=== PATIENT | female | born 1940 | race Caucasian/White ===

== ENCOUNTER → 2018-01-09 12:21 | Outpatient (CLI) | payer MEDICARE, SELFPAY ==
--- NOTE | 2018-01-09 12:26 | ECHOD_ITS ---
Reason For Study: SOB ON EXERTION Procedure This was a 2D Doppler, Color Flow transthoracic echocardiogram. The exam was of adequate technical quality. Exam performed in department. Left Ventricle Normal LV size. Mild to moderate mitral annular calcification. Left ventricular systolic function is normal. The estimated ejection fraction is 70 %. There is evidence of diastolic dysfunction. No regional wall motion abnormalities noted. Right Ventricle Normal RV size. Normal systolic function. Atria The left atrium is mildly enlarged. Normal right atrium. No doppler evidence for ASD. Mitral Valve There is mild mitral annular calcification. Chordal systolic anterior motion of the mitral valve. Trivial mitral valve insufficiency. Tricuspid Valve Normal tricuspid valve. Mild (1+) tricuspid valve insufficiency. Right ventricular systolic pressure estimated to be 32 mmHg. Aortic Valve Trisinus/trileaflet aortic valve. Normal aortic valve. Trivial aortic valve insufficiency. Pulmonic Valve The pulmonic valve is not well visualized. Trivial pulmonic valve insufficiency. Great Vessels Normal sized aortic root. Pericardium/Pleural No pericardial effusion. MMode/2D Measurements & Calculations LVIDd: 3.4 cm IVSd: 1.5 cm Ao root diam: 2.8 cm LVIDs: 1.8 cm LVPWd: 1.4 cm LA dimension: 3.2 cm RVDd: 2.5 cm FS: 47.5 % LAV(MOD-bp): 52.0 ml LVAd ap4: 22.7 cm2 SV(MOD-sp4): 39.5 ml LAV(MOD-bp) Indexed: 31.2 ml/m2 EDV(MOD-sp4): 59.1 ml LAV(MOD-sp2): 50.1 ml EDV(sp4-el): 62.0 ml LAV(MOD-sp4): 49.5 ml LVAs ap4: 11.3 cm2 ESV(MOD-sp4): 19.6 ml ESV(sp4-el): 19.3 ml EF(MOD-sp4): 66.8 % EF(sp4-el): 68.9 % SV(sp4-el): 42.7 ml LA A4 area: 17.7 cm2 RA A4 area: 9.6 cm2 Time Measurements MV dec time: 0.24 sec Doppler Measurements & Calculations MV E max vinny: 84.2 cm/sec Lat Peak E' Vinny: 7.4 cm/sec Med Peak E' Vinny: 5.7 cm/sec MV A max vinny: 103.1 cm/sec E/E' lat: 11.4 E/E' med: 14.8 MV E/A: 0.82 Ao V2 max: 160.6 cm/sec LV V1 max: 142.0 cm/sec PA V2 max: 124.3 cm/sec Ao max P.3 mmHg LV V1 max P.1 mmHg TR max vinny: 270.5 cm/sec TR max P.3 mmHg Interpretation Summary Left ventricular systolic function is normal. The estimated ejection fraction is 70 %. Mild to moderate mitral annular calcification. The left atrium is mildly enlarged. There is mild mitral annular calcification. Chordal systolic anterior motion of the mitral valve. Trivial mitral valve insufficiency. Mild (1+) tricuspid valve insufficiency. Trivial aortic valve insufficiency. Trivial pulmonic valve insufficiency. Right ventricular systolic pressure estimated to be 32 mmHg. There is evidence of diastolic dysfunction. Ordering Physician: Deepti Olmstead Referring Physician: Deepti Olmstead Performed By: Misti Ortiz RDCS
== END ==
PROVIDERS: Family Provider Nurse Practitioner; PCP Nurse Practitioner; Visit Provider Nurse Practitioner
DX: R06.02 Shortness of breath (principal)
CPT/HCPCS: 93306

== ENCOUNTER → 2018-02-13 08:39 | Outpatient (CLI) | payer MEDICARE, SELFPAY ==
--- NOTE | 2018-02-13 13:46 | PFTCOMP ---
COMPLETE PULMONARY FUNCTION TEST INTERPRETATION Brief HPI: Patient is a 77 year old female, currently under the care of Deepti Thadsouleymane, who presents to [facility] for complete pulmonary function tests secondary to diagnosis of COPD. Respiratory therapist reports good effort and reproducible results. Interpretation: Forced expiration spirometry shows a mild large airways obstructive ventilatory defect with an FEV1 of 79% predicted. There is no significant bronchodilator response by ATS criteria. Spirograms are of good quality and plateau slowly, indicating slowly emptying areas of the lungs. The respiratory flow volume loop shows decreased expiratory flow rates at high lung volumes consistent with small airways obstruction. Lung volumes by body plethysmography show a normal total lung capacity at 3.97 L, 91% predicted. All other lung volumes are within normal limits. Diffusion capacity by carbon monoxide is normal at 70% predicted. The airway resistance is elevated. Compared to previous pulmonary function tests from 06/25/2015, there has been no significant change. Impression: Irreversible mild large airways obstructive ventilatory defect with preserved diffusion capacity consistent with chronic bronchitis. 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
== END ==
PROVIDERS: Family Provider Nurse Practitioner; PCP Nurse Practitioner; Visit Provider Nurse Practitioner
DX: J44.9 Chronic obstructive pulmonary disease, unspecified (principal)
CPT/HCPCS: 94060; 94726; 94729

== ENCOUNTER → 2018-02-16 10:43 | Outpatient (CLI) | payer MEDICARE, SELFPAY ==
[2018-02-16 11:33] VITALS: PULSE 67; PULSE 69; PULSE 84; PULSE 86; PULSE 89; PULSE 90; PULSE 92; O2SAT 90; O2SAT 94; O2SAT 96; O2SAT 97
== END ==
PROVIDERS: Family Provider Nurse Practitioner; PCP Nurse Practitioner; Visit Provider Nurse Practitioner
DX: J44.9 Chronic obstructive pulmonary disease, unspecified (principal)
CPT/HCPCS: 94618

== ENCOUNTER → 2018-04-10 08:58 | Outpatient (CLI) | payer MEDICARE, SELFPAY ==
[2018-04-10 10:27] LABS: Hematocrit 36.8 % (37-47); Hemoglobin 12.4 g/dl (12.0-15.0); Mean Corp Hgb Conc 33.7 g/gl (32-36); Mean Corpuscular Hgb 30.5 pg (27.0-32.0); Mean Corpuscular Volume 90.4 fL (81-99); Mean Platelet Vol. 12.1 fl (6.2-12.0); Platelet Count 270 K/mm3 (150-450); RBC Distribution Width SD 42.6 fl (35.1-43.9); Red Blood Count 4.07 M/mm3 (4.2-5.4); White Blood Count 7.1 K/mm3 (4.4-11.0)
[2018-04-10 10:32] LABS: Scan Indicated on CBC? Y/N NO
[2018-04-10 10:51] LABS: Microalbumin,Random Urine 25.2 mg/L (NO RANGE EST.); Microalbumin:Creatinine Ratio 29.2 mg/g CRE (<30 mg/g CRE)
[2018-04-10 10:57] LABS: PTHIN 51.4 pg/mL (18.4-80.1); Vitamin D,25 Hydroxy 26.5 ng/mL (29.95-100.01)
[2018-04-10 11:01] LABS: Albumin, Serum 3.9 g/dL (3.2-5.0); BUN 31 mg/dL (7-18); BUN/Creat Ratio 18.6 RATIO (10-20); Chloride 106 mmol/L (98-107); Creatinine, Serum 1.67 mg/dL (0.55-1.02); EST Glomerular Filtration Rate 31 mL/min (>60); Est Glom Filt Rate - Afr Amer 38 mL/min (>60); Glucose 100 mg/dL (74-106); Phosphorus 3.7 mg/dL (2.5-4.9); Potassium 4.3 mmol/L (3.5-5.1); Sodium Level 140 mmol/L (136-145)
== END ==
PROVIDERS: Family Provider Nurse Practitioner; PCP Nurse Practitioner; Referring Provider Internal Medicine Nephrology; Visit Provider Internal Medicine Nephrology
DX: N18.3 Chronic kidney disease, stage 3 (moderate) (principal)
CPT/HCPCS: 36415; 80069; 82043; 82306; 82570; 83970; 85027

== ENCOUNTER → 2018-04-24 13:51 | Outpatient (CLI) | payer MEDICARE, SELFPAY ==
--- NOTE | 2018-04-24 13:53 | ECHOD_ITS ---
Reason For Study: DYSPNEA/SOB Procedure This was a 2D Doppler, Color Flow transthoracic echocardiogram. The study was technically difficult. Exam performed in department. Left Ventricle Normal LV size. Left ventricular systolic function is normal. The estimated ejection fraction is 70 %. Diastolic function is indeterminate. No regional wall motion abnormalities noted. Right Ventricle Normal RV size. Normal systolic function. Atria The left atrium is mildly enlarged. Normal right atrium. No doppler evidence for ASD. Mitral Valve There is mild mitral annular calcification. Chordal systolic anterior motion of the mitral valve. Trivial mitral valve insufficiency. Tricuspid Valve Normal tricuspid valve. Mild tricuspid valve insufficiency. Right ventricular systolic pressure estimated to be 27 mmHg. Aortic Valve Trisinus/trileaflet aortic valve. Trivial aortic valve insufficiency. Pulmonic Valve The pulmonic valve is not well visualized. Great Vessels Normal sized aortic root. Pericardium/Pleural No pericardial effusion. MMode/2D Measurements & Calculations LVIDd: 3.9 cm IVSd: 1.2 cm Ao root diam: 2.8 cm LVIDs: 2.3 cm LVPWd: 1.2 cm LA dimension: 3.6 cm RVDd: 2.7 cm FS: 42.1 % LAV(MOD-bp): 51.6 ml LA A4 area: 17.0 cm2 LA dimension(2D): 3.6 cm LAV(MOD-bp) Indexed: 31.0 ml/m2 LAV(MOD-sp2): 51.6 ml LAV(MOD-sp4): 48.0 ml RA A4 area: 11.0 cm2 Doppler Measurements & Calculations MV E max vinny: 84.8 cm/sec Lat Peak E' Vinny: 6.7 cm/sec Med Peak E' Vinny: 6.0 cm/sec MV A max vinny: 102.6 cm/sec E/E' lat: 12.6 E/E' med: 14.1 MV E/A: 0.83 Ao V2 max: 149.6 cm/sec LV V1 max: 130.6 cm/sec PA V2 max: 122.0 cm/sec Ao max P.0 mmHg LV V1 max P.8 mmHg TR max vinny: 246.5 cm/sec TR max P.4 mmHg Interpretation Summary The study was technically difficult. Left ventricular systolic function is normal. The estimated ejection fraction is 70 %. The left atrium is mildly enlarged. There is mild mitral annular calcification. Chordal systolic anterior motion of the mitral valve. Trivial mitral valve insufficiency. Mild tricuspid valve insufficiency. Trivial aortic valve insufficiency. Right ventricular systolic pressure estimated to be 27 mmHg. Diastolic function is indeterminate. Ordering Physician: Raymond Ardon Referring Physician: Deepti Olmstead Performed By: Libertad Cortes RDCS, RVT
== END ==
PROVIDERS: Family Provider Nurse Practitioner; PCP Nurse Practitioner; Referring Provider Nurse Practitioner Family; Visit Provider Nurse Practitioner Family
DX: I48.92 Unspecified atrial flutter (principal); I10 Essential (primary) hypertension; R06.09 Other forms of dyspnea; Z79.899 Other long term (current) drug therapy
CPT/HCPCS: 93306

== ENCOUNTER → 2018-06-07 09:40 | Outpatient (CLI) | payer MEDICARE, SELFPAY ==
[2018-04-16 09:16] VITALS: BMI 27.1
--- NOTE | 2018-06-07 09:42 | BI_ITS ---
MAMMOGRAPHY - BILATERAL SCREENING REASON FOR EXAM: Female, 77 years old. Routine annual screening examination. PERTINENT HISTORY: Non-contributory. TECHNIQUE: Digital bilateral breast fabi (3D mammographic acquisition) in the CC and MLO projections. 2-D mediolateral oblique (MLO) and craniocaudad (CC) views of both breasts were obtained. CAD: Full Field Digital Mammography with Computer Added Detection was performed. COMPARISON: Comparison is made with prior study dated October 01, 2015. FINDINGS: Breast Composition: There are scattered areas of fibroglandular density. There are no dominant masses or suspicious calcifications. No other significant abnormalities are identified. There has been no significant change since the prior study. BI/SCREENING MAMM (CAD), BILAT IMPRESSION: Stable bilateral screening mammogram. Yearly follow-up mammogram recommended. (A) ASSESSMENT CATEGORY: BIRADS Category 1: Negative. A letter regarding these results will be sent to the patient by the facility within 30 days. Approximately 10% of breast cancers are not detected by mammography. A normal mammogram should not delay biopsy of a clinically suspicious abnormality. [id number] Electronically Signed: Tyron Barillas MD at 10:31 EST Tel [phone], Service support ,
--- NOTE | 2018-06-07 10:03 | BD_ITS ---
STUDY: DUAL ENERGY X-RAY ABSORPTIOMETRY / DXA REASON FOR EXAM: Female, 77 years old. The patient is postmenopausal. Loss of height. TECHNIQUE: Bone Mineral Density (BMD) measurements of lumbar spine and bilateral hips were obtained. COMPARISON: Comparison is made with prior examination dated October 01, 2015. FINDINGS: Lumbar Spine (L1-L4): g/cm2 (1.126) / T-score (-0.4) / Z-score (1.5) Findings are suggestive of normal bone density with a low fracture risk. Left Femur Total: g/cm2 (0.793) / T-score (-1.7) / Z-score (0.3) Left Femoral Neck: g/cm2 (0.795) / T-score (-1.7) / Z-score (0.4) Right Femur Total: g/cm2 (0.812) / T-score (-1.6) / Z-score (0.4) Right Femoral Neck: g/cm2 (0.773) / T-score (-1.9) / Z-score (0.2) The T-Scores on the most recent prior examination were: Lumbar Spine (L1-L4): There has been improvement of bone density since the previous examination. Left Femur Total: which represents a worsening of 2.1%. Right Femur Total: which represents a worsening of 1.7%. BD/Dexa Bone Density Study IMPRESSION: The patient is considered osteopenic as outlined below according to World [place] Organization (WHO) criteria with a moderate fracture risk. There has been worsening of bone density since the previous examination. Reference Information: The T-score is the number of standard deviations above or below the standard which is normal for young adults at their peak bone mineral density. The World Health Organization (WHO) interprets the T-scores as follows: Above -1 Normal bone density Between -1 and -2.5 Osteopenia Equal to / or below -2.5 Osteoporosis As a practical clinical guideline, osteopenia may be graded as follows: Mild -1 through -1.5 Moderate -1.6 through -2.0 Severe -2.1 through -2.4 The Z-score is the number of standard deviations above or below age-matched controls. A Z-score of less than -1.5 would be considered abnormal. References: 1. NIH Osteoporosis and Related Bone Diseases http://www.osteo.org 2. International Society for Clinical Densitometry http://www.iscd.org 3. National Osteoporosis Foundation http://www.nof.org Electronically Signed: Tyron Barillas MD at 13:10 EST Tel [phone], Service support ,
--- OUTSIDE RECORDS SUMMARY | 2018-07-24 03:22 | XMS RPT_ITS | Continuity of Care Document ---
:1940 Author Organization [facility] Address [address] [place] [address] Phone Care Team Providers Name Role Phone Deepti Olmstead CNP Unavailable Kelvin Toney Unavailable Chuy OLVERA, Dr. Ade Antonio Unavailable Dr. Carlos Smyth Unavailable Dr. Christian Aguilar Unavailable Marvin OLVERA, Jose Antonio Unavailable Unavailable Burton Kirk MD, Luca Unavailable Aury Robles Unavailable Unavailable Slarb OUTREACH CLINICIAN, Chula Unavailable Unavailable Long OUTREACH CLINICIAN, Vonnie L Unavailable Unavailable Gus Grubbs Unavailable Unavailable Unavailable Unavailable Problems Name Dates Details Acute sinusitis, unspecified (J01.90, 461.9) Status: Active Asthma (J45.909, 493.90) Comments: on spiriva, and new Arnuity elipta from [facility], was told NO COPD but asthma with reflux on prilosec, elevated HOB, and nothing after 6 to eat Status: Active Atherosclerotic plaque (I70.90, 440.9) Comments: Mod carotid stenosis , carotid doppler per cardi, [place] Status: Active Basal cell carcinoma, face (C44.310, 173.31) Comments: near eay basal cell left eye, removed by [facility] eye doctor Status: Active BMI 25.0-25.9,adult (Z68.25, V85.21) Status: Active BMI 26.0-26.9,adult (Z68.26, V85.22) Status: Active BMI 27.0-27.9,adult (Z68.27, V85.23) Status: Active Cerebrovascular disease, unspecified (I67.9, 437.9) Comments: November 2012 old, on plavix and stable lipid Status: Active CHRONIC KIDNEY DISEASE, STAGE III (MODERATE) (N18.3, 585.3) Comments: last creat 1.[address] Heard,41%, told to stay hydrated, 04-10-18 no proteinuria Status: Active Cough (R05, 786.2) Status: Active Current non-smoker (Z78.9, V49.89) Status: Active Encounter for annual general medical examination with abnormal findings in adult (Z00.01, V70.0) Status: Active Encounter for screening for malignant neoplasm of colon (Renamed from Special screening for malignant neoplasms, colon) (Z12.11, V76.51) Status: Active Encounter for screening mammogram for breast cancer (Renamed from Encounter for screening mammogram for malignant neoplasm of breast) (Z12.31, V76.12) Status: Active FAMILY HISTORY OF DIABETES MELLITUS (Z83.3, V18.0) Status: Active GERD (gastroesophageal reflux disease) (K21.9, 530.81) Comments: Reflux seen on CT per Sibili on prilosec at hs and nothing to eat after 6 Status: Active Hypercholesteremia (E78.00, 272.0) Comments: rubin ralph recheck lipid, await what [employer] will cover and what she can tolerate unable to tolerat statin, wont pay for repatha Status: Active Hypertension, benign essential, goal below 140/90 (I10, 401.1) Comments: BP 125/60 at home since on hctz, losartan, and diltazem with much better control Status: Active Hypertension, uncontrolled (I10, 401.9) Comments: ? cental hypertension, put on hydralazine 50mg tid, with improvement of ORLY 139/57 would had decreased dose to 25mgtid and BP up, so will increase again to 50mg tid because BP 203/70 , then saw Rhaina p ut on lebetalol developed SOB and she took herself off and put herelf back on hydralazine bid, then she decreased dose to 50mg and then felt faint at home, this has been Dced.Now only only on losartan and ojahttyub168/68 Status: Active Hypertriglyceridemia (E78.1, 272.1) Comments: unable to tolerate fibrate, taking red yeast rice and CoQ10, fiberfil will repeat cholesall statins lead to myalgia consider rapatha but not covered Status: Active Hypothyroid (E03.9, 244.9) Status: Active Hypothyroidism (E03.9, 244.9) Status: Active Need for prophylactic vaccination and inoculation against influenza (Z23, V04.81) Status: Active Need for prophylactic vaccination and inoculation against influenza (Renamed from Need for immunization against influenza) (Z23, V04.81) Status: Active Nonsmoker (Z78.9, V49.89) Status: Active Nonsmoker (Z78.9, V49.89) Status: Active Osteoporosis (M81.0, 733.00) Status: Active Post-infection bronchospasm (J98.01, 519.11) Status: Active Postmenopausal (Renamed from Postmenopausal status) (Z78.0, V49.81) Status: Active SOB (shortness of breath) on exertion (R06.02, 786.05) Status: Active Status post colonoscopy with polypectomy (Z98.890, V45.89) Comments: Dr. Smyth did colonoscopy on 10/06/16. Removed one polyp. Status: Active Stroke (I63.9, 434.91) Comments: [facility] improving now on ASA and Plavix and fish oiljune - slurred speech symptom and then dx at [facility] after discharged from [facility] twice -- sx had progressed to R arm numb and w eak and difficulty swallowing. at time of cva - bp was 300/100 Status: Active Unspecified Diagnosis Status: Active Unspecified Diagnosis Status: Active Unspecified Diagnosis Status: Active Unspecified Diagnosis Status: Active Urinary tract infection, acute (N39.0, 599.0) Status: Active Vertigo (R42, 780.4) Comments: will use flonase, and head exercises and watch salt Status: Active Vitamin d deficiency (E55.9, 268.9) Status: Active Vitamin deficiency (E56.9, 269.2) Status: Active Medications Name Dates Details Arnuity Ellipta 100 MCG/ACT Inhalation Aerosol Powder Breath Activated 1 (one) Puff daily for 30 days Quantity: 1 {Inhaler} Refills: 0 Ordered:02-May-2018 Ishan FORMAN Deepti Dallas CNP, Deepti Calderon Start : 02-May-2018 Active DilTIAZem CD 180 MG Oral Capsule Extended Release 24 Hour 1 (one) Capsule ER 24HR daily for 30 days Quantity: 30 {Capsule} Refills: 6 Ordered:01-May-2017 Ishan DASIA Deepti Dallas CNP, Deepti Calderon Start : 01-May-2017 Active Glucosamine Sulfate 500 MG Oral Capsule 1 (one) Capsule Capsule bid for 0 days Quantity: 60 {Capsule} Refills: 0 Ordered:24-Nov-2017 [place] ROBERT Chula Start : 04-Aug-2017 Active HydroCHLOROthiazide 12.5 MG Oral Capsule 1 (one) Capsule daily for 90 days Quantity: 90 {Capsule} Refills: 3 Ordered:19-May-2018 Ishan FORMAN Deepti Dallas CNP Deepti Calderon Start : 19-May-2018 Active HydroCHLOROthiazide 12.5 MG Oral Capsule 1 (one) Capsule daily for 0 days Quantity: 90 {Capsule} Refills: 3 Ordered:19-May-2018 Ishan FORMAN Deepti Dallas CNP Deepti Calderon Start : 19-May-2018 Active Levothyroxine Sodium 50 MCG Oral Tablet 1 (one) Tablet daily for 90 days Quantity: 90 {Tablet} Refills: 3 Ordered:23-Nov-2017 Ishan FORMAN Deepti Dallas CNP Deepti Calderon Start : 23-Nov-2017 Active Livalo 4 MG Oral Tablet 1 (one) Tablet daily for 0 days Quantity: 28 {Tablet} Refills: 0 Ordered:02-May-2018 Ishan DASIA Deepti Dallas DASIA Deepti Calderon Start : 02-May-2018 Active Losartan Potassium 50 MG Oral Tablet 1 (one) Tablet bid for 90 days Quantity: 180 {Tablet} Refills: 3 Ordered:21-Feb-2018 Ishan DASIA Deepti Dallas CNP Deepti Calderon Start : 21-Feb-2018 Active Plavix 75 MG Oral Tablet 1 (one) Tablet qd for 90 days Quantity: 90 {Tablet} Refills: 3 Ordered:21-Feb-2018 Deepti Olmstead CNP, CNP, Mary E Start : 21-Feb-2018 Active PriLOSEC OTC 20 MG Oral Tablet Delayed Release 1 (one) Tablet DR take every other day then stop after 2 weeks for 0 days Quantity: 30 {Tablet} Refills: 0 Ordered:24-Nov-2017 Ishan FORMAN Deepti Nascimento CNP Start : 24-Nov-2017 Active ProAir HFA 108 (90 Base) MCG/ACT Inhalation Aerosol Solution 1 (one) Puff tid prn for rescue inhaler for 0 days Quantity: 1 {Inhaler} Refills: 3 Ordered:24-Nov-2017 Ishan FORMAN, Deepti Nascimento CNP Start : 24-Nov-2017 Active ProAir HFA 108 (90 Base) MCG/ACT Inhalation Aerosol Solution 1 (one) Puff tid prn for rescue inhaler for 0 days Quantity: 1 {Inhaler} Refills: 3 Ordered:24-Nov-2017 Ishan FORMAN Deepti Nascimento CNP Start : 24-Nov-2017 Active Spiriva Respimat 2.5 MCG/ACT Inhalation Aerosol Solution 2 (two) Aerosol Soln daily for 0 days Quantity: 3 {Carton} Refills: 3 Ordered:24-Nov-2017 Ishan FORMAN Deepti Nascimento CNP Start : 24-Nov-2017 Active Spiriva Respimat 2.5 MCG/ACT Inhalation Aerosol Solution 2 (two) Aerosol Soln daily for 0 days Quantity: 1 {Inhaler} Refills: 6 Ordered:24-Nov-2017 Ishan FORMAN Deepti Nascimento CNP Start : 24-Nov-2017 Active Vitamin D3 2000 UNIT Oral Capsule 1 (one) Capsule Capsule daily for 0 days Quantity: 30 {Capsule} Refills: 3 Ordered:10-Jan-2017 Ishan FROMAN, Deepti Nascimento CNP Start : 10-Jan-2017 Active AMLODIPINE BESYLATE, 10MG (Oral Tablet) 1 Tablet daily for 0 days Quantity: 90 {Tablet} Refills: 3 Ordered:16-Jul-2013 Ann Louis LPN Start : 07-Jan-2013 End : 16-Jul-2013 Inactive AMLODIPINE BESYLATE, 5MG (Oral Tablet) 1 Tablet Tablet daily for 0 days Quantity: 90 {Tablet} Refills: 3 Ordered:15-Oct-2013 Heriberto ROBERTAnn Start : 30-Apr-2013 End : 15-Oct-2013 Inactive ASPIRIN ADULT LOW STRENGTH, 81MG (Oral Tablet Delayed Release) 1 (one) Tablet DR daily for 30 days Refills: 0 Ordered:31-Jul-2015 Ishan FORMAN, Deepti Dallas CNP, Deepti Calderon Start : 17-Jun-2015 End : 17-Jul-2015 Inactive Aspirin EC 81 MG Oral Tablet Delayed Release 1 (one) Tablet DR daily for 30 days Quantity: 30 {Tablet} Refills: 0 Ordered:08-Aug-2016 Ishan FORMAN, Deepti Dallas CNP, Depeti Calderon Start : 08-Aug-2016 End : 07-Sep-2016 Inactive Aspirin EC Low Dose 81 MG Oral Tablet Delayed Release 1 (one) Tablet DR daily for 30 days Quantity: 30 {Tablet} Refills: 0 Ordered:04-Aug-2017 Ishan FORMAN, Deepti Dallas CNP, Deepti Calderon Start : 04-Aug-2017 End : 03-Sep-2017 Inactive AUGMENTIN, 875-125MG (Oral Tablet) 1 Tablet Tablet bid for 14 days Quantity: 28 {Tablet} Refills: 0 Ordered:29-Oct-2014 Chula Corrales LPN Start : 29-Oct-2014 End : 12-Nov-2014 Inactive Calcium-Vitamin D 500-200 MG-UNIT Oral Tablet 1 (one) Tablet Tablet bid for 0 days Quantity: 30 {Tablet} Refills: 0 Ordered:10-Jan-2017 Ishan FORMAN, Deepti Dallas CNP, Deepti Calderon Start : 02-Oct-2015 End : 10-Jan-2017 Inactive CEFADROXIL, 500MG (Oral Capsule) 1 (one) Capsule bid for 7 days Quantity: 14 {Capsule} Refills: 0 Ordered:28-Jul-2014 Ishan FORMAN, Deepti Dallas CNP, Deepti Calderon Start : 28-Jul-2014 End : 04-Aug-2014 Inactive Cheratussin AC 100-10 MG/5ML Oral Syrup 5 Milliliter q6hrs prn cough for 0 days Quantity: 120 {Milliliter} Refills: 0 Ordered:04-Aug-2017 Chula Corrales LPN Start : 13-Jun-2017 End : 04-Aug-2017 Inactive CoQ10 100 MG Oral Capsule 1 (one) Capsule daily for 0 days Quantity: 30 {Capsule} Refills: 0 Ordered:24-Nov-2017 Chula Corrales LPN Start : 02-Feb-2016 End : 24-Nov-2017 Inactive DILTIAZEM HCL ER BEADS, 180MG (Oral Capsule Extended Release 24 Hour) 1 (one) Capsule ER 24HR two times daily for 30 days Quantity: 30 {Capsule} Refills: 0 Ordered:17-Jun-2015 Ishan FORMAN Deepti Tijerinasouleymane FORMAN Deepti Calderon Start : 17-Jun-2015 End : 17-Jul-2015 Inactive ETODOLAC ER, 400MG (Oral Tablet Extended Release 24 Hour) 2 (two) Tablet ER 24HR with food daily for 0 days Quantity: 10 {Tablet} Refills: 0 Ordered:24-Oct-2014 Ishan FORMAN Deepti PATELsage FORMAN Deepti Calderon Start : 24-Oct-2014 End : 24-Oct-2014 Inactive FENOFIBRATE, 48MG (Oral Tablet) 1 (one) Tablet Tablet daily for 0 days Quantity: 90 {Tablet} Refills: 2 Ordered:19-Nov-2015 Vonnie Jones LPN Start : 02-Nov-2015 End : 19-Nov-2015 Inactive Folic Acid 800 MCG Oral Tablet 1 (one) Tablet daily for 0 days Quantity: 30 {Tablet} Refills: 0 Ordered:24-Nov-2017 Chula Corrales LPN Start : 02-Feb-2016 End : 24-Nov-2017 Inactive Levaquin 500 MG Oral Tablet 1 (one) Tablet daily for 7 days Quantity: 7 {Tablet} Refills: 0 Ordered:13-Jun-2017 Ishan FORMAN Deepti Tijerinasouleymane OFRMAN Deepti Calderon Start : 13-Jun-2017 End : 20-Jun-2017 Inactive LOSARTAN POTASSIUM, 100MG (Oral Tablet) 1 Tablet daily for 0 days Quantity: 90 {Tablet} Refills: 1 Ordered:15-Oct-2013 Ann Louis LPN Start : 03-Jul-2013 End : 15-Oct-2013 Inactive Macrobid 100 MG Oral Capsule 1 (one) Capsule BID for 7 days Quantity: 14 {Capsule} Refills: 0 Ordered:10-Oct-2016 Queta Pike Start : 10-Oct-2016 End : 17-Oct-2016 Inactive Comments:Take with food Multivitamin Adults 50+ Oral Tablet 1 (one) Tablet daily for 0 days Quantity: 30 {Tablet} Refills: 0 Ordered:10-Jan-2017 Deepti Olmstead CNP, CNP, Mary E Start : 02-Feb-2016 End : 10-Jan-2017 Inactive Potassium 99 MG Oral Tablet 1 (one) Tablet Tablet daily for 0 days Quantity: 30 {Tablet} Refills: 0 Ordered:24-Nov-2017 Chula Corrales LPN Start : 10-Jan-2017 End : 24-Nov-2017 Inactive Potassium Gluconate ER 595 MG Oral Tablet Extended Release 1 (one) Tablet ER daily for 0 days Quantity: 30 {Tablet} Refills: 0 Ordered:10-Jan-2017 Ishan FORMAN, Deepti Dallas CNP, Deepti Calderon Start : 02-Feb-2016 End : 10-Jan-2017 Inactive POTASSIUM GLUCONATE, 2MEQ (Oral Tablet) 1 (one) Tablet daily for 30 days Quantity: 30 {Tablet} Refills: 0 Ordered:08-Dec-2015 Deepti Olmstead CNP, CNP, Deepti Calderon Start : 02-Nov-2015 End : 02-Dec-2015 Inactive PredniSONE 10 MG Oral Tablet 1 (one) Tablet bid x 3 days then daily x 3 days then 1/2 x 3 days for 0 days Quantity: 12 {QS} Refills: 0 Ordered:02-Jan-2018 Ishan FORMAN, Deepti Dallas CNP, Deepti Calderon Start : 24-Nov-2017 End : 02-Jan-2018 Inactive Comments:with food Remeron 15 MG Oral Tablet 1 (one) Tablet Tablet qhs for 0 days Quantity: 30 {Tablet} Refills: 3 Ordered:24-Nov-2017 Chula Corrales LPN Start : 17-Apr-2017 End : 24-Nov-2017 Inactive TIZANIDINE HCL, 4MG (Oral Tablet) 1 Tablet q6-8 hrs prn neck pain for 0 days Quantity: 30 {Tablet} Refills: 0 Ordered:10-Sep-2013 Ann Louis LPN Start : 24-Dec-2012 End : 10-Sep-2013 Inactive TRILIPIX, 45MG (Oral Capsule Delayed Release) 1 (one) Capsule DR Capsule DR daily for 0 days Quantity: 30 {Capsule} Refills: 3 Ordered:15-Oct-2013 Ann Louis LPN Start : 17-Jul-2013 End : 15-Oct-2013 Inactive Vitamin B12 100 MCG Oral Tablet 1 (one) Tablet daily for 30 days Quantity: 30 {Tablet} Refills: 0 Ordered:04-Aug-2017 Ishan FORMAN, Deepti Dallas CNP, Deepti Calderon Start : 04-Aug-2017 End : 03-Sep-2017 Inactive VITAMIN D, 2000UNIT (Oral Capsule) 1 (one) Capsule Capsule daily for 0 days Quantity: 30 {Capsule} Refills: 0 Ordered:19-Nov-2015 Long OUTREACH CLINICIANVonnie L Start : 04-Nov-2014 End : 19-Nov-2015 Inactive Xyzal 5 MG Oral Tablet 1 (one) Tablet at hs prn for itching and hives for 0 days Quantity: 30 {Tablet} Refills: 0 Ordered:10-Jan-2017 Ishan FORMAN, Deepti Dallas CNP, Deepti Calderon Start : 26-Oct-2016 End : 10-Jan-2017 Inactive ADVAIR DISKUS, 100-50MCG/DOSE (Inhalation Aerosol Powder Breath Activated) 2 (two) Puff 2 times a day for 0 days Quantity: 1 {Inhaler} Refills: 0 Ordered:21-Apr-2015 Chula Corrales LPN Start : 04-Nov-2014 End : 21-Apr-2015 Discontinued Comments: ADVAIR DISKUS, 500-50MCG/DOSE (Inhalation Aerosol Powder Breath Activated) 1 (one) Aero Pow Br Act Aero Pow Br Act bid for 0 days Quantity: 3 {Disk} Refills: 6 Ordered:31-Jul-2015 Ann Louis LPN Start : 25-Nov-2014 End : 31-Jul-2015 Discontinued ADVAIR DISKUS, 500-50MCG/DOSE (Inhalation Aerosol Powder Breath Activated) 1 (one) Aero Pow Br Act Aero Pow Br Act bid for 0 days Quantity: 3 {Disk} Refills: 6 Ordered:31-Jul-2015 Mannie Louis LPNsie Start : 25-Nov-2014 End : 31-Jul-2015 Discontinued ALIGN, 4MG (Oral Capsule) 1 Capsule Capsule daily for 0 days Quantity: 30 {Capsule} Refills: 0 Ordered:08-Oct-2014 SlaOj williamson LPNa Start : 05-Nov-2013 End : 08-Oct-2014 Discontinued CHERATUSSIN AC, 100-10MG/5ML (Oral Solution) 1-2 Teaspoon qhs prn cough for 0 days Quantity: 8 {Ounce} Refills: 0 Ordered:28-Jul-2014 Ann Louis LPN Start : 30-Jun-2014 End : 28-Jul-2014 Discontinued DULERA, 100-5MCG/ACT (Inhalation Aerosol) 2 (two) Puff Puff bid for 0 days Quantity: 1 {Inhaler} Refills: 0 Ordered:31-Jul-2015 Ann Louis LPN Start : 17-Jun-2015 End : 31-Jul-2015 Discontinued Ergocalciferol 27286 UNIT Oral Capsule 1 (one) Capsule twice weekly for 0 days Quantity: 24 {Capsule} Refills: 0 Ordered:08-Aug-2016 Chula Corrales LPN Start : 19-Nov-2015 End : 08-Aug-2016 Discontinued Ergocalciferol 20751 UNIT Oral Capsule 1 (one) Capsule twice weekly for 0 days Quantity: 24 {Capsule} Refills: 0 Ordered:08-Aug-2016 Chula Corrales LPN Start : 19-Nov-2015 End : 08-Aug-2016 Discontinued FLONASE, 50MCG/ACT (Nasal Suspension) 2 (two) [place] daily for 0 days Quantity: 1 {Bottle} Refills: 0 Ordered:13-May-2014 Ann Louis LPN Start : 13-May-2014 End : 31-Jul-2015 Discontinued Comments:This order discontinued per [facility]. HYDRALAZINE HCL, 50MG (Oral Tablet) 1 (one) Tablet tid for 0 days Quantity: 90 {QS} Refills: 1 Ordered:04-Nov-2014 Chula Corrales LPN Start : 29-Oct-2014 End : 04-Nov-2014 Discontinued LABETALOL HCL, 200MG (Oral Tablet) 1/2 (one half) Tablet three times daily for 90 days Quantity: 270 {Tablet} Refills: 0 Ordered:18-Nov-2014 Ann Louis LPN Start : 04-Nov-2014 End : 18-Nov-2014 Discontinued LEVOTHYROXINE SODIUM, 75MCG (Oral Tablet) 1 Tablet take 1/2 pill alternate with 1 pill every other day for 0 days Quantity: 90 {Tablet} Refills: 3 Ordered:08-Oct-2014 Chula Corrales LPN Start : 11-Mar-2014 End : 08-Oct-2014 Discontinued LOSARTAN POTASSIUM, 50MG (Oral Tablet) 2 (two) Tablet daily for 0 days Quantity: 180 {Tablet} Refills: 3 Ordered:17-Jun-2015 Chula Corrales LPN Start : 22-Apr-2015 End : 17-Jun-2015 Discontinued LOSARTAN POTASSIUM, 50MG (Oral Tablet) 2 (two) Tablet daily for 0 days Quantity: 90 {Tablet} Refills: 3 Ordered:17-Jun-2015 Chula Corrales LPN Start : 22-Apr-2015 End : 17-Jun-2015 Discontinued MEDROL (GUANAKO), 4MG (Oral Tablet) 1 (one) Tablet TAD for 0 days Quantity: 1 {Package} Refills: 0 Ordered:28-Jul-2014 Ann Louis LPN Start : 30-Jun-2014 End : 28-Jul-2014 Discontinued MINOCYCLINE HCL, 100MG (Oral Capsule) 1 (one) Capsule bid for 0 days Quantity: 60 {Capsule} Refills: 0 Ordered:30-Jun-2014 Ann Louis LPN Start : 13-May-2014 End : 30-Jun-2014 Discontinued Pantoprazole Sodium 40 MG Oral Tablet Delayed Release [address] daily for 0 days Quantity: 90 {Tablet} Refills: 3 Ordered:06-May-2016 Chula Corrales LPN Start : 29-Dec-2014 End : 06-May-2016 Discontinued PRAVASTATIN SODIUM, 40MG (Oral Tablet) 1 Tablet daily for 0 days Quantity: 30 {Tablet} Refills: 3 Ordered:04-Jan-2013 Tressa Bonilla DO Start : 04-Jan-2013 End : 04-Jan-2013 Discontinued Comments:feels awlful and achy all over Repatha SureClick 140 MG/ML Subcutaneous Solution Auto-injector 1 (one) Soln Auto-inj every other week for 90 days Quantity: 6 {QS} Refills: 3 Ordered:02-Feb-2016 Chula Corrales LPN Start : 03-Nov-2015 End : 02-Feb-2016 Discontinued REQUIP, 0.25MG (Oral Tablet) 1 Tablet daily for 0 days Quantity: 90 {Tablet} Refills: 3 Ordered:25-Nov-2014 Chula Corrales LPN Start : 22-Jan-2014 End : 25-Nov-2014 Discontinued TESSALON PERLES, 100MG (Oral Capsule) 1 (one) Capsule tid prn for cough for 0 days Quantity: 30 {Capsule} Refills: 0 Ordered:28-Jul-2014 Ann Louis LPN Start : 30-Jun-2014 End : 28-Jul-2014 Discontinued TRAMADOL HCL, 50MG (Oral Tablet) 1 (one) Tablet q6hrs prn for 0 days Quantity: 30 {Tablet} Refills: 0 Ordered:29-Oct-2014 Chula Corrales LPN Start : 24-Oct-2014 End : 29-Oct-2014 Discontinued VENTOLIN HFA, 108 (90 Base)MCG/ACT (Inhalation Aerosol Solution) 2 (two) Puff Puff tid prn for 0 days Quantity: 1 {Inhaler} Refills: 0 Ordered:31-Jul-2015 Ann Louis LPN Start : 17-Jun-2015 End : 31-Jul-2015 Discontinued Comments:as rescue Zetia 10 MG Oral Tablet 1 (one) Tablet Tablet daily for 0 days Quantity: 30 {Tablet} Refills: 6 Ordered:09-Aug-2016 Chula Corrales LPN Start : 28-Jun-2016 End : 09-Aug-2016 Discontinued Comments:GENERIC OK ZITHROMAX Z-GUANAKO, 250MG (Oral Tablet) 1 (one) Tablet TAD for 0 days Quantity: 1 {Package} Refills: 0 Ordered:28-Jul-2014 Ann Louis LPN Start : 30-Jun-2014 End : 28-Jul-2014 Discontinued Allergies and Adverse Reactions Name Dates Details Labetolol HCl *CHEMICALS* (Allergy) Status: Active Sulfa Drugs (Allergy) Status: Active Past Medical History Name Dates Details Abnormal finding of blood chemistry, unspecified (R79.9, 790.6) Comments: repeat lab first since mild and if persists will pursue further w/u - screen for dm first with elev sugar Status: Inactive as of 12-Apr-2013 Anemia (D64.9, 285.9) Comments: From August to October hmg decreased 2 gms, has blood in stool Status: Inactive as of 02-May-2018 Atrial fibrillation (I48.91, 427.31) Comments: controlled on on losartin and diltiazem Status: Inactive as of 05-Mar-2018 BMI 25.0-25.9,adult (Z68.25, V85.21) Status: Inactive as of 17-Apr-2017 BMI 26.0-26.9,adult (Z68.26, V85.22) Status: Resolved as of 06-Feb-2018 Bronchospasm (J98.01, 519.11) Status: Inactive as of 17-Apr-2017 CKD (chronic kidney disease), stage II (N18.2, 585.2) Status: Inactive as of 02-May-2018 COPD (chronic obstructive pulmonary disease) (J44.9, 496) Comments: seen on Pulmonary Function Test , 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 with reduction in diffuse capacity will stop dulera and start spiriva and 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, 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, not seeing pulm Status: Inactive as of 02-May-2018 COPD exacerbation (J44.1, 491.21) Status: Inactive as of 02-May-2018 Depression (F32.9, 311) Status: Inactive as of 05-Mar-2018 Diabetes mellitus type 2, uncontrolled, without complications (E11.65, 250.02) Comments: currently on liquid diet with cva-- new dx Status: Inactive as of 12-Apr-2013 Diarrhea (R19.7, 787.91) Status: Inactive as of 17-Apr-2017 Dysphagia (R13.10, 787.20) Comments: slowly improving - secondary to cva, still on liquid diet Status: Inactive as of 12-Apr-2013 Elbow pain, left (M25.522, 719.42) Comments: worse at night with sheets touching it, diltiazem helps with pain Status: Inactive as of 02-May-2018 Fall at home (W19.XXXA, E888.9) Status: Inactive as of 17-Apr-2017 Fatigue (R53.83, 780.79) Status: Inactive as of 05-Mar-2018 Hand pain (M79.643, 729.5) Comments: most recent cr 1.2 will give short term nsaid and see if help symptmoms and kidney tolerates Status: Inactive as of 17-Apr-2017 Headache (R51, 784.0) Comments: likely from first dose hydralazine and bringing BP down Status: Inactive as of 17-Apr-2017 Hip pain, left (M25.552, 719.45) Comments: glucosamine gave her diarrhea, trying tumeric now Status: Inactive as of 02-May-2018 Hives (L50.9, 708.9) Comments: started Monday night while sleeping Status: Inactive as of 17-Apr-2017 Hypercholesterolemia (E78.00, 272.0) Comments: had to hold statin bc of aches and will see what happens Status: Inactive as of 12-Apr-2013 Hypokalemia (E87.6, 276.8) Status: Inactive as of 02-May-2018 Hypotension (I95.9, 458.9) Comments: BP too low, will decrease BP med Status: Inactive as of 05-Mar-2018 Itching (L29.9, 698.9) Status: Inactive as of 17-Apr-2017 Itching (L29.9, 698.9) Status: Inactive as of 17-Apr-2017 Knee pain, left (M25.562, 719.46) Status: Inactive as of 02-May-2018 Lump (R22.9, 782.2) Comments: neck Status: Inactive as of 17-Apr-2017 Myalgia (M79.10, 729.1) Status: Inactive as of 12-Apr-2013 Neck pain on left side (M54.2, 723.1) Comments: musculoskeletalpushing laundry basket Status: Inactive as of 12-Apr-2013 Osteopenia (M85.80, 733.90) Status: Inactive as of 02-May-2018 Other specified abnormal findings of blood chemistry (R79.89, 790.6) Comments: abn blood chemistry--- abn gamma protein in spep Status: Inactive as of 02-May-2018 Pain in unspecified hip (M25.559, 719.45) Status: Resolved as of 04-Jan-2013 Paresthesia (R20.2, 782.0) Comments: on rt side secondary to stroke did not want to take gabapendin on ASAimproved with Vit B Status: Inactive as of 17-Apr-2017 Paronychia of toenail (L03.039, 681.11) Status: Inactive as of 02-May-2018 Plaque (523.6) Comments: thoracic aorta and brachial cephalic artery, etc Status: Inactive as of 17-Apr-2017 Restless leg syndrome (G25.81, 333.94) Comments: takes requip Status: Inactive as of 02-May-2018 Right sided abdominal pain (R10.9, 789.09) Status: Inactive as of 17-Apr-2017 Rosacea (L71.9, 695.3) Status: Inactive as of 02-May-2018 Screening for osteoporosis (Renamed from Encounter for screening for osteoporosis) (Z13.820, V82.81) Status: Inactive as of 17-Apr-2017 SOB (shortness of breath) on exertion (R06.02, 786.05) Comments: Read Cardiology report, had last echo in October 2014, will repeat echo, and add diuretic hctzS/p ablation consider adding Hctz Status: Inactive as of 02-May-2018 SVT (supraventricular tachycardia) (I47.1, 427.89) Comments: seeing [place] and going to [facility] for EPS/RFA Status: Resolved as of 22-Apr-2015 Syncopal episodes (R55, 780.2) Comments: echo reviewed goodwas over taking Vit D? Status: Inactive as of 02-May-2018 Thrombophlebitis (I80.9, 451.9) Status: Inactive as of 02-May-2018 Tinnitus, right (H93.11, 388.30) Status: Inactive as of 17-Apr-2017 Toe pain (M79.676, 729.5) Status: Inactive as of 17-Apr-2017 Wheeze (R06.2, 786.07) Status: Inactive as of 17-Apr-2017 Procedures Procedure Dates Details Basal Cell Carcinoma Excision Completed Comments: Dr Whatley [facility]. March 2016 cardiac ablasion Completed Comments: 2014 Colonoscopy Completed Comments: Libra 09/2016 Date Value Details 24-Apr-2018 Echocardiogram Complete Result: Comments: See Note; NOTES: [facility] Cardiovascular Services [address] [place] [address] Echo Complete 04/24/18 1452 MR#: [id number] Acct: [id number] Name: NICOLE BUTLER Rep #: [id number] : 1940 77 From: Deshawn Sykes MD Attending Dr: Raymond Ardon NP Status: REG CLI Ordering Dr: Raymond Ardon BARREL CAP SETTER-C Date: 04/24/18 Location: [facility] Sex: F C Admitted: Reason For Study: DYSPNEA/SOB Procedure This was a 2D Doppler, Color Flow transthoracic echocardiogram. The study was technically difficult. Exam performed in department. Left Ventricle Normal LV size. Left ventricular systolic function is normal. The estimated ejection fraction is 70 %. Diastolic function is indeterminate. No regional wall motion abnormalities noted. Right Ventricle Normal RV size. Normal systolic function. Atria The left atrium is mildly enlarged. Normal right atrium. No doppler evidence for ASD. Mitral Valve There is mild mitral annular calcification. Chordal systolic anterior motion of the mitral valve. Trivial mitral valve insufficiency. Tricuspid Valve Normal tricuspid valve. Mild tricuspid valve insufficiency. Right ventricular systolic pressure estimated to be 27 mmHg. Aortic Valve Trisinus/trileaflet aortic valve. Trivial aortic valve insufficiency. Pulmonic Valve The pulmonic valve is not well visualized. Great Vessels Normal sized aortic root. Pericardium/Pleural No pericar dial effusion. MMode/2D Measurements AND Calculations LVIDd: 3.9 cm IVSd: 1.2 cm Ao root diam: 2.8 cm LVIDs: 2.3 cm LVPWd: 1.2 cm LA dimension: 3.6 cm RVDd: 2.7 cm FS: 42.1 % LAV(MOD-bp): 51.6 ml LA A4 area: 17.0 cm2 LA dimension(2D): 3.6 cm LAV(MOD-bp) Indexed: 31.0 ml/m2 LAV(MOD-sp2): 51.6 ml LAV(MOD-sp4): 48.0 ml __ RA A4 area: 11.0 cm2 Doppler Measurements AND Calculations MV E max cesar: 84.8 cm/sec Lat Peak E' Cesar: 6.7 cm/sec Med Pea k E' Cesar: 6.0 cm/sec MV A max cesar: 102.6 cm/sec E/E' lat: 12.6 E/E' med: 14.1 MV E/A: 0.83 Ao V2 max: 149.6 cm/sec LV V 1 max: 130.6 cm/sec PA V2 max: 122.0 cm/sec Ao max P.0 mmHg LV V1 max P.8 mmHg TR max cesar: 246.5 cm/sec TR max P.4 mmHg Interpretation Summary The study was technically difficult. Left ventricular systolic function is normal. The estimated ejection fraction is 70 %. The left atrium is mildly enlarged. The re is mild mitral annular calcification. Chordal systolic anterior motion of the mitral valve. Trivial mitral valve insufficiency. Mild tricuspid valve insufficiency. Trivial aortic valve insufficiency. Right ventricular systolic pressure estimated to be 27 mmHg. Diastolic function is indeterminate. ____ __ Ordering Physician: Raymond Ardon Referring Physician: Deepti Olmstead Performed By: Libertad Cortes, RDCS, RVT 04/24/18 1720 Date Deshawn Sykes MD CC: Deepti Olmstead BARREL CAP SETTER; KAMARI Ardon Date Dictated: 04/24/18 1452 Date Transcribed: 04/24/181719 Air Battle Manager: Signed 16-Apr-2018 Cardiology Visit Report Result: Comments: See Note; NOTES: [facility] [address] [place] [address]. [address] [place] [address] OFFICE VISIT Date of Service: 04/16/18 MR#: [id number] Acct: [id number] Name: NICOLE BUTLER Rep #: [id number] : 1940 Provider: KAMARI Ardon Age/Sex: 77/F [place] [facility] Status: Signed HPI HPI Details: NICOLE BUTLER, is a 77 F who presents to the office today for a cardiovascular outpati ent follow-up. She is a history of SVT/atrial flutter status post ablation in January 2015, near syncopal episode in October 2014, hypertension, hyperlipidemia, CVA in 2012, and COPD. Pt. denies chest, arm, jaw, or neck discomfort. Her exercise tolerance is stable. 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 Pt. denies symptoms of palpitations, lightheadedness, dizziness, near syncope, or syncopal episodes. Pt. denies edema or claudication issues. Pt. denies orthopnea, PND, fever, chills, blood in urine, blood in stool, myalgia, or unexplainable fatigue. She notices SOB when going up steps and carrying rudy ething heavy. Pt. states having some low back pain. Intake Vital Signs04/16/18 Height 5 ft 2 in 04/16/18 Weight: 148 lb 04/16/18 Body Mass Index (BMI) 27.1 04/16/18 Blood Pressure 128/60 H 04/16/18 Blood Pressure Location Lt brachial Intake Visit Reasons: 6 M Lemon Grower Required: No Accompanied by: None Is patient in pain?: No Allergies labetalol Allergy (Verified 04/16/18 09:17) Shortness of breath Sulfa (Sulfonamide Antibiotics) Allergy (Verified 04/16/18 09:17) Unknown doxazosin [From Cardura] Adverse Reaction (Severe, Verified 04/16/18 09:17) SOB hydrochlorothiazide Adverse Reaction ( Severe, Verified 04/16/18 09:17) Affected Breathing clonidine Adverse Reaction (Mild, Verified 04/16/18 09:17) Fatigue Medications Albuterol IH (ProAir) [Proair Hfa] 1 puff INHALATION TID 11/18/14 [H istory Confirmed 10/09/17] Cholecalciferol (VIT D3) [Vitamin D3] 2,000 unit PO DAILY 11/18/14 [History Confirmed 10/09/17] Clopidogrel Bisulfate [Plavix] 75 mg PO DAILY 11/18/14 [History Confirmed 10/09] Fluticasone/Salmeterol [Advair 100/50 Diskus] 2 puff INHALATION BID 11/18/14 [History Confirmed 10/09/17] Levothyroxine [Synthroid] 50 mcg PO DAILY 11/18/14 [History Confirmed 10/09/17] diltiazem C D 180 mg capsule,extended release 24 hr 180 mg PO BID #120 cap 09/18/17 [Rx Confirmed 10/09/17] aspirin 81 mg tablet,delayed release 81 mg PO QDAY tab 10/05/17 [History Confirmed 10/09/17] cyanocobalami n (vit B-12) ER 1,000 mcg tablet,extended release 1,000 mcg PO QDAY 10/05/17 [History Confirmed 10/09/17] pitavastatin calcium 2 mg tablet See Rx Instructions PO QDAY 10/05/17 [History Confirmed 8] folic acid 1 mg tablet 1 mg PO QDAY 10/09/17 [History Confirmed 10/09/17] losartan 50 mg tablet 50 mg PO BID tab 10/09/17 [History Confirmed 10/09/17] multivitamin tablet 1 tab PO QDAY 10/09/17 [Hist ory Confirmed 10/09/17] omeprazole 20 mg capsule,delayed release 20 mg PO QDAY 10/09/17 [History Confirmed 10/09/17] hydrochlorothiazide 12.5 mg tablet 12.5 mg PO .COMPLEX 04/16/18 [History Confirmed ] PFSH Medical History Tachycardia (Chronic) Hyperlipidemia (Chronic) Other supply chain project manager (current) drug therapy (Chronic) Left carotid bruit (Chronic) Thrombophlebitis (Resolved) Anemia (Chronic) Restless leg syndrome (Chronic) History of CVA (cerebrovascular accident) (Resolved) H/O: hysterectomy (Resolved) Renal insufficiency (Chronic) Atrial flutter (Acute) HTN (hypertension) (Chronic) SVT ( supraventricular tachycardia) (Acute) Pre-syncope (Acute) Hypothyroidism (Chronic) Dyslipidemia (Chronic) Surgical History S/P ablation of atrial flutter (Resolved) Hx of cholecystectomy (Resolved) H x of appendectomy (Resolved) Family History Father Diabetes Atherosclerosis Mother Hypertension Cardiomegaly Hypothyroid Brother CVA (cerebral vascular accident) Son Hyperte nsion Grandmother Diabetes Grandfather Bright's disease Sister Polio Social History Smoking Status: Never smoker alcohol intake: never substance use type: does not use caffeine: Yes Type: tea Number of servings: 1 what type of physical activity do you participate in: none seatbelt use: always do you feel safe at home: Yes ROS Const Const: Negative for weakness, body ache, fever (s), chills or fatigue ENT ENT: Negative for dizziness Cardio Chest Pain: No Palpitations: No Edema: None Muscle aches with walking: None Resp Respiratory: Positive for SOB with activity; negative for S OB at rest, SOB orthopnea\SOB lying down or paroxysmal nocturnal dyspnea GI GI: Negative nausea, black,tarry stools, bright, red blood in stools or vomiting blood/hematemesis : Negative for hematur ia or frequent nighttime urination/ nocturia Musc Musc: Negative for muscle aches/ myalgia Neuro Neuro: Negative for weakness or dizziness Endo Endo: Negative for fatigue Cardiology Exam Const Appeara nce: cooperative, healthy appearing, comfortable and no acute distress Nutritional Appearance: average body habitus Orientation: alert, awake and oriented x3 Head Head: normal to inspection Ears: hearin g grossly normal bilaterally Nose: external nose normal Mouth: oral mucosae normal Eyes Eyelids: eyelids normal Conjunctivae: conjunctivae normal EOM: EOM intact bilaterally Neck Neck: no JVD and normal visual inspection Carotids: normal carotid upstroke Chest Chest inspection: normal inspection of the chest, normal respiratory effort and symmetric chest movement Auscultation: Bilateral: Clear to Ausc ultation Cardio Rate: regular rate Rhythm: regular rhythm Heart sounds: S1 normal and S2 normal; negative rub or gallop Murmur: Grade 3/6, Grade 2/6 and RLSB GI GI: normal to inspection Neuro General: a lert, awake, oriented x3 and CN's II-XI intact bilaterally Skin Skin: no rashes or lesions noted Extremities Pulses: Normal: Right Posterior Tibial Pulse, Left Posterior Tibial Pulse, Right Radial Pulse , Left Radial Pulse Lower Extremity Edema: None: Bilateral Psych Psychological: normal affect Supplemental Info Stress test from October 2014 was negative for stress-induced myocardial ischemia and showed ejection fraction 51%. Echocardiogram from October 2014 showed an estimate ejection fraction of 65%, moderate concentric LVH, mild tricuspid valve insufficiency, RVSP of 31 mmHg, no aortic stenosis, mildl y enlarged left atrium, and when compared echocardiogram on October 23, 2013 no appreciable changes noted. Heart catheterization from August 2000 showed left main coronary artery that was angiographically normal, LAD that was angiographically normal, LCx that was angiographically normal, RCA with no significant stenosis, and a preserved EF. 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 Assessment AND Plan 1. Dyspnea on exertion R06.09 Plan Patient's shortness of breath has remained since last office visit. She is currently seeing a pulmonology for further input. She had a recent CT scan of her chest. She also had a pulmonary function test in January of this year. Due to unchanging shortness of breath, clear lung sounds, and her la st echocardiogram being in October 2014, she undergo a repeat echocardiogram. Of concern is right sternal border murmur. Thus, this will allow for evaluation of any valvular changes that may explain her amish rtness of breath. Further recommendation will be made based on her echocardiogram. Orders Orders: 2. Atrial flutter, unspecified type I48.92 S/P EPS/RFA in January 2015; Plan She appears to be maintain ing regular rhythm. She denies any symptoms consistent with atrial fibrillation. At this time she will continue current rate limiting medications and factor Xa inhibitor. We will continue to monitor. Or ders Orders: 3. Essential hypertension I10 Plan At last office visit her blood pressure was slightly elevated. She states that since that time it was noted to be even higher. Thus, she was started on h ydrochlorothiazide. This has improved her blood pressure, but her shortness of breath is unchanged. She will continue current medications. Orders Orders: Plan Detail Other Orders Orders: Additional Com ments Thank you for allowing us to participate in the patient's plan of care, if you have any questions please do not hesitate to call. This note was generated using a voice recognition system and ther e may be incorrect words, spelling, or punctuation that were not noted upon reviewing the office note prior to saving. Coding Level of Care Code Off vis,est,level 3 Diagnoses Dyspnea on exertion R06.0 9 Atrial flutter, unspecified type I48.92 Atrial flutter type: unspecified Essential hypertension I10 Hypertension type: essential hypertension Coding Level of Care Code Off vis,est,level 3 Diagnoses Dyspnea on exertion R06.09 Atrial flutter, unspecified type I48.92 Atrial flutter type: unspecified Essential hypertension I10 Hypertension type: essential hypertension 04/16/18 0953 <Electr onically signed by Raymond BARAJAS> Date Raymond BARAJAS Cosigner Signature: Date (if applicable) CC: Deepti Olmstead NP 13-Feb-2018 Pulmonary Function Report Comp Result: Comments: See Note; NOTES: [facility] Pulmonary Services/Neurology [address] [place] [address] MR#: [id number] Acct: [id number] Name: NICOLE BUTLER Rep #: [id number] : [birth year] 77 From: Neo Curtis MD Referring Dr: Deepti Olmstead NP Status: REG CLI Ordering Dr: Date: Location: PSN Sex: F C COMPLETE PULMONARY FUNCTION TEST INTERPRETATION Brief HPI: Patient is a 77 yea r old female, currently under the care of Deepti Olmstead, who presents to [facility] for complete pulmonary function tests secondary to diagnosis of COPD. Respiratory therapist rep orts good effort and reproducible results. Interpretation: Forced expiration spirometry shows a mild large airways obstructive ventilatory defect with an FEV1 of 79% predicted. There is no significant bronchodilator response by ATS criteria. Spirograms are of good quality and plateau slowly, indicating slowly emptying areas of the lungs. The respiratory flow volume loop shows decreased expiratory fl ow rates at high lung volumes consistent with small airways obstruction. Lung volumes by body plethysmography show a normal total lung capacity at 3.97 L, 91% predicted. All other lung volumes are with in normal limits. Diffusion capacity by carbon monoxide is normal at 70% predicted. The airway resistance is elevated. Compared to previous pulmonary function tests from 06/25/2015, there has been no significant change. Impression: Irreversible mild large airways obstructive ventilatory defect with preserved diffusion capacity consistent with chronic bronchitis. No significant change attendant the last 3 years noted. 02/13/18 1351 <Electronically signed by Neo Curtis MD> Date Neo Curtis MD CC: Deepti Olmstead NP; Neo Curtis MD Date D ictated: 02/13/18 1346 Date Transcribed: 02/13/18 134 Air Battle Manager: BIENVENIDO Signed 15-Jan-2018 Echocardiogram Complete Result: Comments: See Note; NOTES: [facility] Cardiovascular Services [address] [place] [address] Echo Complete 01/09/18 1302 MR#: [id number] Acct: [id number] Name: NICOLE BUTLER Jose Rep #: [id number] : 1940 77 From: Deshawn Sykes MD Attending Dr: Deepti Olmstead NP Status: REG CLI Ordering Dr: Deepti Olmstead Date: 01/09/18 Location: [facility] Sex: F C Admitted: Reason For Study: SOB O N EXERTION Procedure This was a 2D Doppler, Color Flow transthoracic echocardiogram. The exam was of adequate technical quality. Exam performed in department. Left Ventricle Normal LV size. Mild to mo derate mitral annular calcification. Left ventricular systolic function is normal. The estimated ejection fraction is 70 %. There is evidence of diastolic dysfunction. No regional wall motion abnormalit ies noted. Right Ventricle Normal RV size. Normal systolic function. Atria The left atrium is mildly enlarged. Normal right atrium. No doppler evidence for ASD. Mitral Valve There is mild mitral antonio lar calcification. Chordal systolic anterior motion of the mitral valve. Trivial mitral valve insufficiency. Tricuspid Valve Normal tricuspid valve. Mild (1+) tricuspid valve insufficiency. Right ventr icular systolic pressure estimated to be 32 mmHg. Aortic Valve Trisinus/trileaflet aortic valve. Normal aortic valve. Trivial aortic valve insufficiency. Pulmonic Valve The pulmonic valve is not well v isualized. Trivial pulmonic valve insufficiency. Great Vessels Normal sized aortic root. Pericardium/Pleural No pericardial effusion. MMode/2D Measurements AND Calculations LVIDd: 3.4 cm IVSd: 1.5 cm Ao root diam: 2.8 cm LVIDs: 1.8 cm LVPWd: 1.4 cm LA dimension: 3.2 cm RVDd: 2.5 cm FS: 47.5 % LAV(MOD-bp): 52.0 ml LVAd ap4: 22.7 cm2 SV(MOD-sp4): 39.5 ml LAV(MOD-bp) Indexed: 31.2 ml/m2 EDV(MOD-sp4): 59.1 ml LAV(MOD-sp2): 50.1 ml EDV(sp4-el): 62.0 ml LAV(MOD-sp4): 49.5 ml LVAs ap4: 11.3 cm2 ESV(MOD-sp4): 19.6 ml ESV(sp 4-el): 19.3 ml EF(MOD-sp4): 66.8 % EF(sp4-el): 68.9 % SV(sp4-el): 42.7 ml LA A4 area: 17.7 cm2 RA A4 area: 9.6 cm2 Time Measurements MV dec time: 0.24 sec Doppler Measurements AND Calculations MV E max cesar: 84.2 cm/sec Lat Peak E' Cesar: 7.4 cm/sec Med Peak E' Cesar: 5.7 cm/sec MV A max cesar: 103.1 cm/sec E/E' lat: 11.4 E/E ' med: 14.8 MV E/A: 0.82 Ao V2 max: 160.6 cm/sec LV V1 max: 142.0 cm/sec PA V2 max: 124.3 cm/sec Ao max P.3 mmHg LV V1 max P.1 mmHg TR max cesar: 270.5 cm/sec TR max P.3 mmHg Interpretation Summary Left ventricular systolic fun ction is normal. The estimated ejection fraction is 70 %. Mild to moderate mitral annular calcification. The left atrium is mildly enlarged. There is mild mitral annular calcification. Chordal systolic anterior motion of the mitral valve. Trivial mitral valve insufficiency. Mild (1+) tricuspid valve insufficiency. Trivial aortic valve insufficiency. Trivial pulmonic valve insufficiency. Right ventricu lar systolic pressure estimated to be 32 mmHg. There is evidence of diastolic dysfunction. Orderin g Physician: Deepti Olmstead Referring Physician: Deepti Olmstead Performed By: Misti Ortiz, STUART 01/15/18 184 Date Deshawn Sykes MD CC: Deepti Olmstead BARREL CAP SETTER Date Dictated: 01/09/18 1302 Date Transcribed: 01/15/181839 Air Battle Manager: Signed 09-Oct-2017 Cardiology Visit Report Result: Comments: See Note; NOTES: [facility] [address] [place] [address] OFFICE VISIT Date of Service: 10/09/17 MR#: [id number] Acct: [id number] Name: NICOLE BUTLER Rep #: [id number] : 1940 Provider: KAMARI Ardon Age/Sex: 77/F [place] [facility] Status: Signed [facility] HPI Details: NICOLE BUTLER, is a 77 F who presents to the office today for a cardiovascular outpati ent follow-up. She is a history of SVT/atrial flutter status post ablation in January 2015, near syncopal episode in October 2014, hypertension, hyperlipidemia, CVA in 2012, and COPD. Pt. denies chest, arm, jaw, or neck discomfort. Her exercise tolerance is stable. She is still working. Pt. denies symptoms of CHF, palpitations, lightheadedness, dizziness, near syncope, or syncopal episodes. Pt. denies miguel ma or claudication issues. Pt. denies orthopnea, PND, fever, chills, blood in urine, blood in stool, myalgia, or unexplainable fatigue. She states slightly worsening COPD and has primary care visit in [facility]. She notices this with exertion. Pt. states having some low back pain. Intake Vital Signs10/09/17 Height 5 ft 2 in 10/09/17 Weight: 12 lb 10/09/17 Body Mass Index (BMI) 2.2 10/09/17 Blood Pressu re 144/60 Intake Visit Reasons: 1 Y FU Lemon Grower Required: No Accompanied by: none Is patient in pain?: No Allergies labetalol Allergy (Verified 10/09/17 08:57) Shortness of breath Sulfa (Sulfonami de Antibiotics) Allergy (Verified 10/09/17 08:57) Unknown doxazosin [From Cardura] Adverse Reaction (Severe, Verified 10/09/17 08:57) SOB hydrochlorothiazide Adverse Reaction (Severe, Verified 10/09/17 08:57) Affected Breathing clonidine Adverse Reaction (Mild, Verified 10/09/17 08:57) Fatigue Medications Albuterol IH (ProAir) [Proair Hfa] 1 puff INHALATION TID 11/18/14 [History Confirmed 10/09/17] Cholecalciferol (VIT D3) [Vitamin D3] 2,000 unit PO DAILY 11/18/14 [History Confirmed 10/09/17] Clopidogrel Bisulfate [Plavix] 75 mg PO DAILY 11/18/14 [History Confirmed 10/09/17] Fluticasone/Salmetero l [Advair 100/50 Diskus] 2 puff INHALATION BID 11/18/14 [History Confirmed 10/09/17] Levothyroxine [Synthroid] 50 mcg PO DAILY 11/18/14 [History Confirmed 10/09/17] diltiazem CD 180 mg capsule,extended release 24 hr 180 mg PO BID #120 cap 09/18/17 [Rx Confirmed 10/09/17] aspirin 81 mg tablet,delayed release 81 mg PO QDAY tab 10/05/17 [History Confirmed 10/09/17] cyanocobalamin (vit B-12) ER 1,000 mcg tablet,extended release 1,000 mcg PO QDAY 10/05/17 [History Confirmed 10/09/17] pitavastatin calcium 2 mg tablet See Label Instructions PO QDAY 10/05/17 [History Confirmed 10/09/17] folic acid 1 mg tabl et 1 mg PO QDAY 10/09/17 [History Confirmed 10/09/17] losartan 50 mg tablet 50 mg PO BID tab 10/09/17 [History Confirmed 10/09/17] multivitamin tablet 1 tab PO QDAY 10/09/17 [History Confirmed 10/09/17] omeprazole 20 mg capsule,delayed release 20 mg PO QDAY 10/09/17 [History Confirmed 10/09/17] Ejection fraction %: 65 to 70 PFSH Medical History Tachycardia (Chronic) Hyperlipidemia (Chronic) Other longterm (current) drug therapy (Chronic) Left carotid bruit (Chronic) Thrombophlebitis (Resolved) Anemia (Chronic) Restless leg syndrome (Chronic) History of CVA (cerebrovascular accident) (Resolved) Atrial flutter (Acute) HTN (hypertension) (Chronic) SVT (supraventricular tachycardia) (Acute) Surgical History S/P ablation of atrial flutter (Resolved) H/O : hysterectomy (Resolved) Hx of cholecystectomy (Resolved) Hx of appendectomy (Resolved) Family History Father Diabetes Atherosclerosis Mother Deceas ed Hypertension Cardiomegaly Hypothyroid Brother CVA (cerebral vascular accident) Son Hypertension Grandmother Diabetes Grandfather Bright's disease Sister Polio Social Hist ory Smoking Status: Never smoker alcohol intake: never substance use type: does not use caffeine: Yes Type: tea Number of servings: 1 what type of physical activity do you participate in: none seat belt use: always do you feel safe at home: Yes ROS Const Const: Negative for weakness, body ache, fever(s), chills or fatigue ENT ENT: Negative for dizziness Cardio Chest Pain: No Palpitations: No Edema: None Muscle aches with walking: None Resp Respiratory: Positive for SOB with activity; negative for SOB at rest, SOB orthopnea\SOB lying down or paroxysmal nocturnal dyspnea GI GI: Negative naus ea, black,tarry stools, bright, red blood in stools or vomiting blood/hematemesis : Negative for hematuria or frequent nighttime urination/ nocturia Musc Musc: Negative for muscle aches/ myalgia Ne uro Neuro: Negative for lightheadedness, near syncope, syncope, orthostatic symptoms, weakness or dizziness Endo Endo: Negative for fatigue Cardiology Exam Const Appearance: cooperative, healthy appea ring, comfortable and no acute distress Orientation: alert, awake and oriented x3 Head Head: normal to inspection Mouth: oral mucosae normal Neck Neck: no JVD and normal visual inspection Carotids: norm al carotid upstroke Chest Chest inspection: normal inspection of the chest and normal respiratory effort Auscultation: Bilateral: Clear to Auscultation Cardio Rate: regular rate Rhythm: regular rhythm H eart sounds: S1 normal and S2 normal; negative rub or gallop GI GI: normal to inspection Neuro General: alert, awake, oriented x3 and CN's II-XI intact bilaterally Skin Skin: no rashes or lesions noted Extremities Pulses: Normal: Right Posterior Tibial Pulse, Left Posterior Tibial Pulse, Right Radial Pulse, Left Radial Pulse Lower Extremity Edema: None: Bilateral Psych Psychological: normal affect S upplemental Info Stress test from October 2014 was negative for stress-induced myocardial ischemia and showed ejection fraction 51%. Echocardiogram from October 2014 showed an estimate ejection fraction of 65% , moderate concentric LVH, mild tricuspid valve insufficiency, RVSP of 31 mmHg, no aortic stenosis, mildly enlarged left atrium, and when compared echocardiogram on October 23, 2013 no appreciable changes noted. Heart catheterization from August 2000 showed left main coronary artery that was angiographically normal, LAD that was angiographically normal, LCx that was angiographically normal, RCA with no significant stenosis, and a preserved EF. 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 Assessment AND Plan 1. Atrial flutter, unsp ecified type I48.92 S/P EPS/RFA in January 2015; Plan Echocardiogram from October 2014 showed estimated ejection fraction of 65%. EKG in office showed sinus rhythm at a rate of 69 bpm. Patient denies any se condary symptoms from this. Patient will continue current medications which include calcium channel yolanda and antiplatelet therapy. We will continue to monitor this. Orders Orders: 2. S/P ablation of atrial flutter Z98.890; Z86.79 EPS ablation of atrial flutter 02/12/15 Plan Patient's EKG today showed sinus rhythm at a rate of 69 bpm. We will continue to follow this. 3. Pure hypercholesterolemia E78.00; E78.0 Plan This is being managed by primary care physician in the past. She will continue to follow-up primary care provider for further evaluation/treatment. She will continue current cholester ol-lowering medication. 4. Essential hypertension I10 Plan Patient's blood pressure is slightly above expected range. Due to her advanced age at this time we will monitor this. We will not make any med ication regimen changes. 5. Bilateral carotid artery disease I77.9 Plan Carotid duplex from May 2016 showed moderate stenosis of both right and left extracranial internal carotids. We will continu e to monitor this. She will continue current medications. 6. Dyspnea on exertion R06.09 Plan Patient does acknowledge some shortness of breath on exertion. She believes this is due to worsening COPD. S he has an upcoming appointment with primary care provider for further evaluation. She was instructed however an echocardiogram may be considered to further evaluate valvular status, LV function, and pul monary pressure. If COPD is worsening and/or an increase in pulmonary pressure she may require further medication such as a diuretic to help. If she requires a diuretic such as hydrochlorothiazide on a daily basis, this may also help with the slightly elevated blood pressure. We will be further evaluated this at next office visit if not sooner. She was instructed to contact our office if her shortness of breath progresses and/or worsens. Plan Detail Other Orders Orders: Additional Comments Thank you for allowing us to participate in the patients plan of care, if you have any questions please do not hesitate to call. This note was generated using a voice recognition system and there may be incorrect words, spelling or punctuation that were not noted when reviewing the office note prior to saving. Follow Up 6 Months ([facility]) 11 Months (PFM) Coding Level of Care Code Off vis,est,level 3 Diagnoses Atrial flutter, unspecified type I48.92 Atrial flutter type: unspecified S/P ablation of atrial flutt er Z98.890; Z86.79 Pure hypercholesterolemia E78.00; E78.0 Hyperlipidemia type: pure hypercholesterolemia Essential hypertension I10 Hypertension type: essential hypertension Bilateral carotid artery di sease I77.9 Laterality: bilateral Dyspnea on exertion R06.09 Coding Level of Care Code Off vis,est,level 3 Diagnoses Atrial flutter, unspecified type I48.92 Atrial flutter type: unspecified S/P ablat ion of atrial flutter Z98.890; Z86.79 Pure hypercholesterolemia E78.00; E78.0 Hyperlipidemia type: pure hypercholesterolemia Essential hypertension I10 Hypertension type: essential hypertension Bilatera l carotid artery disease I77.9 Laterality: bilateral Dyspnea on exertion R06.09 10/09/17 1352 <Electronically signed by Raymond HUANGC> Date Raymond Ardon BARREL CAP SETTER-Jose Cosigner Signature: Date (if applicable) CC: Deepti Olmstead NP 09-Oct-2017 12 Lead EKG [place] [facility] Result: Comments: See Note; NOTES: [facility] [address] [place] [address] 12 Lead EKG performed by [facility] 10/09/17 0851 MR#: [id number] Acct: [id number] Name: NICOLE BUTLER Rep #: [id number] : 1940 77 From: Raymond BARAJAS Attending Dr: Raymond Ardon NP Status: DEP AMB Ordering Dr: Raymond Ardon Date: 10/09/17 [place] [facility] Sex: F C Admitted: BMS/12 Lead EKG performed by [facility] ECG Report Interpretation Sinus Rhythm Nonspecific T-abnormality. ABNORMAL Electronically signed on 10/09/2017 at 11:52 by Deshawn Najera 10/09/17 1156 Date Raymond BARAJAS CC: Deepti Olmstead NP Date Dictated: 10/09/17850 Date Transcribed: 10/09/17850 Air Battle Manager: LUIS ALBERTO Signed 13-Jun-2017 Chest PA and Lateral Result: Comments: See Note; NOTES: [facility] [address] [place] [address] Chest PA and Lateral MR#: [id number] Acct: [id number] Name: NICOLE BUTLER Rep #: [id number] D OB: 1940 F 76 From: Tyron Barillas MD PCP: Deepti Olmstead NP Status: REG CLI Study: Chest PA and Lateral Date of Exam: 06/13/17 Exam# [id number] Ordering Dr: Deepti Olmstead STUDY: X-RAY CHEST BRYANT SON FOR EXAM: Female, 76 years old. Cough. TECHNIQUE: PA and lateral views of the chest. COMPARISON: Comparison is made with prior examination dated June 17, 2015. ___ FINDINGS: Scattered calcified granulomas. Mild degree of increased markings in the lingular segment of the left upper lobe. Radiographic follow-up is recommended. Minimal increased markings also s een in the left upper lobe. There is no demonstrated pleural abnormality. Normal size heart. Normal mediastinum and jo. Normal visualized pulmonary arteries. There is atherosclerotic calcification of the aortic arch with tortuosity. There is a dextroscoliosis of the thoracic spine. Normal visualized ribs, clavicles, and shoulders. There is no demonstrated abnormality of the visualized soft tissue structures of the upper abdomen. RAD/Chest PA and Lateral IMPRESSION: Mild increased markings in the lingular segment of the left upper lobe as well as in the left upper lobe. Radiographic follow-up is recommended. Electronically Signed: Tyron Barillas MD at 9:38 EST Tel [phone], Service support , Fax CC: Deepti Olmstead NP Air Battle Manager: Signed 18-Oct-2016 Abdomen/Pelvis WITH Contrast Result: Comments: See Note; NOTES: [facility] [address] [place] [address] Verdana 4d Abdomen/Pelvis WITH Contrast MR#: [id number] Acct: [id number] Name: NICOLE BUTLER Rep #: [id number] : 1940 F 76 From: Ronan Vasquez MD PCP: Deepti Olmstead Status: REG CLI Study: Abdomen/Pelvis WITH Contrast Date of Exam: 10/18/16 Exam# [id number] Ordering Dr: Queta Pike BARREL CAP SETTER- C STUDY: CT ABDOMEN AND PELVIS WITH CONTRAST REASON FOR EXAM: Female, 76 years old. Abdominal pain-RLQ, recently treated for UTI. Prior appendectomy, bowel resection, ALTHEA/BSO. RADIATION DOSAGE (If S upplied By Facility): CTDIvol = ( 15.22 ) mGy, DLP = ( 699.04 ) mGycm TECHNIQUE: Transaxial images were obtained from the dome of the diaphragm to the symphysis pubis without oral contrast. 100mL ml of Isovue 300 contrast was administered. Sagittal and coronal images were reconstructed. Individualized dose optimization techniques were used for this CT. COMPARISON: None. FINDINGS: The visualized lung bases are unremarkable. The visualized portions of the heart are within normal limits. 27 mm hypodensity in the left lobe of the liver. This is 16 Hounsfield units . There are multiple gallstones. Normal spleen. Normal pancreas. Normal bilateral adrenal glands. Normal right kidney. Normal left kidney. Normal visualized stomach. Normal small intestine. There are multiple colonic diverticula consistent with diverticulosis. There is non-visualization of the appendix. There are calcifications of the abdominal aorta and vascular structures. This is consistent for atherosclerotic disease. There is no abdominal aortic aneurysm. Normal inferior vena cava. Subcentimeter mesenteric lymph nodes. Normal urinary bladder. There is absence of the uterus consistent with a prior hysterectomy. Mild prolapse of the urinary bladder into the introitus. There is a small umbilical hernia containing fat. There are degenerative changes of the osseous structures. There is scoli osis of the lumbar spine. Degenerative findings of the hips. CT/Abdomen/Pelvis WITH Contrast IMPRESSION: No acute findings. Cholelithiasis. The re are multiple colonic diverticula consistent with diverticulosis. There is a small umbilical hernia containing fat. Mild prolapse of the urinary bladder into the introitus. Other findings as above. Electronically Signed: Ronan Vasquez MD at 16:22 EDT , Service support , CC: Queta Pike; Deepti Olmstead Air Battle Manager: Signed 22-Aug-2016 Head/Neck Soft Tissue Result: Comments: See Note; NOTES: [facility] [address] [place] [address] Verdana 4d Head/Neck Soft Tissue MR#: [id number] Acct: [id number] Name: NICOLE BUTLER Rep #: [id number] : 1940 F 76 From: Tyron Barillas MD PCP: Deepti Olmstead Status: REG CLI Study: Head/Neck Soft Tissue Date of Exam: 08/22/16 Exam# [id number] Ordering Dr: Deepti Olmstead STUDY: SUPERF ICIAL ULTRASOUND - MIDLINE CERVICAL REGION REASON FOR EXAM: Female, 76 years old. Palpable abnormality. TECHNIQUE: A superficial ultrasound was performed with real-time and static bardales-scale imaging. COMPARISON: None. FINDINGS: The area of the palpable abnormality was examined by ultrasound. No abnormality is seen. US/Head/Neck Soft Tissue IMPRESSION: No sonographic abnormality is seen. Electronically Signed: Tyron Barillas MD at 13:49 EST Tel [phone], Service support [phone], F ax [phone] CC: Deepti Olmstead Air Battle Manager: Signed 08-Aug-2016 Knee 4 or More Views Result: Comments: See Note; NOTES: [facility] [address] [place] [address] Verdana 4d Knee 4 or More Views MR#: [id number] Acct: [id number] Name: NICOLE BUTLER Rep #: [id number] : 1940 F 76 From: Ramiro Santacruz DO PCP: Deepti Olmstead Status: REG CLI Study: Knee 4 or More Views Date of Exam: 08/08/16 Exam# [id number] Ordering Dr: Deepti Olmstead STUDY: X-RAY - LEFT KNEE REASON FOR EXAM: Female, 76 years old. Pain TECHNIQUE: 4 view(s) of the knee. COMPARISON: None. FINDINGS: Normal visualized distal femur. Normal visualized proxim al tibia and fibula. Normal proximal tibiofibular articulation. Narrowing of the medial femorotibial compartment. Normal lateral femorotibial compartment. Normal patellofemoral articulation. The soft tissue structures are unremarkable. RAD/Knee 4 or More Views IMPRESSION: No acute bony injury of the knee. Narrowing of the medial femorotibial c ompartment. Electronically Signed: Ramiro Santacruz DO at 22:11 EST Tel [phone], Service support [phone], CC: Deepti Olmstead Air Battle Manager: Signed 10-Jun-2016 Carotid Duplex Ultrasound Result: Comments: See Note; NOTES: [facility] [address] [place] [address] Carotid Duplex Ultrasound 06/07/16 0959 MR#: [id number] Acct: [id number] Name: NICOLE BUTLER Jose Rep #: [id number] : 1940 75 From: Kanu Amaya MD Attending Dr: Dayanna Mcclain Status: REG CLI Ordering Dr: Dayanna Mcclain Date: 06/07/16 Location: [facility] Sex: F C Admitted: Reason For Study: carotid bruit Rt. Velocities/BP Lt. Velocities/BP Prox CCA 78.6/12.3 cm/sec. Prox CCA 107/14.7 cm/sec. Mid CCA 101/17.6 cm/sec. Mid CCA 94.4/15.8 cm/sec. Dist CCA 90.3/21.1 cm/s ec. Dist CCA 118/17.6 cm/sec. Prox ICA 210/39.3 cm/sec. Prox ICA 147/21.2 cm/sec. Mid ICA 203/36.7 cm/sec. Mid ICA 103/14.1 cm/sec. Dist ICA 95.3/22.6 cm/sec. Dist ICA 74.6/17.1 cm/sec. Rt. ICA/CCA = 2. 1. Lt. ICA/CCA = 1.6. Prox ECA 174/12.8 cm/sec. Prox ECA 93.9/9.61 cm/sec. Rt. Vert. 64.4/13.4 cm/sec. Lt. Vert. 49.2/14.1 cm/sec. Right Extracranial There is homogeneous, smooth atherosclerotic plaque noted in the right common carotid artery. There is heterogeneous, irregular atherosclerotic plaque noted in the right internal carotid artery. There is heterogeneous, irregular atherosclerotic plaque n oted in the right external carotid artery. Antegrade flow is noted in the right vertebral artery. There is heterogeneous, irregular atherosclerotic plaque noted in the left bulb. Left Extracranial Ther e is heterogeneous, smooth atherosclerotic plaque noted in the left common carotid artery. There is homogeneous, smooth atherosclerotic plaque noted in the left internal carotid artery. There is intimal thickening but no significant atherosclerotic plaque noted in the left external carotid artery. Antegrade flow is noted in the left vertebral artery. There is heterogeneous, irregular atherosclerotic p laque noted in the left bulb. Procedure Carotid Duplex 71061. The exam was diagnostic. Exam performed in department. Interpretation Summary Moderate (50-69%) stenosis right extracranial internal carot id. Moderate (50-69%) stenosis left extracranial internal carotid. Flow within the vertebral arteries is antegrade bilaterally. Ordering Physician: Dayanna Mcclain Referring Physician: Deshawn Sykes MD Performed By: Hilton King RVT Electronically signed by: MD Kanu Amaya on 04:23 PM 06/10/16 1623 Date Kanu Amaya MD CC: Deepti Olmstead; Dayanna Mcclain Date Dictated: 06/07/1659 Date Transcribed: 06/10/16 162 Air Battle Manager: Signed 01-Oct-2015 Bilat Scrn Digital AND CAD Result: Comments: See Note; NOTES: [facility] [address] [place] [address] Verdana 4d Bilat Scrn Digital AND CAD MR#: [id number] Acct: [id number] Name: NICOLE BUTLER Rep #: [id number] : 1940 F 75 From: Tyron Barillas MD PCP: Deepti Olmstead Status: REG CLI Study: Bilat Scrn Digital AND CAD Date of Exam: 10/01/15 Exam# [id number] Ordering Dr: Deepti Olmstead MAMMOGRAPHY - BILATERAL SCREENING REASON FOR EXAM: Female, 75 years old. Routine annual screening examination. PERTINENT HISTORY: Non- contributory. TECHNIQUE: Digital bilateral br east tomosynthesis (3-D mammographic acquisition) in the CC and MLO projections. Synthesized 2-D images (C-View reconstruction from tomosynthesis acquisition) providing bilateral breast CC and MLO vi ews. Mediolateral oblique (MLO) and craniocaudad (CC) views of both breasts were obtained. CAD: Full Field Digital Mammography with Computer Added Detection was performed. COMPARISON: Comparison is made with prior outside examination dated June 02, 2009. FINDINGS: Breast Composition: The breasts are heterogeneously dense, which may obscure small masses. There are no dominant masses or suspicious calcifications. No other significant abnormalities are identified. There has been no significant change since the prior study. IMPRESSION: Stable bilateral screening mammogram. Yearly follow- up mammogram recommended. (A) ASSESSMENT CATEGORY: BIRADS Category 1: Negative. A letter regarding these results will be sent to the patient by the facility within 30 days. Approximately 10% of breast cancers are not detected by mammography. A normal mammogram should not delay bi opsy of a clinically suspicious abnormality. [id number] Electronically Signed: Tyron Barillas MD at 10:15 EDT Tel [phone], Service support [phone], CC : Deepti Olmstead Air Battle Manager: Signed 01-Oct-2015 Dexa Bone Density Study (HP) Result: Comments: See Note; NOTES: [facility] [address] [place] [address] Verdana 4d Dexa Bone Density Study (HP) MR#: [id number] Acct: [id number] Name : NICOLE BUTLER Jose Rep #: [id number] : 1940 F 75 From: Tyron Barillas MD PCP: Deepti Olmstead Status: REG CLI Study: Dexa Bone Density Study (HP) Date of Exam: 10/01/15 Exam# [id number] Ordering Dr: Deepti Olmstead STUDY: DUAL ENERGY X-RAY ABSORPTIOMETRY / DXA REASON FOR EXAM: Female, 75 years old. The patient is postmenopausal. TECHNIQUE: Bone Mineral Density (BMD) measurements of lumbar s pine and bilateral hips were obtained. COMPARISON: None. FINDINGS: Lumbar Spine (L1-L4): g/cm2 (1.006) / T-score (-1.3) / Z-score (0.5) Findings are suggesti ve of osteopenia with a moderate fracture risk. Left Femur Total: g/cm2 (0.810) / T-score (-1.6) / Z-score (0.3) Left Femoral Neck: g/cm2 (0.808) / T-score (- 1.7) / Z-score (0.4) Right Femur Total: g/cm2 (0.826) / T-score (-1.4) / Z-score (0.4) Right Femoral Neck: g/cm2 (0.822) / T-score (-1.6) / Z-score (0.5) IMPRESSION: The patient is considered osteopeni c as outlined below according to World [place] Organization (WHO) criteria with a moderate fracture risk. Reference Information: The T-score is the number of stand jolanta deviations above or below the standard which is normal for young adults at their peak bone mineral density. The World Health Organization (WHO) interprets the T-scores as follows: Above -1 Norm al bone density Between -1 and -2.5 Osteopenia Equal to / or below -2.5 Osteoporosis As a practical clinical guideline, osteopenia may be graded as follows: Mild -1 through -1.5 Moderate -1.6 thro ugh -2.0 Severe -2.1 through -2.4 The Z-score is the number of standard deviations above or below age-matched controls. A Z-score of less than -1.5 would be considered abnormal. References: 1. NI H Osteoporosis and Related Bone Diseases http://www.osteo.org 2. International Society for Clinical Densitometry http://www.iscd.org 3. National Osteoporosis Foundation http://www.nof.org Electronic ally Signed: Tyron Barillas MD at 11:10 EDT Tel [phone], Service support [phone], CC: Deepti Olmstead Air Battle Manager: Signed 22-Sep-2015 CT - Individual Treatment Plan Result: Comments: See Note; NOTES: [facility] [address] [place] [address] CT - Individual Treatment Plan MR#: [id number] Acct: [id number] Name: NICOLE VILLALOBOS ED Rep #: [id number] : 1940 75 From: Wilmar Girard PCP: Deepti Olmstead Exercise Prescription - Exercise Prescription Exercise Prescription Statement: See MD orders: frequency 3 t imes per week for 36 sessions. Exercise workloads will be progressed gradually within limits of patient's ability. Progression based on ANNEMARIE dyspnea of 3-5 and absence of untoward symptoms during exer cise. - Treadmill METs: 4.7 Load: 2.5@5% - Nu Step METs: 4.7 Load: 7- 8 Level: 60-70 - Sci Fit Pro2 METs: 4.7 Load: 7-8 Level: 60-70 - Airdyne METs: 4.7 Load: 1.3-1.7 Education by P - Reassessment Session Number:: Date:: 09/21/15 Reassessment: Demo self mgmt strategies, Dyspnea Control, Utilizes RXs as directed, Moblze secretions effect., Demo anxiety/panic cntrl Hypox emia - Reassessment Session Number:: Date:: 09/21/15 Reassessment: Demo O2 knwldge/rest, Demo O2 knwldge/exercise Psychosocial - Reassessment Session Number:: Date:: 09/21/15 Reassessm ent: COPD assessment w/ CAT - 17, Demonst coping strategies, Geriatric depression scr - 0, Practicing interventions, Self efficacy score - 9, Mgmt stress AND depression Progress: Progeressing Tobacc o Abuse/Smoking - Reassessment Session Number:: Date:: 09/21/15 Reassessment: Complete stop/tobacco use Medications - Reassessment Session Number:: Date:: 09/21/15 Does pt report takin g home meds as prescribed?: Yes MDI: Yes DPI: Yes NEB: Yes Spacer: Yes Nutrition AND Weight Management - Reassessment Session Number:: Date:: 09/21/15 Reassessment: BMI 21 to 25, Wt loss 1 -2 lbs per week Weight (lbs):: 144 Progress: Progressing Bronchial Hygiene/Secrtn Clear - Reassessment Session Number:: Date:: 09/21/15 Reassessment: Effective cough, CPT, Equipment cleaning , Proper hand washing, Improved hydration , PEP Device Sputum Management: Improved Exercise AND Fitness - Reassessment Session Number:: Date:: 09/21/15 Aerobic Exercise: Aerobic Exercise 30-6 0 munutes 3 to 7 days per week. THRR:: 108-122 Progress: Progressing Annemarie-13 Time (minutes):: 35 Home Exercise?: Yes 09/21/15 1355 <Electronically signed by Wilmar Girard > Date Wilmar Girard Outcome assessment reviewed. Exercise plan approved as documented. Treatment plan and goals support patient needs/abilities. Cont inue with current plan. I certify the patient demonstrates improvement and remains willing and capable of participation. the patient continues to benefit from pulmonary services/training. The patien t may continue at current intensity, endurance and modality and progress per protocol. 09/21/151999<Electronically signed by Deshawn Desai MD> Cosigner Signature: Date _ Deshawn Desai MD CC: Signed 28-Aug-2015 CT - Individual Treatment Plan Result: Comments: See Note; NOTES: [facility] Reports [address] [place] [address] CT - Individual Treatment Plan MR#: [id number] Acct: [id number] Name: NICOLE VILLALOBOS ED Rep #: [id number] : 1940 75 From: Wilmar Girard PCP: Deepti Olmstead Exercise Prescription - Exercise Prescription Exercise Prescription Statement: See MD orders: frequency 3 t imes per week for 36 sessions. Exercise workloads will be progressed gradually within limits of patient's ability. Progression based on ANNEMARIE dyspnea of 3-5 and absence of untoward symptoms during exer cise. Education by DIGITAL ADVERTISING ANALYST - Reassessment Session Number:: 18 Date:: 08/26/15 Reassessment:: Demo self mgmt strategies, Dyspnea Control, Demo anxiety/panic cntrl Hypoxemia - Reassessment Sessio n Number:: 18 Date:: 08/26/15 Reassessment: Demo O2 knwldge/rest, Demo O2 knwldge/exercise Psychosocial - Reassessment Session Number:: 18 Date:: 08/26/15 Reassessment: COPD assessment w/ CAT - 16, Demonst coping strategies, Geriatric depression scr - 2, Practicing interventions, Self efficacy score - 7 Tobacco Abuse/Smoking - Plan Tobacco Education: Pulmonary A AND P, Dangers of smokin g, Lung gas exchange - Reassessment Session Number:: 18 Date:: 08/26/15 Reassessment: Complete stop/tobacco use Tobacco Adjunct?: No Medications - Medication Problems AND Goals Problems: Medi cation Adherence, Incrrct inhld Rx use/tech - Reassessment Session Number:: 18 Date:: 08/26/15 Does pt report taking home meds as prescribed?: Yes MDI: Yes DPI: Yes NEB: Yes Spacer: No Nutrit ion AND Weight Management - Reassessment Session Number:: 18 Date:: 08/26/15 Reassessemnt: Wt stable Weight (lbs):: 142 Progress: Goal met Bronchial Hygiene/Secrtn Clear - Reassessment Sessi on Number:: 18 Date:: 08/26/15 Reassessment: Effective cough, Proper hand washing, Improved hydration, PEP Device Sputum Management: Improved Exercise AND Fitness - Reassessment Session Number:: 18 Date:: 08/26/15 THRR: 108-122 Progress: Progressing Annemarie-12 Time (minutes):: 35 - 3.6 METs Home Exercise:: Yes 08/27/15 1143 <Electronically signed by Wilmar Girard > D ate Wilmar Girard Outcome assessment reviewed. Exercise plan approved as documented. Treatment plan and goals support patient needs/abilities. Liza nue with current plan. I certify the patient demonstrates improvement and remains willing and capable of participation. the patient continues to benefit from pulmonary services/training. The patient may continue at current intensity, endurance and modality and progress per protocol. 08/28/15 1620<Electronically signed by Mejia Grubbs MD> Cosigner Signature: Date ____ Mejia Grubbs MD CC: Signed 14-Jul-2015 CT - History AND Physical Result: Comments: See Note; NOTES: [facility] Reports [address] [place] [address] CT - History AND Physical MR#: [id number] Acct: [id number] Name: RENETTA BUTLER Rep #: [id number] : 1940 74 From: Wilmar Girard PCP: Deepti Olmstead History of Present Illness Arrival date:: 07/13/15 Arrival time:: 10:17 Date of Evaluation: 07/13/15 Referring P clarasician: Dr. Bonilla/ Deepti Clark CNP Primary Diagnosis: COPD, asthma History of Present Illness: The patient is a 74 year old female who presents to pulmonary rehab on the advise of STEPHANE De Guzman. The patient's symptoms include shortness of breath and are not exacerbated by stress, she also complains of fatigue. mMRC Breathless Scale: When is the patient short of breath? Y/N Grade: Descri ption of Breathlessness: 0 I only get breathless with strenuous exercise. 1 I get short of breath when hurrying on level ground or walking up a slight hill. 2 On level ground, I walk slower than p garyple of the same age because of breathless, or have to stop for breath when walking at my own pace. 3 I stop for breath after walking 100 yards or after a few minutes on level ground. 4 I am too b reathless to leave the house or I am breathless when dressing. Respiratory Problems: Yes: Fatigue, Wheezing, Able to Speak in Full Sentences, Dyspnea with Activity, Dyspnea Lying Down Flat No: Diz ziness, Ankle Swelling, Hoarseness, Anxiety, Panic, Dyspnea at Rest, Cough with Secretions - Secretions Cough:: No Sleep Disorder Evaluation: EPWORTH SLEEPINESS SCALE 0 = NO chance of dozing 2 = MODERATE chance of dozing 1 = SLIGHT chance of dozing 3 = HIGH chance of dozing : SITUATION: CHANCE OF DOZING: Sitting and Reading Watching TV Sitting inactive in a public place ( i.e. Movies) As a passenger in a car for an hour without a break Lying down to rest in the afternoon when permitted Sitting and talking to someone Sitting quietly after lunch without alcohol In a car, while stopped for a few minutes in traffic Total Total Equals: 1-6 = Adequate Sleep 7-8 = Average > 9 = Sleep Study/Consult Indicated Past Medical History Past Medical History: Arthitis, Hypertension - fatigue, bronchospasm, syncopal episodes, anemia , hypertriglyceridemia, chronic kidney disease stage III, hypotension, hypertension, oseoporosis, GERD, ceberbrovascu lar disease, asthma, shortness of breath on exertion, restless leg syndrome, , High Cholesterol, Heart Disease, - Surgical History: appendectomy, hysterectomy, - - cardiac ablasion 2015, tubal ligatio n. 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, collect antiques, gardening Transportation Needs:: own transportation Alcohol:: No Drugs:: No Employment:: Employed Smoki ng Status: Never smoker - Living Arrangement Patient lives with other person(s) in the home:: AROUND THE CLOCK - Current/ Previous Services [facility] Home Health:: No Other Home Health:: No [facility] Ca rdiac Rehab:: No Life (Palliative) Care Services:: No Tobacco Use AND Smoking Cessation:: No Pulmonary Rehab:: No Medications AND Vaccination Info Home Medications: Ambulatory Orders Albuterol Inhaler (Vent Pts) [Proair Hfa] 1 puff INHALATION TID 11/18/14 Cholecalciferol (VIT D3) [Vitamin D3] 2,000 unit PO DAILY 11/18/14 Clopidogrel Bisulfate [Plavix] 75 mg PO DAILY 11/18/14 Fluticasone 0. 05% [Flonase Nasal Pratt] 2 spray NASAL DAILY 11/18/14 Fluticasone/Salmeterol [Advair 100/50 Diskus] 2 puff INHALATION BID 11/18/14 Levothyroxine [Synthroid] 50 mcg PO DAILY 11/18/14 Losartan Potassi um [Cozaar] 150 mg PO DAILY 11/18/14 Pantoprazole Sodium [Protonix] 40 mg PO DAILY 11/18/14 Diltiazem CD [Cardizem CD] 180 mg PO BID #120 capsule 11/19/14 Do you use a peak flow meter at home?: No Do you use a spacer device with your inhalers?: No Number of hospital visits in the last year?: 0 Number of emergency room visits in the last year?: 0 Do you see your physician on a regular schedule ?: Yes How often?: 3 months or sonner as needed. Has adequate access AND meets healthcare needs?: Yes - Drug Regimen Review Indication of potential clinical significant med issues (drug reactions, ineffective therapy, side effects, interactions, duplicate therapy, omissions, dose errors, or non-compliance)?: No problems found during review Was a physician or the physican designee contacted [facility] one calendar day to resolve clinically significant medication issues, including reconcilitation?: No Review of Systems Constitutional: Denies: Chills, Fever, Weight Change HEENT: Denies: Head A ches, Sinus Congestion, Sinus Drainage Cardiovascular: Denies: Chest Pain, Palpitations Respiratory: Reports: Shortness of Breath, Shortness of breath upon exertion. Denies: Cough, Shortness of breat h at rest, Sputum production Musculoskeletal: Reports: - - lower back pain.. Denies: Joint Pain, Joint Tenderness Skin: Denies: Rash, Wounds Neurological: Denies: Numbness, Tingling, Focal weakness Psychiatric: Denies: Anxiety, Depression, Homicidal Ideations, Suicidal Ideations Coping/Social Support/Other - Advance Directive Power of Editorial Project Manager: Yes Living Will: Yes Advance Directives Inform ation Provided: No Advance Directives on File: No - Abuse and Neglect Do you feel safe in your surroundings?:: YES Are there sign/symptoms of abuse?: No Has anyone physically or mentally abused yo u?: No Has anyone threatened to harm you in any way?: No Been asked to sign a document that you don't understand?: No Physical Exam - Vital Signs Temperature: 97.8 F - . Pulse Rate: 64 Respirat ory Rate: 16 Pulse Ox at rest: 95 Blood Pressure: 144/72 Height: 5 ft 2 in Weight:: 142 kg Weight Source: Estimated by Patient Body Mass Index (BMI): 57.2 - Physical Exam General: Alert, [place] ed x3, Cooperative Neck: Supple, No JVD, Negative Carotid Bruits, Negative Hepatojugular Reflux Lungs: Clear to auscultation, Normal air movement Cardiovascular: Regular rate, Regular Rhythm, No murm urs Extremities: No clubbing, No cyanosis, No edema, Capillary Refill Less than 3 Seconds Musculoskeletal: No Tenderness to Palpation of Joints or Extremities Psych/Mental Status: Normal Affect, Appr opriate - Pain Is Patient Pain Free?: Yes Pain Level: 0/10 - Hearing/Speech/Vision/Spiritual Cultural/Samaritan Needs that may affect Treatment Plan: No Do you have any Spiritual/Emotional needs of which our [facility] could be of assistance ?: No [facility] to contact Place of Mandaen?: No Primary Language: Zambian Preferred Language: Zambian Right Hearing Abillity: Normal Comments: Wears corrective lenses at all times. - Motivation to Participate On a scale of 1 to 10, how prepared are you to commit to attending pulmonary rehabilitation?: 10 What do you see as barriers to s uccessfully being able to complete the program?: Work schedule What do you see as the benefits of succesfully completing the program? In other words, what do you hope to get out of participating in th e program?: Hoping to breath better and be more active. Are there issues you are dealing with that will interfere with completing the program?: none Do you have a spouse or signficant other, family o r friends who will help support you to complete the program?: good support system at home. Diagnostic Data Review - Lab Results Hematology/Chemistry: see medical records - Diagnostic and Imagin g Results CXR:: see medical records - Pulmonary Function Test FEV1:: 1.38 FVC:: 1.79 FEV1/FVC%:: 77 Gold Classification: GOLD class II(mod. COPD)with FEV1/FVC <70%, 50%</= FEV1&am p;#60; 50% predicted Functioning ADL/IADL - Functional Capacity ADL/IADL GROOMING: Current ability to tend safely to personal hygiene needs (i.e., washing face/hands, hair care, shaving or make up , teeth or denture care, fingernail care).: Able to groom self unaided, w/ or w/o the use of assistive devices. Current ABILITY TO DRESS UPPER BODY safely (with or w/out dressing aids) including unde rgarments, pullovers, front-opening shirts AND blouses, managing zippers, buttons, AND snaps:: Gets clothes out, puts on, and removes from upper body w/o assist. Current ABILITY TO DRESS LOWER BODY sa sin (with or w/out dressing aids) including undergarments, slacks, socks or nylons, shoes:: Able to obtain, put on, AND remove clothing and shoes w/out assistance. Bathing: Current ability to wash e ntire body safely. EXCLUDES grooming (washing face, washing hands and shampooing hair): Bathes self in shower/tub independently, incl getting in AND out TOILET TRANSFERRING: Current ability to get to AND from the toilet/BSC safely and transfer on AND off toilet/commode.: Gets to AND from toilet, transfers independently w/ or w/o a device. TOILETING HYGIENE: Current ability to maintain perineal hyg iene safely, adjust clothes and/or incontinence pads before AND after using toilet, commode, bedpan, urinal. If managing ostomy, includes cleaning: Manages toileting hygiene AND clothing management w/ out assist TRANSFERRING: Current ability to move safely from bed to chair, or ability to turn and position self in bed if patient is bedfast.: Able to independently transfer. AMBULATION/LOCOMOTION: C urrent ability to walk safely, once in a standing position, or use wheelchair, once in a seated position, on a variety of surfaces.: Able to IND walk on even/ uneven surface AND use stairs with or w/o railing FEEDING or EATING: Current ability to feed self meals and snacks safely. NOTE: This refers only to the process of eating, chewing and swallowing, not preparing the food to be eaten.: Able to independently fee ABILITY TO PLAN AND PREPARE MEALS: (e.g., cereal, sandwich) or reheat delivered meals safely.: IND prepare light meals/reheat delvrd meals/Or can but hasn't done so. ABILITY TO USE T ELEPHONE: Current ability to answer the phone safely, including dialing numbers, and effectively using the telephone to communicate.: Able to dial numbers and answer calls appropriately and as desired . - Pt Functioning Prior to Problem Self-Care (e.g.,grooming, dressing, AND bathing): INDEPENDENT Ambulation: INDEPENDENT Transfer: INDEPENDENT Household tasks (e.g., light meal prep, laundry, amish pping): INDEPENDENT 07/13/15 1042 <Electronically signed by Wilmar Girard > Date Wilmar Girard Outcome assessment reviewed. Exerci se plan approved as documented. Treatment plan and goals support patient needs/abilities. Continue with current plan. I certify the patient demonstrates improvement and remains willing and capable of participation. the patient continues to benefit from pulmonary services/training. The patient may continue at current intensity, endurance and modality and progress per protocol. 07/13/15 1900&a mp;#60;Electronically signed by Deshawn Desai MD> Cosigner Signature: Date Deshawn Desai MD CC: Signed 14-Jul-2015 CT - Individual Treatment Plan Result: Comments: See Note; NOTES: [facility] Pulmonary Rehab Reports [address] [place] [address] CT - Individual Treatment Plan MR#: [id number] Acct: [id number] Name: NICOLE VILLALOBOS ED Rep #: [id number] : 1940 74 From: Wilmar Girard PCP: Deepti Olmstead General Information - General Information Gold Classification:: GOLD 2: Moderate Special Needs: none Oxyge n: 0 Admitting Diagnosis: COPD Past Medical History: Arthitis, Hypertension, High Cholesterol, Heart Disease, Stroke, - - fatigue, shortness of breath w/exertion, bronchospasm, syncopal episodes, hyp othyroidism, anemia, hypertryglkyceridemia, hypokalemia, stroke, chronic kidney disease stage III, hypotension, controlled hypertension, thrombophlebitis, osterporosis, GERD, vitmain D deficiency, as thma, restless leg syndrome. Personal Learning Style:: Audio/Visual, Written Barriers to Learning and Learning Needs Assessment:: No Barriers Stage of change r/t lifestyle modifications: Prepared In dividual Counseling: Ed on Disease self Mgmt Strategies:: ADL Mgmt AND Energy Conserv, Dyspnea Control Technique, Exacerbation Prev AND Mgmt, Hme Exer. 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 Exercise workloads will be progressed gradually within limits of patient's ability. Progression based on ANNEMARIE dyspnea of 3-5 and absence of untoward symptoms during exercise. - Treadmill METs: 2.1 Load: 1.0 Level: 2% - Nu Step METs: 2.1 Load: 2-3 Level: 7 0-80 - Sci Fit Pro2 METs: 2.1 Load: 2-3 Level: 70-80 - Airdyne METs: 2.1 Load: 0.3-0.5 - Recumbent Schwinn METs: 2.1 Load: 15-20 Level: 2-3 Education by DIGITAL ADVERTISING ANALYST - Education by DIGITAL ADVERTISING ANALYST Goals: Effectively partners with MD/team to prevent and manage disease, disease related impairments. - Plan Plan:: Disease overview, Breathing retraining, Respiratory medications, Exacerbation prevent/ mgm t - Initial Assessment Inital Assessemnt: Poor control of dyspnea Date:: 07/13/15 Barriers to Learning: Vision Hypoxemia - Hypoxemia Problem AND Goals Problems:: No home O2 - Initial Assessm ent Date:: 07/13/15 SpO2:: 95 FiO2:: 21 - Plan Plan: Mntr SpO2 rest AND exercise, Trn apprpt O2 use/rest, Trn apprpt O2 use/exrcse, Trn O2 safety/systems Psychosocial - Psychosocial Problems AND Goals Problems: Impaired Q.O.L. Psychosocial Goals: Improved psychosocial coping skills., Verbalizes coping strategies., Improved Q.O.L. - Initial Assessment Depression:: COPD assessment w/ CA T - 19, Geriatric depression scr - 2, Impaired Q.O.L., Self efficacy score - 4 Score - Depression Screening Test: 2 - Plan Instruction:: Benefits of exercise, Relaxation Techniques, Review screenin g results, Stress management, Train in coping stratgies Tobacco Abuse/Smoking - Initial Assessment Tobacco Abuse/Smoking Initial Assessment: Quit >12 months # of packs smoked per day: 0 - Plan Tobacco Education: Pulmonary A AND P, Dangers of smoking, Lung gas exchange Medications - Medication Problems AND Goals Problems: Incrrct inhld Rx use/tech Med Goals: Adherence to medicat ion use., Correct technique/timing AND care of MDI, DPI, nebulizer , and spacer. - Initial Assessment Date:: 07/13/15 Does pt report taking home meds as prescribed?: Yes MDI: Yes DPI: Yes NEB: No Spacer: No Nutrition AND Weight Management - Nutrition/Wt Problems AND Goals Goals: BMI 21-25 - Initial Assessment Date:: 07/13/15 Knowledge Deficit Management of:: Role of exercise/wt cntrl, Lack of vit D/Calcium, Osteoporosis Admission Weight (lbs):: 142 BMI:: 26 - Plan Plan: ID strategies/wt control Bronchial Hygiene/Secrtn Clear - Bronch Hygiene Problems AND Goals Problems: R naseem. infct. mgmt/prevent Goals: Pt demonstrates effective cough, effective secretion clearance., Pt describes signs and symptoms of infection. - Initial Assessment Date:: 07/13/15 Patient Reports: : No cough - Plan to Instruct Plan: When to call MD, Controlled cough, Exercise AND secretion clrnce, Hand hygiene, Hydration, Vaccines Exercise AND Fitness - Exercise Problems AND Goals Proble ms: Deconditioning, No regular exercise, Know dfct exercise gdlnes Goals:: Arbc exercise 30-60m x12w, CT 3 times/week, Resist Trning 2-3times/wk - Intl Assmnt/Current Exrcse Level Date:: 07/13/15 P re METs: 2 5 METS for 10 minutes by DC: Yes - Plan Plan and Plan to Review:: Benefits of exercise, Core compnent of exercise, How to george. dyspnea lvl, How to mntr dyspnea lvl, Exercise intensity, E xercise safety guideline, Home exercise guidelines, Annemarie: 3-4/11-13 07/13/15 1135 <Electronically signed by Wilmar Girard > Date Tab Girard Outcome assessment reviewed. Exercise plan approved as documented. Treatment plan and goals support patient needs/abilities. Continue with current plan. I certify the patient demonstr ates improvement and remains willing and capable of participation. the patient continues to benefit from pulmonary services/training. The patient may continue at current intensity, endurance and modali ty and progress per protocol. 07/13/15 1900<Electronically signed by Deshawn Desai MD> Cosigner Signature: Date Deshawn Desai MD CC: Signed 03-Jul-2015 Spirometry ([id number]) Result: 27-Jun-2015 Pulmonary Function Report Comp Result: Comments: See Note; NOTES: [facility] Pulmonary Services/Neurology [address] [place] [address] Pulmonary Function Test (Comp) MR#: [id number] Acct: [id number] Aquilino e: NICOLE BUTLER Rep #: [id number] : 1940 74 From: Neo Curtis MD Referring Dr: Deepti Olmstead Status: REG CLI Ordering Dr: Deepti Olmstead Date: 06/25/15 Location: [facility] Sex: F C DATE OF SERVICE : 06/25/2015 BRIEF HISTORY OF PRESENT ILLNESS: The patient is a 74-year-old female, currently under the care of Deepti Olmstead, who presents for a complete pulmonary function test secondary to a diagnosis of asthma. Respiratory therapist reported good patient effort and reproducible results. INTERPRETATION: Forced expiration spirometry demonstrates a mild large airways obstructive ventil atory defect. There is no significant response to bronchodilators using strict ATS criteria. Spirograms are of good quality and do not plateau indicating slowly emptying areas of the lung. The respir atory flow volume loop shows decreased expiratory flow rates at high lung volumes consistent with small airways obstruction. Lung volumes by body plethysmography show all lung volumes within normal l imits. Diffusion capacity by single breath carbon monoxide is mildly reduced at 70% of predicted. Airway resistance is elevated. This study was compared to a previous one completed on August 21, 2012, which shows no significant change using ATS criteria. IMPRESSION: Irreversible mild large airways obstructive ventilatory defect with a symmetric reduction in diffusion capacity. There has b een no significant change compared to August 21, 2012. NEO CURTIS MD C C: Deepti Olmstead T: [facility] JOB: [id number] 06/27/15 0623 <Electronically signed by Neo Curtis MD> Silvino e Neo Curtis MD CC: Deepti Olmstead; Neo Curtis MD Date Dictated: 06/26/15 1042 Date Transcribed: 06/26/151041 Air Battle Manager: Signed 17-Jun-2015 Chest PA and Lateral Result: Comments: See Note; NOTES: [facility] Imaging Services [address] [place] [id number] [address] 4d Chest PA and Lateral MR#: [id number] Acct: [id number] Name: Diana BUTLER Rep #: [id number] : 1940 F 74 From: Souleymane Weir DO PCP: Deepti Olmstead Status: REG CLI Study: Chest PA and Lateral Date of Exam: 06/17/15 Exam# [id number] Ordering Dr: Deepti Olmstead DY: X-RAY CHEST REASON FOR EXAM: Female, 74 years old. Asthma. TECHNIQUE: PA and lateral views of the chest. COMPARISON: November 18, 2014. FINDINGS: The lungs are well expanded. There is no acute infiltrate or mass. There is no demonstrated pleural abnormality. Normal size heart. Normal mediastinum and jo. Normal visualized pulmonary arteries. There is atherosclerotic calcification of the aortic arch with tortuosity. Normal visualized thoracic spine. Normal visualized ribs, clavicles, and shoulders. There is no demonstrated abnormality of the vi sualized soft tissue structures of the upper abdomen. IMPRESSION: No acute cardiopulmonary disease or interval change. Electronically Signed: Souleymane Weir DO at 21:02 EST Tel [phone], Service support [phone], RAD/Chest PA and Lateral IMPRESSION: No acute cardiopulmonary disease or interval change . Electronically Signed: Souleymane Weir DO at 21:02 EST Tel [phone], Service support [phone], CC: Deepti Olmstead Air Battle Manager: Signed 17-Jun-2015 ELECTROCARDIOGRAM, COMPLETE (ECG) ([id number]) Comments: sinus rhythm on cardizem 180 bid Result: [MEASUREMENTS ANALYSIS] Date of Test: 06/17/2015 11:10:49; Heart Rate: 60; CT Interval: 134; QRS: 98; QT Interval: 396; Corrected QT Interval (QTc): 396; P Wave [place]: 72; QRS Wave [place]: 68; T Wave [place]: 90; Blood Pressure: 160/78 [ECG DIAGNOSTIC STATEMENTS] Date of Test: 06/17/2015 11:10:49; Summary: Sinus Rhythm -Nonspecific ST depression + Nonspecific T-abnormality -Nondiagnostic. ABNORMAL 17-Jun-2015 Spirometry ([id number]) Comments: moderate restriciton Result: 05-Nov-2013 Electroencephalogram Result: Comments: See Note; NOTES: [facility] Pulmonary Services/Neurology [address] [place] [address] Electroencephalogram (EEG) MR#: [id number] Acct: [id number] Name: RENETTA BUTLER Rep #: [id number] : 1940 73 From: Andrew Mckeon MD Referring Dr: Deepti Olmstead Status: REG CLI Ordering Dr: Deepti Olmstead Date: 11/01/13 Location: N Sex: F C OUTPATIENT ELECTROENCEP HALOGRAM DATE OF STUDY: November 01, 2013 REFERRING PHYSICIAN: Not specified. HISTORY: The patient is a 73-year-old right-handed female who reportedly is undergoing this EEG secondary to episode of loss of consciousness. The patient reported woke up in the middle of the night (date unspecified) and felt funny on her way to the bathroom. She states she was having difficulties walking and banging into the her. States had a bowel movement while sitting on the commode and then passed out around 3:00 in the morning. She is unsure how long she was out. She then went back to sleep. Ten minutes la ter she woke and went back to the bathroom again and felt fine. The next morning she woke and felt fine. She had no history of tongue biting or bladder incontinence. 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 Additional medical history is significant for renal failure, thyroid problems, asthma/COPD, hypertension, restless leg syndrome. Medications repo rted at the time of study include , HCTZ, levothyroxine, Requip, Advair, Plavix, aspirin. The EEG was performed using the International 10-20 system. The study included hyperventilation, photic stimulation, and single lead ECG monitoring. Total recording time was 25 minutes and 15 seconds. The predominant background rhythm with the patient wake and eyes closed was 8 Hz. There were no focal o r lateralizing abnormalities during the recording. No epileptiform abnormalities or electrographic seizures were present during the recording. ECG appeared to show sinus rhythm, but note P waves were difficult to identify, and if there is concern for atrial fibrillation, would recommend followup with 12-lead EKG versus Holter monitor. Photic stimulation was performed at the end of the recording and did elicit an appropriate driving response. No other abnormalities were noted during the recording including no clinical seizure activity noted by the recording tech. Note that sleep was recorded during this study including stages of N1 sleep. IMPRESSION: Normal wake and drowsy EEG. Again no epileptiform abnormalities or electrographic seizures were noted during the recording. If there is s till concern for possible seizure activity, consider further evaluation by means of ambulatory EEG for 72 hours versus admission to an epilepsy monitoring unit. Likewise, given the concerns for possi ble atrial fibrillation on single lead ECG , would recommend cardiac followup as noted above. INTERPRETING PHYSICIAN: Andrew Mckeon Jr., MD 11/05/13 1201 <Electronically signed by Jas Mckeon MD> Date Andrew Mckeon MD CC: Deepti Olmstead; Tressa Bonilla DO; Andrew Mckeon MD Date Dictated: 11/04/13 1750 Date Transcribed: 11/05/13 0740 Air Battle Manager: GENARO Signed 02-Nov-2013 Brain without Contrast Result: Comments: See Note; NOTES: [facility] Imaging Services [address] [place] [address] MRI Report MR#: [id number] Acct: [id number] Name: NICOLE BUTLER Rep #: [id number] : 1940 F 73 From: Kelly Morin MD PCP: Tressa Bonilla DO Status: REG CLI Study: Brain without Contrast Date of Exam: 11/02/13 Exam# [id number] Ordering Dr: Deepti Olmstead STUDY: MRI BRAIN WITHOUT CONTRAST REASON FOR EXAM: Female, 73 years old. Fall. CVA. TECHNIQUE: Standardized multiplanar fat and water weighted pulse sequences were obtained. No intravenous contrast was administered for th is study. COMPARISON: MRI brain 12/13/12 FINDINGS: There is mild cerebral atrophy with widening of the extra-axial spaces and ventricular dilatation. There are a limited number of small white matter hyperintensities, distributed throughout the deep white matter tracts of the cerebral hemispheres, consistent with mild chronic white matter ischemic changes. There is no evidence for recent intracranial ischemia or other cause of cytotoxic edema on diffusion weighted imaging (DWI). There is a remote lacunar infarct along the head of the caudate nucleus on the left. Normal T2* images of the brain without demonstrated susceptibility artifact. There is no demonstrated hemosiderin stain. Normal bilateral basal ganglia. Normal thalami. There is no ex tra-axial fluid accumulation. Normal flow voids within the major intracranial circulation suggesting patency by spin echo criteria. Normal sella turcica, pituitary gland, infundibular stalk, optic chiasm and hypothalamus. Normal tectal plate and pineal gland. Normal midbrain, zenia and medulla. There is moderate prominence of the vermian folia, consistent with atrophy of the vermis. The cereb ellar hemispheres are normal. Normal basal cisterns. Normal bilateral temporal bones. Normal bilateral internal auditory canals. No demonstrated orbital abnormality, within the constraints of a rout ine brain study. There is severe polypoid mucosal thickening along the sphenoid sinus on the left. The rest of the paranasal sinuses are clear. Normal calvarium and skull base. Normal visualized sof t tissue structures. Normal visualized upper cervical spine. IMPRESSION: 1. Involutional changes of the brain, as described above. 2. There is severe left sphe noid sinus disease. This has progressed since the prior study. 3. There is no acute intracranial hemorrhage. 4. There is no acute infarct. 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 Electronically Signed: Prasanna Morin MD at 11:12 EDT Tel [phone] , Service support [phone], CC: Deepti Olmstead; Tressa Bonilla DO Air Battle Manager: Signed 28-Oct-2013 ELECTROCARDIOGRAM, COMPLETE (ECG) ([id number]) Comments: sinus rthythm Result: [MEASUREMENTS ANALYSIS] Date of Test: 10/28/2013 13:34:38; Heart Rate: 60; CT Interval: 122; QRS: 93; QT Interval: 390; Corrected QT Interval (QTc): 390; P Wave [place]: 76; QRS Wave [place]: 74; T Wave [place]: 70; Blood Pressure: 120/74 [ECG DIAGNOSTIC STATEMENTS] Date of Test: 10/28/2013 13:34:38; Summary: Sinus Rhythm WITHIN NORMAL LIMITS 23-Oct-2013 Echocardiogram Complete Result: Comments: See Note; NOTES: [facility] [address] [place] [address] Echo Complete 10/23/13 1313 MR#: [id number] Acct: [id number] Name: NICOLE BUTLER Rep #: [id number] : [id number] 73 From: Celestino Bowman MD Attending Dr: Deepti Olmstead Status: REG CLI Ordering Dr: Deepti Olmstead Date: 10/23/13 Location: [facility] Sex: F C Admitted: Procedure This was a 2D Doppler, Color Flow transthoracic echocardiogram. Exam performed in department. Left Ventricle Mild concentric left ventricular hypertrophy. Normal LV size. The estimated ejection fractio n is 65 %. No regional wall motion abnormalities noted. Right Ventricle Normal size and thickness. Normal systolic function. Atria The left atrium is mildly enlarged. Normal right atrium. Normal atrial septum. Bubble contrast study negative for right to left interatrial shunt. Mitral Valve The mitral valve is structurally normal. No prolapse or stenosis seen. Tricuspid Valve Normal tric uspid valve. Trivial tricuspid valve insufficiency. Right ventricular systolic pressure estimated to be 30 mmHg. Aortic Valve Trisinus/trileaflet aortic valve. Pulmonic Valve Normal pulmonic deng ve. Great Vessels Normal aortic root. Normal arch. Normal inferior vena cava. Inferior vena cava collapse with sniff. Pericardium/Pleural No pericardial effusion. LVIDd: 3.1 cm IVSd: 1.3 cm Ao root diam: 3.2 cm LAV(MOD-bp): 37.7 ml LVIDs: 2.1 cm LVPWd: 1.0 cm Ao root area: 8.2 cm2 LAV(MOD-bp) Indexed: 24.4 ml/m2 RVDd: 2.5 cm FS: 33.8 % LA dimension: 3.3 cm LAV(MOD-sp2): 38.4 ml LAV(MOD- sp4): 38.5 ml LA A4 area: 14.4 cm2 RA A4 area: 9.5 cm2 MV E max cesar: Lat Peak E' Cesar: Med Peak E' Cesar: Ao V2 max: 96.1 cm/sec 7.9 cm/sec 4.4 cm/sec 133.6 cm/sec MV A max cesar: Ao max P.1 mmHg 90.5 cm/sec MV E/A: 1.1 LV V1 max: 132.4 cm/sec PA V2 max: 95.7 cm/sec TR max cesar: 251.9 cm/sec E/ E' lat: 12.2 LV V1 max P.0 mmHg PA max P.7 mmHg TR max P.4 mmHg E/E' med: 21.7 Interpretation Summary Mild concentric left ventricular hypertrophy. The estimated ejection fraction is 65 %. Trivial tricuspid valve insufficiency. R ight ventricular systolic pressure estimated to be 30 mmHg. Bubble contrast study negative for right to left interatrial shunt. No old echo report for comparison. Ordering Physician: Deepti Olmstead Performed By: Nury Montano RDCS 0 4:28 PM CC: Deepti Olmstead; Tressa Bonilla DO Date Dictated: 10/23/13 1313 Date Transcribed: 10/23/13 1628 Air Battle Manager: Signed Family History Unknown Family Member Name Dates Details Brother 1 Comments: CVA Status: Active Brother 2 Comments: HTN Status: Active Father Comments: DM, athrosclorosis, Status: Active Mother Comments: cardiomegly, HTN, hypothyroid Status: Active Sister 1 Comments: polio Status: Active Social History Name Dates Details No Caffeine Use Status: Active No Drug Use Status: Active Non Drinker/No Alcohol Use Status: Active Non Smoker/No Tobacco Use Status: Active Vital Signs Date Test Result Details :12 Temperature 97 f Comments: Method: Temporal Pulse 89 /min Comments: Pattern: Regular Respiration Rate 18 /min Comments: Pattern: Unlabored O2 SAT 98 % Comments: Room air BP Systolic 140 mm[Hg] Comments: Patient Position: Sitting; Cuff Location: Left Arm; Cuff Size: Standard BP Diastolic 62 mm[Hg] Comments: Patient Position: Sitting; Cuff Location: Left Arm; Cuff Size: Standard Weight 146.25 lb Height 62 in Body Mass Index Calculated 26.75 kg/m2 Body Surface Area Calculated 1.67 m2 :35 Temperature 97.5 f Comments: Method: Temporal Pulse 86 /min Comments: Pattern: Regular Respiration Rate 18 /min Comments: Pattern: Unlabored O2 SAT 96 % Comments: Room air BP Systolic 178 mm[Hg] Comments: Patient Position: Sitting; Cuff Location: Left Arm; Cuff Size: Standard BP Diastolic 68 mm[Hg] Comments: Patient Position: Sitting; Cuff Location: Left Arm; Cuff Size: Standard Weight 146.25 lb Height 62 in Body Mass Index Calculated 26.75 kg/m2 Body Surface Area Calculated 1.67 m2 :26 Temperature 97.4 f Comments: Method: Temporal Pulse 80 /min Comments: Pattern: Regular Respiration Rate 16 /min Comments: Pattern: Unlabored O2 SAT 95 % Comments: Room air BP Systolic 130 mm[Hg] Comments: Patient Position: Sitting; Cuff Location: Left Arm; Cuff Size: Standard BP Diastolic 76 mm[Hg] Comments: Patient Position: Sitting; Cuff Location: Left Arm; Cuff Size: Standard Weight 149.5 lb Height 62 in Body Mass Index Calculated 27.34 kg/m2 Body Surface Area Calculated 1.69 m2 :55 Temperature 97.4 f Pulse 87 /min Comments: Pattern: Regular Respiration Rate 18 /min Comments: Pattern: Unlabored O2 SAT 96 % Comments: Room air BP Systolic 142 mm[Hg] Comments: Patient Position: Sitting; Cuff Location: Left Arm; Cuff Size: Standard BP Diastolic 64 mm[Hg] Comments: Patient Position: Sitting; Cuff Location: Left Arm; Cuff Size: Standard Weight 149.5 lb Height 62 in Body Mass Index Calculated 27.34 kg/m2 Body Surface Area Calculated 1.69 m2 :19 Temperature 97.3 f Pulse 68 /min Comments: Pattern: Regular Respiration Rate 15 /min Comments: Pattern: Unlabored O2 SAT 97 % Comments: Room air BP Systolic 136 mm[Hg] Comments: Patient Position: Sitting; Cuff Location: Left Arm; Cuff Size: Standard BP Diastolic 72 mm[Hg] Comments: Patient Position: Sitting; Cuff Location: Left Arm; Cuff Size: Standard Weight 144.25 lb Height 62 in Body Mass Index Calculated 26.38 kg/m2 Body Surface Area Calculated 1.66 m2 :47 Temperature 97.6 f Pulse 73 /min Comments: Pattern: Regular O2 SAT 98 % Comments: Room air BP Systolic 134 mm[Hg] Comments: Patient Position: Sitting; Cuff Location: Left Arm; Cuff Size: Standard BP Diastolic 68 mm[Hg] Comments: Patient Position: Sitting; Cuff Location: Left Arm; Cuff Size: Standard Weight 140.125 lb Height 62 in Body Mass Index Calculated 25.63 kg/m2 Body Surface Area Calculated 1.64 m2 :06 Temperature 99.4 f Comments: Method: Temporal Pulse 90 /min Comments: Pattern: Regular Respiration Rate 16 /min Comments: Pattern: Unlabored BP Systolic 120 mm[Hg] Comments: Patient Position: Sitting; Cuff Location: Left Arm; Cuff Size: Standard BP Diastolic 68 mm[Hg] Comments: Patient Position: Sitting; Cuff Location: Left Arm; Cuff Size: Standard Weight 142.25 lb Height 62 in Body Mass Index Calculated 26.02 kg/m2 Body Surface Area Calculated 1.65 m2 :18 Temperature 96.9 f Pulse 89 /min Comments: Pattern: Regular Respiration Rate 18 /min Comments: Pattern: Unlabored O2 SAT 96 % Comments: Room air BP Systolic 172 mm[Hg] Comments: Patient Position: Sitting; Cuff Location: Left Arm; Cuff Size: Standard BP Diastolic 70 mm[Hg] Comments: Patient Position: Sitting; Cuff Location: Left Arm; Cuff Size: Standard Weight 142.25 lb Height 62 in Body Mass Index Calculated 26.02 kg/m2 Body Surface Area Calculated 1.65 m2 :39 Temperature 95.4 f Comments: Method: Temporal Pulse 82 /min Comments: Pattern: Regular Respiration Rate 16 /min Comments: Pattern: Unlabored O2 SAT 98 % Comments: Room air BP Systolic 142 mm[Hg] Comments: Patient Position: Sitting; Cuff Location: Left Arm; Cuff Size: Standard BP Diastolic 96 mm[Hg] Comments: Patient Position: Sitting; Cuff Location: Left Arm; Cuff Size: Standard Weight 139.5 lb Height 62 in Body Mass Index Calculated 25.51 kg/m2 Body Surface Area Calculated 1.64 m2 :35 Temperature 97.9 f Pulse 66 /min Comments: Pattern: Regular Respiration Rate 16 /min Comments: Pattern: Unlabored O2 SAT 97 % Comments: Room air BP Systolic 126 mm[Hg] Comments: Patient Position: Sitting; Cuff Location: Left Arm; Cuff Size: Standard BP Diastolic 60 mm[Hg] Comments: Patient Position: Sitting; Cuff Location: Left Arm; Cuff Size: Standard Weight 139.5 lb Height 62 in Body Mass Index Calculated 25.51 kg/m2 Body Surface Area Calculated 1.64 m2 :23 Temperature 97.8 f Pulse 63 /min Comments: Pattern: Regular Respiration Rate 17 /min Comments: Pattern: Unlabored O2 SAT 97 % Comments: Room air BP Systolic 124 mm[Hg] Comments: Patient Position: Sitting; Cuff Location: Left Arm; Cuff Size: Standard BP Diastolic 82 mm[Hg] Comments: Patient Position: Sitting; Cuff Location: Left Arm; Cuff Size: Standard Weight 138.375 lb Height 62 in Body Mass Index Calculated 25.31 kg/m2 Body Surface Area Calculated 1.63 m2 :16 Temperature 97.8 f Pulse 59 /min Comments: Pattern: Regular Respiration Rate 17 /min Comments: Pattern: Unlabored O2 SAT 96 % Comments: Room air BP Systolic 142 mm[Hg] Comments: Patient Position: Sitting; Cuff Location: Left Arm; Cuff Size: Standard BP Diastolic 78 mm[Hg] Comments: Patient Position: Sitting; Cuff Location: Left Arm; Cuff Size: Standard Weight 138 lb Height 62 in Body Mass Index Calculated 25.24 kg/m2 Body Surface Area Calculated 1.63 m2 :15 Temperature 97.1 f Pulse 66 /min Comments: Pattern: Regular Respiration Rate 17 /min Comments: Pattern: Unlabored O2 SAT 97 % Comments: Room air BP Systolic 124 mm[Hg] Comments: Patient Position: Sitting; Cuff Location: Left Arm; Cuff Size: Standard BP Diastolic 80 mm[Hg] Comments: Patient Position: Sitting; Cuff Location: Left Arm; Cuff Size: Standard Weight 140 lb Height 62 in Body Mass Index Calculated 25.61 kg/m2 Body Surface Area Calculated 1.64 m2 :30 Temperature 97.6 f Pulse 73 /min Comments: Pattern: Regular Respiration Rate 16 /min Comments: Pattern: Unlabored O2 SAT 96 % Comments: Room air BP Systolic 146 mm[Hg] Comments: Patient Position: Sitting; Cuff Location: Left Arm; Cuff Size: Standard BP Diastolic 72 mm[Hg] Comments: Patient Position: Sitting; Cuff Location: Left Arm; Cuff Size: Standard Weight 142.125 lb Height 62 in Body Mass Index Calculated 25.99 kg/m2 Body Surface Area Calculated 1.65 m2 :26 Temperature 97.8 f Comments: Method: Oral Pulse 76 /min Comments: Pattern: Regular Respiration Rate 18 /min O2 SAT 95 % Comments: Room air BP Systolic 146 mm[Hg] Comments: Patient Position: Sitting; Cuff Location: Left Arm; Cuff Size: Standard BP Diastolic 70 mm[Hg] Comments: Patient Position: Sitting; Cuff Location: Left Arm; Cuff Size: Standard Weight 142.125 lb Height 62 in Body Mass Index Calculated 25.99 kg/m2 Body Surface Area Calculated 1.65 m2 [id number] Temperature 97.8 f Pulse 64 /min Comments: Pattern: Regular Respiration Rate 18 /min Comments: Pattern: Unlabored O2 SAT 97 % Comments: Room air BP Systolic 144 mm[Hg] Comments: Patient Position: Sitting; Cuff Location: Left Arm; Cuff Size: Standard BP Diastolic 72 mm[Hg] Comments: Patient Position: Sitting; Cuff Location: Left Arm; Cuff Size: Standard Weight 142.5 lb Height 62 in Body Mass Index Calculated 26.06 kg/m2 Body Surface Area Calculated 1.66 m2 [id number] Temperature 97.2 f Pulse 90 /min Comments: Pattern: Regular Respiration Rate 16 /min Comments: Pattern: Unlabored O2 SAT 95 % Comments: Room air BP Systolic 160 mm[Hg] Comments: Patient Position: Sitting; Cuff Location: Left Arm; Cuff Size: Standard BP Diastolic 78 mm[Hg] Comments: Patient Position: Sitting; Cuff Location: Left Arm; Cuff Size: Standard Weight 142.5 lb Height 62 in Body Mass Index Calculated 26.06 kg/m2 Body Surface Area Calculated 1.66 m2 [id number] Temperature 97.4 f Pulse 88 /min Comments: Pattern: Regular Respiration Rate 16 /min Comments: Pattern: Unlabored O2 SAT 98 % Comments: Room air BP Systolic 152 mm[Hg] Comments: Patient Position: Sitting; Cuff Location: Left Arm; Cuff Size: Standard BP Diastolic 72 mm[Hg] Comments: Patient Position: Sitting; Cuff Location: Left Arm; Cuff Size: Standard Weight 141.375 lb [id number] Temperature 97.9 f Pulse 81 /min Comments: Pattern: Regular Respiration Rate 18 /min Comments: Pattern: Unlabored O2 SAT 97 % Comments: Room air BP Systolic 180 mm[Hg] Comments: Patient Position: Sitting; Cuff Location: Left Arm; Cuff Size: Standard BP Diastolic 84 mm[Hg] Comments: Patient Position: Sitting; Cuff Location: Left Arm; Cuff Size: Standard Weight 141.375 lb :20 Temperature 97.8 f Pulse 80 /min Comments: Pattern: Regular Respiration Rate 16 /min Comments: Pattern: Unlabored O2 SAT 96 % Comments: Room air BP Systolic 160 mm[Hg] Comments: Patient Position: Sitting; Cuff Location: Left Arm; Cuff Size: Standard BP Diastolic 60 mm[Hg] Comments: Patient Position: Sitting; Cuff Location: Left Arm; Cuff Size: Standard Weight 130.375 lb :55 Temperature 96.4 f Comments: Method: Oral Pulse 117 /min Comments: Pattern: Regular Respiration Rate 15 /min O2 SAT 98 % Comments: Room air BP Systolic 110 mm[Hg] Comments: Patient Position: Sitting; Cuff Location: Left Arm; Cuff Size: Standard BP Diastolic 60 mm[Hg] Comments: Patient Position: Sitting; Cuff Location: Left Arm; Cuff Size: Standard Weight 135.25 lb :44 Temperature 97.8 f Pulse 70 /min Comments: Pattern: Regular Respiration Rate 16 /min Comments: Pattern: Unlabored O2 SAT 96 % Comments: Room air BP Systolic 130 mm[Hg] Comments: Patient Position: Sitting; Cuff Location: Left Arm; Cuff Size: Standard BP Diastolic 70 mm[Hg] Comments: Patient Position: Sitting; Cuff Location: Left Arm; Cuff Size: Standard Weight 135.25 lb :11 Weight 133.25 lb :09 Temperature 96.4 f Pulse 105 /min Comments: Pattern: Regular Respiration Rate 16 /min Comments: Pattern: Unlabored O2 SAT 98 % Comments: Room air BP Systolic 186 mm[Hg] Comments: Patient Position: Sitting; Cuff Location: Left Arm; Cuff Size: Standard BP Diastolic 70 mm[Hg] Comments: Patient Position: Sitting; Cuff Location: Left Arm; Cuff Size: Standard Weight 132 lb Height 62 in Body Mass Index Calculated 24.14 kg/m2 Body Surface Area Calculated 1.6 m2 :05 Temperature 96.5 f Pulse 103 /min Comments: Pattern: Regular Respiration Rate 16 /min Comments: Pattern: Unlabored O2 SAT 98 % Comments: Room air BP Systolic 133 mm[Hg] Comments: Patient Position: Sitting; Cuff Location: Left Arm; Cuff Size: Standard BP Diastolic 72 mm[Hg] Comments: Patient Position: Sitting; Cuff Location: Left Arm; Cuff Size: Standard Weight 132 lb Height 62 in Body Mass Index Calculated 24.14 kg/m2 Body Surface Area Calculated 1.6 m2 :10 Pulse 76 /min Comments: Pattern: Regular Respiration Rate 18 /min Comments: Pattern: Unlabored O2 SAT 98 % Comments: Room air BP Systolic 118 mm[Hg] Comments: Patient Position: Sitting; Cuff Location: Left Arm; Cuff Size: Large BP Diastolic 62 mm[Hg] Comments: Patient Position: Sitting; Cuff Location: Left Arm; Cuff Size: Large Weight 132 lb Height 62 in Body Mass Index Calculated 24.14 kg/m2 Body Surface Area Calculated 1.6 m2 :04 Temperature 97.7 f Comments: Method: Oral Pulse 66 /min Comments: Pattern: Regular Respiration Rate 16 /min O2 SAT 98 % Comments: Room air BP Systolic 174 mm[Hg] Comments: Patient Position: Sitting; Cuff Location: Left Arm; Cuff Size: Standard BP Diastolic 76 mm[Hg] Comments: Patient Position: Sitting; Cuff Location: Left Arm; Cuff Size: Standard Weight 132 lb Height 62 in Body Mass Index Calculated 24.14 kg/m2 Body Surface Area Calculated 1.6 m2 :45 Temperature 97.1 f Pulse 75 /min Comments: Pattern: Regular Respiration Rate 16 /min Comments: Pattern: Unlabored O2 SAT 98 % Comments: Room air BP Systolic 198 mm[Hg] Comments: Patient Position: Sitting; Cuff Location: Left Arm; Cuff Size: Standard BP Diastolic 78 mm[Hg] Comments: Patient Position: Sitting; Cuff Location: Left Arm; Cuff Size: Standard Weight 133.375 lb Height 62 in Body Mass Index Calculated 24.39 kg/m2 Body Surface Area Calculated 1.61 m2 :33 Temperature 97.9 f Comments: Method: Oral Pulse 72 /min Comments: Pattern: Regular Respiration Rate 15 /min O2 SAT 98 % Comments: Room air BP Systolic 138 mm[Hg] Comments: Patient Position: Sitting; Cuff Location: Left Arm; Cuff Size: Standard BP Diastolic 70 mm[Hg] Comments: Patient Position: Sitting; Cuff Location: Left Arm; Cuff Size: Standard Weight 122 lb Height 62 in Body Mass Index Calculated 22.31 kg/m2 Body Surface Area Calculated 1.55 m2 :13 Temperature 98.4 f Comments: Method: Oral Pulse 74 /min Comments: Pattern: Regular Respiration Rate 17 /min O2 SAT 96 % Comments: Room air BP Systolic 122 mm[Hg] Comments: Patient Position: Sitting; Cuff Location: Left Arm; Cuff Size: Standard BP Diastolic 68 mm[Hg] Comments: Patient Position: Sitting; Cuff Location: Left Arm; Cuff Size: Standard Weight 122 lb Height 62 in Body Mass Index Calculated 22.31 kg/m2 Body Surface Area Calculated 1.55 m2 :14 Temperature 97.8 f Comments: Method: Oral Pulse 76 /min Comments: Pattern: Regular Respiration Rate 16 /min O2 SAT 98 % Comments: Room air BP Systolic 140 mm[Hg] Comments: Patient Position: Sitting; Cuff Location: Left Arm; Cuff Size: Standard BP Diastolic 70 mm[Hg] Comments: Patient Position: Sitting; Cuff Location: Left Arm; Cuff Size: Standard Weight 122 lb Height 62 in Body Mass Index Calculated 22.31 kg/m2 Body Surface Area Calculated 1.55 m2 :40 Temperature 98.2 f Comments: Method: Oral Pulse 88 /min Comments: Pattern: Regular Respiration Rate 16 /min O2 SAT 97 % Comments: Room air BP Systolic 120 mm[Hg] Comments: Patient Position: Sitting; Cuff Location: Left Arm; Cuff Size: Standard BP Diastolic 66 mm[Hg] Comments: Patient Position: Sitting; Cuff Location: Left Arm; Cuff Size: Standard Weight 122 lb :15 Temperature 97.5 f Comments: Method: Temporal Pulse 117 /min Comments: Pattern: Regular Respiration Rate 16 /min Comments: Pattern: Unlabored O2 SAT 92 % Comments: Room air BP Systolic 120 mm[Hg] Comments: Patient Position: Sitting; Cuff Location: Left Arm; Cuff Size: Standard BP Diastolic 74 mm[Hg] Comments: Patient Position: Sitting; Cuff Location: Left Arm; Cuff Size: Standard Weight 124 lb Height 62 in Body Mass Index Calculated 22.68 kg/m2 Body Surface Area Calculated 1.56 m2 :12 Temperature 97.8 f Comments: Method: Oral Pulse 68 /min Comments: Pattern: Regular Respiration Rate 15 /min O2 SAT 96 % Comments: Room air BP Systolic 110 mm[Hg] Comments: Patient Position: Sitting; Cuff Location: Left Arm; Cuff Size: Standard BP Diastolic 62 mm[Hg] Comments: Patient Position: Sitting; Cuff Location: Left Arm; Cuff Size: Standard Weight 124 lb Height 62 in Body Mass Index Calculated 22.68 kg/m2 Body Surface Area Calculated 1.56 m2 :55 Temperature 97.8 f Comments: Method: Oral Pulse 64 /min Comments: Pattern: Regular Respiration Rate 15 /min O2 SAT 98 % Comments: Room air BP Systolic 120 mm[Hg] Comments: Patient Position: Sitting; Cuff Location: Left Arm; Cuff Size: Standard BP Diastolic 58 mm[Hg] Comments: Patient Position: Sitting; Cuff Location: Left Arm; Cuff Size: Standard Weight 122.3125 lb Height 62 in Body Mass Index Calculated 22.37 kg/m2 Body Surface Area Calculated 1.55 m2 :13 Temperature 96.9 f Comments: Method: Oral Pulse 62 /min Comments: Pattern: Regular Respiration Rate 15 /min O2 SAT 98 % Comments: Room air BP Systolic 100 mm[Hg] Comments: Patient Position: Sitting; Cuff Location: Left Arm; Cuff Size: Standard BP Diastolic 48 mm[Hg] Comments: Patient Position: Sitting; Cuff Location: Left Arm; Cuff Size: Standard Weight 122.125 lb Height 62 in Body Mass Index Calculated 22.34 kg/m2 Body Surface Area Calculated 1.55 m2 :40 Temperature 97.8 f Comments: Method: Oral Pulse 68 /min Comments: Pattern: Regular Respiration Rate 15 /min O2 SAT 96 % Comments: Room air BP Systolic 108 mm[Hg] Comments: Patient Position: Sitting; Cuff Location: Left Arm; Cuff Size: Standard BP Diastolic 60 mm[Hg] Comments: Patient Position: Sitting; Cuff Location: Left Arm; Cuff Size: Standard Weight 124.5 lb Height 62 in Body Mass Index Calculated 22.77 kg/m2 Body Surface Area Calculated 1.56 m2 :04 Temperature 97.4 f Comments: Method: Oral Pulse 60 /min Comments: Pattern: Regular Respiration Rate 15 /min BP Systolic 112 mm[Hg] Comments: Patient Position: Sitting; Cuff Location: Left Arm; Cuff Size: Standard BP Diastolic 64 mm[Hg] Comments: Patient Position: Sitting; Cuff Location: Left Arm; Cuff Size: Standard Weight 132.5625 lb Height 62 in Body Mass Index Calculated 24.25 kg/m2 Body Surface Area Calculated 1.61 m2 :17 Pulse 78 /min Comments: Pattern: Regular BP Systolic 122 mm[Hg] Comments: Patient Position: Sitting; Cuff Location: Left Arm; Cuff Size: Standard BP Diastolic 66 mm[Hg] Comments: Patient Position: Sitting; Cuff Location: Left Arm; Cuff Size: Standard Weight 132.5625 lb Height 62 in Body Mass Index Calculated 24.25 kg/m2 Body Surface Area Calculated 1.61 m2 :42 Temperature 97.2 f Comments: Method: Oral Respiration Rate 16 /min Comments: Pattern: Unlabored BP Systolic 112 mm[Hg] Comments: Patient Position: Sitting; Cuff Location: Left Arm; Cuff Size: Large BP Diastolic 78 mm[Hg] Comments: Patient Position: Sitting; Cuff Location: Left Arm; Cuff Size: Large Weight 132.5625 lb Height 62 in Body Mass Index Calculated 24.25 kg/m2 Body Surface Area Calculated 1.61 m2 :55 Temperature 98.5 f Comments: Method: Oral Pulse 72 /min Comments: Pattern: Regular Respiration Rate 20 /min Comments: Pattern: Unlabored BP Systolic 122 mm[Hg] Comments: Patient Position: Sitting; Cuff Location: Left Arm; Cuff Size: Large BP Diastolic 60 mm[Hg] Comments: Patient Position: Sitting; Cuff Location: Left Arm; Cuff Size: Large Weight 135 lb Height 62 in Body Mass Index Calculated 24.69 kg/m2 Body Surface Area Calculated 1.62 m2 :34 Temperature 98.7 f Comments: Method: Oral Pulse 84 /min Comments: Pattern: Regular Respiration Rate 17 /min O2 SAT 98 % Comments: Room air BP Systolic 120 mm[Hg] Comments: Patient Position: Sitting; Cuff Location: Left Arm; Cuff Size: Standard BP Diastolic 56 mm[Hg] Comments: Patient Position: Sitting; Cuff Location: Left Arm; Cuff Size: Standard Weight 135 lb Height 62 in Body Mass Index Calculated 24.69 kg/m2 Body Surface Area Calculated 1.62 m2 :02 BP Systolic 140 mm[Hg] Comments: Patient Position: Supine; Cuff Location: Right Arm; Cuff Size: Standard BP Diastolic 60 mm[Hg] Comments: Patient Position: Supine; Cuff Location: Right Arm; Cuff Size: Standard :05 Temperature 98.4 f Comments: Method: Oral Pulse 78 /min Comments: Pattern: Regular Respiration Rate 17 /min O2 SAT 99 % Comments: Room air BP Systolic 142 mm[Hg] Comments: Patient Position: Sitting; Cuff Location: Left Arm; Cuff Size: Standard BP Diastolic 58 mm[Hg] Comments: Patient Position: Sitting; Cuff Location: Left Arm; Cuff Size: Standard Weight 135 lb Height 62 in Body Mass Index Calculated 24.69 kg/m2 Body Surface Area Calculated 1.62 m2 Results Date Description Value Details :02 CBC-Complete Blood Cnt No Diff Comments: [facility] [address] [place], [place], [id number] MPV 12.1 fL (Abnormal) Range: 6.2-12.0 PLT 270 K/mm3 (Normal) Range: 150-450 RDW SD 42.6 fL (Normal) Range: 35.1-43.9 RDW CV 13.0 % (Normal) Range: 11.6-14.6 MCHC 33.7 {g/gl} (Normal) Range: 32-36 MCH 30.5 pg (Normal) Range: 27.0-32.0 MCV 90.4 fL (Normal) Range: 81-99 HCT 36.8 % (Abnormal) Range: 37-47 HGB 12.4 g/dL (Normal) Range: 12.0-15.0 RBC 4.07 {M/mm3} (Abnormal) Range: 4.2-5.4 WBC 7.1 K/mm3 (Normal) Range: 4.4-11.0 :02 Microalb:Creat Ratio,Random UR Comments: [facility] [address] [place], [place], [id number] MALB:CREAT 29.2 {mg/g_CRE} (Normal) MICROALBUMIN,UR 25.2 mg/L (Normal) UR CREAT 86.30 mg/dL (Normal) :02 PTHIN 51.4 pg/mL (Normal) Comments: [facility] [address] [place], [place], [id number] Range: 18.4-80.1 :02 Renal Profile Comments: [address] [place], [place], [id number] CO2 26.0 mmol/L (Normal) Range: 21.0-32.0 CL 106 mmol/L (Normal) Range: 98-107 K 4.3 mmol/L (Normal) Range: 3.5-5.1 NA 140 mmol/L (Normal) Range: 136-145 PHOS 3.7 mg/dL (Normal) Range: 2.5-4.9 CA 9.0 mg/dL (Normal) Range: 8.5-10.1 ALB 3.9 g/dL (Normal) Range: 3.2-5.0 BUN/CRE 18.6 {RATIO} (Normal) Range: 10-20 EST GFR - AA 38 mL/min (Abnormal) Comments: GFR Calc EST GFR 31 mL/min (Abnormal) Comments: Non- GFR Calc CREAT,SERUM 1.67 mg/dL (Abnormal) Range: 0.55-1.02 Comments: The validity of the calculated GFR AND GFRAA in patients over70 years has not been determined. Clinical correlation isessential. BUN 31 mg/dL (Abnormal) Range: 7-18 GLU 100 mg/dL (Normal) Range: 74-106 Comments: Fasting Glucose result from 100 to 125 mg/dLsuggests IMPAIRED HOMEOSTASIS per A.D.A. criteria.Please note revised GLUCOSE reference range bmklfvcai29/02/2018. 15-Iqg-12867:02 Vitamin D,25 Hydroxy Comments: [facility] [address] [place], [address] Vitamin D 25-OH 26.5 ng/mL (Abnormal) Range: 29.95-100.01 Comments: Vitamin D 25(OH) Status Range Deficiency <20 ng/mL (50nmol/L) Insuffciency 20 - 30 ng/mL (50 - 75 nmol/L) Sufficiency 30 - 100 ng/mL (75 - 250 nmol/L) Toxicity >100 ng/mL (>250 nmol/L) 12-Pcr-781016:12 CBC, Platelets & Auto Diff Comments: PATIENT WAS FASTINGPERFORMED BY: [facility] CampusQgzhib7926 [facility] [id number] ([id number]) Immature Grans (Abs) 0.0 {x10E3/uL} (Normal) Range: 0.0-0.1 Immature Granulocytes 0 % (Normal) Baso (Absolute) 0.1 {x10E3/uL} (Normal) Range: 0.0-0.2 Eos (Absolute) 0.2 {x10E3/uL} (Normal) Range: 0.0-0.4 Monocytes(Absolute) 0.7 {x10E3/uL} (Normal) Range: 0.1-0.9 Lymphs (Absolute) 1.6 {x10E3/uL} (Normal) Range: 0.7-3.1 Neutrophils (Absolute) 5.0 {x10E3/uL} (Normal) Range: 1.4-7.0 Basos 1 % (Normal) Eos 3 % (Normal) Monocytes 10 % (Normal) Lymphs 20 % (Normal) Neutrophils 66 % (Normal) Platelets 292 {x10E3/uL} (Normal) Range: 150-379 RDW 13.5 % (Normal) Range: 12.3-15.4 MCHC 34.1 g/dL (Normal) Range: 31.5-35.7 MCH 29.9 pg (Normal) Range: 26.6-33.0 MCV 88 fL (Normal) Range: 79-97 Hematocrit 36.7 % (Normal) Range: 34.0-46.6 Hemoglobin 12.5 g/dL (Normal) Range: 11.1-15.9 RBC 4.18 {x10E6/uL} (Normal) Range: 3.77-5.28 WBC 7.6 {x10E3/uL} (Normal) Range: 3.4-10.8 52-Tar-418859:12 Lipid Panel (57138) Comments: PATIENT WAS FASTINGPERFORMED BY: [employer] Wlgbqk3096 [facility] [id number] LDL/HDL Ratio 2.1 {ratio} (Normal) Range: 0.0-3.2 Comments: LDL/HDL Ratio Men Women 1/2 Avg.Risk 1.0 1.5 Av g.Risk 3.6 3.2 2X Avg.Risk 6.2 5.0 3X Avg.Risk 8.0 6.1 LDL Cholesterol Calc 105 mg/dL (Abnormal) Range: 0-99 VLDL Cholesterol Ruben 33 mg/dL (Normal) Range: 5-40 HDL Cholesterol 49 mg/dL (Normal) Triglycerides 165 mg/dL (Abnormal) Range: 0-149 Cholesterol, Total 187 mg/dL (Normal) Range: 100-199 21-Shh-246174:12 Metabolic Panel, Comprehensive Comments: PATIENT WAS FASTINGPERFORMED BY: [employer] Xgxkyz5699 [facility] [id number] ([id number]) ALT (SGPT) 42 [iU]/L (Abnormal) Range: 0-32 AST (SGOT) 34 [iU]/L (Normal) Range: 0-40 Alkaline Phosphatase 99 [iU]/L (Normal) Range: 39-117 Bilirubin, Total 0.2 mg/dL (Normal) Range: 0.0-1.2 A/G Ratio 1.7 (Normal) Range: 1.2-2.2 Globulin, Total 2.6 g/dL (Normal) Range: 1.5-4.5 Albumin 4.4 g/dL (Normal) Range: 3.5-4.8 Protein, Total 7.0 g/dL (Normal) Range: 6.0-8.5 Calcium 9.6 mg/dL (Normal) Range: 8.7-10.3 Carbon Dioxide, Total 21 mmol/L (Normal) Range: 20-29 Chloride 103 mmol/L (Normal) Range: 96-106 Potassium 4.7 mmol/L (Normal) Range: 3.5-5.2 Sodium 142 mmol/L (Normal) Range: 134-144 BUN/Creatinine Ratio 19 (Normal) Range: 12-28 eGFR If Africn Am 47 mL/min/1.73 (Abnormal) eGFR If NonAfricn Am 41 mL/min/1.73 (Abnormal) Creatinine 1.25 mg/dL (Abnormal) Range: 0.57-1.00 BUN 24 mg/dL (Normal) Range: 8-27 Glucose 93 mg/dL (Normal) Range: 65-99 29-Dec-20179:30 Metabolic Panel, Comprehensive Comments: PATIENT NOT FASTINGPERFORMED BY: [facility] Mackeu5304 [facility] [id number] ([id number]) ALT (SGPT) 26 [iU]/L (Normal) Range: 0-32 AST (SGOT) 23 [iU]/L (Normal) Range: 0-40 Alkaline Phosphatase 93 [iU]/L (Normal) Range: 39-117 Bilirubin, Total <0.2 mg/dL (Normal) Range: 0.0-1.2 A/G Ratio 1.9 (Normal) Range: 1.2-2.2 Globulin, Total 2.2 g/dL (Normal) Range: 1.5-4.5 Albumin 4.2 g/dL (Normal) Range: 3.5-4.8 Protein, Total 6.4 g/dL (Normal) Range: 6.0-8.5 Calcium 9.4 mg/dL (Normal) Range: 8.7-10.3 Carbon Dioxide, Total 21 mmol/L (Normal) Range: 20-29 Comments: Please note reference interval change Chloride 106 mmol/L (Normal) Range: 96-106 Potassium 4.8 mmol/L (Normal) Range: 3.5-5.2 Sodium 143 mmol/L (Normal) Range: 134-144 BUN/Creatinine Ratio 16 (Normal) Range: 12-28 eGFR If Africn Am 42 mL/min/1.73 (Abnormal) eGFR If NonAfricn Am 37 mL/min/1.73 (Abnormal) Creatinine 1.37 mg/dL (Abnormal) Range: 0.57-1.00 BUN 22 mg/dL (Normal) Range: 8-27 Glucose 88 mg/dL (Normal) Range: 65-99 03-Nyo-421464:47 MICROALBUMIN: CREATININE RATIO Comments: PATIENT WAS FASTINGPERFORMED BY: [facility] [id number] ([id number]) AND (03249) Alb/Creat Ratio 39.1 {mg/g_creat} (Abnormal) Range: 0.0-30.0 Albumin, Urine 16.0 ug/mL (Normal) Creatinine, Urine 40.9 mg/dL (Normal) 46-Mse-319716:47 URINALYSIS ([id number]) Comments: PATIENT WAS FASTINGPERFORMED BY: [employer] [facility] [id number] Microscopic Examination MICNIP (Normal) Comments: Microscopic not indicated and not performed. Nitrite, Urine Negative (Normal) Urobilinogen,Semi-Qn 0.2 mg/dL (Normal) Range: 0.2-1.0 Bilirubin Negative (Normal) Occult Blood Negative (Normal) Ketones Negative (Normal) Glucose Negative (Normal) Protein Negative (Normal) WBC Esterase Negative (Normal) Appearance Clear (Normal) Urine-Color Yellow (Normal) pH 6.0 (Normal) Range: 5.0-7.5 Specific Eckerty 1.011 (Normal) Range: 1.005-1.030 95-Yaz-833898:47 Metabolic Panel, Comprehensive Comments: PATIENT WAS FASTINGPERFORMED BY: [employer] [facility] [id number] ([id number]) ALT (SGPT) 30 [iU]/L (Normal) Range: 0-32 AST (SGOT) 25 [iU]/L (Normal) Range: 0-40 Alkaline Phosphatase 109 [iU]/L (Normal) Range: 39-117 Bilirubin, Total 0.2 mg/dL (Normal) Range: 0.0-1.2 A/G Ratio 2.0 (Normal) Range: 1.2-2.2 Globulin, Total 2.3 g/dL (Normal) Range: 1.5-4.5 Albumin 4.5 g/dL (Normal) Range: 3.5-4.8 Protein, Total 6.8 g/dL (Normal) Range: 6.0-8.5 Calcium 9.6 mg/dL (Normal) Range: 8.7-10.3 Carbon Dioxide, Total 21 mmol/L (Normal) Range: 18-29 Comments: Effective December 04, 2017 Carbon Dioxide, Total reference interval will be changing to: Age Male Female 0 days - 30 days 16 - 29 16 - 29 31 days - 1 year 15 - 25 15 - 25 2 years - 5 years 17 - 26 17 - 26 6 y ears - 12 years 19 - 27 19 - 27 >12 years 20 - 29 20 - 29 Chloride 107 mmol/L (Abnormal) Range: 96-106 Potassium 4.8 mmol/L (Normal) Range: 3.5-5.2 Sodium 143 mmol/L (Normal) Range: 134-144 BUN/Creatinine Ratio 20 (Normal) Range: 12-28 eGFR If Africn Am 48 mL/min/1.73 (Abnormal) eGFR If NonAfricn Am 42 mL/min/1.73 (Abnormal) Creatinine 1.23 mg/dL (Abnormal) Range: 0.57-1.00 BUN 25 mg/dL (Normal) Range: 8-27 Glucose 95 mg/dL (Normal) Range: 65-99 0-Ikl-787547:04 Microscopic Examination Comments: PATIENT WAS FASTINGPERFORMED BY: [facility]Co[facility] CampusXrusmf0612 [facility] [id number] Bacteria Few (Normal) Mucus Threads Present (Normal) Epithelial Cells (non renal) 0-10 {/hpf} (Normal) Range: 0 - 10 RBC 11-30 {/hpf} (Abnormal) Range: 0 - 2 WBC 0-5 {/hpf} (Normal) Range: 0 - 5 06-Jcj-96652:07 Rapid Flu (58728 x 2) Comments: neg Influenza A Ag neg (Normal) 5-Nfp-403651:04 Basic Metabolic Profile (BMP) Comments: [facility] [address] [place], [id number] GAP 11 (Normal) Range: 5-15 CO2 22.0 mmol/L (Normal) Range: 21.0-32.0 CL 109 mmol/L (Abnormal) Range: 98-107 K 3.7 mmol/L (Normal) Range: 3.5-5.1 NA 142 mmol/L (Normal) Range: 136-145 CA 9.1 mg/dL (Normal) Range: 8.5-10.1 BUN/CRE 18.2 {RATIO} (Normal) Range: 10-20 EST GFR - AA 62 mL/min (Normal) Comments: GFR Calc EST GFR 51 mL/min (Abnormal) Comments: Non- GFR Calc CREAT,SERUM 1.10 mg/dL (Abnormal) Range: 0.55-1.02 Comments: The validity of the calculated GFR AND GFRAA in patients over70 years has not been determined. Clinical correlation isessential. BUN 20 mg/dL (Abnormal) Range: 7-18 GLU 115 mg/dL (Abnormal) Range: 70-110 Comments: Fasting Glucose result from 110 to <126 mg/dLsuggests IMPAIRED HOMEOSTASIS per A.D.A. criteria. :04 Protein+Creatinine Ratio,Urine Comments: [facility] [address] [place], [address] PROT:CRE RATIO Test not performed {mg/g_CRE} (Normal) Range: 0-200 PROTEIN,UR.RAN. < 6.0 mg/dL (Normal) UR CREAT 28.10 mg/dL (Normal) :04 PTH,INTACT Comments: [facility] [address] [place], [id number] PTH,Intact 45 pg/mL (Normal) Range: 14-72 3-Qaw-396650:04 Vitamin D,25 Hydroxy Comments: [facility] [address] [place], [address] Vitamin D 25-OH 20.2 ng/mL (Normal) Comments: Vitamin D 25(OH) Status Range Deficiency <20 ng/mL (50nmol/L) Insuffciency 20 - 30 ng/mL (50 - 75 nmol/L) Sufficiency 30 - 100 ng/mL (75 - 250 nmol/L) Toxicity >100 ng/mL (>250 nmol/L) 0-Gpc-000687:04 URINALYSIS (01541) Comments: Jun 2017; PATIENT WAS FASTINGPERFORMED BY: [employer] [facility] [id number] Microscopic Examination See below: (Normal) Comments: Microscopic was indicated and was performed. Nitrite, Urine Negative (Normal) Urobilinogen,Semi-Qn 0.2 mg/dL (Normal) Range: 0.2-1.0 Bilirubin Negative (Normal) Occult Blood 1+ (Abnormal) Ketones Negative (Normal) Glucose Negative (Normal) Protein Negative (Normal) WBC Esterase Trace (Abnormal) Appearance Clear (Normal) Urine-Color Yellow (Normal) pH 5.5 (Normal) Range: 5.0-7.5 Specific Eckerty 1.021 (Normal) Range: 1.005-1.030 5-Xpl-769735:04 TSH (13109) Comments: (Jun 2017); PATIENT WAS FASTINGPERFORMED BY: [employer] [facility] [id number] TSH 3.450 {uIU/mL} (Normal) Range: 0.450-4.500 7-Qfn-442396:04 Lipid Panel (00587) Comments: Jun 2017; PATIENT WAS FASTINGPERFORMED BY: [employer] [facility] [id number] LDL/HDL Ratio 2.1 {ratio_units} (Normal) Range: 0.0-3.2 Comments: LDL/HDL Ratio Men Women 1/2 Avg.Risk 1.0 1.5 Av g.Risk 3.6 3.2 2X Avg.Risk 6.2 5.0 3X Avg.Risk 8.0 6.1 LDL Cholesterol Calc 105 mg/dL (Abnormal) Range: 0-99 VLDL Cholesterol Ruben 32 mg/dL (Normal) Range: 5-40 HDL Cholesterol 50 mg/dL (Normal) Triglycerides 158 mg/dL (Abnormal) Range: 0-149 Cholesterol, Total 187 mg/dL (Normal) Range: 100-199 0-Hjf-409202:04 CBC, Platelets & Auto Diff Comments: Jun 2017; PATIENT WAS FASTINGPERFORMED BY: [employer] JNS Towerstracy PhillipsMqhxdj0961 [facility] [id number] ([id number]) Immature Grans (Abs) 0.0 {x10E3/uL} (Normal) Range: 0.0-0.1 Immature Granulocytes 0 % (Normal) Baso (Absolute) 0.1 {x10E3/uL} (Normal) Range: 0.0-0.2 Eos (Absolute) 0.2 {x10E3/uL} (Normal) Range: 0.0-0.4 Monocytes(Absolute) 0.7 {x10E3/uL} (Normal) Range: 0.1-0.9 Lymphs (Absolute) 1.6 {x10E3/uL} (Normal) Range: 0.7-3.1 Neutrophils (Absolute) 5.0 {x10E3/uL} (Normal) Range: 1.4-7.0 Basos 1 % (Normal) Eos 3 % (Normal) Monocytes 10 % (Normal) Lymphs 21 % (Normal) Neutrophils 65 % (Normal) Platelets 280 {x10E3/uL} (Normal) Range: 150-379 RDW 14.4 % (Normal) Range: 12.3-15.4 MCHC 32.8 g/dL (Normal) Range: 31.5-35.7 MCH 29.2 pg (Normal) Range: 26.6-33.0 MCV 89 fL (Normal) Range: 79-97 Hematocrit 36.9 % (Normal) Range: 34.0-46.6 Hemoglobin 12.1 g/dL (Normal) Range: 11.1-15.9 RBC 4.15 {x10E6/uL} (Normal) Range: 3.77-5.28 WBC 7.7 {x10E3/uL} (Normal) Range: 3.4-10.8 7-Uyq-344026:04 Metabolic Panel, Comprehensive Comments: Jun 2017; PATIENT WAS FASTINGPERFORMED BY: Zidisha RoadDublin [place] [id number] ([id number]) ALT (SGPT) 18 [iU]/L (Normal) Range: 0-32 AST (SGOT) 19 [iU]/L (Normal) Range: 0-40 Alkaline Phosphatase, S 100 [iU]/L (Normal) Range: 39-117 Bilirubin, Total 0.2 mg/dL (Normal) Range: 0.0-1.2 A/G Ratio 1.8 (Normal) Range: 1.2-2.2 Globulin, Total 2.5 g/dL (Normal) Range: 1.5-4.5 Albumin, Serum 4.4 g/dL (Normal) Range: 3.5-4.8 Protein, Total, Serum 6.9 g/dL (Normal) Range: 6.0-8.5 Calcium, Serum 9.4 mg/dL (Normal) Range: 8.7-10.3 Carbon Dioxide, Total 22 mmol/L (Normal) Range: 18-29 Chloride, Serum 107 mmol/L (Abnormal) Range: 96-106 Potassium, Serum 4.5 mmol/L (Normal) Range: 3.5-5.2 Sodium, Serum 143 mmol/L (Normal) Range: 134-144 BUN/Creatinine Ratio 22 (Normal) Range: 12-28 eGFR If Africn Am 52 mL/min/1.73 (Abnormal) eGFR If NonAfricn Am 45 mL/min/1.73 (Abnormal) Creatinine, Serum 1.16 mg/dL (Abnormal) Range: 0.57-1.00 BUN 25 mg/dL (Normal) Range: 8-27 Glucose, Serum 96 mg/dL (Normal) Range: 65-99 26-Mle-392861:59 TSH (THYROID STIMULATING Comments: PATIENT WAS FASTINGPERFORMED BY: [facility]6370 [facility] [id number] HORMONE) (65847) TSH 3.140 {uIU/mL} (Normal) Range: 0.450-4.500 26-Cir-690444:59 Lipid Panel (78789) Comments: PATIENT WAS FASTINGPERFORMED BY: [employer] SoftwareHenry [facility]6370 [facility] [id number] LDL/HDL Ratio 1.8 {ratio_units} (Normal) Range: 0.0-3.2 Comments: LDL/HDL Ratio Men Women 1/2 Avg.Risk 1.0 1.5 Av g.Risk 3.6 3.2 2X Avg.Risk 6.2 5.0 3X Avg.Risk 8.0 6.1 LDL Cholesterol Calc 91 mg/dL (Normal) Range: 0-99 VLDL Cholesterol Ruben 39 mg/dL (Normal) Range: 5-40 HDL Cholesterol 50 mg/dL (Normal) Triglycerides 196 mg/dL (Abnormal) Range: 0-149 Cholesterol, Total 180 mg/dL (Normal) Range: 100-199 2-Krb-950341:38 Protein+Creatinine Ratio,Urine Comments: [facility] [address] [facility] [place], [place], [id number] PROT:CRE RATIO 154 {mg/g_CRE} (Normal) Range: 0-200 PROTEIN,UR.RAN. 16.0 mg/dL (Abnormal) UR CREAT 104.00 mg/dL (Normal) 7-Mvc-290805:38 Renal Profile Comments: [facility] [address] [facility] [place], [place], [address] CO2 21.0 mmol/L (Normal) Range: 21.0-32.0 CL 111 mmol/L (Abnormal) Range: 98-107 K 3.6 mmol/L (Normal) Range: 3.5-5.1 NA 143 mmol/L (Normal) Range: 136-145 PHOS 3.4 mg/dL (Normal) Range: 2.5-4.9 CA 9.0 mg/dL (Normal) Range: 8.5-10.1 ALB 3.6 g/dL (Normal) Range: 3.4-5.0 BUN/CRE 22.9 {RATIO} (Abnormal) Range: 10-20 EST GFR - AA 57 mL/min (Abnormal) Comments: GFR Calc EST GFR 47 mL/min (Abnormal) Comments: Non- GFR Calc CREAT,SERUM 1.18 mg/dL (Abnormal) Range: 0.55-1.02 Comments: The validity of the calculated GFR AND GFRAA in patients over70 years has not been determined. Clinical correlation isessential. BUN 27 mg/dL (Abnormal) Range: 7-18 GLU 110 mg/dL (Normal) Range: 70-110 Comments: Fasting Glucose result from 110 to <126 mg/dLsuggests IMPAIRED HOMEOSTASIS per A.D.A. criteria. :58 Serum Creatinine AND GFR Comments: [facility] [address] [place], [address] EST GFR - AA 51 mL/min (Abnormal) Comments: GFR Calc EST GFR 42 mL/min (Abnormal) Comments: Non- GFR Calc CREAT,SERUM 1.31 mg/dL (Abnormal) Range: 0.55-1.02 Comments: The validity of the calculated GFR AND GFRAA in patients over70 years has not been determined. Clinical correlation isessential. 05-Lxy-587315:50 Urinalysis, Office (30278) UA - LEUKOCYTE ESTERASE Trace (Normal) UA - NITRITE Negative (Normal) URINE UROBILINGN OLGA Normal mg/dL (Normal) TIMED UA - PROTEIN Negative mg/dL (Normal) UA - PH 5 (Abnormal) UA - BLOOD Hemolyzed Moderate (Normal) UA - SPECIFIC GRAVITY 1.015 (Normal) UA - KETONES Negative mg/dL (Normal) UA - BILIRUBIN Negative (Normal) UA - GLUCOSE Negative (Normal) : COLON BIOPSY (CHOOSE See Note (Normal) Comments: [facility] [address] [place], [address] 17 SITE) Comments: Patient: NICOLE BUTLER : 1940 (76/F) Acct Num: [id number] Phys: Carlos Smyth Unit Num: [id number] Loc: LABSPEC Specimen: [id number] Received: 10/06/16 - 1600 Spec Type: COLO N BX TISSUES TISSUES: GROSS DESCRIPTION Received is one container labeled with the patient's name and designated cecal polyps. The specimen consists of one polyp measuring 1.5 x 1 x 0.4 cm and there are several fragments measuring 2 x 1 x 0.2 cm. The specimen is totally submitted in one cassette. / RY:mathew 10/07/16 TC:1 CPT: 93965 HEADER OPERATION: Colonoscopy with polyp ectomy PRE-OP DIAGNOSIS: Screening / polyp TISSUE SUBMITTED: Cecal polyps, rule out adenoma MICROSCOPIC DESCRIPTION Slides are reviewed. MICROSCOPIC DIAGNOSIS Cecal polyps, polypecto my: Fragments of tubulovillous adenoma. SJ:mathew 10/10/16 Signed Malachi Mendoza 10/10/16 <signature on file> 59-Jtl-629100:43 RENAL FUNCTION PANEL (23993) Comments: PATIENT WAS FASTINGPERFORMED BY: [employer] Krrkxg9001 [facility] HospitalOgorodHigh[facility] [id number] Albumin, Serum 4.2 g/dL (Normal) Range: 3.5-4.8 Phosphorus, Serum 3.6 mg/dL (Normal) Range: 2.5-4.5 Calcium, Serum 9.3 mg/dL (Normal) Range: 8.7-10.3 Carbon Dioxide, Total 19 mmol/L (Normal) Range: 18-29 Chloride, Serum 103 mmol/L (Normal) Range: 96-106 Potassium, Serum 4.0 mmol/L (Normal) Range: 3.5-5.2 Sodium, Serum 145 mmol/L (Abnormal) Range: 134-144 BUN/Creatinine Ratio 21 (Normal) Range: 11-26 eGFR If Africn Am 63 mL/min/1.73 (Normal) eGFR If NonAfricn Am 55 mL/min/1.73 (Abnormal) Creatinine, Serum 0.99 mg/dL (Normal) Range: 0.57-1.00 BUN 21 mg/dL (Normal) Range: 8-27 Glucose, Serum 105 mg/dL (Abnormal) Range: 65-99 46-Smm-602802:53 CBC, Platelets & Auto Diff Comments: PATIENT WAS FASTINGPERFORMED BY: [employer] Uvijpa4115 [facility] HospitalO[facility]odHigh[facility] [id number] ([id number]) Immature Grans (Abs) 0.0 {x10E3/uL} (Normal) Range: 0.0-0.1 Immature Granulocytes 0 % (Normal) Baso (Absolute) 0.1 {x10E3/uL} (Normal) Range: 0.0-0.2 Eos (Absolute) 0.2 {x10E3/uL} (Normal) Range: 0.0-0.4 Monocytes(Absolute) 0.6 {x10E3/uL} (Normal) Range: 0.1-0.9 Lymphs (Absolute) 1.4 {x10E3/uL} (Normal) Range: 0.7-3.1 Neutrophils (Absolute) 5.4 {x10E3/uL} (Normal) Range: 1.4-7.0 Basos 1 % (Normal) Eos 3 % (Normal) Monocytes 8 % (Normal) Lymphs 18 % (Normal) Neutrophils 70 % (Normal) Platelets 328 {x10E3/uL} (Normal) Range: 150-379 RDW 14.3 % (Normal) Range: 12.3-15.4 MCHC 32.5 g/dL (Normal) Range: 31.5-35.7 MCH 29.7 pg (Normal) Range: 26.6-33.0 MCV 92 fL (Normal) Range: 79-97 Hematocrit 39.1 % (Normal) Range: 34.0-46.6 Hemoglobin 12.7 g/dL (Normal) Range: 11.1-15.9 RBC 4.27 {x10E6/uL} (Normal) Range: 3.77-5.28 WBC 7.7 {x10E3/uL} (Normal) Range: 3.4-10.8 00-Wia-371543:53 TSH (38371) Comments: PATIENT WAS FASTINGPERFORMED BY: [facility] Isclnq7794 [facility] [id number] TSH 3.170 {uIU/mL} (Normal) Range: 0.450-4.500 31-Rez-630054:53 Metabolic Panel, Comprehensive Comments: PATIENT WAS FASTINGPERFORMED BY: [facility]CoAtl[facility]Care [facility] CampusFeouna1152 [facility] [id number] (77092) ALT (SGPT) 23 [iU]/L (Normal) Range: 0-32 AST (SGOT) 17 [iU]/L (Normal) Range: 0-40 Alkaline Phosphatase, S 115 [iU]/L (Normal) Range: 39-117 Bilirubin, Total 0.3 mg/dL (Normal) Range: 0.0-1.2 A/G Ratio 1.8 (Normal) Range: 1.1-2.5 Comments: Effective September 05, 2016 the reference interval for A/G Ratio will be changing to: Age Male Female 0 - 7 d ays 1.1 - 2.3 1.1 - 2.3 8 - 30 days 1.2 - 2.8 1.2 - 2.8 1 - 6 months 1.3 - 3.6 1.3 - 3.6 7 months - 5 years 1.5 - 2.6 1.5 - 2.6 > 5 years 1.2 - 2.2 1.2 - 2.2 Globulin, Total 2.4 g/dL (Normal) Range: 1.5-4.5 Albumin, Serum 4.4 g/dL (Normal) Range: 3.5-4.8 Protein, Total, Serum 6.8 g/dL (Normal) Range: 6.0-8.5 Calcium, Serum 9.5 mg/dL (Normal) Range: 8.7-10.3 Carbon Dioxide, Total 20 mmol/L (Normal) Range: 18-29 Chloride, Serum 108 mmol/L (Abnormal) Range: 96-106 Potassium, Serum 4.6 mmol/L (Normal) Range: 3.5-5.2 Sodium, Serum 147 mmol/L (Abnormal) Range: 134-144 BUN/Creatinine Ratio 25 (Normal) Range: 11-26 eGFR If Africn Am 56 mL/min/1.73 (Abnormal) eGFR If NonAfricn Am 48 mL/min/1.73 (Abnormal) Creatinine, Serum 1.10 mg/dL (Abnormal) Range: 0.57-1.00 BUN 27 mg/dL (Normal) Range: 8-27 Glucose, Serum 97 mg/dL (Normal) Range: 65-99 [id number] Lipid Panel (32781) Comments: PATIENT WAS FASTINGPERFORMED BY: [id number] [facility] [id number] LDL/HDL Ratio 2.6 {ratio_units} (Normal) Range: 0.0-3.2 Comments: LDL/HDL Ratio Men Women 1/2 Avg.Risk 1.0 1.5 Av g.Risk 3.6 3.2 2X Avg.Risk 6.2 5.0 3X Avg.Risk 8.0 6.1 LDL Cholesterol Calc 134 mg/dL (Abnormal) Range: 0-99 VLDL Cholesterol Ruben 40 mg/dL (Normal) Range: 5-40 HDL Cholesterol 51 mg/dL (Normal) Triglycerides 198 mg/dL (Abnormal) Range: 0-149 Cholesterol, Total 225 mg/dL (Abnormal) Range: 100-199 [id number] LIPID PANEL (11994) Comments: today; PATIENT WAS FASTINGPERFORMED BY: [facility] [id number] [place] [id number] LDL/HDL Ratio 2.8 {ratio_units} (Normal) Range: 0.0-3.2 Comments: LDL/HDL Ratio Men Women 1/2 Avg.Risk 1.0 1.5 Av g.Risk 3.6 3.2 2X Avg.Risk 6.2 5.0 3X Avg.Risk 8.0 6.1 LDL Cholesterol Calc 128 mg/dL (Abnormal) Range: 0-99 VLDL Cholesterol Ruben 36 mg/dL (Normal) Range: 5-40 HDL Cholesterol 45 mg/dL (Normal) Comments: According to ATP-III Guidelines, HDL-C >59 mg/dL is considered anegative risk factor for CHD. Triglycerides 181 mg/dL (Abnormal) Range: 0-149 Cholesterol, Total 209 mg/dL (Abnormal) Range: 100-199 [id number] Protein+Creatinine Ratio,Urine Comments: [facility] [id number] [place], [place], [id number] PROT:CRE RATIO 114 {mg/g_CRE} (Normal) Range: 0-200 PROTEIN,UR.RAN. 24.3 mg/dL (Abnormal) UR CREAT 214.00 mg/dL (Normal) [id number] CBC W/Diff, Automated Comments: [facility] [address] [place], [place], [id number] Absolute Lymph 1.24 {X10_3/ul} (Normal) Range: 0.83-4.51 Absolute Neut 4.5 {X10_3/uL} (Normal) Range: 2.0-7.7 IM GRAN % 0.300 % (Normal) Range: 0.0-0.9 Comments: IG% - Immature Granulocytes (promyelocytes, myelocytes andmetamyelocytes) > 1% indicates that a LEFT SHIFT is Present. BASO% 1.0 % (Normal) Range: 0-1 EO% 2.4 % (Normal) Range: 0-5 MONO% 11.4 % (Abnormal) Range: 0-10 LY% 18.3 % (Abnormal) Range: 19-41 NEUT% 66.6 % (Normal) Range: 47-70 MPV 11.2 fL (Normal) Range: 6.2-12.0 PLT 279 K/mm3 (Normal) Range: 150-450 RDW SD 42.9 fL (Normal) Range: 35.1-43.9 RDW CV 13.1 % (Normal) Range: 11.6-14.6 MCHC 33.5 {g/gl} (Normal) Range: 32-36 MCH 30.3 pg (Normal) Range: 27.0-32.0 MCV 90.5 fL (Normal) Range: 81-99 HCT 37.0 % (Normal) Range: 37-47 HGB 12.4 g/dL (Normal) Range: 12.0-15.0 RBC 4.09 {M/mm3} (Abnormal) Range: 4.2-5.4 WBC 6.8 K/mm3 (Normal) Range: 4.4-11.0 0-Eow-201228:12 PTH,INTACT Comments: [facility] [address] [place], [place], [id number] PTH,Intact 65 pg/mL (Normal) Range: 14-72 6-Ayp-949030:12 Renal Profile Comments: [facility] [address] [place], [place], [id number] CO2 24.0 mmol/L (Normal) Range: 21.0-32.0 CL 111 mmol/L (Abnormal) Range: 98-107 K 3.7 mmol/L (Normal) Range: 3.5-5.1 NA 144 mmol/L (Normal) Range: 136-145 PHOS 3.3 mg/dL (Normal) Range: 2.5-4.9 CA 9.0 mg/dL (Normal) Range: 8.5-10.1 ALB 3.7 g/dL (Normal) Range: 3.4-5.0 BUN/CRE 19.2 {RATIO} (Normal) Range: 10-20 EST GFR - AA 53 mL/min (Abnormal) Comments: GFR Calc EST GFR 44 mL/min (Abnormal) Comments: Non- GFR Calc CREAT,SERUM 1.25 mg/dL (Abnormal) Range: 0.55-1.20 Comments: The validity of the calculated GFR AND GFRAA in patients over70 years has not been determined. Clinical correlation isessential. BUN 24 mg/dL (Abnormal) Range: 7-18 GLU 109 mg/dL (Normal) Range: 70-110 5-Fno-181408:12 Vitamin D,25 Hydroxy Comments: [facility] [address] [place], [address] Vitamin D 25-OH 35.0 ng/mL (Normal) Comments: Vitamin D 25(OH) Status Range Deficiency <20 ng/mL (50nmol/L) Insuffciency 20 - 30 ng/mL (50 - 75 nmol/L) Sufficiency 30 - 100 ng/mL (75 - 250 nmol/L) Toxicity >100 ng/mL (>250 nmol/L) :00 Lesion (choose site) See Note (Normal) Comments: [facility] [address] [place], [id number] Comments: Patient: NICOLE BUTLER : 1940 (75/F) Acct Num: [id number] Phys: Akhil Sky MD Unit Num: [id number] Loc: LABSPEC Specimen: [id number] Received: 03/30/161431 Spec Type: Les ion TISSUES TISSUES: GROSS DESCRIPTION Received is one container labeled with the patient's name and designated left lower eyelid. The specimen consists of a piece of carver-white ski n measuring 0.7x 0.5 x 0.2 cm. The entire specimen is submitted in one cassette. It will be serially sectioned at the time of embedding. / Daja 03/31/16 TC:0 CPT:22574 HEADER OPERATION: Rem oval of lesion LLL (side of nose) PRE-OP DIAGNOSIS: Dome-shaped growth suspicious for BCC TISSUE SUBMITTED: Left lower lid lesion MICROSCOPIC DESCRIPTION Slides are reviewed. MICROSCOPIC DIAGNOSIS Left lower lid lesion, excisional biopsy: Basal cell carcinoma, completely excised in the planes of sections examined. Solar elastosis. NICK:mathew 04/01/16 Signed Malachi Mendoza 04/01/16 <signature on file> :32 LIPID PANEL ([id number]) Comments: PATIENT WAS FASTINGPERFORMED BY: [facility] Jkropz9278 [facility] [id number] Information: [id number] LDL/HDL Ratio 3.5 {ratio_units} (Abnormal) Range: 0.0-3.2 Comments: LDL/HDL Ratio Men Women 1/2 Avg.Risk 1.0 1.5 Av g.Risk 3.6 3.2 2X Avg.Risk 6.2 5.0 3X Avg.Risk 8.0 6.1 LDL Cholesterol Calc 154 mg/dL (Abnormal) Range: 0-99 VLDL Cholesterol Ruben 39 mg/dL (Normal) Range: 5-40 HDL Cholesterol 44 mg/dL (Normal) Comments: According to ATP-III Guidelines, HDL-C >59 mg/dL is considered anegative risk factor for CHD. Triglycerides 194 mg/dL (Abnormal) Range: 0-149 Cholesterol, Total 237 mg/dL (Abnormal) Range: 100-199 02-Ogk-366316:04 CBC W/Diff, Automated Comments: [facility] [address] [place], [address] ; wnl, ordered by another doctor Absolute Lymph 1.33 {X10_3/ul} (Normal) Range: 0.83-4.51 Absolute Neut 4.4 {X10_3/uL} (Normal) Range: 2.0-7.7 IM GRAN % 0.200 % (Normal) Range: 0.0-0.9 Comments: IG% - Immature Granulocytes (promyelocytes, myelocytes andmetamyelocytes) > 1% indicates that a LEFT SHIFT is Present. BASO% 0.9 % (Normal) Range: 0-1 EO% 2.3 % (Normal) Range: 0-5 MONO% 9.4 % (Normal) Range: 0-10 LY% 20.2 % (Normal) Range: 19-41 NEUT% 67.0 % (Normal) Range: 47-70 MPV 10.5 fL (Normal) Range: 6.2-12.0 PLT 296 K/mm3 (Normal) Range: 150-450 RDW SD 43.8 fL (Normal) Range: 35.1-43.9 RDW CV 13.6 % (Normal) Range: 11.6-14.6 MCHC 33.6 {g/gl} (Normal) Range: 32-36 MCH 30.0 pg (Normal) Range: 27.0-32.0 MCV 89.3 fL (Normal) Range: 81-99 HCT 38.4 % (Normal) Range: 37-47 HGB 12.9 g/dL (Normal) Range: 12.0-15.0 RBC 4.30 {M/mm3} (Normal) Range: 4.2-5.4 WBC 6.6 K/mm3 (Normal) Range: 4.4-11.0 74-Isy-934661:04 Protein+Creatinine Ratio,Urine Comments: [facility] [address] [place], [address] PROT:CRE RATIO 145 {mg/g_CRE} (Normal) Range: 0-200 PROTEIN,UR.RAN. 15.9 mg/dL (Abnormal) UR CREAT 110.00 mg/dL (Normal) 11-Syn-040548:04 PTH,INTACT Comments: [facility] [address] [place], [place], [id number] ; another doc PTH,Intact 50 pg/mL (Normal) Range: 14-72 12-Igt-075190:04 Renal Profile Comments: [address] [place], [place], [id number] CO2 25.0 mmol/L (Normal) Range: 21.0-32.0 CL 108 mmol/L (Abnormal) Range: 98-107 K 3.7 mmol/L (Normal) Range: 3.5-5.1 NA 142 mmol/L (Normal) Range: 136-145 PHOS 3.1 mg/dL (Normal) Range: 2.5-4.9 CA 8.8 mg/dL (Normal) Range: 8.5-10.1 ALB 3.7 g/dL (Normal) Range: 3.4-5.0 BUN/CRE 16.7 {RATIO} (Normal) Range: 10-20 EST GFR - AA 59 mL/min (Abnormal) Comments: GFR Calc EST GFR 49 mL/min (Abnormal) Comments: Non- GFR Calc CREAT,SERUM 1.14 mg/dL (Normal) Range: 0.55-1.20 Comments: The validity of the calculated GFR AND GFRAA in patients over70 years has not been determined. Clinical correlation isessential. BUN 19 mg/dL (Abnormal) Range: 7-18 GLU 136 mg/dL (Abnormal) Range: 70-110 Comments: Fasting Glucose result greater than or equal to 126 mg/dLsuggests DIABETES MELLITUS per A.D.A. criteria. 87-Mgq-796015:04 Vitamin D,25 Hydroxy Comments: [facility] [address] [place], [address] Vitamin D 25-OH 21.1 ng/mL (Normal) Comments: Vitamin D 25(OH) Status Range Deficiency <20 ng/mL (50nmol/L) Insuffciency 20 - 30 ng/mL (50 - 75 nmol/L) Sufficiency 30 - 100 ng/mL (75 - 250 nmol/L) Toxicity >100 ng/mL (>250 nmol/L) 0-Bpi-917742:12 CALCIFEDIOL (70762) Comments: PATIENT WAS FASTINGPERFORMED BY: [facility] CampusTxpuvm7439 [facility] [id number] Vitamin D, 25-Hydroxy 28.5 ng/mL (Abnormal) Range: 30.0-100.0 Comments: Vitamin D deficiency has been defined by the [place] ofMedicine and an Endocrine Society practice guideline as alevel of serum 25-OH vitamin D less than 20 ng/mL (1,2).The Endocrine Society went on to further define vitamin Dinsufficiency as a level between 21 and 29 ng/mL (2).1. IOM ([place] of Medicine). 2010. Dietary reference intakes for calcium and D. [place]: The National Academies Press.2. Rupert MF, Aretha NC, Dru SEO, et al. Evaluation, treatment, and prevention of vitamin D deficiency: an Endocrine Society clinical practice guideline. JCEM. 2010; 96(7):1911-30. 9-Qhr-431620:12 TSH (83562) Comments: PATIENT WAS FASTINGPERFORMED BY: [facility] [facility] [id number] TSH 3.320 {uIU/mL} (Normal) Range: 0.450-4.500 0-Rki-037751:12 Lipid Panel (68610) Comments: PATIENT WAS FASTINGPERFORMED BY: [facility]6[address] [facility] [id number] LDL/HDL Ratio 3.6 {ratio_units} (Abnormal) Range: 0.0-3.2 Comments: LDL/HDL Ratio Men Women 1/2 Avg.Risk 1.0 1.5 Av g.Risk 3.6 3.2 2X Avg.Risk 6.2 5.0 3X Avg.Risk 8.0 6.1 LDL Cholesterol Calc 157 mg/dL (Abnormal) Range: 0-99 VLDL Cholesterol Ruben 65 mg/dL (Abnormal) Range: 5-40 HDL Cholesterol 44 mg/dL (Normal) Comments: According to ATP-III Guidelines, HDL-C >59 mg/dL is considered anegative risk factor for CHD. Triglycerides 323 mg/dL (Abnormal) Range: 0-149 Cholesterol, Total 266 mg/dL (Abnormal) Range: 100-199 9-Nok-197833:12 Metabolic Panel, Comments: PATIENT WAS FASTINGPERFORMED BY: [facility] [facility] [id number] Information: [id number] Comprehensive (95376) ALT (SGPT) 45 [iU]/L (Abnormal) Range: 0-32 AST (SGOT) 31 [iU]/L (Normal) Range: 0-40 Alkaline Phosphatase, S 107 [iU]/L (Normal) Range: 39-117 Bilirubin, Total 0.2 mg/dL (Normal) Range: 0.0-1.2 A/G Ratio 1.7 (Normal) Range: 1.1-2.5 Globulin, Total 2.6 g/dL (Normal) Range: 1.5-4.5 Albumin, Serum 4.3 g/dL (Normal) Range: 3.5-4.8 Protein, Total, Serum 6.9 g/dL (Normal) Range: 6.0-8.5 Calcium, Serum 9.5 mg/dL (Normal) Range: 8.7-10.3 Carbon Dioxide, Total 17 mmol/L (Abnormal) Range: 18-29 Chloride, Serum 106 mmol/L (Normal) Range: 97-108 Potassium, Serum 4.5 mmol/L (Normal) Range: 3.5-5.2 Sodium, Serum 144 mmol/L (Normal) Range: 134-144 BUN/Creatinine Ratio 20 (Normal) Range: 11-26 eGFR If Africn Am 69 mL/min/1.73 (Normal) eGFR If NonAfricn Am 59 mL/min/1.73 (Abnormal) Creatinine, Serum 0.93 mg/dL (Normal) Range: 0.57-1.00 BUN 19 mg/dL (Normal) Range: 8-27 Glucose, Serum 93 mg/dL (Normal) Range: 65-99 42-Czo-124074:45 Metabolic Panel, Comprehensive Comments: PATIENT NOT FASTINGPERFORMED BY: [facility] Hpfuoa6044 [facility] [id number] ([id number]) ALT (SGPT) 24 [iU]/L (Normal) Range: 0-32 AST (SGOT) 18 [iU]/L (Normal) Range: 0-40 Alkaline Phosphatase, S 97 [iU]/L (Normal) Range: 39-117 Bilirubin, Total <0.2 mg/dL (Normal) Range: 0.0-1.2 A/G Ratio 1.6 (Normal) Range: 1.1-2.5 Globulin, Total 2.5 g/dL (Normal) Range: 1.5-4.5 Albumin, Serum 4.0 g/dL (Normal) Range: 3.5-4.8 Protein, Total, Serum 6.5 g/dL (Normal) Range: 6.0-8.5 Calcium, Serum 8.9 mg/dL (Normal) Range: 8.7-10.3 Carbon Dioxide, Total 21 mmol/L (Normal) Range: 18-29 Chloride, Serum 109 mmol/L (Abnormal) Range: 97-108 Potassium, Serum 3.7 mmol/L (Normal) Range: 3.5-5.2 Sodium, Serum 145 mmol/L (Abnormal) Range: 134-144 BUN/Creatinine Ratio 24 (Normal) Range: 11-26 eGFR If Africn Am 74 mL/min/1.73 (Normal) eGFR If NonAfricn Am 64 mL/min/1.73 (Normal) Creatinine, Serum 0.88 mg/dL (Normal) Range: 0.57-1.00 BUN 21 mg/dL (Normal) Range: 8-27 Glucose, Serum 112 mg/dL (Abnormal) Range: 65-99 67-Kds-439349:45 CBC WITH MANUAL DIFF Comments: PATIENT NOT FASTINGPERFORMED BY: [facility] CampusZycnqe0387 [facility] [id number] Information: [id number] (92002) Immature Grans (Abs) 0.0 {x10E3/uL} (Normal) Range: 0.0-0.1 Immature Granulocytes 0 % (Normal) Baso (Absolute) 0.1 {x10E3/uL} (Normal) Range: 0.0-0.2 Eos (Absolute) 0.2 {x10E3/uL} (Normal) Range: 0.0-0.4 Monocytes(Absolute) 0.9 {x10E3/uL} (Normal) Range: 0.1-0.9 Lymphs (Absolute) 1.5 {x10E3/uL} (Normal) Range: 0.7-3.1 Neutrophils (Absolute) 5.0 {x10E3/uL} (Normal) Range: 1.4-7.0 Basos 1 % (Normal) Eos 3 % (Normal) Monocytes 12 % (Normal) Lymphs 19 % (Normal) Neutrophils 65 % (Normal) Platelets 322 {x10E3/uL} (Normal) Range: 150-379 RDW 13.7 % (Normal) Range: 12.3-15.4 MCHC 33.7 g/dL (Normal) Range: 31.5-35.7 MCH 30.5 pg (Normal) Range: 26.6-33.0 MCV 90 fL (Normal) Range: 79-97 Hematocrit 34.7 % (Normal) Range: 34.0-46.6 Hemoglobin 11.7 g/dL (Normal) Range: 11.1-15.9 RBC 3.84 {x10E6/uL} (Normal) Range: 3.77-5.28 WBC 7.7 {x10E3/uL} (Normal) Range: 3.4-10.8 72-Zwx-679404:45 TSH (39684) Comments: PATIENT NOT FASTINGPERFORMED BY: [facility] [address] [place] [id number] TSH 2.390 {uIU/mL} (Normal) Range: 0.450-4.500 2-Ahh-781328:00 CBC W/Diff, Automated Comments: [facility] [address] [place], [address] Absolute Lymph 1.80 {X10_3/ul} (Normal) Range: 0.83-4.51 Absolute Neut 6.3 {X10_3/uL} (Normal) Range: 2.0-7.7 IM GRAN % 0.300 % (Normal) Range: 0.0-0.9 Comments: IG% - Immature Granulocytes (promyelocytes, myelocytes andmetamyelocytes) > 1% indicates that a LEFT SHIFT is Present. BASO% 0.8 % (Normal) Range: 0-1 EO% 2.0 % (Normal) Range: 0-5 MONO% 12.5 % (Abnormal) Range: 0-10 LY% 18.7 % (Abnormal) Range: 19-41 NEUT% 65.7 % (Normal) Range: 47-70 MPV 10.4 fL (Normal) Range: 6.2-12.0 PLT 325 K/mm3 (Normal) Range: 150-450 RDW SD 45.4 fL (Abnormal) Range: 35.1-43.9 RDW CV 13.7 % (Normal) Range: 11.6-14.6 MCHC 33.1 {g/gl} (Normal) Range: 32-36 MCH 30.3 pg (Normal) Range: 27.0-32.0 MCV 91.7 fL (Normal) Range: 81-99 HCT 35.4 % (Abnormal) Range: 37-47 HGB 11.7 g/dL (Abnormal) Range: 12.0-15.0 RBC 3.86 {M/mm3} (Abnormal) Range: 4.2-5.4 WBC 9.7 K/mm3 (Normal) Range: 4.4-11.0 :00 Protein+Creatinine Ratio,Urine Comments: [facility] [address] [place], [address] PROT:CRE RATIO 120 {mg/g_CRE} (Normal) Range: 0-200 PROTEIN,UR.RAN. 10.8 mg/dL (Normal) UR CREAT 89.80 mg/dL (Normal) 6-Szo-511108:00 PTH,INTACT Comments: [facility] [address] [place], [address] PTH,Intact 44 pg/mL (Normal) Range: 14-72 4-Fcd-453994:00 Renal Profile Comments: [address] [place], [address] CO2 26.0 mmol/L (Normal) Range: 21.0-32.0 CL 110 mmol/L (Abnormal) Range: 98-107 K 3.7 mmol/L (Normal) Range: 3.5-5.1 NA 142 mmol/L (Normal) Range: 136-145 PHOS 3.4 mg/dL (Normal) Range: 2.5-4.9 CA 9.1 mg/dL (Normal) Range: 8.5-10.1 ALB 3.7 g/dL (Normal) Range: 3.4-5.0 BUN/CRE 15.5 {RATIO} (Normal) Range: 10-20 EST GFR - AA 52 mL/min (Abnormal) Comments: GFR Calc EST GFR 43 mL/min (Abnormal) Comments: Non- GFR Calc CREAT,SERUM 1.29 mg/dL (Abnormal) Range: 0.55-1.20 Comments: The validity of the calculated GFR AND GFRAA in patients over70 years has not been determined. Clinical correlation isessential. BUN 20 mg/dL (Abnormal) Range: 7-18 GLU 97 mg/dL (Normal) Range: 70-110 2-Hnx-480718:00 Vitamin D,25 Hydroxy Comments: [facility] [address] [place], [address] Vitamin D 25-OH 24.0 ng/mL (Normal) Comments: Vitamin D 25(OH) Status Range Deficiency <20 ng/mL (50nmol/L) Insuffciency 20 - 30 ng/mL (50 - 75 nmol/L) Sufficiency 30 - 100 ng/mL (75 - 250 nmol/L) Toxicity >100 ng/mL (>250 nmol/L) 47-Fhw-379540:05 Basic Metabolic Profile (BMP) Comments: 'TROP' Serial specimen #1, #2, #3, or #4: 1Test performed at:[facility] [address] [place] [address] GAP 8 (Normal) Range: 5-15 CO2 24.0 mmol/L (Normal) Range: 21.0-32.0 CL 105 mmol/L (Normal) Range: 98-107 K 3.7 mmol/L (Normal) Range: 3.5-5.1 NA 137 mmol/L (Normal) Range: 136-145 CA 9.1 mg/dL (Normal) Range: 8.5-10.1 BUN/CRE 23.8 {RATIO} (Abnormal) Range: 10-20 Estimated CRCL 29.12 ml/min (Normal) CREAT,SERUM 1.3 mg/dL (Abnormal) Range: 0.6-1.0 BUN 31 mg/dL (Abnormal) Range: 7-18 GLU 104 mg/dL (Normal) Range: 70-110 60-Rst-309738:05 CBC W/Diff, Automated Comments: Test performed at:[facility] [address] [place], [place] [id number] ; ordered by Dr. Kumar Absolute Lymph 1.85 {X10_3/ul} (Normal) Range: 0.83-4.51 Absolute Neut 7.5 {X10_3/uL} (Normal) Range: 2.0-7.7 IM GRAN % 0.400 % (Normal) Range: 0.0-0.9 Comments: IG% - Immature Granulocytes (promyelocytes, myelocytes andmetamyelocytes) > 1% indicates that a LEFT SHIFT is Present. BASO% 0.7 % (Normal) Range: 0-1 EO% 1.3 % (Normal) Range: 0-5 MONO% 9.3 % (Normal) Range: 0-10 LY% 17.5 % (Abnormal) Range: 19-41 NEUT% 70.8 % (Abnormal) Range: 47-70 MPV 10.3 fL (Normal) Range: 6.2-12.0 PLT 460 K/mm3 (Abnormal) Range: 150-450 RDW SD 41.8 fL (Normal) Range: 35.1-43.9 RDW CV 13.1 % (Normal) Range: 11.6-14.6 MCHC 33.6 {g/gl} (Normal) Range: 32-36 MCH 29.6 pg (Normal) Range: 27.0-32.0 MCV 88.2 fL (Normal) Range: 81-99 HCT 39.0 % (Normal) Range: 37-47 HGB 13.1 g/dL (Normal) Range: 12.0-15.0 RBC 4.42 {M/mm3} (Normal) Range: 4.2-5.4 WBC 10.6 K/mm3 (Normal) Range: 4.4-11.0 33-Yoo-985162:05 Thyroid Stim Hormone (TSH) Comments: 'TROP' Serial specimen #1, #2, #3, or #4: 1Test performed at:[facility] [address] [facility] [place] [address] TSH 1.50 {uIU/mL} (Normal) Range: 0.358-3.74 57-Bul-259766:05 Troponin-I Comments: 'TROP' Serial specimen #1, #2, #3, or #4: 1Test performed at:[facility] [address] [place] [address] TROPONIN-I < 0.02 ng/mL (Normal) Comments: TROPONIN-I EXPECTED VALUES <0.05 NEGATIVE 0.06 - 0.59 AT RISK OF SD > OR = 0.60 SUGGEST SD :47 CBC W/Diff, Automated Comments: Has pt arrived? YTest performed at:[facility] [address] [facility] [place] [address] Absolute Lymph 1.27 {X10_3/ul} (Normal) Range: 0.83-4.51 Absolute Neut 6.7 {X10_3/uL} (Normal) Range: 2.0-7.7 IM GRAN % 0.200 % (Normal) Range: 0.0-0.9 Comments: IG% - Immature Granulocytes (promyelocytes, myelocytes andmetamyelocytes) > 1% indicates that a LEFT SHIFT is Present. BASO% 0.5 % (Normal) Range: 0-1 EO% 2.0 % (Normal) Range: 0-5 MONO% 10.2 % (Abnormal) Range: 0-10 LY% 13.9 % (Abnormal) Range: 19-41 NEUT% 73.2 % (Abnormal) Range: 47-70 MPV 10.8 fL (Normal) Range: 6.2-12.0 PLT 324 K/mm3 (Normal) Range: 150-450 RDW SD 46.7 fL (Abnormal) Range: 35.1-43.9 RDW CV 14.1 % (Normal) Range: 11.6-14.6 MCHC 32.7 {g/gl} (Normal) Range: 32-36 MCH 29.5 pg (Normal) Range: 27.0-32.0 MCV 90.4 fL (Normal) Range: 81-99 HCT 35.8 % (Abnormal) Range: 37-47 HGB 11.7 g/dL (Abnormal) Range: 12.0-15.0 RBC 3.96 {M/mm3} (Abnormal) Range: 4.2-5.4 WBC 9.2 K/mm3 (Normal) Range: 4.4-11.0 :47 Protein+Creatinine Ratio,Urine Comments: Has pt arrived? YTest performed at:[facility] [address] [place] [address] PROT:CRE RATIO 86 {mg/g_CRE} (Normal) Range: 0-200 PROTEIN,UR.RAN. 8.1 mg/dL (Normal) UR CREAT 93.8 mg/dL (Normal) :47 PTH,INTACT Comments: Has pt arrived? YTest performed at:[facility] [address] [place] [address] PTH,Intact 52 pg/mL (Normal) Range: 14-72 :47 Renal Profile Comments: Has pt arrived? YTest performed at:[facility] [address] [place] [address] CO2 26.0 mmol/L (Normal) Range: 21.0-32.0 CL 108 mmol/L (Abnormal) Range: 98-107 K 3.7 mmol/L (Normal) Range: 3.5-5.1 NA 142 mmol/L (Normal) Range: 136-145 PHOS 3.5 mg/dL (Normal) Range: 2.5-4.9 CA 8.9 mg/dL (Normal) Range: 8.5-10.1 ALB 3.6 g/dL (Normal) Range: 3.4-5.0 BUN/CRE 20.9 {RATIO} (Abnormal) Range: 10-20 CREAT,SERUM 1.1 mg/dL (Abnormal) Range: 0.6-1.0 BUN 23 mg/dL (Abnormal) Range: 7-18 GLU 100 mg/dL (Normal) Range: 70-110 :47 Vitamin D,25 Hydroxy Comments: Has pt arrived? YTest performed at:[facility] [address] [place] [id number] Vitamin D 25-OH 30.1 ng/mL (Normal) Comments: Vitamin D 25(OH) Status Range Deficiency <20 ng/mL (50nmol/L) Insuffciency 20 - 30 ng/mL (50 - 75 nmol/L) Sufficiency 30 - 100 ng/mL (75 - 250 nmol/L) Toxicity >100 ng/mL (>250 nmol/L) :45 Ferritin Comments: Is Patient Taking Vitamins or Folic Acid Supplements? NTest performed at:[facility] [address] [facility] [place] [address] FERRITIN 38 ng/mL (Normal) Range: 8-252 :45 Folates, (Folic Acid) Comments: Is Patient Taking Vitamins or Folic Acid Supplements? NTest performed at:[facility] [address] [facility] [place] [address] FOLATES 52.60 ng/mL (Abnormal) Range: 3.1-17.5 :45 Iron Comments: Is Patient Taking Vitamins or Folic Acid Supplements? NTest performed at:[facility] [address] [place] [address] IRON 40 ug/dL (Abnormal) Range: 50-170 :45 Iron Binding Capacity,Total Comments: Is Patient Taking Vitamins or Folic Acid Supplements? NTest performed at:[facility] [address] [place] [id number] TIBC 287 ug/dL (Normal) Range: 250-450 :45 Vitamin B12 883 pg/mL (Normal) Comments: Test performed at:[facility] [address] [place] [id number] Range: 211-911 72-Utu-037741:22 Renal function Panel Comments: PATIENT NOT FASTINGPERFORMED BY: [facility] [id number] Information: [id number] ([id number]) Albumin, Serum 4.6 g/dL (Normal) Range: 3.5-4.8 Phosphorus, Serum 4.3 mg/dL (Normal) Range: 2.5-4.5 Calcium, Serum 9.5 mg/dL (Normal) Range: 8.7-10.3 Carbon Dioxide, Total 23 mmol/L (Normal) Range: 18-29 Chloride, Serum 104 mmol/L (Normal) Range: 97-108 Potassium, Serum 3.9 mmol/L (Normal) Range: 3.5-5.2 Sodium, Serum 144 mmol/L (Normal) Range: 134-144 BUN/Creatinine Ratio 30 (Abnormal) Range: 11-26 eGFR If Africn Am 63 mL/min/1.73 (Normal) eGFR If NonAfricn Am 55 mL/min/1.73 (Abnormal) Creatinine, Serum 1.00 mg/dL (Normal) Range: 0.57-1.00 BUN 30 mg/dL (Abnormal) Range: 8-27 Glucose, Serum 92 mg/dL (Normal) Range: 65-99 40-Wjo-666761:10 POTASSIUM SERUM (58185) Comments: PATIENT NOT FASTINGPERFORMED BY: [facility] [id number] Information: [id number] Potassium, Serum 3.8 mmol/L (Normal) Range: 3.5-5.2 :01 CBC W/Diff, Automated Comments: Test performed at:[facility] [address] [facility] [place] [address] Absolute Lymph 1.69 {X10_3/ul} (Normal) Range: 0.83-4.51 Absolute Neut 4.8 {X10_3/uL} (Normal) Range: 2.0-7.7 IM GRAN % 0.100 % (Normal) Range: 0.0-0.9 Comments: IG% - Immature Granulocytes (promyelocytes, myelocytes andmetamyelocytes) > 1% indicates that a LEFT SHIFT is Present. BASO% 0.7 % (Normal) Range: 0-1 EO% 3.0 % (Normal) Range: 0-5 MONO% 8.7 % (Normal) Range: 0-10 LY% 22.7 % (Normal) Range: 19-41 NEUT% 64.8 % (Normal) Range: 47-70 MPV 11.1 fL (Normal) Range: 6.2-12.0 PLT 320 K/mm3 (Normal) Range: 150-450 RDW SD 43.6 fL (Normal) Range: 35.1-43.9 RDW CV 13.3 % (Normal) Range: 11.6-14.6 MCHC 33.3 {g/gl} (Normal) Range: 32-36 MCH 30.4 pg (Normal) Range: 27.0-32.0 MCV 91.3 fL (Normal) Range: 81-99 HCT 39.0 % (Normal) Range: 37-47 HGB 13.0 g/dL (Normal) Range: 12.0-15.0 RBC 4.27 {M/mm3} (Normal) Range: 4.2-5.4 WBC 7.4 K/mm3 (Normal) Range: 4.4-11.0 :01 Protein+Creatinine Ratio,Urine Comments: Test performed at:[facility] [id number] [place] [address] PROT:CRE RATIO 157 {mg/g_CRE} (Normal) Range: 0-200 PROTEIN,UR.RAN. 17.3 mg/dL (Abnormal) UR CREAT 110.1 mg/dL (Normal) [id number]-[id number] Renal Profile Comments: Test performed at:[facility] [id number] [place], [place] [address] CO2 27.0 mmol/L (Normal) Range: 21.0-32.0 CL 107 mmol/L (Normal) Range: 98-107 K 3.3 mmol/L (Abnormal) Range: 3.5-5.1 NA 141 mmol/L (Normal) Range: 136-145 PHOS 3.3 mg/dL (Normal) Range: 2.5-4.9 CA 9.0 mg/dL (Normal) Range: 8.5-10.1 ALB 4.0 g/dL (Normal) Range: 3.4-5.0 BUN/CRE 21.7 {RATIO} (Abnormal) Range: 10-20 CREAT,SERUM 1.2 mg/dL (Abnormal) Range: 0.6-1.0 BUN 26 mg/dL (Abnormal) Range: 7-18 GLU 138 mg/dL (Abnormal) Range: 70-110 Comments: Fasting Glucose result greater than or equal to 126 mg/dLsuggests DIABETES MELLITUS per A.D.A. criteria. [id number]:00 URIC ACID BLOOD (35626) Comments: PATIENT NOT FASTINGPERFORMED BY: [facility] [id number] [facility] [id number] Information: [id number] Uric Acid, Serum 5.1 mg/dL (Normal) Range: 2.5-7.1 Comments: Therapeutic target for gout patients: <6.0 [id number]:24 Rapid Flu (15965 x 2) Influenza A Ag Negative (Normal) [id number]-Gea-[id number]:21 CBCD ALC 1.76 {X10_3/ul} (Normal) Range: 0.83-4.51 ANC 3.8 {X10_3/uL} (Normal) Range: 2.0-7.7 IG% 0.000 % (Normal) Range: 0.0-0.9 Comments: IG% - Immature Granulocytes (promyelocytes, myelocytes andmetamyelocytes) > 1% indicates that a LEFT SHIFT is Present. B% 1.2 % (Abnormal) Range: 0-1 E% 3.3 % (Normal) Range: 0-5 M% 12.1 % (Abnormal) Range: 0-10 L% 26.3 % (Normal) Range: 19-41 N% 57.1 % (Normal) Range: 47-70 MPV 10.7 fL (Normal) Range: 6.2-12.0 PLT 359 K/mm3 (Normal) Range: 150-450 RDWSD 45.9 fL (Abnormal) Range: 35.1-43.9 RDWCV 14.1 % (Normal) Range: 11.6-14.6 MCHC 33.2 {g/gl} (Normal) Range: 32-36 MCH 29.4 pg (Normal) Range: 27.0-32.0 MCV 88.7 fL (Normal) Range: 81-99 HCT 38.3 % (Normal) Range: 37-47 HGB 12.7 g/dL (Normal) Range: 12.0-15.0 RBC 4.32 {M/mm3} (Normal) Range: 4.2-5.4 WBC 6.7 K/mm3 (Normal) Range: 4.4-11.0 52-Pkc-[id number]:21 PROCRER tPROCRER 77 {mg/g_CRE} (Normal) Range: 0-200 PROUR 12.9 mg/dL (Abnormal) CREU 166.3 mg/dL (Normal) :21 PTHIN 42 pg/mL (Normal) Range: 14-72 74-Djk-820311:21 RENAL CO2 25.0 mmol/L (Normal) Range: 21.0-32.0 CL 110 mmol/L (Abnormal) Range: 98-107 K 3.8 mmol/L (Normal) Range: 3.5-5.1 NA 141 mmol/L (Normal) Range: 136-145 CA 9.5 mg/dL (Normal) Range: 8.5-10.1 PHOS 3.2 mg/dL (Normal) Range: 2.5-4.9 ALB 3.7 g/dL (Normal) Range: 3.4-5.0 BC 25.8 {RATIO} (Abnormal) Range: 10-20 BUN 31 mg/dL (Abnormal) Range: 7-18 CREAT 1.2 mg/dL (Abnormal) Range: 0.6-1.0 GLU 81 mg/dL (Normal) Range: 70-110 58-Asy-563953:21 VITD 35.0 mg/mL (Normal) Comments: Vitamin D 25(OH) Status RangeDeficiency <20 ng/mL (50nmol/L)Insuffciency 20 - 30 ng/mL (50 - 75 nmol/L)Sufficiency 30 - 100 ng/mL (75 - 250 nmol/L)Toxicity >100 ng/mL (>250 nmol/L) :21 Lipid Panel (31665) Comments: PATIENT WAS FASTINGPERFORMED BY: [employer] [facility] [id number] LDL/HDL Ratio 2.0 {ratio_units} (Normal) Range: 0.0-3.2 LDL Cholesterol Calc 128 mg/dL (Abnormal) Range: 0-99 VLDL Cholesterol Ruben 21 mg/dL (Normal) Range: 5-40 HDL Cholesterol 64 mg/dL (Normal) Comments: According to ATP-III Guidelines, HDL-C >59 mg/dL is considered anegative risk factor for CHD. Triglycerides 106 mg/dL (Normal) Range: 0-149 Cholesterol, Total 213 mg/dL (Abnormal) Range: 100-199 :21 CALCIFEDIOL (64588) Comments: PATIENT WAS FASTINGPERFORMED BY: [employer] Pnhvfs8669 [facility] [id number] Vitamin D, 25-Hydroxy 30.2 ng/mL (Normal) Range: 30.0-100.0 Comments: Vitamin D deficiency has been defined by the [place] ofMedicine and an Endocrine Society practice guideline as alevel of serum 25-OH vitamin D less than 20 ng/mL (1,2).The Endocrine Society went on to further define vitamin Dinsufficiency as a level between 21 and 29 ng/mL (2).1. IOM ([place] of Medicine). 2010. Dietary reference intakes for calcium and D. [place]: The National Academies Press.2. Rupret MF, Aretha NC, Dru SEO, et al. Evaluation, treatment, and prevention of vitamin D deficiency: an Endocrine Society clinical practice guideline. JCEM. 2010; 96(7):1911-30. [id number]-[id number]:28 Urinalysis, Office (80592) UA - LEUKOCYTE ESTERASE Trace (Normal) UA - NITRITE Negative (Normal) URINE UROBILINGN OLGA TIMED Normal mg/dL (Normal) UA - PROTEIN Negative mg/dL (Normal) UA - PH 7 (Normal) UA - BLOOD Non Hemolyzed Trace (Normal) UA - SPECIFIC GRAVITY 1.015 (Normal) UA - KETONES Negative mg/dL (Normal) UA - BILIRUBIN Negative (Normal) UA - GLUCOSE Negative (Normal) :21 TSH (22873) Comments: PATIENT WAS FASTINGPERFORMED BY: [employer] Nbvcqn3086 [facility] [id number] TSH 3.560 {uIU/mL} (Normal) Range: 0.450-4.500 :21 CBC, Platelets & Auto Diff Comments: PATIENT WAS FASTINGPERFORMED BY: [place] DistilleryUNM Sandoval Regional Medical CenterQbioki9187 [facility] [id number] Information: [id number] (55678) Immature Grans (Abs) 0.0 {x10E3/uL} (Normal) Range: 0.0-0.1 Immature Granulocytes 0 % (Normal) Range: 0-2 Baso (Absolute) 0.1 {x10E3/uL} (Normal) Range: 0.0-0.2 Eos (Absolute) 0.1 {x10E3/uL} (Normal) Range: 0.0-0.4 Monocytes(Absolute) 0.6 {x10E3/uL} (Normal) Range: 0.1-0.9 Lymphs (Absolute) 1.6 {x10E3/uL} (Normal) Range: 0.7-3.1 Neutrophils (Absolute) 4.2 {x10E3/uL} (Normal) Range: 1.4-7.0 Basos 1 % (Normal) Range: 0-3 Eos 2 % (Normal) Range: 0-5 Monocytes 9 % (Normal) Range: 4-12 Lymphs 24 % (Normal) Range: 14-46 Neutrophils 64 % (Normal) Range: 40-74 Platelets 348 {x10E3/uL} (Normal) Range: 155-379 RDW 13.6 % (Normal) Range: 12.3-15.4 MCHC 31.8 g/dL (Normal) Range: 31.5-35.7 MCH 29.5 pg (Normal) Range: 26.6-33.0 MCV 93 fL (Normal) Range: 79-97 Hematocrit 37.4 % (Normal) Range: 34.0-46.6 Hemoglobin 11.9 g/dL (Normal) Range: 11.1-15.9 RBC 4.04 {x10E6/uL} (Normal) Range: 3.77-5.28 WBC 6.5 {x10E3/uL} (Normal) Range: 3.4-10.8 79-Vkq-46242:21 Metabolic Panel, Comprehensive Comments: PATIENT WAS FASTINGPERFORMED BY: [facility]CoAtl[facility] CampusPdgcdb1597 [facility] [id number] ([id number]) ALT (SGPT) 15 [iU]/L (Normal) Range: 0-32 AST (SGOT) 20 [iU]/L (Normal) Range: 0-40 Alkaline Phosphatase, S 61 [iU]/L (Normal) Range: 39-117 Bilirubin, Total 0.3 mg/dL (Normal) Range: 0.0-1.2 A/G Ratio 1.8 (Normal) Range: 1.1-2.5 Globulin, Total 2.4 g/dL (Normal) Range: 1.5-4.5 Albumin, Serum 4.4 g/dL (Normal) Range: 3.5-4.8 Protein, Total, Serum 6.8 g/dL (Normal) Range: 6.0-8.5 Calcium, Serum 9.8 mg/dL (Normal) Range: 8.6-10.2 Carbon Dioxide, Total 24 mmol/L (Normal) Range: 19-28 Chloride, Serum 104 mmol/L (Normal) Range: 97-108 Potassium, Serum 4.3 mmol/L (Normal) Range: 3.5-5.2 Sodium, Serum 144 mmol/L (Normal) Range: 134-144 BUN/Creatinine Ratio 20 (Normal) Range: 11-26 eGFR If Africn Am 44 mL/min/1.73 (Abnormal) eGFR If NonAfricn Am 38 mL/min/1.73 (Abnormal) Creatinine, Serum 1.35 mg/dL (Abnormal) Range: 0.57-1.00 BUN 27 mg/dL (Normal) Range: 8-27 Glucose, Serum 94 mg/dL (Normal) Range: 65-99 77-Gli-980531:20 Renal function Panel Comments: PATIENT WAS FASTINGPERFORMED BY: [employer] Qexoqo6526 [facility] [id number] Information: [id number] (08072) Albumin, Serum 4.0 g/dL (Normal) Range: 3.5-4.8 Phosphorus, Serum 4.0 mg/dL (Normal) Range: 2.5-4.5 Calcium, Serum 10.0 mg/dL (Normal) Range: 8.6-10.2 Carbon Dioxide, Total 23 mmol/L (Normal) Range: 19-28 Chloride, Serum 103 mmol/L (Normal) Range: 97-108 Potassium, Serum 4.1 mmol/L (Normal) Range: 3.5-5.2 Sodium, Serum 143 mmol/L (Normal) Range: 134-144 BUN/Creatinine Ratio 30 (Abnormal) Range: 11-26 eGFR If Africn Am 67 mL/min/1.73 (Normal) eGFR If NonAfricn Am 58 mL/min/1.73 (Abnormal) Creatinine, Serum 0.97 mg/dL (Normal) Range: 0.57-1.00 BUN 29 mg/dL (Abnormal) Range: 8-27 Glucose, Serum 85 mg/dL (Normal) Range: 65-99 51-Vgu-869947:20 Lipid Panel (81622) Comments: PATIENT WAS FASTINGPERFORMED BY: [employer] Jeoqzf3766 [facility] [id number] LDL/HDL Ratio 3.4 {ratio_units} (Abnormal) Range: 0.0-3.2 LDL Cholesterol Calc 161 mg/dL (Abnormal) Range: 0-99 VLDL Cholesterol Ruben 46 mg/dL (Abnormal) Range: 5-40 HDL Cholesterol 48 mg/dL (Normal) Comments: According to ATP-III Guidelines, HDL-C >59 mg/dL is considered anegative risk factor for CHD. Triglycerides 228 mg/dL (Abnormal) Range: 0-149 Cholesterol, Total 255 mg/dL (Abnormal) Range: 100-199 13-Mhe-569827:20 TSH (THYROID STIMULATING Comments: PATIENT WAS FASTINGPERFORMED BY: [facility] [id number] HORMONE) (02322) TSH 2.490 {uIU/mL} (Normal) Range: 0.450-4.500 94-Sdg-281166:14 MICROALBUMIN: CREATININE RATIO Comments: PATIENT NOT FASTINGPERFORMED BY: [place] [address] [facility] [id number] (48782) AND (91315) Microalb/Creat Ratio 1.1 {mg/g_creat} (Normal) Range: 0.0-30.0 Microalbumin, Urine 1.1 ug/mL (Normal) Range: 0.0-17.0 Creatinine, Urine 100.0 mg/dL (Normal) Range: 15.0-278.0 02-Fyx-134524:14 TSH (THYROID STIMULATING Comments: PATIENT NOT FASTINGPERFORMED BY: [place] [address]20670 [facility] [id number] HORMONE) (45244) TSH 0.891 {uIU/mL} (Normal) Range: 0.450-4.500 89-Kqm-608702:14 CBC & PLATELETS (AUTO) Comments: PATIENT NOT FASTINGPERFORMED BY: [place] [address]20670 [facility] [id number] (74786) Platelets 309 {x10E3/uL} (Normal) Range: 155-379 RDW 14.4 % (Normal) Range: 12.3-15.4 MCHC 33.5 g/dL (Normal) Range: 31.5-35.7 MCH 30.1 pg (Normal) Range: 26.6-33.0 MCV 90 fL (Normal) Range: 79-97 Hematocrit 36.7 % (Normal) Range: 34.0-46.6 Hemoglobin 12.3 g/dL (Normal) Range: 11.1-15.9 RBC 4.09 {x10E6/uL} (Normal) Range: 3.77-5.28 WBC 6.6 {x10E3/uL} (Normal) Range: 3.4-10.8 51-Elx-461912:14 Metabolic Panel, Comments: PATIENT NOT FASTINGPERFORMED BY: J[facility] TowersUNM Sandoval Regional Medical CenterBomvqf7318 [facility] [id number] Information: [id number] Comprehensive (80749) ALT (SGPT) 25 [iU]/L (Normal) Range: 0-32 AST (SGOT) 24 [iU]/L (Normal) Range: 0-40 Alkaline Phosphatase, S 94 [iU]/L (Normal) Range: 45-108 Bilirubin, Total 0.4 mg/dL (Normal) Range: 0.0-1.2 A/G Ratio 1.6 (Normal) Range: 1.1-2.5 Globulin, Total 2.9 g/dL (Normal) Range: 1.5-4.5 Albumin, Serum 4.5 g/dL (Normal) Range: 3.5-4.8 Protein, Total, Serum 7.4 g/dL (Normal) Range: 6.0-8.5 Calcium, Serum 10.0 mg/dL (Normal) Range: 8.6-10.2 Carbon Dioxide, Total 22 mmol/L (Normal) Range: 19-28 Chloride, Serum 103 mmol/L (Normal) Range: 97-108 Potassium, Serum 4.3 mmol/L (Normal) Range: 3.5-5.2 Sodium, Serum 143 mmol/L (Normal) Range: 134-144 BUN/Creatinine Ratio 21 (Normal) Range: 11-26 eGFR If Africn Am 57 mL/min/1.73 (Abnormal) eGFR If NonAfricn Am 50 mL/min/1.73 (Abnormal) Creatinine, Serum 1.10 mg/dL (Abnormal) Range: 0.57-1.00 BUN 23 mg/dL (Normal) Range: 8-27 Glucose, Serum 89 mg/dL (Normal) Range: 65-99 55-Zya-108507:39 PARATHORMONE (99870) Comments: PATIENT NOT FASTINGPERFORMED BY: [employer] [id number] Information: [id number],NO DRAW FEE REDRAW PTH, Intact 24 pg/mL (Normal) Range: 15-65 7-Apk-530457:54 Renal function Panel Comments: PATIENT NOT FASTINGPERFORMED BY: LabCenterpointe HospitalIclyhe7447 [facility] [id number] Information: [id number],2ND ORDER NO DRAW F EE (66325) Albumin, Serum 4.3 g/dL (Normal) Range: 3.5-4.8 Phosphorus, Serum 3.7 mg/dL (Normal) Range: 2.5-4.5 Calcium, Serum 10.2 mg/dL (Normal) Range: 8.6-10.2 Carbon Dioxide, Total 24 mmol/L (Normal) Range: 19-28 Chloride, Serum 95 mmol/L Range: 97-108 (Abnormal) Potassium, Serum 4.1 mmol/L (Normal) Range: 3.5-5.2 Sodium, Serum 137 mmol/L (Normal) Range: 134-144 BUN/Creatinine Ratio 22 (Normal) Range: 11-26 eGFR If Africn Am 36 mL/min/1.73 (Abnormal) eGFR If NonAfricn Am 31 mL/min/1.73 (Abnormal) Creatinine, Serum 1.62 mg/dL Range: 0.57-1.00 (Abnormal) BUN 36 mg/dL (Abnormal) Range: 8-27 Glucose, Serum 105 mg/dL Range: 65-99 (Abnormal) : Comment: SPRCS (Normal) Comments: PATIENT WAS FASTINGPERFORMED BY: [employer] [facility] [id number] Comments: Non reactive HCV antibody screen is consistent with no HCV infection,unless recent infection is suspected or other evidence exists toindicate HCV infection. :53 HCV Ab w/Rflx to Verification Comments: PATIENT WAS FASTINGPERFORMED BY: [employer] Vmzjqi6895 [facility] [id number] HCV Ab 0.1 {s/co_ratio} (Normal) Range: 0.0-0.9 :53 Protein Electro, Random Urine Comments: PATIENT WAS FASTINGPERFORMED BY: J[facility] TowersAtlantiCare [facility] Medical Center[facility] CampusXfbtus9937 [facility] [id number] Please note: SPRCS (Normal) Comments: Protein electrophoresis scan will follow via computer, mail, orcourier delivery. M-Shay, % Not Observed % (Normal) Gamma Globulin, U 19.5 % (Normal) Beta Globulin, U 30.4 % (Normal) Pxeua-3-Wvptntvy, U 16.9 % (Normal) Njkra-1-Etsgzluv, U 2.6 % (Normal) Albumin, U 30.6 % (Normal) Protein,Total,Urine 11.1 mg/dL (Normal) Range: 0.0-15.0 :53 Protein Electro.,S Comments: PATIENT WAS FASTINGPERFORMED BY: [facility]Henry [facility]6370 [facility] [id number] Please note: SPRCS (Normal) Comments: Protein electrophoresis scan will follow via computer, mail, orcourier delivery. A/G Ratio 1.1 (Normal) Range: 0.7-2.0 Globulin, Total 3.6 g/dL (Normal) Range: 2.0-4.5 M-Shay Comment: g/dL (Normal) Comments: Atypical gamma Gamma Globulin 0.9 g/dL (Normal) Range: 0.5-1.6 Beta Globulin 1.2 g/dL (Normal) Range: 0.6-1.3 Yqfdd-3-Tmpzbwkm 1.2 g/dL (Normal) Range: 0.4-1.2 Allsb-6-Vcnkgpme 0.4 g/dL (Normal) Range: 0.1-0.4 Albumin 4.0 g/dL (Normal) Range: 3.2-5.6 :47 HIP MIN 2 VIEWS Radiology Report See Note Comments: PROCEDURE: X-RAY - LEFT HIP REASON FOR EXAM: Female, 72 years old. Pain following a fall. TECHNIQUE: Two views of the hip. COMPARISON: None. FINDINGS: Normal (Normal) femoral head, neck, intertrochanteric region and visualizedproximalfemur. Normal acetabulum. There is mild articular joint spacenarrowing. Normal visualized superior and inferior pubic rami and ischia ltuberosities. IMPRESSION:Degenerative changes. No fracture is seen. Signed:Tyron Barillas M.D.December 28, 2012 at 12:57:01 PM [id number] Signed GP/GP If you are the referring physician and would like to consult with theradiologist who provided this interpretation, please contact Rox Aldrich at [phone]. If this radiologist is un available, youwill be directed to another radiologist to assist. If you are a patient with a question regarding this report, pleasecontactyour referring physician directly. Professional Interpretation P rovided By: Sabakat, Phone , These documents contain legally protected and confidential healthinformation intended only for the use of the individual or entity namedabo ve. If you are not the intended recipient, you are hereby notifiedthatany disclosure, copying, distribution, or other use of these documents isstrictly prohibited. If you have received this information in error,pleasenotify the sender immediately and arrange for the return or destructionofthese documents. Dictated on 12/28/12 1257 by Nargis OLVERA,Wendyranscribed on 12/28/12 1302 by ITS IMPORTSi gn by Tyron Barillas MD on 12/28/12 1303 Sign by: Tyron Barillas MD 5-Ier-868654:53 METABOLIC PANEL, COMPREHENSIVE Comments: PATIENT WAS FASTINGPERFORMED BY: [facility]6[address] [facility] [id number] (77304) ALT (SGPT) 30 [iU]/L (Normal) Range: 0-32 AST (SGOT) 32 [iU]/L (Normal) Range: 0-40 Alkaline Phosphatase, S 100 [iU]/L (Normal) Range: 25-165 Comments: Effective January 07, 2013 the reference interval for Alkaline Phosphatase, S will be changing to: Age Male Female 0 - 1 day 45 - 111 45 - 111 2 - 5 days 46 - 119 46 - 119 6 - 10 days 48 - 229 48 - 229 11 - 30 d ays 59 - 414 59 - 414 1 - 6 months 91 - 445 91 - 445 7 - 12 months 124 - 341 124 - 341 1 - 3 years 130 - 317 130 - 317 4 - 6 years 133 - 309 133 - 309 7 - 12 years 134 - 349 134 - 349 13 years 143 - 396 68 - 209 14 years 107 - 340 62 - 149 15 years 84 - 254 54 - 121 16 years 71 - 186 49 - 108 17 years 61 - 146 45 - 101 18 years 56 - 127 43 - 101 1 9 - 60 years 44 - 102 42 - 107 61 - 70 years 44 - 103 47 - 112 >70 years 44 - 105 45 - 108 Bilirubin, Total 0.3 mg/dL (Normal) Range: 0.0-1.2 A/G Ratio 1.2 (Normal) Range: 1.1-2.5 Globulin, Total 3.4 g/dL (Normal) Range: 1.5-4.5 Albumin, Serum 4.2 g/dL (Normal) Range: 3.5-4.8 Protein, Total, Serum 7.6 g/dL (Normal) Range: 6.0-8.5 Calcium, Serum 10.1 mg/dL (Normal) Range: 8.6-10.2 Carbon Dioxide, Total 23 mmol/L (Normal) Range: 19-28 Chloride, Serum 94 mmol/L (Abnormal) Range: 97-108 Potassium, Serum 4.2 mmol/L (Normal) Range: 3.5-5.2 Sodium, Serum 136 mmol/L (Normal) Range: 134-144 BUN/Creatinine Ratio 23 (Normal) Range: 11-26 eGFR If Africn Am 37 mL/min/1.73 (Abnormal) eGFR If NonAfricn Am 32 mL/min/1.73 (Abnormal) Creatinine, Serum 1.59 mg/dL (Abnormal) Range: 0.57-1.00 BUN 36 mg/dL (Abnormal) Range: 8-27 Glucose, Serum 108 mg/dL (Abnormal) Range: 65-99 3-Vwd-238968:53 URINALYSIS W/O MICRO (00013) Comments: PATIENT WAS FASTINGPERFORMED BY: LabCoAtl[facility]Care [facility] CampusIzetus9257 [facility] [id number] Microscopic Examination MICRON (Normal) Comments: Microscopic follows if indicated. Nitrite, Urine Negative (Normal) Urobilinogen,Semi-Qn 0.2 mg/dL (Normal) Range: 0.0-1.9 Bilirubin Negative (Normal) Occult Blood Negative (Normal) Ketones Negative (Normal) Glucose Negative (Normal) Protein Negative (Normal) WBC Esterase Negative (Normal) Appearance Clear (Normal) Urine-Color Yellow (Normal) pH 6.0 (Normal) Range: 5.0-7.5 Specific Eckerty 1.014 (Normal) Range: 1.005-1.030 :53 Sed Rate Erythrocyte (95654) Comments: PATIENT WAS FASTINGPERFORMED BY: [facility] TowersAtlantiCare [facility] CampusSdylhp3429 [facility] [id number] Sedimentation Rate-Westergren 18 mm/h (Normal) Range: 0-40 :53 SOLANGE (ANTINUCLEAR ANTIBODY) Comments: PATIENT WAS FASTINGPERFORMED BY: [employer] Imsvzc6162 [facility] [id number] (68574) SOLANGE Direct Negative (Normal) :53 MAGNESIUM (30953) Comments: PATIENT WAS FASTINGPERFORMED BY: J[facility] TowersAtlantiCare [facility] CampusUwtfgq4140 [facility] [id number] Magnesium, Serum 2.2 mg/dL (Normal) Range: 1.6-2.6 :53 PHOSPHORUS (55178) Comments: PATIENT WAS FASTINGPERFORMED BY: J[facility] TowersAtlantiCare [facility] CampusTeuhuc7166 [facility] [id number] Phosphorus, Serum 3.7 mg/dL (Normal) Range: 2.5-4.5 :53 CALCIFEDIOL (74732) Comments: PATIENT WAS FASTINGPERFORMED BY: J[facility] TowersAtlantiCare Regional Medical [facility], [facility] CampusGqfqja3970 [facility] [id number] Vitamin D, 25-Hydroxy 43.3 ng/mL (Normal) Range: 30.0-100.0 Comments: Vitamin D deficiency has been defined by the [place] of[place]icine and an Endocrine Society practice guideline as alevel of serum 25-OH vitamin D less than 20 ng/mL (1,2).The Endocrine Society went on to further define vitamin Dinsufficiency as a level between 21 and 29 ng/mL (2).1. IOM ([place] of Medicine). 2010. Dietary reference intakes for calcium and D. [place]: The National Academies Press.2. Rupert MF, Aretha NC, Dru SEO, et al. Evaluation, treatment, and prevention of vitamin D deficiency: an Endocrine Society clinical practice guideline. JCEM. 2010; 96(9):1911-30. :53 Hemoglobin Glyclated (HGB A1C) Comments: PATIENT WAS FASTINGPERFORMED BY: SCVNGRHigh[facility] [id number] (55480) Hemoglobin A1c 6.0 % (Abnormal) Range: 4.8-5.6 Comments: . Increased risk for diabetes: 5.7 - 6.4 Diabetes: >6.4 Glycemic control for adults with diabetes: <7.0 :53 LIPID PANEL (99633) Comments: PATIENT WAS FASTINGPERFORMED BY: SCVNGRHighlands-Cashiers Hospital [id number] LDL/HDL Ratio 2.9 {ratio_units} (Normal) Range: 0.0-3.2 LDL Cholesterol Calc 129 mg/dL (Abnormal) Range: 0-99 VLDL Cholesterol Ruben 28 mg/dL (Normal) Range: 5-40 HDL Cholesterol 44 mg/dL (Normal) Comments: According to ATP-III Guidelines, HDL-C >59 mg/dL is considered anegative risk factor for CHD. Triglycerides 139 mg/dL (Normal) Range: 0-149 Cholesterol, Total 201 mg/dL (Abnormal) Range: 100-199 :16 Metabolic Panel, Comprehensive Comments: PATIENT NOT FASTINGPERFORMED BY: [employer] [facility] [id number] (88207) ALT (SGPT) 53 [iU]/L (Abnormal) Range: 0-32 AST (SGOT) 33 [iU]/L (Normal) Range: 0-40 Alkaline Phosphatase, S 102 [iU]/L (Normal) Range: 25-165 Bilirubin, Total 0.4 mg/dL (Normal) Range: 0.0-1.2 A/G Ratio 1.5 (Normal) Range: 1.1-2.5 Globulin, Total 2.9 g/dL (Normal) Range: 1.5-4.5 Albumin, Serum 4.4 g/dL (Normal) Range: 3.5-4.8 Protein, Total, Serum 7.3 g/dL (Normal) Range: 6.0-8.5 Calcium, Serum 9.7 mg/dL (Normal) Range: 8.6-10.2 Carbon Dioxide, Total 22 mmol/L (Normal) Range: 19-28 Comments: Please note reference interval change Chloride, Serum 99 mmol/L (Normal) Range: 97-108 Potassium, Serum 4.1 mmol/L (Normal) Range: 3.5-5.2 Sodium, Serum 140 mmol/L (Normal) Range: 134-144 BUN/Creatinine Ratio 20 (Normal) Range: 11-26 eGFR If Africn Am 32 mL/min/1.73 (Abnormal) eGFR If NonAfricn Am 28 mL/min/1.73 (Abnormal) Creatinine, Serum 1.78 mg/dL (Abnormal) Range: 0.57-1.00 BUN 35 mg/dL (Abnormal) Range: 8-27 Glucose, Serum 131 mg/dL (Abnormal) Range: 65-99 36-Uhs-763284:16 CBC with manual diff Comments: PATIENT NOT FASTINGPERFORMED BY: LabCoAtl[facility]Care [facility] CampusHrrzxc9856 [facility] [id number] Information: [id number] (78075) Immature Grans (Abs) 0.0 {x10E3/uL} (Normal) Range: 0.0-0.1 Immature Granulocytes 0 % (Normal) Range: 0-2 Baso (Absolute) 0.0 {x10E3/uL} (Normal) Range: 0.0-0.2 Eos (Absolute) 0.1 {x10E3/uL} (Normal) Range: 0.0-0.4 Monocytes(Absolute) 1.1 {x10E3/uL} (Abnormal) Range: 0.1-1.0 Lymphs (Absolute) 1.7 {x10E3/uL} (Normal) Range: 0.7-4.5 Neutrophils (Absolute) 7.4 {x10E3/uL} (Normal) Range: 1.8-7.8 Basos 0 % (Normal) Range: 0-3 Eos 1 % (Normal) Range: 0-7 Monocytes 10 % (Normal) Range: 4-13 Lymphs 16 % (Normal) Range: 14-46 Neutrophils 73 % (Normal) Range: 40-74 Platelets 302 {x10E3/uL} (Normal) Range: 140-415 RDW 13.7 % (Normal) Range: 12.3-15.4 MCHC 33.9 g/dL (Normal) Range: 31.5-35.7 MCH 31.3 pg (Normal) Range: 26.6-33.0 MCV 92 fL (Normal) Range: 79-97 Hematocrit 37.2 % (Normal) Range: 34.0-46.6 Hemoglobin 12.6 g/dL (Normal) Range: 11.1-15.9 RBC 4.03 {x10E6/uL} (Normal) Range: 3.77-5.28 WBC 10.3 {x10E3/uL} (Normal) Range: 4.0-10.5 87-Icj-042542:16 TSH (60490) Comments: PATIENT NOT FASTINGPERFORMED BY: [facility] [facility] [id number] TSH 3.930 {uIU/mL} (Normal) Range: 0.450-4.500 Plan of Care Name Dates Details Instructions Hypertension, uncontrolled : Follow up in 3 months Indication: Hypertension, uncontrolled Asthma : Reviewed Diagnostic Tests Indication: Asthma Asthma : Reviewed Shuttler Letter Indication: Asthma Hypertension, benign essential, goal below 140/90 : Reviewed Diagnostic Tests Indication: Hypertension, benign essential, goal below 140/90 Hypertension, benign essential, goal below 140/90 : Reviewed Lab Indication: Hypertension, benign essential, goal below 140/90 Nonsmoker : Eprescribed prescriptions (G8553) Indication: Nonsmoker Vertigo : Follow up in 1 month Indication: Vertigo Encounter for annual general medical examination with abnormal findings in adult : fall reduction handout Indication: Encounter for annual general medical examination with abnormal findings in adult Encounter for annual general medical examination with abnormal findings in adult : elderly packet given Indication: Encounter for annual general medical examination with abnormal findings in adult Encounter for annual general medical examination with abnormal findings in adult : advance planning information Indication: Encounter for annual general medical examination with abnormal findings in adult Nonsmoker : Eprescribed prescriptions (G8553) Indication: Nonsmoker Hypercholesteremia : Follow up in 3 months Indication: Hypercholesteremia COPD (chronic obstructive pulmonary disease) : Reviewed Lab Indication: COPD (chronic obstructive pulmonary disease) COPD (chronic obstructive pulmonary disease) : Reviewed Diagnostic Tests Indication: COPD (chronic obstructive pulmonary disease) Nonsmoker : Eprescribed prescriptions (G8553) Indication: Nonsmoker BMI 27.0-27.9,adult : Follow up - Make appt after diagnostic tests after echo. Indication: BMI 27.0-27.9,adult Nonsmoker : Eprescribed prescriptions (G8553) Indication: Nonsmoker CKD (chronic kidney disease), stage II : Follow up in 1 month Indication: CKD (chronic kidney disease), stage II Nonsmoker : Follow up in 3 months Indication: Nonsmoker Hypertension, benign essential, goal below 140/90 : Reviewed Lab Indication: Hypertension, benign essential, goal below 140/90 CHRONIC KIDNEY DISEASE, STAGE III (MODERATE) : Reviewed Lab Indication: CHRONIC KIDNEY DISEASE, STAGE III (MODERATE) Nonsmoker : Eprescribed prescriptions (G8553) Indication: Nonsmoker COPD exacerbation : Follow up if no improvement or if symptoms worsen Indication: COPD exacerbation COPD exacerbation : *URI Treatment Indication: COPD exacerbation COPD exacerbation : *URI Symptoms Indication: COPD exacerbation COPD exacerbation : *Antibiotic Usage Education - Female Indication: COPD exacerbation COPD exacerbation : Eprescribed prescriptions (G8553) Indication: COPD exacerbation Nonsmoker : Follow up in 3 months Indication: Nonsmoker Depression : Eprescribed prescriptions (G8553) Indication: Depression Hypothyroidism : Follow up in 3 months Indication: Hypothyroidism Itching : Follow up if no improvement or if symptoms worsen Indication: Itching Nonsmoker : Follow up if no improvement or if symptoms worsen Indication: Nonsmoker Nonsmoker : Eprescribed prescriptions (G8553) Indication: Nonsmoker GERD (gastroesophageal reflux disease) : Follow up - Make appt after diagnostic tests Indication: GERD (gastroesophageal reflux disease) CHRONIC KIDNEY DISEASE, STAGE III (MODERATE) : Reviewed Lab Indication: CHRONIC KIDNEY DISEASE, STAGE III (MODERATE) Basal cell carcinoma, face : Follow up in 3 months Indication: Basal cell carcinoma, face Hypertension, benign essential, goal below 140/90 : Eprescribed prescriptions (G8553) Indication: Hypertension, benign essential, goal below 140/90 Hypertension, benign essential, goal below 140/90 : Follow up in 3 months Indication: Hypertension, benign essential, goal below 140/90 Hypokalemia : Follow up in 3 months Indication: Hypokalemia Cerebrovascular disease, unspecified : Follow up in 3 months Indication: Cerebrovascular disease, unspecified COPD (chronic obstructive pulmonary disease) : Eprescribed prescriptions (G8553) Indication: COPD (chronic obstructive pulmonary disease) Encounter for screening for malignant neoplasm of colon (Renamed from Special screening for malignant neoplasms, colon) : *Colon Cancer Screening Indication: Encounter for screening for malignant neoplasm of colon (Renamed from Special screening for malignant neoplasms, colon) Lump : Follow up in 3 months [facility] get labs 4 days before office visit. Indication: Lump SOB (shortness of breath) on exertion : Follow up in 1 month Indication: SOB (shortness of breath) on exertion SOB (shortness of breath) on exertion : Follow up in 2 weeks Indication: SOB (shortness of breath) on exertion Hypertension, benign essential, goal below 140/90 : Follow up in 3 months for Gen med with [facility] Indication: Hypertension, benign essential, goal below 140/90 Asthma : Follow up - Make appt after diagnostic tests Indication: Asthma SOB (shortness of breath) on exertion : Follow up in 3 weeks Indication: SOB (shortness of breath) on exertion Headache : Follow up in 1 week Indication: Headache Hand pain : Eprescribed prescriptions (G8553) Indication: Hand pain SOB (shortness of breath) on exertion : Reviewed Lab Indication: SOB (shortness of breath) on exertion SOB (shortness of breath) on exertion : Reviewed Shuttler Letter Indication: SOB (shortness of breath) on exertion SOB (shortness of breath) on exertion : Reviewed Diagnostic Tests Indication: SOB (shortness of breath) on exertion CHRONIC KIDNEY DISEASE, STAGE III (MODERATE) : Follow up on Monday with [facility] Indication: CHRONIC KIDNEY DISEASE, STAGE III (MODERATE) Hypokalemia : Follow up in 2 weeks Indication: Hypokalemia Post-infection bronchospasm : *Antibiotic Usage Education - Female Indication: Post-infection bronchospasm Rosacea : Follow up if no improvement or if symptoms worsen Indication: Rosacea Rosacea : Follow up if no improvement or if symptoms worsen Indication: Rosacea Bronchospasm : Follow up if no improvement or if symptoms worsen Indication: Bronchospasm Cough : Follow up if no improvement or if symptoms worsen Indication: Cough Cerebrovascular disease, unspecified : Follow up - Make appt after diagnostic tests Indication: Cerebrovascular disease, unspecified Hypertriglyceridemia : Reviewed Lab Indication: Hypertriglyceridemia Vitamin d deficiency : Reviewed Lab Indication: Vitamin d deficiency Hypertension, benign essential, goal below 140/90 : Follow up in 3 months Indication: Hypertension, benign essential, goal below 140/90 Vitamin d deficiency : Reviewed Lab Indication: Vitamin d deficiency CHRONIC KIDNEY DISEASE, STAGE III (MODERATE) : Reviewed Lab Indication: CHRONIC KIDNEY DISEASE, STAGE III (MODERATE) Hypertriglyceridemia : Follow up in 1 month Indication: Hypertriglyceridemia Hypertriglyceridemia : Follow up in 1 week with [facility] Indication: Hypertriglyceridemia Restless leg syndrome : Follow up in 3 months Indication: Restless leg syndrome Hypothyroidism : Follow up Indication: Hypothyroidism Hypertension, benign essential, goal below 140/90 : Reviewed Lab Indication: Hypertension, benign essential, goal below 140/90 CHRONIC KIDNEY DISEASE, STAGE III (MODERATE) : Reviewed Lab Indication: CHRONIC KIDNEY DISEASE, STAGE III (MODERATE) Hypothyroidism : Reviewed Lab Indication: Hypothyroidism Acute sinusitis, unspecified : Follow up in 2 weeks Indication: Acute sinusitis, unspecified Acute sinusitis, unspecified : Follow up in 3 months for Gen Med Indication: Acute sinusitis, unspecified Diabetes mellitus type 2, uncontrolled, without complications : Follow up in 3 months Indication: Diabetes mellitus type 2, uncontrolled, without complications Diabetes mellitus type 2, uncontrolled, without complications : *Diabetes Education Indication: Diabetes mellitus type 2, uncontrolled, without complications Cerebrovascular disease, unspecified : Continue Current Prescription(s) Indication: Cerebrovascular disease, unspecified Pain in unspecified hip : Reviewed Diagnostic Tests Indication: Pain in unspecified hip Stroke : Follow up in 1 week: shun bp and rev lab Indication: Stroke Hypertension, benign essential, goal below 140/90 : BP MONITORING - SELF Indication: Hypertension, benign essential, goal below 140/90 Hypertension, benign essential, goal below 140/90 : Continue Current Prescription(s) Indication: Hypertension, benign essential, goal below 140/90 Stroke : Reviewed Shuttler Letter Indication: Stroke Stroke : Reviewed Diagnostic Tests: seen on mri Indication: Stroke Hypercholesterolemia : Follow up in 1 week with DF Indication: Hypercholesterolemia Planned Observations TSH (THYROID STIMULATING HORMONE) ([id number])Indication: Hypothyroidism On: 39-Gdo-017474:05 Request Metabolic Panel, Comprehensive ([id number])Indication: CHRONIC KIDNEY DISEASE, STAGE III (MODERATE) On: 95-Ehy-24317:48 Request Sputum Culture ([id number])Indication: COPD exacerbation On: 71-Evi-98339:41 Request RENAL FUNCTION PANEL ([id number])Indication: CHRONIC KIDNEY DISEASE, STAGE III (MODERATE) On: 22-Zsq-460012:36 Request URINALYSIS ([id number])Indication: CHRONIC KIDNEY DISEASE, STAGE III (MODERATE) On: 61-Teh-98798:52 Request MICROALBUMIN: CREATININE RATIO ([id number]) AND ([id number])Indication: Atrial fibrillation On: 70-Ypd-45102:44 Request LIPID PANEL ([id number])Indication: Hypertriglyceridemia On: :42 Request HEPATIC FUNCTION PANEL ([id number])Indication: Hypertriglyceridemia On: :42 Request MICROALBUMIN: CREATININE RATIO ([id number]) AND ([id number])Indication: Hypertension, benign essential, goal below 140/90 On: :49 Request URINALYSIS ([id number])Indication: Hypertension, benign essential, goal below 140/90 On: :49 Request LIPID PANEL ([id number])Indication: Hypercholesteremia On: 94-Ysm-55887:23 Request CALCIFEDIOL ([id number])Indication: Osteopenia On: 6-Zqa-657359:56 Request FECAL OCCULT- Tubes sent home ([id number])Indication: Encounter for screening for malignant neoplasm of colon (Renamed from Special screening for malignant neoplasms, colon) On: 8-Cly-487456:51 Request VITAMIN B12 AND FOLATES ([id number])Indication: Anemia On: 3-Ngx-393698:28 Request FERRITIN ([id number])Indication: Anemia On: 2-Htt-238287:26 Request IRON ([id number])Indication: Anemia On: 8-Qgn-665635:26 Request IRON & TOTAL IRON BINDING CAPACITY ([id number])Indication: Anemia On: 9-Gas-706604:26 Request Metabolic Panel, Comprehensive ([id number])Indication: Cerebrovascular disease, unspecified On: 3-Pep-381651:52 Request Renal function Panel ([id number])Indication: CHRONIC KIDNEY DISEASE, STAGE III (MODERATE) On: 87-Lll-613929:37 Request Comments: to be done December 2013 Renal function Panel ([id number])Indication: CHRONIC KIDNEY DISEASE, STAGE III (MODERATE) On: 54-Krh-00159:20 Request Comments: draw 3 days before next apt HgA1C , Office ([id number])Indication: Other specified abnormal findings of blood chemistry On: 54-Vlm-286562:18 Request Comments: 5.5 Blood Glucose , Office ([id number])Indication: Other specified abnormal findings of blood chemistry On: 35-Qrg-007096:05 Request Comments: 131 Urine Protein Electrophoresis (UPEP) ([id number])Indication: CHRONIC KIDNEY DISEASE, STAGE III (MODERATE) On: :38 Request Serum Protein Electrophoresis (SPEP) ([id number])Indication: CHRONIC KIDNEY DISEASE, STAGE III (MODERATE) On: :38 Request HEPATITIS C ANTIBODY ([id number])Indication: CHRONIC KIDNEY DISEASE, STAGE III (MODERATE) On: :38 Request Planned Encounters Medical; 3 Month FU - On: 14-Aug-2018 9:15 [facility] Deepti Olmstead CNP, CNP, Mary E Planned Procedures DEXA SCAN AXIAL SKELETON ([id number])By: On: 05-Mar-2018 Intent Deepti Olmstead CNP, CNP, Mary E SCREENING DIGITAL TOMOSYNTHESIS OF On: 05-Mar-2018 Intent BREAST ([id number])By: Deepti Olmstead CNP, CNP, Mary E Flu Vaccine (Quadrivalent) 45835Kt: On: 05-Mar-2018 Intent Deepti Olmstead CNP, CNP, Mary E PULMONARY FUNCTION TEST (PFT) WITH 6 On: 23-Jan-2018 Intent MINUTE WALK TEST ([id number])By: Deepti Olmstead CNP, CNP, Mary E Overnight Pulse OX ([id number])By: Ishan On: 23-Jan-2018 Intent Deepti FORMAN CNP, Mary E Echo CompleteBy: Deepti Olmstead CNP On: 02-Jan-2018 Intent Deepti Olmstead CNP Comments: send to [facility] ELECTROCARDIOGRAM, COMPLETE (ECG) On: 24-Nov-2017 Intent ([id number])By: Deepti Olmstead CNP, CNP, Mary E Spirometry ([id number])By: Ishan FORMAN, On: 24-Nov-2017 Intent Deepti Cabezas CNP Solu -Medrol Injection, 125 mg On: 24-Nov-2017 Intent ([id number])By: Deepti Olmstead CNP, CNP, Mary E Radiology - ChestBy: Deepti Olmstead CNP On: 13-Jun-2017 Intent E Deepti Olmstead CNP Comments: call Jesica with results Aerosol Treatment ([id number])By: Ishan On: 13-Jun-2017 Intent Deepti FORMAN Ishan FORMAN Deepti Calderon Solu -Medrol Injection, 125 mg On: 26-Oct-2016 Intent ([id number])By: Ishan FORMAN RoseliaYumiko Olmstead CNP [place] - Abdomen (IV Contrast Needed)By: On: 10-Oct-2016 Intent Queta Pike Comments: Had colonoscopy with polypectomy on 09/05/16. Having right sided abdominal pain. ULTRASOUND OF NECK ([id number])By: Ishan On: 17-Aug-2016 Intent Deepti FORMAN Ishan FORMAN [place] Ultrasound - ThyroidBy: Ishan FORMAN, On: 17-Aug-2016 Intent Deepti Calderon Ishan FORMAN [place] MRI SOFT TISSUE OF NECK W GADOLINIUM On: 08-Aug-2016 Intent ([id number])By: Deepti Olmstead CNP, CNP [place] Radiology - Knee - LeftBy: Ishan On: 08-Aug-2016 Intent Deepti FORMAN Ishan FORMANDeepti Flu Vaccine (Quadrivalent) 34499Wq: On: 06-May-2016 Intent Chula Corrales LPN MAMMOGRAM, SCREENING, BOTH BREAST On: 31-Jul-2015 Intent ([id number])By: Ishan FORMAN RoseliaYumiko Olmstead CNP [place] DEXA SCAN AXIAL SKELETON ([id number])By: On: 31-Jul-2015 Intent Ishan FORMAN RoseliaYumiko Olmstead CNP [place] Pulmonary RehabBy: Deepti Olmstead CNP On: 03-Jul-2015 Intent Ishan FORMAN [place] Holter Monitor 24 hrsBy: Ishan FORMAN On: 17-Jun-2015 Intent RoseliaYumiko Olmstead CNP [place] Radiology - ChestBy: Deepti Olmstead CNP On: 17-Jun-2015 Intent Yumiko Olmstead CNP [place] PFT - CompleteBy: Deepti Olmstead CNP On: 17-Jun-2015 Intent Ishan FORMAN [place] PNEUM VAC ADLT/IMUMNOSPR, SBC/INTRM On: 21-Apr-2015 Intent ([id number])By: Tressa Bonilla DO Comments: [id number] 11/10/16prefilledright dltdIMas, OUTREACH CLINICIAN Flu Vaccine (Quadrivalent) [id number]: On: 21-Apr-2015 Intent Tressa Bonilla DO Comments: Lot #Lot #[id number]-L dltd, IMDose prefilled syringeVIS and ABN signedgiven by:as ELECTROCARDIOGRAM, COMPLETE (ECG) On: 18-Nov-2014 Intent ([id number])By: Deepti Olmstead CNP Comments: SVT Deepti FORMAN ELECTROCARDIOGRAM, COMPLETE (ECG) On: 29-Oct-2014 Intent ([id number])By: Deepti Olmstead CNP, CNP [place] Bio Z ([id number])By: Deepti Olmstead CNP On: 21-Oct-2014 Intent Deepti Olmstead CNP Comments: increased vascular resistance and decreased stroke volume ADMINISTRATION OF INFLUENZA VIRUS On: 10-Apr-2014 Intent VACCINE ([id number])By: Visit, Nurse Comments: Lot #[id number]-L dltd, IMDose prefilled syringegiven by:Marilee, LPNVIS and ABN signed FLU VAC, SPLIT, >3 YEARS, INTRAMUSC On: 10-Apr-2014 Intent ([id number])By: Visit, Nurse Aerosol Treatment ([id number])By: Ishan On: 03-Dec-2013 Intent DASIADeepti Ishan FORMAN [place] MRI - BrainBy: Ishan FORMAN Deepti Calderon On: 29-Oct-2013 Intent Ishan FORMAN [place] EEGBy: Ishan FORMAN RoseliaYumiko Olmstead CNP, On: 28-Oct-[address] - Brain/HeadBy: Ishan FORMAN [place] On: 28-Oct-2013 Intent Ishan FORMAN Deepti Calderon Holter Moniter ([id number])By: Ishan On: 28-Oct-2013 Intent DASIA RoseliaYumiko Olmstead CNP [place] Eprescribed prescriptions ([id number])By: On: 28-Oct-2013 Intent Ishan FORMAN RoseliaYumiko Olmstead CNP [place] Echo CompleteBy: Ishan FORMAN [place] On: 15-Oct-2013 Intent Ishan FORMAN [place] FLU VAC, SPLIT, >3 YEARS, INTRAMUSC On: 13-Mar-2013 Intent ([id number])By: Yesi Jacome Comments: Lot:[id number]:Dose:0.5mLRoute:IMSite:L DltdGiven By:JACQUELINE signed IMMUNIZ ADMNIN, 1 VAC, SNGL/COMBO On: 13-Mar-2013 Intent ([id number])By: Yesi Jacome Radiology - Hip - LeftBy: Irene OCONNOR, On: 28-Dec-2012 Intent Tressa Planned Medications INJECTION, METHYLPREDNISOLONE SODIUM SUCCINATE, UP TO 125 MG Ordered: 26-Oct-2016 Pending Ciesa MINING ANALYST, [place] Ciesa MINING ANALYST, [place] INJECTION, METHYLPREDNISOLONE SODIUM SUCCINATE, UP TO 125 MG Ordered: 24-Nov-2017 Pending Ciesa MINING ANALYST, [place] Ciesa MINING ANALYST, [place] Instructions Name Dates Details Hypertension, uncontrolled : Patient Instructions Indication: Hypertension, uncontrolled Hypertension, uncontrolled : DISCONTINUED - MICROALBUMIN: CREATININE RATIO ([id number]) AND (19791) Indication: Hypertension, uncontrolled Nonsmoker : How to access health information online Indication: Nonsmoker Nonsmoker : How to access health information online - Detail Indication: Nonsmoker Nonsmoker : Patient Instructions Indication: Nonsmoker Nonsmoker : How to access health information online Indication: Nonsmoker Nonsmoker : How to access health information online - Detail Indication: Nonsmoker Vertigo : Patient Instructions Indication: Vertigo Nonsmoker : Patient Instructions Indication: Nonsmoker Nonsmoker : How to access health information online Indication: Nonsmoker Nonsmoker : How to access health information online - Detail Indication: Nonsmoker Nonsmoker : Patient Instructions Indication: Nonsmoker Nonsmoker : How to access health information online Indication: Nonsmoker Nonsmoker : How to access health information online - Detail Indication: Nonsmoker Nonsmoker : Patient Instructions Indication: Nonsmoker COPD exacerbation : Patient Instructions Indication: COPD exacerbation Nonsmoker : How to access health information online Indication: Nonsmoker Nonsmoker : How to access health information online - Detail Indication: Nonsmoker Nonsmoker : Patient Instructions Indication: Nonsmoker COPD exacerbation : How to access health information online Indication: COPD exacerbation COPD exacerbation : How to access health information online - Detail Indication: COPD exacerbation COPD exacerbation : Patient Instructions Indication: COPD exacerbation Depression : How to access health information online Indication: Depression Depression : How to access health information online - Detail Indication: Depression Depression : Patient Instructions Indication: Depression Atrial fibrillation : Patient Instructions Indication: Atrial fibrillation Nonsmoker : How to access health information online Indication: Nonsmoker Nonsmoker : How to access health information online - Detail Indication: Nonsmoker Nonsmoker : Patient Instructions Indication: Nonsmoker Hypertriglyceridemia : DISCONTINUED - LIPID PANEL ([id number]) Indication: Hypertriglyceridemia Hypothyroidism : DISCONTINUED - TSH (73129) Indication: Hypothyroidism Hypertension, benign essential, goal below 140/90 : How to access health information online Indication: Hypertension, benign essential, goal below 140/90 Hypertension, benign essential, goal below 140/90 : How to access health information online - Detail Indication: Hypertension, benign essential, goal below 140/90 Hypertension, benign essential, goal below 140/90 : Patient Instructions Indication: Hypertension, benign essential, goal below 140/90 COPD (chronic obstructive pulmonary disease) : How to access health information online Indication: COPD (chronic obstructive pulmonary disease) COPD (chronic obstructive pulmonary disease) : How to access health information online - Detail Indication: COPD (chronic obstructive pulmonary disease) COPD (chronic obstructive pulmonary disease) : Patient Instructions Indication: COPD (chronic obstructive pulmonary disease) SOB (shortness of breath) on exertion : Patient Instructions Indication: SOB (shortness of breath) on exertion Hand pain : Patient Instructions Indication: Hand pain Hypertension, benign essential, goal below 140/90 : Patient Instructions Indication: Hypertension, benign essential, goal below 140/90 Cerebrovascular disease, unspecified : Patient Instructions Indication: Cerebrovascular disease, unspecified Syncopal episodes : Patient Instructions Indication: Syncopal episodes CHRONIC KIDNEY DISEASE, STAGE III (MODERATE) : Patient Instructions Indication: CHRONIC KIDNEY DISEASE, STAGE III (MODERATE) Vitamin d deficiency : Patient Instructions Indication: Vitamin d deficiency Hypertriglyceridemia : Patient Instructions Indication: Hypertriglyceridemia Hypothyroidism : Patient Instructions Indication: Hypothyroidism Hypercholesterolemia : Patient Instructions Indication: Hypercholesterolemia Encounters Office Visit On: 02-May-2018 9:11 Encounter Reason: Follow up for chronic medical issues - The patient feels well with no complaints, has good energy level and is sleeping well. Patient has been compliant with instructions. Current medication use: no ashley End: 02-May-2018 10:08 e effects, compliant with dosing regimen and considered effective by patient. Patient sleeps 8 (up a few times to use restroom) hours per night. Nutrition: balanced diet. The medical issues the patient is following up for include All identified problems below, asthma, gastric reflux, high blood pressure, hypothyroid, kidney problems (CKD-3 ) and other (anemia, RLS, Vit D deficency ). blood pressure range : (128/60 after started taking water pill). , [ADDITIONAL REASON] Follow up tests - Diagnostic tests include other (labs). Date: (04/21/18). Encounter Diagnosis: Nonsmoker, Asthma, BMI 26.0-26.9,adult, Hypertension, benign essential, goal below 140/90, CHRONIC KIDNEY DISEASE, STAGE III (MODERATE) (585.3), Cerebrovascular disease, unspecified, Hypothyroidism (244.9), GERD (gastroesophageal reflux disease), BMI 27.0- 27.9,adult, Hypercholesteremia, Osteoporosis, Status post colonoscopy with polypectomy, Hypertriglyceridemia, Atherosclerotic plaque, Vitamin d deficiency, Stroke (434.91), Vitamin deficiency, Hypertension, uncontrolled [facility] Office Visit On: 05-Mar-2018 9:33 Encounter Reason: Annual Medicare Exam - The patient had reviewed and updated the family history, medication/s, past medical history and social history. Yes the patient did have a mini mental status exam done today. The End: 05-Mar-2018 10:45 activities of daily living the patient needs help with are housework. The patient has driven in past 6 months, has a medalert necklace or bracelet and put area rugs through house, but the patient has no t had fecal incontinence, had urinary incontinence, missed or ran out of medications to soon, fallen in the past 6 months, gotten lost or put handrails in bathroom. The patient has completed the followi ng preventative measures: mammography (2015) and colonoscopy (2016- dr. smyth). 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 The patient has noticed nothing from the geriatic depres vick scale. Other providers contributing to the patient's care are master in chancery (dr. sykes) and other: ([facility] 02/2017).Encounter Diagnosis: Nonsmoker, BMI 26.0-26.9,adult, Need for prophylactic vaccination and inoculation against influenza (Renamed from Need for immunization against influenza), Encounter for screening mammogram for breast cancer (Renamed from Encounter for screening mammogram f or malignant neoplasm of breast), Postmenopausal (Renamed from Postmenopausal status), Encounter for annual general medical examination with abnormal findings in adult, Hypertension, uncontrolled, Vertigo [facility] Office Visit On: 23-Jan-2018 8:23 Encounter Reason: Follow up tests - Diagnostic tests include ECHO. Date: (01/15)., [ADDITIONAL REASON] short of breath - On going Short of breath with bending over, walking or any act End: 23-Jan-2018 10:49 nathan. Sees [facility] has had echo and asking for results. Uses trampoline prn to increase chest arm and breath control as told by massotherapist Encounter Diagnosis: BMI 27.0-27.9,adult, Nonsmoker, COPD (chronic obstructive pulmonary disease), Hip pain, left, SOB (shortness of breath) on exertion, Hypercholesteremia [facility] Office Visit On: 02-Jan-2018 10:54 Encounter Reason: Follow up for chronic medical issues - The patient feels well with minor complaints (SOB), has good energy level and is sleeping poorly. Patient has been compliant with instructions. Current medication End: 02-Jan-2018 12:50 use: no side effects, compliant with dosing regimen and considered effective by patient. Patient sleeps 4 (broken) hours per night. Nutrition: balanced diet. The medical issues the patient is following up for include All identified problems below, asthma, gastric reflux, high blood pressure, hypothyroid, kidney problems (CKD-3 ) and other (anemia, RLS, Vit D deficency )., [ADDITIONAL REASON] Follow up tests - Diagnostic tests include other (labs). , [ADDITIONAL REASON] Gerd - Has Reflux since and on prilosec since 1986. Tried to wean off wit h zantac but unable to tolerate. [place] like nerve endings in groin burning (a result of old stroke) Encounter Diagnosis: Nonsmoker, BMI 27.0-27.9,adult, Hypercholesteremia, Asthma, SOB (shortness of breath) on exertion, CHRONIC KIDNEY DISEASE, STAGE III (MODERATE) (585.3) [facility] Annotation/Addendum On: 24-Nov-2017 11:30 Encounter Diagnosis: SOB (shortness of breath) on exertion, Hypotension End: 24-Nov-2017 11:31 [facility] Office Visit On: 24-Nov-2017 7:15 Encounter Reason: Follow up for chronic medical issues - The patient feels well with minor complaints (SOB), has good energy level and is sleeping poorly. Patient has been compliant with instructions. Current medication End: 24-Nov-2017 11:14 use: no side effects, compliant with dosing regimen and considered effective by patient. Patient sleeps 4 (broken) hours per night. Nutrition: balanced diet. The medical issues the patient is following up for include All identified problems below, asthma, gastric reflux, high blood pressure, hypothyroid, kidney problems (CKD-3 ) and other (anemia, RLS, Vit D deficency ). Note for Follow up for chroni c medical issues: Has chronic medical issues of ., [ADDITIONAL REASON] Arm pain - The pain has been occurring in an intermittent pattern for 2 weeks. Note for Pain: hurts left elbow at night with sheets onit , [ADDITIONAL REASON] Shortness of Breath - Note for Shortness of breath: Short of breath for a couple months, no chest pain, daytime worse Encounter Diagnosis: COPD exacerbation, CKD (chronic kidney disease), stage II, GERD (gastroesophageal reflux disease), Elbow pain, left [facility] Office Visit On: 04-Aug-2017 7:23 Encounter Reason: Follow up for chronic medical issues - The patient feels well with minor complaints (depression, hip pain), has good energy level and is sleeping poorly. Patient has been compliant with instructions. Cu End: 04-Aug-2017 8:17 rrent medication use: no side effects, compliant with dosing regimen and considered effective by patient. Patient sleeps 4 (broken) hours per night. Nutrition: balanced diet. The medical issues the [place] ent is following up for include All identified problems below, asthma, gastric reflux, high blood pressure, hypothyroid, kidney problems (CKD-3 ) and other (anemia, RLS, Vit D deficency ). Note for Fol low up for chronic medical issues: doing well since , [ADDITIONAL REASON] Follow up tests - Diagnostic tests include other (labs). , [ADDITIONAL REASON] Hip Problem - Note for Hip problem: Left hip pain Encounter Diagnosis: BMI 26.0-26.9,adult, Nonsmoker, Hypertension, benign essential, goal below 140/90, CHRONIC KIDNEY DISEASE, STAGE III (MODERATE) (585.3), Hip pain, left, COPD (chronic obstructive pulmonary disease) [facility] Office Visit On: 13-Jun-2017 8:01 Encounter Reason: Cold Symptoms - Symptoms include runny nose, postnasal drainage, hoarseness, productive cough (yellow / brown mucus) and facial pressure, while symptoms do not include scratchy throat or sore throat. On End: 13-Jun-2017 8:54 set was 3 day(s) ago. The symptoms occur constantly. Associated symptoms include shortness of breath (has COPD) and chills, while associated symptoms do not include ear pain or fever. Current treatment includes oral decongestants. Note for Cold symptoms: Started Monday, Jun 12, just Jun 09. Able to lie flat, s[iti, ue;;pw brownEncounter Diagnosis: Nonsmoker, BMI 26.0-26.9,adult, COPD exacerbation, Cough [facility] Office Visit On: 17-Apr-2017 12:46 Encounter Reason: Follow up for chronic medical issues - The patient feels well with minor complaints (depression), has good energy level and is sleeping poorly (not new -worse since in hospital). Patient has bee End: 17-Apr-2017 13:58 n compliant with instructions. Current medication use: no side effects, compliant with dosing regimen and considered effective by patient. Patient sleeps 4 (broken) hours per night. Nutrition: balanced diet. The medical issues the patient is following up for include All identified problems below, asthma, gastric reflux, high blood pressure, hypothyroid, kidney problems (CKD-3 ) and other (anemia, RLS, Vit D deficency )., [ADDITIONAL REASON] Depression - Symptoms include depressed mood. Onset followed stress. The symptoms occur constantly. The patient describes this as moderate in severity and worsening. By report there is good compliance with treatment and poor symptom control. Since diagnosis the disease has been worsening. Note for Depression: Situational depression. Been taking benadryl and to sleep but also depressed Encounter Diagnosis: BMI 26.0-26.9,adult , Nonsmoker, Depression, Hypercholesteremia, Hypertension, benign essential, goal below 140/90 [facility] Office Visit On: 10-Jan-2017 13:15 Encounter Reason: Hypertension - Recent blood pressure has been mostly > 140. Previous presentation included an elevated blood pressure during the examination and an elevated blood pressure from an outside reading. No End: 10-Jan-2017 13:50 te for Hypertension: Had BP spike in November of BP after working in yard, severe back pain, [ADDITIONAL REASON] medication self adjustment - while having severe back pain taking losartan 2 of 50mg bid , dose 200 daily self report Encounter Diagnosis: Hypercholesteremia, CHRONIC KIDNEY DISEASE, STAGE III (MODERATE) (585.3), Hypertension, benign essential, goal below 140/90, Atrial fibrillation, Hypothyroidism (244.9) [facility] Office Visit On: 26-Oct-2016 14:37 Encounter Reason: Itching - Onset was 2 day(s) ago., [ADDITIONAL REASON] Rash - Note for Rash: hives all over body finished antibiotic October 16 Encounter Diagnosis: BMI 25.0-25.9,adult, Nonsmoker, Hives, Itching End: 26-Oct-2016 15:09 [facility] Lab Order On: 18-Oct-2016 13:33 Encounter Diagnosis: CHRONIC KIDNEY DISEASE, STAGE III (MODERATE) (585.3) End: 18-Oct-2016 13:37 [facility] Office Visit On: 10-Oct-2016 10:32 Encounter Reason: Abdominal pain - The onset of the pain has been sudden and has been occurring in a persistent pattern for 4 days. The course has been constant. The pain is described as a moderate. The pain is described End: 10-Oct-2016 18:06 as being located in the right upper quadrant. The pain does not radiate. There has been no associated abdominal distention, amenorrhea, anorexia, bloating, bloody stools, bone pain, bulky stools, chest pain, constipation, dark urine, diarrhea, dysuria, fever, heartburn, hematemesis, hematuria, jaundice, melena, nausea, passing worms, pica, use of alcohol, vaginal bleeding, vaginal discharge, vomiting, weight loss or other.Encounter Diagnosis: BMI 25.0-25.9,adult, Nonsmoker, Right sided abdominal pain, Status post colonoscopy with polypectomy, Urinary tract infection, acute [facility] Annotation/Addendum On: 17-Aug-2016 15:43 Encounter Diagnosis: Lump End: 17-Aug-2016 15:45 [facility] Annotation/Addendum On: 17-Aug-2016 15:00 Encounter Diagnosis: Lump End: 17-Aug-2016 15:04 [facility] Lab Order On: 12-Aug-2016 15:41 Encounter Diagnosis: CHRONIC KIDNEY DISEASE, STAGE III (MODERATE) (585.3) End: 12-Aug-2016 15:42 [facility] Historical Summary On: 09-Aug-2016 7:36 Encounter Diagnosis: Hypercholesteremia End: 09-Aug-2016 7:39 [facility] Office Visit On: 08-Aug-2016 7:45 Encounter Reason: Follow up for chronic medical issues - The patient feels well with minor complaints (lump below neck; left knee pain), has good energy level and is sleeping poorly (not new ). Patient has been compliant End: 08-Aug-2016 9:54 with instructions. Current medication use: no side effects, compliant with dosing regimen and considered effective by patient. Patient sleeps 4 (broken ) hours per night. Nutrition: balanced diet. The medical issues the patient is following up for include All identified problems below, asthma, gastric reflux, high blood pressure, hypothyroid, kidney problems (CKD- 3 ) and other (anemia, RLS, Vit D def icency ). Note for Follow up for chronic medical issues: I am feeling much better. Was able to do rowing for pulm rehabAfter I go to sleep, I feel a banging sound, like before stroke but not as bad, j ust a couple thumps then it goes away , no dizziness, [ADDITIONAL REASON] Lumps - The lumps has been occurring in a persistent pattern for 1 month. The co urse has been constant. The lumps are described as moderate. Note for Lumps: Lump in upper throat area chest was larger then went down , [ADDITIONAL REASON] knee pain Encounter Diagnosis: Hypertension, benign essential, goal below 140/90, BMI 25.0-25.9,adult, Nonsmoker, Hypercholesteremia, GERD (gastroesophageal reflux disease), Osteoporosis, Vitamin deficiency, Atherosclerotic plaque, Cerebrovascular disease, unspecified, Lump, CHRONIC KIDNEY DISEASE, STAGE III (MODERATE) (585.3), Atrial fibrillation, Knee pain, left [facility] Office Visit On: 06-May-2016 7:02 Encounter Reason: Follow up tests - Diagnostic tests include other (labs). Date: (04/27/2016)., [ADDITIONAL REASON] Follow up for chronic medical issues - The patient feels well with no complaints End: 06-May-2016 9:52 (hip pain), has good energy level and is sleeping poorly (not new ). Patient has been compliant with instructions. Current medication use: no side effects, compliant with dosing regimen and considered effective by patient. Patient sleeps 4 (broken ) hours per night. Nutrition: balanced diet. The medical issues the patient is following up for include All identified problems below, asthma, gastric refl ux, high blood pressure, hypothyroid, kidney problems (CKD-3 ) and other (anemia, RLS, Vit D deficency ). Note for Follow up for chronic medical issues: I am feeling much better. Was able to do rowing for pulm rehabAfter I go to sleep, I feel a banging sound, like before stroke but not as bad, just a couple thumps then it goes away , no dizziness Encounter Diagnosis: Hypertriglyceridemia, Hypertension, benign essential, goal below 140/90, Hypercholesteremia, Asthma, Vitamin deficiency, Hypothyroidism (244.9), GERD (gastroesophageal reflux disease), Current non-smoker, BMI 25.0-25.9,adult, Need for prophylactic vaccination and inoculation against influenza (Renamed from Need for immunization against influenza), Basal cell carcinoma, face [facility] Phone Encounter On: 09-Feb-2016 8:42 Encounter Diagnosis: Hypertriglyceridemia End: 09-Feb-2016 8:43 [facility] Annotation/Addendum On: 08-Feb-2016 19:13 Encounter Diagnosis: Unspecified Diagnosis End: 08-Feb-2016 19:17 [facility] Office Visit On: 02-Feb-2016 7:55 Encounter Reason: Follow up for chronic medical issues - The patient feels well with no complaints (hip pain), has good energy level and is sleeping poorly (not new ). Patient has been compliant with instructions. Lukas End: 02-Feb-2016 9:49 t medication use: no side effects, compliant with dosing regimen and considered effective by patient. Patient sleeps 4 (broken ) hours per night. Nutrition: balanced diet. The medical issues the patient is following up for include All identified problems below, asthma, gastric reflux, high blood pressure, hypothyroid, kidney problems (CKD-3 ) and other (anemia, RLS, Vit D deficency ). Note for Follow up for chronic medical issues: I am feeling much better. Was able to do rowing for pulm rehabAfter I go to sleep, I feel a banging sound, like before stroke but not as bad, just a couple thumps then it goes away , no dizzinessEncounter Diagnosis: Cerebrovascular disease, unspecified, Hypertriglyceridemia, Osteopenia, Hypertension, benign essential, goal below 140/90, Hypercholesteremia, COPD (chronic obstructive pulmonary disease), GERD (gastroesophageal reflux disease), BMI 25.0-25.9,adult, Vitamin d deficiency, Current non-smoker, Hypokalemia [facility] Phone Encounter On: 19-Nov-2015 11:20 [facility] End: 19-Nov-2015 12:01 Annotation/Addendum On: 03-Nov-2015 10:34 Encounter Diagnosis: Atherosclerotic plaque, Stroke (434.91) End: 03-Nov-2015 11:03 [facility] Historical Summary On: 03-Nov-2015 9:46 Encounter Diagnosis: Hypercholesteremia End: 03-Nov-2015 10:22 [facility] Annotation/Addendum On: 02-Nov-2015 11:17 Encounter Diagnosis: Unspecified Diagnosis End: 02-Nov-2015 14:54 [facility] Office Visit On: 02-Nov-2015 7:52 Encounter Reason: Follow up for chronic medical issues - The patient feels well with no complaints (Having sounds in head again like before had stroke), has good energy level and is sleeping poorly (not new ). Patient seo End: 02-Nov-2015 10:09 s been compliant with instructions. Current medication use: no side effects, compliant with dosing regimen and considered effective by patient. Patient sleeps 4 (broken ) hours per night. Nutrition: bal anced diet. The medical issues the patient is following up for include All identified problems below, asthma, gastric reflux, high blood pressure, hypothyroid, kidney problems (CKD-3 ) and other (anemia , RLS, Vit D deficency ). Note for Follow up for chronic medical issues: I am feeling much better. Was able to do rowing for pulm rehabAfter I go to sleep, I feel a banging sound, like before stroke b ut not as bad, just a couple thumps then it goes away , no dizziness, [ADDITIONAL REASON] Follow up tests - Diagnostic tests include other (Labs). Date: (10/29/15). Current symptoms include other (banging sound in head). Past medical history includes asthma, chronic obstructive lung disease and hypertension. Encounter Diagnosis: Osteoporosis, Osteopenia, Hypertension, benign essential, goal below 140/90, COPD (chronic obstructive pulmonary disease), Asthma, Vitamin d deficiency, GERD (gastroesophageal reflux disease), Hypothyroidism (244.9), Hypokalemia, Current non-smoker, Cerebrovascular disease, unspecified, Hypertriglyceridemia, Vitamin deficiency [facility] Annotation/Addendum On: 16-Oct-2015 8:03 Encounter Diagnosis: Hypercholesteremia End: 16-Oct-2015 9:38 [facility] Annotation/Addendum On: 02-Oct-2015 11:54 Encounter Diagnosis: Osteopenia End: 02-Oct-2015 12:03 [facility] Office Visit On: 31-Jul-2015 7:39 Encounter Reason: Follow up for chronic medical issues - The patient feels well with no complaints, has good energy level and is sleeping poorly (not new ). Patient has been compliant with instructions. Current medicatio End: 31-Jul-2015 10:53 n use: no side effects, compliant with dosing regimen and considered effective by patient. Patient sleeps 4 (broken ) hours per night. Nutrition: balanced diet. The medical issues the patient is followi ng up for include All identified problems below, asthma, gastric reflux, high blood pressure, hypothyroid, kidney problems (CKD-3 ) and other (anemia, RLS, Vit D deficency ). Note for Follow up for chronic medical issues: I am feeling much better Encounter Diagnosis: COPD (chronic obstructive pulmonary disease), Hypertension, benign essential, goal below 140/90, Lump, BMI 25.0-25.9,adult, Stroke (434.91), Encounter for screening for malignant neoplasm of colon (Renamed from Special screening for malignant neoplasms, colon), Screening for osteoporosis (Renamed from Encounter for screening for osteoporosis), Encounter for screening mammogram for breast cancer (Renamed from Encounter for screening mammogram for malignant neoplasm of breast) [facility] Office Visit On: 03-Jul-2015 9:37 Encounter Reason: Hypertension - The last clinic visit was 2 week(s) ago. Symptoms include shortness of breath. Recent blood pressure has been mostly > 190. The patient describes this as unchanged. Symptoms are not ex End: 03-Jul-2015 11:00 acerbated by stress, fatigue, weight gain, excess dietary salt, alcohol use or skipping medications. Associated symptoms do not include chest pain, claudication, near syncope, syncope, weakness, paresth esias or edema. Previous presentation included an elevated blood pressure during the examination and shortness of breath., [ADDITIONAL REASON] Follow up tests - Diagnostic tests include other (PFT). Encounter Diagnosis: SOB (shortness of breath) on exertion, COPD (chronic obstructive pulmonary disease) [facility] Office Visit On: 17-Jun-2015 10:23 Encounter Reason: Hypertension - The last clinic visit was 2 week(s) ago. Symptoms include shortness of breath. Recent blood pressure has been mostly > 190. The patient describes this as unchanged. Symptoms are not ex End: 17-Jun-2015 11:41 acerbated by stress, fatigue, weight gain, excess dietary salt, alcohol use or skipping medications. Associated symptoms do not include chest pain, claudication, near syncope, syncope, weakness, paresth esias or edema. Previous presentation included an elevated blood pressure during the examination, an elevated blood pressure from an outside reading and shortness of breath.Encounter Diagnosis: SOB (shortness of breath) on exertion, Hypertension, benign essential, goal below 140/90, Asthma [facility] Office Visit On: 22-Apr-2015 9:01 Encounter Reason: Hypertension - Recent blood pressure has been mostly > 170. The patient describes this as moderate in severity and worsening. Symptoms are not exacerbated by stress, fatigue, weight gain, excess diet End: 22-Apr-2015 10:31 shonna salt, alcohol use or skipping medications. Symptoms are not relieved by stress management, weight loss, exercise, avoiding alcohol or medication. Associated symptoms do not include chest pain, rashaun ication, near syncope, syncope, weakness, paresthesias or edema. By report there is good compliance with treatment. Previous presentation included an elevated blood pressure during the examination and a n elevated blood pressure from an outside reading.Encounter Diagnosis: Hypertension, benign essential, goal below 140/90 [facility] Office Visit On: 21-Apr-2015 14:27 Encounter Reason: Injections - The medication the patient is here to receive is pneumovax IM and other (flu).Encounter Diagnosis: Need for prophylactic vaccination and inoculation against influenza End: 22-Apr-2015 12:52 [facility] Error Encounter On: 21-Apr-2015 13:27 Encounter Reason: Hypertension - Symptoms do not include headache, confusion, visual disturbance, dizziness or shortness of breath. Recent blood pressure has been mostly > 170. The patient describes this as moderate i End: 21-Apr-2015 16:26 n severity and worsening. Symptoms are not relieved by stress management, weight loss, exercise, avoiding alcohol or medication. Associated symptoms do not include chest pain, claudication, near syncope , syncope, weakness, paresthesias or edema. Previous presentation included an elevated blood pressure during the examination and an elevated blood pressure from an outside reading.Encounter Diagnosis: Unspecified Diagnosis [facility] Office Visit On: 25-Nov-2014 8:47 Encounter Reason: Follow up hospital - Reason for ER visit: note: (SVT, atrial flutter). The patient feels well with no complaints. Patient has been compliant with instructions. Current medication use: no side effects. P End: 25-Nov-2014 11:31 atient sleeps 7 hours per night. Impact of disease: emotional impact-moderate. Nutrition: balanced diet. Hospital procedures performed were other (cardiac enzymes, nuclear stress test, echo). The hospital results of the stress test were, [ADDITIONAL REASON] Transition into care - The patient is transitioning into care from a hospital and a summary of care was reviewed . Encounter Diagnosis: Hypertension, uncontrolled, GERD (gastroesophageal reflux disease), Hypothyroidism (244.9), Asthma, SVT (supraventricular tachycardia) [facility] Office Visit On: 18-Nov-2014 11:45 Encounter Reason: high blood pressure - The symptoms have been associated with family history of hypertension and kidney disease, while the symptoms have not been associated with excessive caffeine intake. blood pressur End: 18-Nov-2014 12:41 e range : (132/106). Note for high blood pressure : On 11-12 after being on labetalol for a week, prescribed by Dr. Larson she felt extreme SOB so took herself off labetalol on 11-12-14 without consulti sergio Hopson because she said it made her SOB it, BP was 186/79 at that time,on 11-13-14 she put herself back on hydralazine 50mg bid which is what Dr. Larson had her on in past. Her BP range from 144/81 to 106/63. on 11-18 she dropped her dose of hydralazine to 50mg and went outsider, felt dizzi and light headed, her daughter had her lay down and put compresses on her. She felt better and and came in today at 11:59 am today to be reassed Encounter Diagnosis: Hypertension, uncontrolled, SOB (shortness of breath) on exertion [facility] Office Visit On: 04-Nov-2014 14:39 Encounter Reason: Hypertension - The last clinic visit was week(s) ago. Symptoms include headache and shortness of breath, while symptoms do not include confusion, visual disturbance or dizziness. Recent blood pressure h End: 04-Nov-2014 15:14 as been mostly > 170s. The patient describes this as moderate in severity and unchanged. Symptoms are not exacerbated by stress, fatigue, weight gain, excess dietary salt, alcohol use or skipping med ications. Associated symptoms do not include chest pain, claudication, near syncope, syncope, weakness, paresthesias or edema. The patient is not currently being treated for this problem. By report ther e is good compliance with treatment. Previous presentation included an elevated blood pressure during the examination, an elevated blood pressure from an outside reading, shortness of breath and headache.Encounter Diagnosis: Hypertension, uncontrolled, SOB (shortness of breath) on exertion, Vitamin d deficiency [facility] Office Visit On: 29-Oct-2014 12:05 Encounter Reason: Hypertension - The last clinic visit was week(s) ago. Symptoms include headache and shortness of breath, while symptoms do not include confusion, visual disturbance or dizziness. Recent blood pressure h End: 29-Oct-2014 12:41 as been mostly > 180. The patient describes this as moderate in severity and worsening. Associated symptoms do not include chest pain, claudication, near syncope, syncope, weakness, paresthesias or e kenny. By report there is good compliance with treatment. Previous presentation included an elevated blood pressure during the examination, an elevated blood pressure from an outside reading, shortness of breath and headache.Encounter Diagnosis: Tinnitus, right, ACUTE SINUSITIS, UNSPECIFIED (461.9), Hypertension, uncontrolled, Anemia [facility] Office Visit On: 24-Oct-2014 8:58 Encounter Reason: Follow up acute care visit - The patient does not feel well (right hand still swollen and painful, feels like BP still high). Patient has been compliant with instructions. Current medication use: no ashley End: 24-Oct-2014 9:36 e effects. Patient sleeps 6 hours per night. Impact of disease: emotional impact- mild and impact on recreation-mild. The medical issues the patient is following up for include high blood pressure and other (phlebitis, hypertension). Encounter Diagnosis: Hypertension, uncontrolled, Hand pain, Headache [facility] Office Visit On: 23-Oct-2014 13:06 Encounter Reason: Hand pain - I think I got bit on rt hand and the hand has been swelling ever since.Encounter Diagnosis: Hand pain, Thrombophlebitis, CHRONIC KIDNEY DISEASE, STAGE III (MODERATE) (585.3) End: 23-Oct-2014 13:51 [facility] Office Visit On: 21-Oct-2014 9:54 Encounter Reason: Follow up Hypertension - The symptoms have been associated with kidney disease, while the symptoms have not been associated with excessive caffeine intake. blood pressure range : (185/71 ?172/72 ??18 End: 21-Oct-2014 11:15 4/72 ??159/72 ?214/100 ?189/81 ?170/182).Encounter Diagnosis: SOB (shortness of breath) on exertion, Hypertension, uncontrolled, CHRONIC KIDNEY DISEASE, STAGE III (MODERATE) (585.3) [facility] Office Visit On: 08-Oct-2014 10:38 Encounter Reason: Hypertension - The last clinic visit was 1 day(s) ago. Recent blood pressure has been mostly > 140/90. The patient describes this as moderate in severity and unchanged. By report there is good compli End: 08-Oct-2014 11:08 ance with treatment. First diagnosis of hypertension was 2 year(s) ago (stroke two years ago). Pertinent medical history includes cerebral vascular accident and chronic kidney disease. Previous presenta tion included an elevated blood pressure during the examination and shortness of breath.Encounter Diagnosis: Hypertension,benign(401.1), Hypokalemia [facility] Annotation/Addendum On: 20-Aug-2014 9:33 Encounter Diagnosis: Toe pain End: 20-Aug-2014 14:28 [facility] Office Visit On: 28-Jul-2014 11:22 Encounter Reason: Skin Problems - The onset of the skin problems has been sudden and they have been occurring in a persistent pattern for 1 month. The course has been increasing. The problem is characterized as a change End: 28-Jul-2014 11:57 in skin color. There has been associated pain.Encounter Diagnosis: Paronychia of toenail, Toe pain [facility] Office Visit On: 30-Jun-2014 13:04 Encounter Reason: Cough - The onset of the cough has been sudden. The cough is characterized as productive of mucoid sputum. The amount of sputum produced is scanty. The cough occurs all the time. The symptoms are aggra End: 30-Jun-2014 13:47 vated by supine posture. The symptoms have been associated with runny nose, while the symptoms have not been associated with fever, headache, hoarseness or wheezing. the color of the sputum is yellowish.Encounter Diagnosis: Cough, Post-infection bronchospasm [facility] Office Visit On: 13-May-2014 10:10 Encounter Reason: Sinusitis/ - The duration of the symptoms are 1 week The course has been worsening. The sinusitis/ has no relieving factors. Associated features include The symptoms have been associated with cough, bert End: 13-May-2014 10:55 al discharge/stuffy nose and sinus pain. No previous evaluations were reported.Encounter Diagnosis: ACUTE SINUSITIS, UNSPECIFIED (461.9), Rosacea [facility] Office Visit On: 10-Apr-2014 11:48 Encounter Reason: InjectionsEncounter Diagnosis: NEED FOR PROPHYLACTIC VACCINATION AND INOCULATION AGAINST INFLUENZA (V04.81) End: 10-Apr-2014 15:18 [facility] Office Visit On: 03-Dec-2013 13:34 Encounter Reason: Cough - The onset of the cough has been sudden. The cough is characterized as dry. The cough occurs all the time. The symptoms are aggravated by supine posture. There has been no associated fever, hoar End: 03-Dec-2013 14:10 seness, runny nose, sore throat or wheezing.Encounter Diagnosis: Cough, Wheeze, Bronchospasm [facility] Annotation/Addendum On: 05-Nov-2013 15:12 Encounter Diagnosis: ACUTE SINUSITIS, UNSPECIFIED (461.9) End: 05-Nov-2013 15:15 [facility] Annotation/Addendum On: 29-Oct-2013 11:22 Encounter Diagnosis: Fall at home End: 29-Oct-2013 11:40 [facility] Office Visit On: 28-Oct-2013 13:09 Encounter Reason: SyncopeEncounter Diagnosis: Syncopal episodes, CVA (437.9) End: 28-Oct-2013 13:56 [facility] Office Visit On: 15-Oct-2013 9:57 Encounter Reason: Follow up for chronic medical issues - The patient feels well with no complaints, has good energy level and is sleeping well. Patient has been compliant with instructions. Current medication use: no ashley End: 15-Oct-2013 10:40 e effects, compliant with dosing regimen and considered effective by patient. Patient sleeps 7 hours per night. Nutrition: balanced diet. The medical issues the patient is following up for include All i dentified problems below, high blood pressure, hypothyroid, kidney problems (CKD- 3), osteoporosis/osteopenia and other (RLS).Encounter Diagnosis: Vitamin d deficiency, Hypertriglyceridemia, Hypothyroid (244.9), CHRONIC KIDNEY DISEASE, STAGE III (MODERATE) (585.3), Hypertension,benign(401.1) [facility] Office Visit On: 17-Sep-2013 8:50 Encounter Reason: Follow up tests - Diagnostic tests include other (labs). Date: (09/11/13)., [ADDITIONAL REASON] Follow up acute care visit - The patient feeling better since last seen, has dec End: 17-Sep-2013 9:22 reased energy level and improving. Patient has been compliant with instructions. Current medication use: no side effects, compliant with dosing regimen and considered effective by patient. The medical i ssues the patient is following up for include All identified problems below and other (HYPOTENSION). Encounter Diagnosis: CHRONIC KIDNEY DISEASE, STAGE III (MODERATE) (585.3), Vitamin d deficiency, Hypertriglyceridemia [facility] Office Visit On: 10-Sep-2013 13:39 Encounter Reason: Fatigue - The onset of the fatigue has been sudden and has been occurring in a persistent pattern for weeks. The course has been constant. The fatigue occurs all the time. The symptoms have been associ End: 10-Sep-2013 14:55 ated with chills ( I just can't get warm, my hands are always cold) and depression ( nothing good, nothing bad- just OK ), while the symptoms have not been associated with abdominal pain, edema or headache.Encounter Diagnosis: Hypotension, Fatigue, Hypertriglyceridemia [facility] Annotation/Addendum On: 17-Jul-2013 12:10 Encounter Diagnosis: Hypertriglyceridemia End: 17-Jul-2013 12:12 [facility] Office Visit On: 16-Jul-2013 9:30 Encounter Reason: Follow up for chronic medical issues - The patient feels well with no complaints, has decreased energy level and is sleeping poorly. Patient has been compliant with instructions. Current medication use: End: 16-Jul-2013 10:09 no side effects, compliant with dosing regimen and considered effective by patient. Patient sleeps 7 (broken- d/t cat, and urination, ect ect) hours per night. Impact of disease: no overall impact. Nut rition: balanced diet. The medical issues the patient is following up for include All identified problems below, high blood pressure, hypothyroid, kidney problems (CKD-3), osteoporosis/osteopenia and other (RLS, CVA).Encounter Diagnosis: PARASTHESIA (782.0), Hypothyroidism (244.9), Restless Leg Syndrome (333.99), Stroke (434.91), CHRONIC KIDNEY DISEASE, STAGE III (MODERATE) (585.3) [facility] Office Visit On: 30-Apr-2013 8:54 Encounter Reason: Follow up acute care visit - The patient feeling better since last seen and improving. Patient has been non-compliant with instructions. Current medication use: experiencing side effects (diarrhea). Pat End: 30-Apr-2013 9:51 ient sleeps 7 hours per night. The medical issues the patient is following up for include All identified problems below and other (sinusitis )., [ADDITIONAL REASON] Follow up tests - Diagnostic tests include other (labs). Date: (04/12/13). Encounter Diagnosis: Hypothyroidism (244.9), CHRONIC KIDNEY DISEASE, STAGE III (MODERATE) (585.3), Stroke (434.91), Hypertension,benign(401.1), PARASTHESIA (782.0), Diarrhea (787.91) [facility] Office Visit On: 12-Apr-2013 11:02 Encounter Reason: Follow up for chronic medical issues - The patient feels well with minor complaints (cold symptoms), has decreased energy level and is sleeping poorly. Patient has been compliant with instructions. Curr End: 12-Apr-2013 12:32 ent medication use: no side effects. Patient sleeps 7 (broken up hours) hours per night. The medical issues the patient is following up for include blood sugar issues, hypothyroid and osteoporosis/osteopenia., [ADDITIONAL REASON] Follow up tests - Date: (12/2012 blood work). Encounter Diagnosis: PARASTHESIA (782.0), CHRONIC KIDNEY DISEASE, STAGE III (MODERATE) (585.3), Stroke (434.91), Hyperglycemia (790.29), ACUTE SINUSITIS, UNSPECIFIED (461.9) [facility] Office Visit On: 13-Mar-2013 15:08 Encounter Reason: Injections - The medication the patient is here to receive is other (flu ).Encounter Diagnosis: NEED FOR PROPHYLACTIC VACCINATION AND INOCULATION AGAINST INFLUENZA (V04.81) End: 14-Mar-2013 8:34 [facility] Office Visit On: 07-Jan-2013 11:24 Encounter Diagnosis: Hypertension,benign(401.1) End: 07-Jan-2013 11:28 [facility] Phone Encounter On: 04-Jan-2013 13:20 Encounter Diagnosis: Hyperglycemia (790.29) End: 04-Jan-2013 13:21 [facility] Office Visit On: 04-Jan-2013 10:34 Encounter Reason: Follow up tests - Date: (12/28/12 labs).Encounter Diagnosis: CVA (437.9), Pelvis/Thigh/Hip Pain (719.45), Myalgia (729.1), Hyperglycemia (790.29), CHRONIC KIDNEY DISEASE, STAGE III (MODERATE) (585.3), Hypercholesterolemia (272.0), End: 04-Jan-2013 11:17 Diabetes type II,uncontrolled, no comp (250.02), Dysphagia (787.20) [facility] Office Visit On: 28-Dec-2012 9:48 Encounter Reason: Follow up HypertensionEncounter Diagnosis: Hypertension,benign(401.1), Stroke (434.91), Pelvis/Thigh/Hip Pain (719.45), FAMILY HISTORY OF DIABETES MELLITUS (V18.0), Hyperglycemia (790.29), End: 28-Dec-2012 15:41 CHRONIC KIDNEY DISEASE, STAGE III (MODERATE) (585.3), Elevated LFT (794.8) [facility] Office Visit On: 24-Dec-2012 16:22 Encounter Reason: Neck Pain - Symptoms include neck pain, neck stiffness, tenderness and shoulder pain. Symptoms are located in the left lateral neck. The pain radiates to the left shoulder. The patient describes the ja End: 24-Dec-2012 16:59 n as sharp. Onset was sudden. The symptoms occur constantly. The patient describes symptoms as moderate in severity and unchanged. Symptoms are exacerbated by turning the head to the right and turning t he head to the left. Symptoms are relieved by nonsteroidal anti-inflammatory drugs. Associated symptoms do not include headache, upper extremity paresthesias, upper extremity weakness or tinnitus.Encounter Diagnosis: Neck pain on left side (723.1) [facility] Annotation/Addendum On: 24-Dec-2012 13:37 Encounter Diagnosis: Hypertension,benign(401.1) End: 24-Dec-2012 14:25 [facility] Office Visit On: 21-Dec-2012 9:41 Encounter Reason: Follow up hospital - Reason for ER visit: note: (CVA). Patient has been compliant with instructions. Current medication use: no side effects, compliant with dosing regimen and considered effective by pa End: 21-Dec-2012 12:56 tient. The hospital results of the CT scan of brain wereEncounter Diagnosis: Dysphagia (787.20), Stroke (434.91), Plaque (523.6), Hypothyroid (244.9), Hypertension,benign(401.1), Restless Leg Syndrome (333.99), Hypercholesterolemia (272.0) [facility] [employer]ayers [employer]; a guarantor
--- OUTSIDE RECORDS SUMMARY | 2018-07-24 03:24 | XMS RPT_ITS | Continuity of Care Document ---
:1940 Author Organization [facility] Address [address] [place] [address] Phone Care Team Providers Name Role Phone Deepti Olmstead CNP Unavailable Kelvin Toney Unavailable Chuy OLVERA, Dr. Ade Antonio Unavailable Dr. Carlos Smyth Unavailable Dr. 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 Heard,41%, told to stay hydrated, 04-10-18 [...] been Dced.Now only only on losartan and yjvhfepjz368/68 Status: Active Hypertriglyceridemia (E78.1, 272.1) Comments: unable [...] slurred speech symptom and then dx at [facility] after discharged from [facility] twice -- sx had progressed to R [...] 0 days Quantity: 90 {Capsule} Refills: 3 Ordered:02-May-2018 Ishan FORMAN Deepti Dallas CNP Deepti Calderon Start : 02-May-2018 Active HydroCHLOROthiazide 12.5 MG Oral Capsule 1 (one) Capsule daily for 90 days Quantity: 90 {Capsule} Refills: 3 Ordered:02-May-2018 Ishan FORMAN Deepti Dallas CNP Deepti Calderon Start : 02-May-2018 Active Levothyroxine Sodium 50 MCG Oral Tablet 1 (one) Tablet daily for 90 days Quantity: 90 {Tablet} Refills: 3 Ordered:23-Nov-2017 Ishan FORMAN Deepti Dallas CNP Deepti Calderon Start : 23-Nov-2017 Active Livalo 4 MG Oral Tablet 1 (one) Tablet daily for 0 days Quantity: 28 {Tablet} Refills: 0 Ordered:02-May-2018 Ishan DASIA Deepti Dallas CNP Deepti Calderon Start : 02-May-2018 Active Losartan Potassium 50 MG Oral Tablet 1 (one) Tablet bid for 90 days Quantity: 180 {Tablet} Refills: 3 Ordered:21-Feb-2018 Ishan DASIA Deepti Dallas CNP, Deepti Calderon Start : 21-Feb-2018 Active Plavix [...] Quantity: 30 {Capsule} Refills: 3 Ordered:10-Jan-2017 Ishan FORMAN, Deepti Nascimento CNP Start : 10-Jan-2017 Active [...] 0 Ordered:08-Aug-2016 Ishan FORMAN, Deepti Dallas CNP, Deepti Calderon Start : 08-Aug-2016 End : 07-Sep-2016 [...] Refills: 0 Ordered:13-Jun-2017 Ishan FORMAN Deepti Tijerinasouleymane FORMAN Deepti Calderon Start : 13-Jun-2017 End : [...] Quantity: 30 {Capsule} Refills: 0 Ordered:19-Nov-2015 Long COUNCILORVonnie L Start : 04-Nov-2014 End : 19-Nov-2015 [...] : 17-Jun-2015 End : 31-Jul-2015 Discontinued Ergocalciferol 49913 UNIT Oral Capsule 1 (one) Capsule twice weekly for 0 days Quantity: 24 {Capsule} Refills: 0 Ordered:08-Aug-2016 Chula Corrales LPN Start : 19-Nov-2015 End : 08-Aug-2016 Discontinued Ergocalciferol 34233 UNIT Oral Capsule 1 (one) Capsule twice weekly for 0 days Quantity: 24 {Capsule} Refills: 0 Ordered:08-Aug-2016 Chula Corrales LPN Start : 19-Nov-2015 End : 08-Aug-2016 Discontinued FLONASE, 50MCG/ACT (Nasal Suspension) 2 (two) Spearman Spearman daily for 0 days Quantity: 1 {Bottle} [...] 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 March 2016 cardiac ablasion Completed Comments: 2014 Colonoscopy Completed Comments: Libra 09/2016 Date Value Details 24-Apr-2018 Echocardiogram Complete Result: Comments: See Note; NOTES: [facility] Cardiovascular Services [address] [place] [address] Echo Complete 04/24/18 1452 MR#: [id number] Acct: [id number] Name: NICOLE BUTLER Rep #: [id number] : 1940 77 From: Deshawn Sykes MD Attending Dr: Raymond Ardon NP Status: REG CLI Ordering Dr: Raymond Ardon OPTOMETRIST ASSISTANT-C Date: 04/24/18 Location: [facility] Sex: F C Admitted: Reason For Study: [...] Date Deshawn Sykes MD CC: Deepti Olmstead OPTOMETRIST ASSISTANT; KAMARI Ardon Date Dictated: 04/24/18 1452 Date Transcribed: 04/24/181719 Certified Diabetes Educator: Signed 16-Apr-2018 Cardiology Visit Report Result: Comments: See Note; NOTES: [facility] [address] [place] [address]. 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 Pt. denies symptoms of palpitations, lightheadedness, [...] Lt brachial Intake Visit Reasons: 6 M Financial Accounting Analyst Required: No Accompanied by: None Is patient [...] Medical History Tachycardia (Chronic) Hyperlipidemia (Chronic) Other terminal system operator (current) drug therapy (Chronic) Left carotid bruit [...] Report Comp Result: Comments: See Note; NOTES: [facility] Pulmonary Services/Neurology [address] [place] [address] MR#: [id number] Acct: [id number] Name: NICOLE BUTLER Rep #: [id number] : [birth year] 77 From: Neo Curtis MD Referring Dr: Deepti Olmstead NP Status: REG CLI Ordering Dr: Date: Location: PSN Sex: F C COMPLETE PULMONARY FUNCTION TEST INTERPRETATION Brief HPI: Patient is a 77 yea r old female, currently under the care of Deepti Olmstead, who presents to [facility] for complete pulmonary function tests secondary to [...] capacity consistent with chronic bronchitis. No significant exchange administrator the last 3 years noted. 02/13/18 1351 <Electronically signed by Neo Curtis MD> Date Neo Curtis MD CC: Deepti Olmstead NP; Neo Curtis MD Date D ictated: 02/13/18 1346 Date Transcribed: 02/13/18 134 Certified Diabetes Educator: BIENVENIDO Signed 15-Jan-2018 Echocardiogram Complete Result: Comments: See Note; NOTES: [facility] Cardiovascular Services [address] [place] [address] Echo Complete 01/09/18 1302 MR#: [id number] Acct: [id number] Name: NICOLE BUTLER Jose Rep #: [id number] : 1940 77 From: Deshawn Sykes MD Attending Dr: Deepti Olmstead NP Status: REG CLI Ordering Dr: Deepti Olmstead Date: 01/09/18 Location: [facility] Sex: F C Admitted: Reason For Study: [...] Date Deshawn Sykes MD CC: Deepti Olmstead OPTOMETRIST ASSISTANT Date Dictated: 01/09/18 1302 Date Transcribed: 01/15/181839 Certified Diabetes Educator: Signed 09-Oct-2017 Cardiology Visit Report Result: Comments: See Note; NOTES: [facility] [address] [place] [address] OFFICE VISIT Date of Service: 10/09/17 MR#: [id number] Acct: [id number] Name: NICOLE BUTLER Rep #: [id number] : 1940 Provider: KAMARI Ardon Age/Sex: 77/F Location: [facility] Status: Signed [facility] HPI Details: NICOLE BUTLER, is a [...] COPD and has primary care visit in [facility]. She notices this with exertion. Pt. states having some low back pain. Intake Vital Signs10/09/17 Height 5 ft 2 in 10/09/17 Weight: 12 lb 10/09/17 Body Mass Index (BMI) 2.2 10/09/17 Blood Pressu re 144/60 Intake Visit Reasons: 1 Y FU Financial Accounting Analyst Required: No Accompanied by: none Is patient [...] Medical History Tachycardia (Chronic) Hyperlipidemia (Chronic) Other terminal system operator (current) drug therapy (Chronic) Left carotid bruit [...] signed by Raymond HUANGC> Date Raymond Ardon OPTOMETRIST ASSISTANT-Jose Cosigner Signature: Date (if applicable) CC: Deepti Olmstead NP 09-Oct-2017 12 Lead EKG performed by [facility] Result: Comments: See Note; NOTES: [facility] [address] [place] [address] 12 Lead EKG performed by [facility] 10/09/17 0851 MR#: [id number] Acct: [id number] Name: NICOLE BUTLER Rep #: [id number] : 1940 77 From: Raymond BARAJAS Attending Dr: Raymond Ardon NP Status: DEP AMB Ordering Dr: Raymond Ardon Date: 10/09/17 Location: [facility] Sex: F C Admitted: BMS/12 Lead EKG performed by [facility] ECG Report Interpretation Sinus Rhythm Nonspecific T-abnormality. ABNORMAL Electronically signed on 10/09/2017 at 11:52 by Deshawn Najera 10/09/17 1156 Date Raymond BARAJAS CC: Deepti Olmstead NP Date Dictated: 10/09/17850 Date Transcribed: 10/09/17850 Certified Diabetes Educator: LUIS ALBERTO Signed 13-Jun-2017 Chest PA and Lateral Result: Comments: See Note; NOTES: [facility] Imaging Services [address] [place] [address] Chest PA and Lateral MR#: [id number] Acct: [id number] Name: NICOLE BUTLER Rep #: [id number] D OB: 1940 F 76 From: Tyron Barillas MD PCP: Deepti Olmstead NP Status: REG CLI Study: Chest PA and Lateral Date of Exam: 06/13/17 Exam# [id number] Ordering Dr: Deepti Olmstead STUDY: X-RAY CHEST [...] Tyron Barillas MD at 9:38 EST Tel [phone], Service support , Fax CC: Deepti Olmstead NP Certified Diabetes Educator: Signed 18-Oct-2016 Abdomen/Pelvis WITH Contrast Result: Comments: See Note; NOTES: [facility] Imaging Services [address] [place] [address] Verdana 4d Abdomen/Pelvis WITH Contrast MR#: [id number] Acct: [id number] Name: NICOLE BUTLER Rep #: [id number] : 1940 F 76 From: Ronan Vasquez MD PCP: Deepti Olmstead Status: REG CLI Study: Abdomen/Pelvis WITH Contrast Date of Exam: 10/18/16 Exam# [id number] Ordering Dr: Queta Pike OPTOMETRIST ASSISTANT- C STUDY: CT ABDOMEN AND PELVIS WITH [...] support , CC: Queta Pike; Deepti Olmstead Certified Diabetes Educator: Signed 22-Aug-2016 Head/Neck Soft Tissue Result: Comments: See Note; NOTES: [facility] Imaging Services [address] [place] [address] Verdana 4d Head/Neck Soft Tissue MR#: [id number] Acct: [id number] Name: NICOLE BUTLER Rep #: [id number] : 1940 F 76 From: Tyron Barillas MD PCP: Deepti Olmstead Status: REG CLI Study: Head/Neck Soft Tissue Date of Exam: 08/22/16 Exam# [id number] Ordering Dr: Deepti Olmstead STUDY: SUPERF ICIAL [...] Tyron Barillas MD at 13:49 EST Tel [phone], Service support [phone], F ax [phone] CC: Deepti Olmstead Certified Diabetes Educator: Signed 08-Aug-2016 Knee 4 or More Views Result: Comments: See Note; NOTES: [facility] Imaging Services [address] [place] [address] Verdana 4d Knee 4 or More Views MR#: [id number] Acct: [id number] Name: NICOLE BUTLER Rep #: [id number] : 1940 F 76 From: Ramiro Santacruz DO PCP: Deepti Olmstead Status: REG CLI Study: Knee 4 or More Views Date of Exam: 08/08/16 Exam# [id number] Ordering Dr: Deepti Olmstead STUDY: X-RAY - [...] Ramiro Santacruz DO at 22:11 EST Tel [phone], Service support [phone], CC: Deepti Olmstead Certified Diabetes Educator: Signed 10-Jun-2016 Carotid Duplex Ultrasound Result: Comments: See Note; NOTES: [facility] Cardiovascular Services [address] [place] [address] Carotid Duplex Ultrasound 06/07/16 0959 MR#: [id number] Acct: [id number] Name: NICOLE BUTLER Jose Rep #: [id number] : 1940 75 From: Kanu Amaya MD [...] in the left bulb. Procedure Carotid Duplex 40060. The exam was diagnostic. Exam performed in [...] Date Dictated: 06/07/1659 Date Transcribed: 06/10/16 162 Certified Diabetes Educator: Signed 01-Oct-2015 Bilat Scrn Digital AND CAD Result: Comments: See Note; NOTES: [facility] Imaging Services [address] [place] [address] Verdana 4d Bilat Scrn Digital AND CAD MR#: [id number] Acct: [id number] Name: NICOLE BUTLER Rep #: [id number] : 1940 F 75 From: Tyron Barillas MD PCP: Deepti Olmstead Status: REG CLI Study: Bilat Scrn Digital AND CAD Date of Exam: 10/01/15 Exam# [id number] Ordering Dr: Deepti Olmstead MAMMOGRAPHY - BILATERAL [...] bi opsy of a clinically suspicious abnormality. [id number] Electronically Signed: Tyron Barillas MD at 10:15 EDT Tel [phone], Service support [phone], CC : Deepti Olmstead Certified Diabetes Educator: Signed 01-Oct-2015 Dexa Bone Density Study (HP) Result: Comments: See Note; NOTES: [facility] Imaging Services [address] [place] [address] Verdana 4d Dexa Bone Density Study (HP) MR#: [id number] Acct: [id number] Name : NICOLE BUTLER Jose Rep #: [id number] : 1940 F 75 From: Tyron Barillas MD PCP: Deepti Olmstead Status: REG CLI Study: Dexa Bone Density Study (HP) Date of Exam: 10/01/15 Exam# [id number] Ordering Dr: Deepti Olmstead STUDY: DUAL ENERGY [...] Tyron Barillas MD at 11:10 EDT Tel [phone], Service support [phone], CC: Deepti Olmstead Certified Diabetes Educator: Signed 22-Sep-2015 CT - Individual Treatment Plan Result: Comments: See Note; NOTES: [facility] Pulmonary Rehab Reports [address] [place] [address] CT - Individual Treatment Plan MR#: [id number] Acct: [id number] Name: NICOLE IVLLALOBOS ED Rep #: [id number] : 1940 75 From: Wilmar Girard PCP: [...] Treatment Plan Result: Comments: See Note; NOTES: [facility] Pulmonary Rehab Reports [address] [place] [address] CT - Individual Treatment Plan MR#: [id number] Acct: [id number] Name: NICOLE VILLALOBOS ED Rep #: [id number] : 1940 75 From: Wilmar Girard PCP: Deepti Olmstead Exercise Prescription - Exercise Prescription Exercise Prescription Statement: See MD orders: frequency 3 t imes per week for 36 sessions. Exercise workloads will be progressed gradually within limits of patient's ability. Progression based on ANNEMARIE dyspnea of 3-5 and absence of untoward symptoms during exer cise. Education by BUSINESS OFFICE DIRECTOR - Reassessment Session Number:: 18 Date:: 08/26/15 [...] AND Physical Result: Comments: See Note; NOTES: [facility] Pulmonary Rehab Reports [address] [place] [address] CT - History AND Physical MR#: [id number] Acct: [id number] Name: RENETTA BUTLER Rep #: [id number] : 1940 74 From: Wilmar Girard PCP: [...] De vices:: none Fall history:: none Interest/Hobbies:: coin box collector, sew, collect antiques, gardening Transportation Needs:: own transportation Alcohol:: No Drugs:: No Employment:: Employed Smoki ng Status: Never smoker - Living Arrangement Patient lives with other person(s) in the home:: AROUND THE CLOCK - Current/ Previous Services [facility] Home Health:: No Other Home Health:: No [facility]'s Ca rdiac Rehab:: No Life (Palliative) Care Services:: No Tobacco Use AND Smoking Cessation:: No Pulmonary Rehab:: No Medications AND Vaccination Info Home Medications: Ambulatory Orders Albuterol Inhaler (Vent Pts) [Proair Hfa] 1 puff INHALATION TID 11/18/14 Cholecalciferol (VIT D3) [Vitamin D3] 2,000 unit PO DAILY 11/18/14 Clopidogrel Bisulfate [Plavix] 75 mg PO DAILY 11/18/14 Fluticasone 0. 05% [Flonase Nasal Surprise] 2 spray NASAL DAILY 11/18/14 Fluticasone/Salmeterol [Advair [...] a physician or the physican designee contacted [facility] one calendar day to resolve clinically significant [...] Coping/Social Support/Other - Advance Directive Power of Job Analysis Manager: Yes Living Will: Yes Advance Directives [...] (BMI): 57.2 - Physical Exam General: Alert, [place] ed x3, Cooperative Neck: Supple, No JVD, [...] Free?: Yes Pain Level: 0/10 - Hearing/Speech/Vision/Spiritual Cultural/Uatsdin Needs that may affect Treatment Plan: No Do you have any Spiritual/Emotional needs of which our [employer] could be of assistance ?: No Airline Hostess to contact Place of Nondenominational?: No Primary Language: [place] Preferred Language: [place] Right Hearing Abillity: Normal Comments: Wears corrective [...] Treatment Plan Result: Comments: See Note; NOTES: [facility] Pulmonary Rehab Reports [address] [place] [address] CT - Individual Treatment Plan MR#: [id number] Acct: [id number] Name: NICOLE VILLALOBOS ED Rep #: [id number] : 1940 74 From: Wilmar Girard PCP: [...] body movements, 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, Improve breathing/control decrease SOB w/ ADL's, Improve [...] 2.1 Load: 15-20 Level: 2-3 Education by BUSINESS OFFICE DIRECTOR - Education by BUSINESS OFFICE DIRECTOR Goals: Effectively partners with MD/team to prevent [...] Deshawn Desai MD CC: Signed 03-Jul-2015 Spirometry (77784) Result: 27-Jun-2015 Pulmonary Function Report Comp Result: Comments: See Note; NOTES: [facility] Pulmonary Services/Neurology [address] [place] [address] Pulmonary Function Test (Comp) MR#: [id number] Acct: [id number] Aquilino e: NICOLE BUTLER Rep #: [id number] : 1940 74 From: Neo Curtis MD Referring Dr: Deepti Olmstead Status: REG CLI Ordering Dr: Deepti Olmstead Date: 06/25/15 Location: [facility] Sex: F C DATE OF SERVICE : [...] CURTIS MD C C: Deepti Olmstead T: [facility] JOB: [id number] 06/27/15 0623 <Electronically signed by Neo Curtis MD> Silvino e Neo Curtis MD CC: Deepti Olmstead; Neo Curtis MD Date Dictated: 06/26/15 1042 Date Transcribed: 06/26/151041 Certified Diabetes Educator: Signed 17-Jun-2015 Chest PA and Lateral Result: Comments: See Note; NOTES: [facility] Imaging Services [address] [place] [address] Verdana 4d Chest PA and Lateral MR#: [id number] Acct: [id number] Name: Diana BUTLER Rep #: [id number] : 1940 F 74 From: Souleymane Weir DO PCP: Deepti Olmstead Status: REG CLI Study: Chest PA and Lateral Date of Exam: 06/17/15 Exam# [id number] Ordering Dr: Deepti Olmstead DY: X-RAY CHEST [...] Souleymane Weir DO at 21:02 EST Tel [phone], Service support [phone], RAD/Chest PA and Lateral IMPRESSION: No acute cardiopulmonary disease or interval change . Electronically Signed: Souleymane Weir DO at 21:02 EST Tel [phone], Service support [phone], CC: Deepti Olmstead Certified Diabetes Educator: Signed 17-Jun-2015 ELECTROCARDIOGRAM, COMPLETE (ECG) (55556) Comments: sinus rhythm on cardizem 180 bid Result: [MEASUREMENTS ANALYSIS] Date of Test: 06/17/2015 11:10:49; Heart Rate: 60; CT Interval: 134; QRS: 98; QT Interval: 396; Corrected QT Interval (QTc): 396; P Wave Osgood: 72; QRS Wave Osgood: 68; T Wave Osgood: 90; Blood Pressure: 160/78 [ECG DIAGNOSTIC STATEMENTS] Date of Test: 06/17/2015 11:10:49; Summary: Sinus Rhythm -Nonspecific ST depression + Nonspecific T-abnormality -Nondiagnostic. 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, but that involved the brain stem, [facility] h would be a very [...] Andrew Mckeon MD CC: Deepti Olmstead; Tressa Bnoilla DO; Andrew Mckeon MD Date Dictated: 11/04/13 1750 Date Transcribed: 11/05/13 0740 Certified Diabetes Educator: GENARO Signed 02-Nov-2013 Brain without Contrast Result: Comments: See Note; NOTES: [facility] Imaging Services [address] [place] [address] MRI Report MR#: [id number] Acct: [id number] Name: NICOLE BUTLER Rep #: [id number] : 1940 F 73 From: Kelly Morin MD PCP: Tressa Bonilla DO Status: REG CLI Study: Brain without Contrast Date of Exam: 11/02/13 Exam# [id number] Ordering Dr: Deepti Olmstead STUDY: MRI BRAIN [...] Prasanna Morin MD at 11:12 EDT Tel [phone] , Service support [phone], CC: Deepti Olmstead; Tressa Bonilla DO Certified Diabetes Educator: Signed 28-Oct-2013 ELECTROCARDIOGRAM, COMPLETE (ECG) (77565) Comments: sinus rthythm Result: [MEASUREMENTS ANALYSIS] Date of Test: 10/28/2013 13:34:38; Heart Rate: 60; CT Interval: 122; QRS: 93; QT Interval: 390; Corrected QT Interval (QTc): 390; P Wave Osgood: 76; QRS Wave Osgood: 74; T Wave Osgood: 70; Blood Pressure: 120/74 [ECG DIAGNOSTIC STATEMENTS] Date of Test: 10/28/2013 13:34:38; Summary: Sinus Rhythm WITHIN NORMAL LIMITS 23-Oct-2013 Echocardiogram Complete Result: Comments: See Note; NOTES: [facility] Cardiovascular Services [address] [place] [address] Echo Complete 10/23/13 1313 MR#: [id number] Acct: [id number] Name: NICOLE BUTLER Rep #: [id number] : 1940 73 From: Celestino Bowman MD [...] Dictated: 10/23/13 1313 Date Transcribed: 10/23/13 1628 Certified Diabetes Educator: Signed Family History Unknown Family Member Name [...] kg/m2 Body Surface Area Calculated 1.65 m2 9-Tie-493879:25 Temperature 97.8 f Pulse 64 /min Comments: [...] kg/m2 Body Surface Area Calculated 1.66 m2 46-Lgg-407635:29 Temperature 97.2 f Pulse 90 /min Comments: [...] kg/m2 Body Surface Area Calculated 1.66 m2 77-Erk-176312:08 Temperature 97.4 f Pulse 88 /min Comments: Pattern: Regular Respiration Rate 16 /min Comments: Pattern: Unlabored O2 SAT 98 % Comments: Room air BP Systolic 152 mm[Hg] Comments: Patient Position: Sitting; Cuff Location: Left Arm; Cuff Size: Standard BP Diastolic 72 mm[Hg] Comments: Patient Position: Sitting; Cuff Location: Left Arm; Cuff Size: Standard Weight 141.375 lb 53-Qmx-509099:31 Temperature 97.9 f Pulse 81 /min Comments: [...] :02 CBC-Complete Blood Cnt No Diff Comments: [facility] [address] [place], [place], [id number] MPV 12.1 fL (Abnormal) Range: 6.2-12.0 PLT [...] Range: 4.4-11.0 :02 Microalb:Creat Ratio,Random UR Comments: [facility] [address] [place], [place], [id number] MALB:CREAT 29.2 {mg/g_CRE} (Normal) MICROALBUMIN,UR 25.2 mg/L (Normal) UR CREAT 86.30 mg/dL (Normal) :02 PTHIN 51.4 pg/mL (Normal) Comments: [facility] [address] [place], [place], [id number] Range: 18.4-80.1 :02 Renal Profile Comments: [address] [place], [place], [id number] CO2 26.0 mmol/L (Normal) Range: 21.0-32.0 CL [...] A.D.A. criteria.Please note revised GLUCOSE reference range xkeacpnht46/02/2018. 42-Qwk-42089:02 Vitamin D,25 Hydroxy Comments: [facility] [address] [place], [address] Vitamin D 25-OH 26.5 ng/mL (Abnormal) Range: 29.95-100.01 Comments: Vitamin D 25(OH) Status Range Deficiency <20 ng/mL (50nmol/L) Insuffciency 20 - 30 ng/mL (50 - 75 nmol/L) Sufficiency 30 - 100 ng/mL (75 - 250 nmol/L) Toxicity >100 ng/mL (>250 nmol/L) 79-Oxk-064752:12 CBC, Platelets & Auto Diff Comments: PATIENT WAS FASTINGPERFORMED BY: [id number] [id number] ([id number]) Immature Grans (Abs) 0.0 {x10E3/uL} (Normal) Range: [...] 3.77-5.28 WBC 7.6 {x10E3/uL} (Normal) Range: 3.4-10.8 48-Ixd-976090:12 Lipid Panel (66892) Comments: PATIENT WAS FASTINGPERFORMED BY: [facility] [id number] [facility] [id number] LDL/HDL Ratio 2.1 {ratio} (Normal) Range: 0.0-3.2 Comments: LDL/HDL Ratio Men Women 1/2 Avg.Risk 1.0 1.5 Av g.Risk 3.6 3.2 2X Avg.Risk 6.2 5.0 3X Avg.Risk 8.0 6.1 LDL Cholesterol Calc 105 mg/dL (Abnormal) Range: 0-99 VLDL Cholesterol Ruben 33 mg/dL (Normal) Range: 5-40 HDL Cholesterol 49 mg/dL (Normal) Triglycerides 165 mg/dL (Abnormal) Range: 0-149 Cholesterol, Total 187 mg/dL (Normal) Range: 100-199 56-Odt-388799:12 Metabolic Panel, Comprehensive Comments: PATIENT WAS FASTINGPERFORMED BY: [facility] [id number] [facility] [id number] ([id number]) ALT (SGPT) 42 [iU]/L (Abnormal) Range: 0-32 [...] Comprehensive Comments: PATIENT NOT FASTINGPERFORMED BY: [facility] [id number] [facility] [id number] ([id number]) ALT (SGPT) 26 [iU]/L (Normal) Range: 0-32 [...] 8-27 Glucose 88 mg/dL (Normal) Range: 65-99 25-Mws-880809:47 MICROALBUMIN: CREATININE RATIO Comments: PATIENT WAS FASTINGPERFORMED BY: [facility]flapSand[facility] [id number] (77262) AND (65029) Alb/Creat Ratio 39.1 {mg/g_creat} (Abnormal) Range: 0.0-30.0 Albumin, Urine 16.0 ug/mL (Normal) Creatinine, Urine 40.9 mg/dL (Normal) 70-Vml-220174:47 URINALYSIS (52735) Comments: PATIENT WAS FASTINGPERFORMED BY: [facility] [id number] Microscopic Examination MICNIP (Normal) Comments: Microscopic not indicated and not performed. Nitrite, Urine Negative (Normal) Urobilinogen,Semi-Qn 0.2 mg/dL (Normal) Range: 0.2-1.0 Bilirubin Negative (Normal) Occult Blood Negative (Normal) Ketones Negative (Normal) Glucose Negative (Normal) Protein Negative (Normal) WBC Esterase Negative (Normal) Appearance Clear (Normal) Urine-Color Yellow (Normal) pH 6.0 (Normal) Range: 5.0-7.5 Specific [place] 1.011 (Normal) Range: 1.005-1.030 16-Vyj-976339:47 Metabolic Panel, Comprehensive Comments: PATIENT WAS FASTINGPERFORMED BY: [facility] [id number] (44430) ALT (SGPT) 30 [iU]/L (Normal) Range: 0-32 [...] 8-27 Glucose 95 mg/dL (Normal) Range: 65-99 6-Osx-974070:04 Microscopic Examination Comments: PATIENT WAS FASTINGPERFORMED BY: [facility]Tavadq6980 [facility] [id number] Bacteria Few (Normal) Mucus Threads Present (Normal) Epithelial Cells (non renal) 0-10 {/hpf} (Normal) Range: 0 - 10 RBC 11-30 {/hpf} (Abnormal) Range: 0 - 2 WBC 0-5 {/hpf} (Normal) Range: 0 - 5 81-Yiv-87378:07 Rapid Flu (87457 x 2) Comments: neg Influenza A Ag neg (Normal) 6-Teb-902435:04 Basic Metabolic Profile (BMP) Comments: [facility] Q[address] [place], [id number] GAP 11 (Normal) Range: 5-15 CO2 22.0 [...] per A.D.A. criteria. :04 Protein+Creatinine Ratio,Urine Comments: [facility] [address] [place], [address] PROT:CRE RATIO Test not performed {mg/g_CRE} (Normal) Range: 0-200 PROTEIN,UR.RAN. < 6.0 mg/dL (Normal) UR CREAT 28.10 mg/dL (Normal) :04 PTH,INTACT Comments: [facility] [address] [place], [id number] PTH,Intact 45 pg/mL (Normal) Range: 14-72 5-Dxt-378333:04 Vitamin D,25 Hydroxy Comments: [facility] Vrkxtpbsrj1743 [place], [address] Vitamin D 25-OH 20.2 ng/mL (Normal) Comments: Vitamin D 25(OH) Status Range Deficiency <20 ng/mL (50nmol/L) Insuffciency 20 - 30 ng/mL (50 - 75 nmol/L) Sufficiency 30 - 100 ng/mL (75 - 250 nmol/L) Toxicity >100 ng/mL (>250 nmol/L) 2-Hhy-091354:04 URINALYSIS (03066) Comments: Jun 2017; PATIENT WAS FASTINGPERFORMED BY: [facility] [id number] Microscopic Examination See below: (Normal) Comments: Microscopic was indicated and was performed. Nitrite, Urine Negative (Normal) Urobilinogen,Semi-Qn 0.2 mg/dL (Normal) Range: 0.2-1.0 Bilirubin Negative (Normal) Occult Blood 1+ (Abnormal) Ketones Negative (Normal) Glucose Negative (Normal) Protein Negative (Normal) WBC Esterase Trace (Abnormal) Appearance Clear (Normal) Urine-Color Yellow (Normal) pH 5.5 (Normal) Range: 5.0-7.5 Specific [place] 1.021 (Normal) Range: 1.005-1.030 0-Syn-600609:04 TSH (86039) Comments: (Jun 2017); PATIENT WAS FASTINGPERFORMED BY: [employer] [facility] HospitalPepperfry.comFormerly [facility], [facility] [id number] TSH 3.450 {uIU/mL} (Normal) Range: 0.450-4.500 4-Egg-219162:04 Lipid Panel (75355) Comments: Jun 2017; PATIENT WAS FASTINGPERFORMED BY: [employer]6[address] [facility] [id number] LDL/HDL Ratio 2.1 {ratio_units} (Normal) Range: 0.0-3.2 Comments: LDL/HDL Ratio Men Women 1/2 Avg.Risk 1.0 1.5 Av g.Risk 3.6 3.2 2X Avg.Risk 6.2 5.0 3X Avg.Risk 8.0 6.1 LDL Cholesterol Calc 105 mg/dL (Abnormal) Range: 0-99 VLDL Cholesterol Ruben 32 mg/dL (Normal) Range: 5-40 HDL Cholesterol 50 mg/dL (Normal) Triglycerides 158 mg/dL (Abnormal) Range: 0-149 Cholesterol, Total 187 mg/dL (Normal) Range: 100-199 0-Tuo-445903:04 CBC, Platelets & Auto Diff Comments: Jun 2017; PATIENT WAS FASTINGPERFORMED BY: JAD Cloverleaf Communicationstracy PhillipsQnwksi3209 [facility] [id number] (65863) Immature Grans (Abs) 0.0 {x10E3/uL} (Normal) Range: [...] 3.77-5.28 WBC 7.7 {x10E3/uL} (Normal) Range: 3.4-10.8 4-Sle-336786:04 Metabolic Panel, Comprehensive Comments: Jun 2017; PATIENT WAS FASTINGPERFORMED BY: [employer] RoadDublin [place] [id number] (74733) ALT (SGPT) 18 [iU]/L (Normal) Range: 0-32 [...] Glucose, Serum 96 mg/dL (Normal) Range: 65-99 16-Lhc-418628:59 TSH (THYROID STIMULATING Comments: PATIENT WAS FASTINGPERFORMED BY: [facility]6370 [facility] [id number] HORMONE) (18046) TSH 3.140 {uIU/mL} (Normal) Range: 0.450-4.500 47-Kis-499026:59 Lipid Panel (42841) Comments: PATIENT WAS FASTINGPERFORMED BY: FortresswareVeterans Affairs [facility] Center6370 [facility] [id number] LDL/HDL Ratio 1.8 {ratio_units} (Normal) Range: 0.0-3.2 Comments: LDL/HDL Ratio Men Women 1/2 Avg.Risk 1.0 1.5 Av g.Risk 3.6 3.2 2X Avg.Risk 6.2 5.0 3X Avg.Risk 8.0 6.1 LDL Cholesterol Calc 91 mg/dL (Normal) Range: 0-99 VLDL Cholesterol Ruben 39 mg/dL (Normal) Range: 5-40 HDL Cholesterol 50 mg/dL (Normal) Triglycerides 196 mg/dL (Abnormal) Range: 0-149 Cholesterol, Total 180 mg/dL (Normal) Range: 100-199 6-Eou-733165:38 Protein+Creatinine Ratio,Urine Comments: [facility] Vypkurzfvp3230 [facility] [place], [place], [id number] PROT:CRE RATIO 154 {mg/g_CRE} (Normal) Range: 0-200 PROTEIN,UR.RAN. 16.0 mg/dL (Abnormal) UR CREAT 104.00 mg/dL (Normal) 5-Uel-193311:38 Renal Profile Comments: [facility] Gdgbrpjftb8[address] [facility] [place], [place], [address] CO2 21.0 mmol/L (Normal) Range: 21.0-32.0 CL [...] criteria. :58 Serum Creatinine AND GFR Comments: [facility] [address] [place], [address] EST GFR - AA 51 mL/min (Abnormal) Comments: GFR Calc EST GFR 42 mL/min (Abnormal) Comments: Non- GFR Calc CREAT,SERUM 1.31 mg/dL (Abnormal) Range: 0.55-1.02 Comments: The validity of the calculated GFR AND GFRAA in patients over70 years has not been determined. Clinical correlation isessential. 55-Ebm-614766:50 Urinalysis, Office (16432) UA - LEUKOCYTE ESTERASE Trace (Normal) UA [...] COLON BIOPSY (CHOOSE See Note (Normal) Comments: [facility] [address] [place], [address] 17 SITE) Comments: Patient: NICOLE BUTLER : 1940 (76/F) Acct Num: [id number] Phys: Carlos Smyth Unit Num: [id number] Loc: LABSPEC Specimen: [id number] Received: 10/06/16 - 1600 Spec Type: COLO [...] one cassette. / RY:mathew 10/07/16 TC:1 CPT: 49901 HEADER OPERATION: Colonoscopy with polyp ectomy PRE-OP DIAGNOSIS: Screening / polyp TISSUE SUBMITTED: Cecal polyps, rule out adenoma MICROSCOPIC DESCRIPTION Slides are reviewed. MICROSCOPIC DIAGNOSIS Cecal polyps, polypecto my: Fragments of tubulovillous adenoma. SJ:mathew 10/10/16 Signed Malachi Mendoza 10/10/16 <signature on file> 18-Fun-568075:43 RENAL FUNCTION PANEL (30768) Comments: PATIENT WAS FASTINGPERFORMED BY: [employer] Xipebn3830 [facility] HospitalPepperfry.comFormerly [facility] [id number] Albumin, Serum 4.2 g/dL (Normal) Range: 3.5-4.8 [...] Glucose, Serum 105 mg/dL (Abnormal) Range: 65-99 54-Tqf-162332:53 CBC, Platelets & Auto Diff Comments: PATIENT WAS FASTINGPERFORMED BY: [employer] Nkxflj9433 [facility] HospitalPepperfry.comFormerly [facility] [id number] (74099) Immature Grans (Abs) 0.0 {x10E3/uL} (Normal) Range: [...] 3.77-5.28 WBC 7.7 {x10E3/uL} (Normal) Range: 3.4-10.8 93-Sxb-715163:53 TSH (97378) Comments: PATIENT WAS FASTINGPERFORMED BY: [facility] Fqclxi0512 [facility] [id number] TSH 3.170 {uIU/mL} (Normal) Range: 0.450-4.500 17-Wjq-442486:53 Metabolic Panel, Comprehensive Comments: PATIENT WAS FASTINGPERFORMED BY: [facility]Nwhaqe2481 [facility] [id number] (28253) ALT (SGPT) 23 [iU]/L (Normal) Range: 0-32 [...] Glucose, Serum 97 mg/dL (Normal) Range: 65-99 53-Zvl-129504:53 Lipid Panel (20379) Comments: PATIENT WAS FASTINGPERFORMED BY: [facility]Ayemmo9010 [facility] [id number] LDL/HDL Ratio 2.6 {ratio_units} (Normal) Range: 0.0-3.2 Comments: LDL/HDL Ratio Men Women 1/2 Avg.Risk 1.0 1.5 Av g.Risk 3.6 3.2 2X Avg.Risk 6.2 5.0 3X Avg.Risk 8.0 6.1 LDL Cholesterol Calc 134 mg/dL (Abnormal) Range: 0-99 VLDL Cholesterol Ruben 40 mg/dL (Normal) Range: 5-40 HDL Cholesterol 51 mg/dL (Normal) Triglycerides 198 mg/dL (Abnormal) Range: 0-149 Cholesterol, Total 225 mg/dL (Abnormal) Range: 100-199 77-Klj-288765:11 LIPID PANEL (06985) Comments: today; PATIENT WAS FASTINGPERFORMED BY: [facility] Ikmruf4285 [place] [place] [id number] LDL/HDL Ratio 2.8 {ratio_units} (Normal) Range: 0.0-3.2 [...] Cholesterol, Total 209 mg/dL (Abnormal) Range: 100-199 4-Iok-345114:46 Protein+Creatinine Ratio,Urine Comments: [facility] [address] [place], [place], [phone] PROT:CRE RATIO 114 {mg/g_CRE} (Normal) Range: 0-200 PROTEIN,UR.RAN. 24.3 mg/dL (Abnormal) UR CREAT 214.00 mg/dL (Normal) 7-Udy-332187:12 CBC W/Diff, Automated Comments: [facility] Mcsbxzjfsr3612 [facility] [place], [place], [id number] Absolute Lymph 1.24 {X10_3/ul} (Normal) Range: 0.83-4.51 [...] 4.2-5.4 WBC 6.8 K/mm3 (Normal) Range: 4.4-11.0 9-Hxw-290811:12 PTH,INTACT Comments: [facility] [address] [place], [place], [phone] PTH,Intact 65 pg/mL (Normal) Range: 14-72 5-Qlr-174815:12 Renal Profile Comments: [facility] [address] [place], [place], [address] CO2 24.0 mmol/L (Normal) Range: 21.0-32.0 CL [...] 7-18 GLU 109 mg/dL (Normal) Range: 70-110 6-Iug-279095:12 Vitamin D,25 Hydroxy Comments: [facility] [address] [place], [address] Vitamin D 25-OH 35.0 ng/mL (Normal) Comments: Vitamin D 25(OH) Status Range Deficiency <20 ng/mL (50nmol/L) Insuffciency 20 - 30 ng/mL (50 - 75 nmol/L) Sufficiency 30 - 100 ng/mL (75 - 250 nmol/L) Toxicity >100 ng/mL (>250 nmol/L) :00 Lesion (choose site) See Note (Normal) Comments: [facility] [address] [place], [address] Comments: Patient: NICOLE BUTLER : 1940 (75/F) Acct Num: [id number] Phys: Akhil Sky MD Unit Num: [id number] Loc: LABSPEC Specimen: [id number] Received: 03/30/161431 [...] time of embedding. / Daja 03/31/16 TC:0 CPT:26761 HEADER OPERATION: Rem oval of lesion LLL (side of nose) PRE-OP DIAGNOSIS: Dome-shaped growth suspicious for BCC TISSUE SUBMITTED: Left lower lid lesion MICROSCOPIC DESCRIPTION Slides are reviewed. MICROSCOPIC DIAGNOSIS Left lower lid lesion, excisional biopsy: Basal cell carcinoma, completely excised in the planes of sections examined. Solar elastosis. NICK:mathew 04/01/16 Signed Malachi Mendoza 04/01/16 <signature on file> :32 LIPID PANEL (24052) Comments: PATIENT WAS FASTINGPERFORMED BY: [facility] Wwxgag8277 [facility] [id number] Information: [id number] LDL/HDL Ratio 3.5 {ratio_units} (Abnormal) Range: 0.0-3.2 [...] Cholesterol, Total 237 mg/dL (Abnormal) Range: 100-199 67-Hqn-142326:04 CBC W/Diff, Automated Comments: [facility] [address] [place], [address] ; wnl, ordered by another doctor Absolute [...] 4.2-5.4 WBC 6.6 K/mm3 (Normal) Range: 4.4-11.0 96-Cgu-313688:04 Protein+Creatinine Ratio,Urine Comments: [facility] [address] [place], [address] PROT:CRE RATIO 145 {mg/g_CRE} (Normal) Range: 0-200 PROTEIN,UR.RAN. 15.9 mg/dL (Abnormal) UR CREAT 110.00 mg/dL (Normal) 72-Dgy-320125:04 PTH,INTACT Comments: [facility] [address] [place], [place], [phone] ; another doc PTH,Intact 50 pg/mL (Normal) Range: 14-72 45-Plh-797798:04 Renal Profile Comments: [address] [place], [place], [id number] CO2 25.0 mmol/L (Normal) Range: 21.0-32.0 CL [...] 126 mg/dLsuggests DIABETES MELLITUS per A.D.A. criteria. 97-Ndc-089936:04 Vitamin D,25 Hydroxy Comments: [facility] [address] [place], [address] Vitamin D 25-OH 21.1 ng/mL (Normal) Comments: Vitamin D 25(OH) Status Range Deficiency <20 ng/mL (50nmol/L) Insuffciency 20 - 30 ng/mL (50 - 75 nmol/L) Sufficiency 30 - 100 ng/mL (75 - 250 nmol/L) Toxicity >100 ng/mL (>250 nmol/L) 1-Ucn-797314:12 CALCIFEDIOL (45937) Comments: PATIENT WAS FASTINGPERFORMED BY: [facility]Vmznci7362 [facility] [id number] Vitamin D, 25-Hydroxy 28.5 ng/mL (Abnormal) Range: 30.0-100.0 Comments: Vitamin D deficiency has been defined by the [place] of[place]icine and an Endocrine Society practice guideline as alevel of serum 25-OH vitamin D less than 20 ng/mL (1,2).The Endocrine Society went on to further define vitamin Dinsufficiency as a level between 21 and 29 ng/mL (2).1. IOM (Americus of Medicine). 2010. Dietary reference intakes for calcium and D. [place]: The National Academies Press.2. Rupert MF, Aretha NC, Dru SEO, et al. Evaluation, treatment, and prevention of vitamin D deficiency: an Endocrine Society clinical practice guideline. JCEM. 2010; 96(7):1911-30. 6-Dmn-805760:12 TSH (38124) Comments: PATIENT WAS FASTINGPERFORMED BY: [facility]6[address] [facility] [id number] TSH 3.320 {uIU/mL} (Normal) Range: 0.450-4.500 3-Gyc-095285:12 Lipid Panel (85408) Comments: PATIENT WAS FASTINGPERFORMED BY: [facility]6[address] [facility] [id number] LDL/HDL Ratio 3.6 {ratio_units} (Abnormal) Range: 0.0-3.2 [...] Cholesterol, Total 266 mg/dL (Abnormal) Range: 100-199 8-Yue-775696:12 Metabolic Panel, Comments: PATIENT WAS FASTINGPERFORMED BY: [facility]6[address] [facility] [id number] Information: [id number] Comprehensive (17210) ALT (SGPT) 45 [iU]/L (Abnormal) Range: 0-32 [...] Glucose, Serum 93 mg/dL (Normal) Range: 65-99 07-Nfu-751560:45 Metabolic Panel, Comprehensive Comments: PATIENT NOT FASTINGPERFORMED BY: [facility] Zwqawf4099 [facility] [id number] (00260) ALT (SGPT) 24 [iU]/L (Normal) Range: 0-32 [...] Glucose, Serum 112 mg/dL (Abnormal) Range: 65-99 20-Eyl-254683:45 CBC WITH MANUAL DIFF Comments: PATIENT NOT FASTINGPERFORMED BY: [facility]Fareaj0802 [facility] [id number] Information: [id number] (61968) Immature Grans (Abs) 0.0 {x10E3/uL} (Normal) Range: [...] 3.77-5.28 WBC 7.7 {x10E3/uL} (Normal) Range: 3.4-10.8 71-Zyi-772407:45 TSH (89456) Comments: PATIENT NOT FASTINGPERFORMED BY: JAD [facility] Uzavzr25[address] [place] [id number] TSH 2.390 {uIU/mL} (Normal) Range: 0.450-4.500 5-Pwp-390191:00 CBC W/Diff, Automated Comments: [facility] [address] [place], [address] Absolute Lymph 1.80 {X10_3/ul} (Normal) Range: 0.83-4.51 [...] (Normal) Range: 4.4-11.0 :00 Protein+Creatinine Ratio,Urine Comments: [facility] [address] [place], [address] PROT:CRE RATIO 120 {mg/g_CRE} (Normal) Range: 0-200 PROTEIN,UR.RAN. 10.8 mg/dL (Normal) UR CREAT 89.80 mg/dL (Normal) 8-Roj-488726:00 PTH,INTACT Comments: [facility] [address] [place], [address] PTH,Intact 44 pg/mL (Normal) Range: 14-72 3-Olj-499567:00 Renal Profile Comments: [address] [place], [address] CO2 26.0 [...] 7-18 GLU 97 mg/dL (Normal) Range: 70-110 2-Fpj-211994:00 Vitamin D,25 Hydroxy Comments: [facility] [address]rkir[address] [place], [address] Vitamin D 25-OH 24.0 ng/mL (Normal) Comments: Vitamin D 25(OH) Status Range Deficiency <20 ng/mL (50nmol/L) Insuffciency 20 - 30 ng/mL (50 - 75 nmol/L) Sufficiency 30 - 100 ng/mL (75 - 250 nmol/L) Toxicity >100 ng/mL (>250 nmol/L) 53-Sex-214191:05 Basic Metabolic Profile (BMP) Comments: 'TROP' Serial specimen #1, #2, #3, or #4: 1Test performed at:[facility] [address] [place] [address] GAP 8 (Normal) Range: 5-15 [...] 7-18 GLU 104 mg/dL (Normal) Range: 70-110 42-Hcb-764855:05 CBC W/Diff, Automated Comments: Test performed at:[facility] [address] [place], [place] [id number] ; ordered by Dr. Kumar Absolute Lymph [...] 4.2-5.4 WBC 10.6 K/mm3 (Normal) Range: 4.4-11.0 59-Wck-607860:05 Thyroid Stim Hormone (TSH) Comments: 'TROP' Serial specimen #1, #2, #3, or #4: 1Test performed at:[facility] Folgchjwsv4817 [facility] [place] [address] TSH 1.50 {uIU/mL} (Normal) Range: 0.358-3.74 27-Xqp-922695:05 Troponin-I Comments: 'TROP' Serial specimen #1, #2, #3, or #4: 1Test performed at:[facility] [address] [place] [address] TROPONIN-I < 0.02 ng/mL (Normal) Comments: TROPONIN-I EXPECTED VALUES <0.05 NEGATIVE 0.06 - 0.59 AT RISK OF [place] > OR = 0.60 SUGGEST [place] :47 CBC W/Diff, Automated Comments: Has pt arrived? YTest performed at:[facility] Eslmpvlgys0524 [facility] [place] [address] Absolute Lymph 1.27 {X10_3/ul} (Normal) [...] Ratio,Urine Comments: Has pt arrived? YTest performed at:[facility] [address] [place] [address] PROT:CRE RATIO 86 {mg/g_CRE} (Normal) Range: 0-200 PROTEIN,UR.RAN. 8.1 mg/dL (Normal) UR CREAT 93.8 mg/dL (Normal) :47 PTH,INTACT Comments: Has pt arrived? YTest performed at:[facility] [address] [place] [address] PTH,Intact 52 pg/mL (Normal) Range: 14-72 :47 Renal Profile Comments: Has pt arrived? YTest performed at:[facility] [address] [place] [address] CO2 26.0 mmol/L (Normal) Range: [...] Hydroxy Comments: Has pt arrived? YTest performed at:[facility] [address] [place] [address] Vitamin D 25-OH 30.1 ng/mL (Normal) Comments: Vitamin D 25(OH) Status Range Deficiency <20 ng/mL (50nmol/L) Insuffciency 20 - 30 ng/mL (50 - 75 nmol/L) Sufficiency 30 - 100 ng/mL (75 - 250 nmol/L) Toxicity >100 ng/mL (>250 nmol/L) :45 Ferritin Comments: Is Patient Taking Vitamins or Folic Acid Supplements? NTest performed at:[facility] Ftwruevwxz3812 [facility] [place] [address] FERRITIN 38 ng/mL (Normal) Range: 8-252 :45 Folates, (Folic Acid) Comments: Is Patient Taking Vitamins or Folic Acid Supplements? NTest performed at:[facility] Yrayxptozm5318 [facility] [place] [address] FOLATES 52.60 ng/mL (Abnormal) Range: 3.1-17.5 :45 Iron Comments: Is Patient Taking Vitamins or Folic Acid Supplements? NTest performed at:[facility] [address] [place] [address] IRON 40 ug/dL (Abnormal) Range: 50-170 :45 Iron Binding Capacity,Total Comments: Is Patient Taking Vitamins or Folic Acid Supplements? NTest performed at:[facility] [address]xx[address]op[address] [place] [id number] TIBC 287 ug/dL (Normal) Range: 250-450 :45 Vitamin B12 883 pg/mL (Normal) Comments: Test performed at:[facility] [address]figh[address] [place] [id number] Range: 211-911 31-Gsw-237685:22 Renal function Panel Comments: PATIENT NOT FASTINGPERFORMED BY: [facility] [id number] Information: [id number] (95688) Albumin, Serum 4.6 g/dL (Normal) Range: 3.5-4.8 [...] Glucose, Serum 92 mg/dL (Normal) Range: 65-99 53-Cho-397119:10 POTASSIUM SERUM (68561) Comments: PATIENT NOT FASTINGPERFORMED BY: [employer] Senesco TechnologiesFormerly [facility], [facility] [id number] Information: [id number] Potassium, Serum 3.8 mmol/L (Normal) Range: 3.5-5.2 :01 CBC W/Diff, Automated Comments: Test performed at:[facility] Fggelcasog9741 [facility] [place] [address] Absolute Lymph 1.69 {X10_3/ul} (Normal) [...] 4.4-11.0 :01 Protein+Creatinine Ratio,Urine Comments: Test performed at:[facility] [address] [place] [address] PROT:CRE RATIO 157 {mg/g_CRE} (Normal) Range: 0-200 PROTEIN,UR.RAN. 17.3 mg/dL (Abnormal) UR CREAT 110.1 mg/dL (Normal) 2-Gth-405421:01 Renal Profile Comments: Test performed at:[facility] [address] [place], [place] [address] CO2 27.0 mmol/L (Normal) Range: 21.0-32.0 CL [...] 126 mg/dLsuggests DIABETES MELLITUS per A.D.A. criteria. 5-Fbd-478106:00 URIC ACID BLOOD (98575) Comments: PATIENT NOT FASTINGPERFORMED BY: [facility] Fwypzh3157 [facility] [id number] Information: [id number] Uric Acid, Serum 5.1 mg/dL (Normal) Range: 2.5-7.1 Comments: Therapeutic target for gout patients: <6.0 5-Col-189857:24 Rapid Flu (96057 x 2) Influenza A Ag Negative (Normal) 32-Ksk-520067:21 CBCD ALC 1.76 {X10_3/ul} (Normal) Range: 0.83-4.51 [...] 4.2-5.4 WBC 6.7 K/mm3 (Normal) Range: 4.4-11.0 89-Fof-836539:21 PROCRER tPROCRER 77 {mg/g_CRE} (Normal) Range: 0-200 PROUR 12.9 mg/dL (Abnormal) CREU 166.3 mg/dL (Normal) :21 PTHIN 42 pg/mL (Normal) Range: 14-72 70-Wuf-692560:21 RENAL CO2 25.0 mmol/L (Normal) Range: 21.0-32.0 [...] 0.6-1.0 GLU 81 mg/dL (Normal) Range: 70-110 12-Ghl-819164:21 VITD 35.0 mg/mL (Normal) Comments: Vitamin D 25(OH) Status RangeDeficiency <20 ng/mL (50nmol/L)Insuffciency 20 - 30 ng/mL (50 - 75 nmol/L)Sufficiency 30 - 100 ng/mL (75 - 250 nmol/L)Toxicity >100 ng/mL (>250 nmol/L) :21 Lipid Panel (38848) Comments: PATIENT WAS FASTINGPERFORMED BY: [employer] GroundCntrl [facility] [id number] LDL/HDL Ratio 2.0 {ratio_units} (Normal) Range: 0.0-3.2 LDL Cholesterol Calc 128 mg/dL (Abnormal) Range: 0-99 VLDL Cholesterol Ruben 21 mg/dL (Normal) Range: 5-40 HDL Cholesterol 64 mg/dL (Normal) Comments: According to ATP-III Guidelines, HDL-C >59 mg/dL is considered anegative risk factor for CHD. Triglycerides 106 mg/dL (Normal) Range: 0-149 Cholesterol, Total 213 mg/dL (Abnormal) Range: 100-199 :21 CALCIFEDIOL (77301) Comments: PATIENT WAS FASTINGPERFORMED BY: [employer] Mmcbci4003 [facility] [id number] Vitamin D, 25-Hydroxy 30.2 ng/mL (Normal) Range: 30.0-100.0 Comments: Vitamin D deficiency has been defined by the [place] of[place]icine and an Endocrine Society practice guideline as alevel of serum 25-OH vitamin D less than 20 ng/mL (1,2).The Endocrine Society went on to further define vitamin Dinsufficiency as a level between 21 and 29 ng/mL (2).1. IOM ([employer]). 2010. Dietary reference intakes for calcium and D. [place]: The National Academies Press.2. Rupret MF, Aretha NC, Dru SEO, et al. Evaluation, treatment, and prevention of vitamin D deficiency: an Endocrine Society clinical practice guideline. JCEM. 2010; 96(7):1911-30. [id number] Urinalysis, Office (11070) UA - LEUKOCYTE ESTERASE Trace (Normal) UA - NITRITE Negative (Normal) URINE UROBILINGN OLGA TIMED Normal mg/dL (Normal) UA - PROTEIN Negative mg/dL (Normal) UA - PH 7 (Normal) UA - BLOOD Non Hemolyzed Trace (Normal) UA - SPECIFIC GRAVITY 1.015 (Normal) UA - KETONES Negative mg/dL (Normal) UA - BILIRUBIN Negative (Normal) UA - GLUCOSE Negative (Normal) :21 TSH ([id number]) Comments: PATIENT WAS FASTINGPERFORMED BY: [id number] [facility] [place] [id number] TSH 3.560 {uIU/mL} (Normal) Range: 0.450-4.500 :21 CBC, Platelets & Auto Diff Comments: PATIENT WAS FASTINGPERFORMED BY: SurvataLincoln County Medical CenterMfdezt4705 [facility] [id number] Information: [id number] (76204) Immature Grans (Abs) 0.0 {x10E3/uL} (Normal) Range: [...] 3.77-5.28 WBC 6.5 {x10E3/uL} (Normal) Range: 3.4-10.8 34-Uyi-79972:21 Metabolic Panel, Comprehensive Comments: PATIENT WAS FASTINGPERFORMED BY: [facility]CoV[facility])[id number] [facility] [id number] (16396) ALT (SGPT) 15 [iU]/L (Normal) Range: 0-32 [...] Glucose, Serum 94 mg/dL (Normal) Range: 65-99 92-Ejs-943879:20 Renal function Panel Comments: PATIENT WAS FASTINGPERFORMED BY: [employer] Ovrcct7837 [facility] [id number] Information: [id number] (54849) Albumin, Serum 4.0 g/dL (Normal) Range: 3.5-4.8 [...] Glucose, Serum 85 mg/dL (Normal) Range: 65-99 68-Zmc-657644:20 Lipid Panel (71174) Comments: PATIENT WAS FASTINGPERFORMED BY: [employer]Co24h00 Exrjas2194 [facility] [id number] LDL/HDL Ratio 3.4 {ratio_units} (Abnormal) Range: 0.0-3.2 LDL Cholesterol Calc 161 mg/dL (Abnormal) Range: 0-99 VLDL Cholesterol Ruben 46 mg/dL (Abnormal) Range: 5-40 HDL Cholesterol 48 mg/dL (Normal) Comments: According to ATP-III Guidelines, HDL-C >59 mg/dL is considered anegative risk factor for CHD. Triglycerides 228 mg/dL (Abnormal) Range: 0-149 Cholesterol, Total 255 mg/dL (Abnormal) Range: 100-199 83-Yxo-396656:20 TSH (THYROID STIMULATING Comments: PATIENT WAS FASTINGPERFORMED BY: [facility] [facility] [id number] HORMONE) (32113) TSH 2.490 {uIU/mL} (Normal) Range: 0.450-4.500 40-Iuj-759604:14 MICROALBUMIN: CREATININE RATIO Comments: PATIENT NOT FASTINGPERFORMED BY: [place] [id number] [facility] [id number] (48724) AND (54192) Microalb/Creat Ratio 1.1 {mg/g_creat} (Normal) Range: 0.0-30.0 Microalbumin, Urine 1.1 ug/mL (Normal) Range: 0.0-17.0 Creatinine, Urine 100.0 mg/dL (Normal) Range: 15.0-278.0 67-Nxl-547865:14 TSH (THYROID STIMULATING Comments: PATIENT NOT FASTINGPERFORMED BY: [place] [id number] [facility] [id number] HORMONE) (05160) TSH 0.891 {uIU/mL} (Normal) Range: 0.450-4.500 90-Xbu-017520:14 CBC & PLATELETS (AUTO) Comments: PATIENT NOT FASTINGPERFORMED BY: [place] [id number] [facility] [id number] (87042) Platelets 309 {x10E3/uL} (Normal) Range: 155-379 RDW 14.4 % (Normal) Range: 12.3-15.4 MCHC 33.5 g/dL (Normal) Range: 31.5-35.7 MCH 30.1 pg (Normal) Range: 26.6-33.0 MCV 90 fL (Normal) Range: 79-97 Hematocrit 36.7 % (Normal) Range: 34.0-46.6 Hemoglobin 12.3 g/dL (Normal) Range: 11.1-15.9 RBC 4.09 {x10E6/uL} (Normal) Range: 3.77-5.28 WBC 6.6 {x10E3/uL} (Normal) Range: 3.4-10.8 24-Pfo-026755:14 Metabolic Panel, Comments: PATIENT NOT FASTINGPERFORMED BY: Cloverleaf CommunicationsLincoln County Medical CenterVmyrzh6638 [facility] [id number] Information: [id number] Comprehensive (75728) ALT (SGPT) 25 [iU]/L (Normal) Range: 0-32 [...] Glucose, Serum 89 mg/dL (Normal) Range: 65-99 34-Fpq-171492:39 PARATHORMONE (87309) Comments: PATIENT NOT FASTINGPERFORMED BY: [employer] [id number] Information: [id number],NO DRAW FEE REDRAW PTH, Intact 24 pg/mL (Normal) Range: 15-65 3-Dyr-549571:54 Renal function Panel Comments: PATIENT NOT FASTINGPERFORMED BY: LabParkland Health CenterZbeysc4399 [facility] [id number] Information: [id number],2ND ORDER NO DRAW F EE (12815) Albumin, Serum 4.3 g/dL (Normal) Range: 3.5-4.8 [...] SPRCS (Normal) Comments: PATIENT WAS FASTINGPERFORMED BY: [employer] [facility] [id number] Comments: Non reactive HCV antibody screen is consistent with no HCV infection,unless recent infection is suspected or other evidence exists toindicate HCV infection. :53 HCV Ab w/Rflx to Verification Comments: PATIENT WAS FASTINGPERFORMED BY: [employer] Lfyroq9828 [facility] [id number] HCV Ab 0.1 {s/co_ratio} (Normal) Range: 0.0-0.9 :53 Protein Electro, Random Urine Comments: PATIENT WAS FASTINGPERFORMED BY: Cl[facility] CommunicationsVirt[facility] ([facility])Sdytmp7291 [facility] [id number] Please note: SPRCS (Normal) Comments: Protein electrophoresis scan will follow via computer, mail, orcourier delivery. M-Shay, % Not Observed % (Normal) Gamma Globulin, U 19.5 % (Normal) Beta Globulin, U 30.4 % (Normal) Mudtw-3-Euwstulj, U 16.9 % (Normal) Drimg-8-Prsmbrcq, U 2.6 % (Normal) Albumin, U 30.6 % (Normal) Protein,Total,Urine 11.1 mg/dL (Normal) Range: 0.0-15.0 :53 Protein Electro.,S Comments: PATIENT WAS FASTINGPERFORMED BY: [facility] Center6[address] [facility] [id number] Please note: SPRCS (Normal) Comments: Protein electrophoresis scan will follow via computer, mail, orcourier delivery. A/G Ratio 1.1 (Normal) Range: 0.7-2.0 Globulin, Total 3.6 g/dL (Normal) Range: 2.0-4.5 M-Shay Comment: g/dL (Normal) Comments: Atypical gamma Gamma Globulin 0.9 g/dL (Normal) Range: 0.5-1.6 Beta Globulin 1.2 g/dL (Normal) Range: 0.6-1.3 Mflyn-0-Tpqlteix 1.2 g/dL (Normal) Range: 0.4-1.2 Hfqkl-7-Ecojgwgr 0.4 g/dL (Normal) Range: 0.1-0.4 Albumin 4.0 [...] Barillas M.D.December 28, 2012 at 12:57:01 PM [id number] Signed GP/GP If you are the referring physician and would like to consult with theradiologist who provided this interpretation, please contact Rox Aldrich at [phone]. If this radiologist is un available, youwill be directed to another radiologist to assist. If you are a patient with a question regarding this report, pleasecontactyour referring physician directly. Professional Interpretation P rovided By: [employer], Phone , These documents contain legally protected [...] 12/28/12 1303 Sign by: Tyron Barillas MD 8-Rft-549422:53 METABOLIC PANEL, COMPREHENSIVE Comments: PATIENT WAS FASTINGPERFORMED BY: [facility] [facility] [id number] (07942) ALT (SGPT) 30 [iU]/L (Normal) Range: 0-32 [...] Glucose, Serum 108 mg/dL (Abnormal) Range: 65-99 8-Pcm-923897:53 URINALYSIS W/O MICRO (05956) Comments: PATIENT WAS FASTINGPERFORMED BY: [facility]CoV[facility])[id number] [facility] [id number] Microscopic Examination MICRON (Normal) Comments: Microscopic follows if indicated. Nitrite, Urine Negative (Normal) Urobilinogen,Semi-Qn 0.2 mg/dL (Normal) Range: 0.0-1.9 Bilirubin Negative (Normal) Occult Blood Negative (Normal) Ketones Negative (Normal) Glucose Negative (Normal) Protein Negative (Normal) WBC Esterase Negative (Normal) Appearance Clear (Normal) Urine-Color Yellow (Normal) pH 6.0 (Normal) Range: 5.0-7.5 Specific [place] 1.014 (Normal) Range: 1.005-1.030 :53 Sed Rate Erythrocyte (89990) Comments: PATIENT WAS FASTINGPERFORMED BY: Cloverleaf CommunicationsVirt[facility] ([facility])[id number] [facility] [id number] Sedimentation Rate-Westergren 18 mm/h (Normal) Range: 0-40 :53 SOLANGE (ANTINUCLEAR ANTIBODY) Comments: PATIENT WAS FASTINGPERFORMED BY: [employer] Auikjs9949 [facility] [id number] (84004) SOLANGE Direct Negative (Normal) :53 MAGNESIUM (41876) Comments: PATIENT WAS FASTINGPERFORMED BY: Cloverleaf CommunicationsV[facility] ([facility])Cyvdds0778 [facility] [id number] Magnesium, Serum 2.2 mg/dL (Normal) Range: 1.6-2.6 :53 PHOSPHORUS (19747) Comments: PATIENT WAS FASTINGPERFORMED BY: Cl[facility]leaf CommunicationsV[facility] ([facility])Bpjthv9271 [facility] [id number] Phosphorus, Serum 3.7 mg/dL (Normal) Range: 2.5-4.5 :53 CALCIFEDIOL (50962) Comments: PATIENT WAS FASTINGPERFORMED BY: Cl[facility] CommunicationsV[facility] ([facility])Hiffix3135 [facility] [id number] Vitamin D, 25-Hydroxy 43.3 ng/mL (Normal) Range: 30.0-100.0 Comments: Vitamin D deficiency has been defined by the [place] of[place]icine and an Endocrine Society practice guideline as alevel of serum 25-OH vitamin D less than 20 ng/mL (1,2).The Endocrine Society went on to further define vitamin Dinsufficiency as a level between 21 and 29 ng/mL (2).1. IOM (Americ[place] of Medicine). 2010. Dietary reference intakes for calcium and D. [place]: The National Academies Press.2. Rupert MF, Aretha NC, Dru SEO, et al. Evaluation, treatment, and prevention of vitamin D deficiency: an Endocrine Society clinical practice guideline. JCEM. 2010; 96(4):1911-30. :53 Hemoglobin Glyclated (HGB A1C) Comments: PATIENT WAS FASTINGPERFORMED BY: GramVaaniFormerly [facility] [id number] (88935) Hemoglobin A1c 6.0 % (Abnormal) Range: 4.8-5.6 Comments: . Increased risk for diabetes: 5.7 - 6.4 Diabetes: >6.4 Glycemic control for adults with diabetes: <7.0 :53 LIPID PANEL (98128) Comments: PATIENT WAS FASTINGPERFORMED BY: GramVaaniFormerly [facility] [id number] LDL/HDL Ratio 2.9 {ratio_units} (Normal) Range: 0.0-3.2 [...] Panel, Comprehensive Comments: PATIENT NOT FASTINGPERFORMED BY: [employer] [facility] [id number] (28895) ALT (SGPT) 53 [iU]/L (Abnormal) Range: 0-32 [...] Glucose, Serum 131 mg/dL (Abnormal) Range: 65-99 45-Pvb-405035:16 CBC with manual diff Comments: PATIENT NOT FASTINGPERFORMED BY: [facility]CoV[facility])Hjuegh3876 [facility] [id number] Information: [id number] (13547) Immature Grans (Abs) 0.0 {x10E3/uL} (Normal) Range: [...] 3.77-5.28 WBC 10.3 {x10E3/uL} (Normal) Range: 4.0-10.5 48-Fmq-795185:16 TSH (20508) Comments: PATIENT NOT FASTINGPERFORMED BY: [facility] [facility] [id number] TSH 3.930 {uIU/mL} (Normal) Range: 0.450-4.500 Plan of Care Name Dates Details Instructions Hypertension, uncontrolled : Follow up in 3 months Indication: Hypertension, uncontrolled Asthma : Reviewed Diagnostic Tests Indication: Asthma Asthma : Reviewed Hall Clerk Letter Indication: Asthma Hypertension, benign essential, goal [...] Lump : Follow up in 3 months [facility] get labs 4 days before office [...] in 3 months for Gen med with [facility] Indication: Hypertension, benign essential, goal below 140/90 [...] (shortness of breath) on exertion : Reviewed Hall Clerk Letter Indication: SOB (shortness of breath) on exertion SOB (shortness of breath) on exertion : Reviewed Diagnostic Tests Indication: SOB (shortness of breath) on exertion CHRONIC KIDNEY DISEASE, STAGE III (MODERATE) : Follow up on Monday with [facility] Indication: CHRONIC KIDNEY DISEASE, STAGE III (MODERATE) [...] : Follow up in 1 week with [facility] Indication: Hypertriglyceridemia Restless leg syndrome : [...] essential, goal below 140/90 Stroke : Reviewed Hall Clerk Letter Indication: Stroke Stroke : Reviewed Diagnostic Tests: seen on mri Indication: Stroke Hypercholesterolemia : Follow up in 1 week with [facility] Indication: Hypercholesterolemia Planned Observations TSH (THYROID STIMULATING HORMONE) (81320)Indication: Hypothyroidism On: 37-Bkp-715064:05 Request Metabolic Panel, Comprehensive (89999)Indication: CHRONIC KIDNEY DISEASE, STAGE III (MODERATE) On: 35-Tdm-30433:48 Request Sputum Culture (73445)Indication: COPD exacerbation On: 42-Qzm-48428:41 Request RENAL FUNCTION PANEL (22938)Indication: CHRONIC KIDNEY DISEASE, STAGE III (MODERATE) On: 22-Gjl-819781:36 Request URINALYSIS (19660)Indication: CHRONIC KIDNEY DISEASE, STAGE III (MODERATE) On: 52-Xcq-48379:52 Request MICROALBUMIN: CREATININE RATIO (23707) AND (31478)Indication: Atrial fibrillation On: 52-Pie-89606:44 Request LIPID PANEL (98266)Indication: Hypertriglyceridemia On: :42 Request HEPATIC FUNCTION PANEL (90574)Indication: Hypertriglyceridemia On: :42 Request MICROALBUMIN: CREATININE RATIO (82771) AND (33201)Indication: Hypertension, benign essential, goal below 140/90 On: :49 Request URINALYSIS (74370)Indication: Hypertension, benign essential, goal below 140/90 On: :49 Request LIPID PANEL (32970)Indication: Hypercholesteremia On: 36-Xiy-66067:23 Request CALCIFEDIOL (27295)Indication: Osteopenia On: 8-Ldz-041615:56 Request FECAL OCCULT- Tubes sent home (96745)Indication: Encounter for screening for malignant neoplasm of colon (Renamed from Special screening for malignant neoplasms, colon) On: 4-Wdi-296184:51 Request VITAMIN B12 AND FOLATES (36506)Indication: Anemia On: 3-Jgp-451786:28 Request FERRITIN (16761)Indication: Anemia On: 0-Eaw-180415:26 Request IRON (22215)Indication: Anemia On: 5-Uzv-458938:26 Request IRON & TOTAL IRON BINDING CAPACITY (05841)Indication: Anemia On: 0-Zbq-940205:26 Request Metabolic Panel, Comprehensive (65617)Indication: Cerebrovascular disease, unspecified On: 7-Kxq-252499:52 Request Renal function Panel (70076)Indication: CHRONIC KIDNEY DISEASE, STAGE III (MODERATE) On: 00-Ngf-343201:37 Request Comments: to be done December 2013 Renal function Panel (74842)Indication: CHRONIC KIDNEY DISEASE, STAGE III (MODERATE) On: 19-Fbe-87881:20 Request Comments: draw 3 days before next apt HgA1C , Office (61984)Indication: Other specified abnormal findings of blood chemistry On: 62-Fin-387327:18 Request Comments: 5.5 Blood Glucose , Office (75129)Indication: Other specified abnormal findings of blood chemistry On: 23-Zsc-238176:05 Request Comments: 131 Urine Protein Electrophoresis (UPEP) (35883)Indication: CHRONIC KIDNEY DISEASE, STAGE III (MODERATE) On: :38 Request Serum Protein Electrophoresis (SPEP) (68544)Indication: CHRONIC KIDNEY DISEASE, STAGE III (MODERATE) On: :38 Request HEPATITIS C ANTIBODY (77000)Indication: CHRONIC KIDNEY DISEASE, STAGE III (MODERATE) On: :38 Request Planned Encounters Medical; 3 Month FU - On: 14-Aug-2018 9:15 [facility] Deepti Olmstead CNP, CNP, Mary E Planned Procedures DEXA SCAN AXIAL SKELETON (11702)By: On: 05-Mar-2018 Intent Deepti Olmstead CNP, CNP, Mary E SCREENING DIGITAL TOMOSYNTHESIS OF On: 05-Mar-2018 Intent BREAST (59334)By: Deepti Olmstead CNP, CNP, Mary E Flu Vaccine (Quadrivalent) 22458Jm: On: 05-Mar-2018 Intent Deepti Olmstead CNP, CNP, Mary E PULMONARY FUNCTION TEST (PFT) WITH 6 On: 23-Jan-2018 Intent MINUTE WALK TEST (59316)By: Deepti Olmstead CNP, CNP, Mary E Overnight Pulse OX (52319)By: Ishan On: 23-Jan-2018 Intent Deepti FORMAN CNP, Mary E Echo CompleteBy: Deepti Olmstead CNP On: 02-Jan-2018 Intent Deepti Olmstead CNP Comments: send to [facility] ELECTROCARDIOGRAM, COMPLETE (ECG) On: 24-Nov-2017 Intent (38722)By: Deepti Olmstead CNP, CNP, Mary E Spirometry (98777)By: Ishan FORMAN, On: 24-Nov-2017 Intent Deepti Cabezas CNP Solu -Medrol Injection, 125 mg On: 24-Nov-2017 Intent (J2930)By: Deepti Olmstead CNP, CNP, Mary E Radiology - ChestBy: Deepti Olmstead CNP On: 13-Jun-2017 Intent E Deepti Olmstead CNP Comments: call Jesica with results Aerosol Treatment (82784)By: Ishan On: 13-Jun-2017 Intent Deepti FORMAN Ishan FORMAN Deepti Calderon Solu -Medrol Injection, 125 mg On: 26-Oct-2016 Intent (J2930)By: Ishan FORMAN RoseliaYumiko Olmstead CNP [place] - Abdomen (IV Contrast Needed)By: On: 10-Oct-2016 Intent Queta Pike Comments: Had colonoscopy with polypectomy on 09/05/16. Having right sided abdominal pain. ULTRASOUND OF NECK (11104)By: Ishan On: 17-Aug-2016 Intent Deepti FORMAN Ishan FORMAN [place] Ultrasound - ThyroidBy: Ishan FORMAN, On: 17-Aug-2016 Intent Deepti Calderon Ishan FORMAN [place] MRI SOFT TISSUE OF NECK W GADOLINIUM On: 08-Aug-2016 Intent (08477)By: Deepti Olmstead CNP, CNP [place] Radiology - Knee - LeftBy: Ishan On: 08-Aug-2016 Intent Deepti FORMAN Ishan FORMANDeepti Flu Vaccine (Quadrivalent) 00227Tg: On: 06-May-2016 Intent hCula Corrales LPN MAMMOGRAM, SCREENING, BOTH BREAST On: 31-Jul-2015 Intent (42335)By: Ishan FORMAN RoseliaYumiko Olmstead CNP [place] DEXA SCAN AXIAL SKELETON (26155)By: On: 31-Jul-2015 Intent Ishan FORMAN RoseliaYumiko Olmstead [...] PNEUM VAC ADLT/IMUMNOSPR, SBC/INTRM On: 21-Apr-2015 Intent (59717)By: Tressa Bonilla DO Comments: [id number] 11/10/16prefilledright dltdIMas, COUNCILOR Flu Vaccine (Quadrivalent) 07942Cg: On: 21-Apr-2015 Intent Tressa Bonilla DO Comments: Lot #Lot #[id number]-L dltd, IMDose prefilled syringeVIS and ABN signedgiven by:as ELECTROCARDIOGRAM, COMPLETE (ECG) On: 18-Nov-2014 Intent (71095)By: Deepti Olmstead CNP Comments: SVT Deepti FORMAN ELECTROCARDIOGRAM, COMPLETE (ECG) On: 29-Oct-2014 Intent (32984)By: Deepti Olmstead CNP, CNP [place] Bio Z (87165)By: Deepti Olmstead CNP On: 21-Oct-2014 Intent Deepti Olmstead CNP Comments: increased vascular resistance and decreased stroke volume ADMINISTRATION OF INFLUENZA VIRUS On: 10-Apr-2014 Intent VACCINE (G0008)By: Visit, Nurse Comments: Lot #[id number]-L dltd, IMDose prefilled syringegiven by:Marilee, LPNVIS and ABN signed FLU VAC, SPLIT, >3 YEARS, INTRAMUSC On: 10-Apr-2014 Intent (86647)By: Visit, Nurse Aerosol Treatment (42914)By: Ishan On: 03-Dec-2013 Intent DASIADeepti Ishan FORMAN [place] MRI - BrainBy: Ishan FORMAN Deepti Calderon On: 29-Oct-2013 Intent Ishan FORMAN [place] EEGBy: Ishan FORMAN RoseliaYumiko Olmstead CNP, On: 28-Oct-[address] - Brain/HeadBy: Ishan OFRMAN [place] On: 28-Oct-2013 Intent Ishan FORMAN Deepti Calderon Holter Moniter (63098)By: Ishan On: 28-Oct-2013 Intent DASIA RoseliaYumiko Olmstead CNP [place] Eprescribed prescriptions (G8553)By: On: 28-Oct-2013 Intent Ishan FORMAN RoseliaYumiko Olmstead CNP [place] Echo CompleteBy: Ishan FORMAN [place] On: 15-Oct-2013 Intent Ishan FORMAN [place] FLU VAC, SPLIT, >3 YEARS, INTRAMUSC On: 13-Mar-2013 Intent (86111)By: Yesi Jacome Comments: Lot:[id number]:Dose:0.5mLRoute:IMSite:L DltdGiven By:JACQUELINE signed IMMUNIZ ADMNIN, 1 VAC, SNGL/COMBO On: 13-Mar-2013 Intent (82044)By: Yesi Jacome Radiology - Hip - LeftBy: Irene OCONNOR, On: 28-Dec-2012 Intent Tressa Planned Medications INJECTION, METHYLPREDNISOLONE SODIUM SUCCINATE, UP TO 125 MG Ordered: 26-Oct-2016 Pending [facility] HOSPITALITY SERVICES MANAGER, [place] [facility] HOSPITALITY SERVICES MANAGER, [place] INJECTION, METHYLPREDNISOLONE SODIUM SUCCINATE, UP TO 125 MG Ordered: 24-Nov-2017 Pending [facility] HOSPITALITY SERVICES MANAGER, Ros[place] [facility] HOSPITALITY SERVICES MANAGER, [place] Instructions Name Dates Details Hypertension, uncontrolled : Patient Instructions Indication: Hypertension, uncontrolled Hypertension, uncontrolled : DISCONTINUED - MICROALBUMIN: CREATININE RATIO (38926) AND (70212) Indication: Hypertension, uncontrolled Nonsmoker : How to [...] Nonsmoker Hypertriglyceridemia : DISCONTINUED - LIPID PANEL (71439) Indication: Hypertriglyceridemia Hypothyroidism : DISCONTINUED - TSH (55087) Indication: Hypothyroidism Hypertension, benign essential, goal below [...] The patient does have durable power of assistant county attorney and living will. The patient has noticed nothing from the geriatic depres vick scale. Other providers contributing to the patient's care are gyroscopic instrument mechanic (dr. sykes) and other: ([facility] 02/2017).Encounter Diagnosis: Nonsmoker, BMI 26.0-26.9,adult, Need [...] wit h zantac but unable to tolerate. [place] like nerve endings in groin burning (a [...]
--- OUTSIDE RECORDS SUMMARY | 2018-07-24 03:24 | XMS RPT_ITS ---
:1940 Author Organization OHIP Support Name Relationship Address Phone R Unavailable Unavailable Unavailable CARRIE, YUNG Unavailable [address] + [place] [address] R Unavailable Unavailable Unavailable CARRIE, YUNG Unavailable [address] + [place] [address] R Unavailable Unavailable Unavailable CARRIE, YUNG Unavailable [address] + [place] [address] R Unavailable Unavailable Unavailable CARRIE, YUNG Unavailable [address] + [place] [address] R Unavailable Unavailable Unavailable CARRIE, YUNG Unavailable [address] + [place] [address] R Unavailable Unavailable Unavailable CARRIE, YUNG Unavailable [address] + [place] [address] R Unavailable Unavailable Unavailable CARRIE, YUNG Unavailable [address] + [place] [address] R Unavailable Unavailable Unavailable CARRIE, YUNG Unavailable [address] + [place] [address] R Unavailable Unavailable Unavailable CARRIE, YUNG Unavailable [address] + [place] [address] R Unavailable Unavailable Unavailable CARRIE, YUNG Unavailable [address] + [place] [address] R Unavailable Unavailable Unavailable CARRIE, YUNG Unavailable [address] + [place] [address] R Unavailable Unavailable Unavailable CARRIE, YUNG Unavailable [address] + [place] [address] R Unavailable Unavailable Unavailable CARRIE, YUNG Unavailable [address] + [place] [address] R Unavailable Unavailable Unavailable CARRIE, YUNG Unavailable [address] + [place] [address] Care Team Providers Name Role Phone CIERRA MARTIN Referring Unavailable CIERRA MARTIN Referring Unavailable Ciesa, Deepti Attending Unavailable Ciesa, Deepti Referring Unavailable Ciesa, Deepti Consulting Unavailable Ciesa, Deepti Attending Unavailable Ciesa, Deepti Primary Care Unavailable Moodispaw, Deshawn Attending Unavailable Ciesa, Deepti Referring Unavailable WeyKate Attending Unavailable Miller, Angela Attending Unavailable Roof, Raymond Stock Attending Unavailable Ciesa, Deepti Referring Unavailable Ciesa, Deepti Primary Care Unavailable Ciesa, Deepti Attending Unavailable Ciesa, Deepti Referring Unavailable Ciesa, Deepti Primary Care Unavailable Ciesa, Deepti Attending Unavailable Ciesa, Deepti Referring Unavailable Ciesa, Deepti Primary Care Unavailable Ciesa, Deepti Attending Unavailable Ciesa, Deepti Referring Unavailable Ciesa, Deepti Primary Care Unavailable Moodispaw, Deshawn Attending Unavailable Ciesa, Deepti Referring Unavailable ChivoNeo jon Attending Unavailable Ciesa, Deepti Referring Unavailable Rowdy, Kelsey Attending Unavailable Rowdy, Kelsey Referring Unavailable Ciesa, Deepti Primary Care Unavailable Roof, Raymond Stock Attending Unavailable Ciesa, Deepti Referring Unavailable Roof, Raymond Stock Attending Unavailable Roof, Raymond H Referring Unavailable Ciesa, Deepti Primary Care Unavailable Sibilia, Cierra Consulting Unavailable Moodispaw, Deshawn Attending Unavailable Roof, Raymond H Referring Unavailable Ciesa, Deepti Primary Care Unavailable Sibilia, Cierra Consulting Unavailable Roof, Raymond Stock Consulting Unavailable PROBLEMS PROBLEMS DATE TYPE CONDITION / CODE ATTENDING STATUS SOURCE 07/09/2018 Active Unknown / NA [facility] [place] Rep[facility] 04/24/2018 Unknown I48.92 - Unspecified MooddavidkingsleyDeshawn holguin Active [place] atrial flutter / Community I48.92(ICD-10) Hospital Repository 04/24/2018 Unknown Z79.899 - Other long MooddavidkingsleyDeshawn holguin Active [place] term (current) drug Community therapy / Hospital Z79.899(ICD-10) Repository 04/24/2018 Unknown R06.09 - Other forms MoodDeshawn lakhani Active [place] of dyspnea / Community R06.09(ICD-10) Hospital Repository 04/24/2018 Unknown I10 - Essential MoodisDeshawn clarke Active [place] (primary) Community hypertension / Hospital I10(ICD-10) Repository 04/10/2018 Unknown N18.3 - Chronic Rowdy, Active [place] kidney disease, [facility] (moderate) / Hospital N18.3(ICD-10) Repository 02/22/2018 Unknown J44.9 - Chronic ChivoNeo jon Active [place] obstructive pulmonary Community disease, unspecified Hospital / J44.9(ICD-10) Repository 02/12/2018 Unknown R06.02 - Shortness of MoodisDeshawn clarke Active [place] breath / Community R06.02(ICD-10) Hospital Repository 10/09/2017 Unknown I47.1 - Raymond Ardon Active [place] Supraventricular Community tachycardia / Hospital I47.1(ICD-10) Repository PROCEDURES PROCEDURES No Procedure Records FoundRESULTS RESULTS PROGRESS Observed: 07/09/2018 Status: COMPLETED Source: [place] 1:00 PM [facility] REPOSITORY HNO ID: [id number] Author: Mariah Mayo Rt Service: (none) Author Type: (none) Type: Progress Notes Filed: 07/09/2018 1:00 PM Note Text: Radiology Service Progress Note PATIENT NAME: Nicole Butler DATE OF SERVICE: July 09, 2018 TIME: 1:00 PM PATIENT IDENTITY VERIFICATION COMPLETED USING TWO (2) METHODS: Patient confirmed name verbally and Date of . PATIENT GENDER DATA: Female. status: : No status: NO. PATIENT RELEVANT IMPLANT DATA REVIEWED: Yes RADIOLOGY DEPARTMENT: CT; Exam(s) Completed: Chest PERIPHERAL IV DATA: Not applicable SIGNED BY: Mariah Mayo Rt July 09, 2018 1:[address] CHEST WO IVCON Observed: 07/09/2018 Status: F Source: [place] 12:56 PM [facility] REPOSITORY * * *Final Report* * * DATE OF EXAM: Jul 09 2018 12:56PM [facility] 0541 - CT CHEST WO IVCON / PROCEDURE REASON: CHEST * * * * Physician Interpretation * * * * EXAMINATION: CHEST CT WITHOUT CONTRAST CLINICAL HISTORY: 77-year-old female with chronic obstructive pulmonary disease. Prior smoking history. Basal cell carcinoma base, hypothyroidism, osteoporosis Technique: Spiral CT acquisition of the chest from the thoracic inlet to the upper abdomen without contrast. MQ: CTCWOR_4 QB_N CT Dose-Length Product: 181 mGy*cm CT Dose Reduction Employed: mAs-kVp adjusted based on patient size-age Comparison: March 08, 2018 RESULT: Limitations: None. Lines, tubes, and devices: None. Lung parenchyma and pleura: Trachea and central bronchi are patent. There is a right tracheal diverticulum. There is bilateral apical pleural thickening from remote inflammatory disease. There is diffuse bronchial wall thickening from airways inflammation. Multiple centrilobular nodules are present throughout both lungs and have progressed since 2018. These represent infectious/inflammatory bronchiolitis/pneumonia. Differential possibilities include nontubercular mycobacterial infection, diffuse fungal infection or aspiration. There is associated air trapping on free breathing views. There remains significant atelectasis in the lingula. Large mucocele persists in the left lower lobe (image 108). 7 mm parenchymal nodule in the right middle lobe persists (image 170). A new 5 mm nodule is in the right lower lobe (image 173) and a new 6 mm nodule is in the right lower lobe (image 128). A new mucoid impaction is in the right middle lobe (image 169-174). Thoracic inlet, heart, and mediastinum: The heart size is normal. Minimal calcifications are in the aortic root. Calcifications are in the arch and descending aorta. Aorta is normal in caliber throughout its course. Central pulmonary arteries are normal in caliber. Nonspecific lymph nodes are in the mediastinum. There is no adenopathy. There is a small hiatal hernia. Thyroid gland appears atrophic. Bones and soft tissues: Bony structures are osteopenic. No bony lesions are noted. Subcutaneous tissues of the chest wall appear normal. Upper abdomen: Limited scans through the upper abdomen demonstrate vascular calcifications, a hepatic cyst and a calcified splenic granuloma. IMPRESSION: Progression of infectious/inflammatory bronchiolitis/pneumonia New 5 mm and 6 mm parenchymal nodules New mucoid impaction right middle lobe: Unchanged mucocele left lower lobe Rope Maker: [facility] Transcribe Date/Time: Jul 09 2018 3:01P Dictated by : RENATO GALINDO MD This examination was interpreted and the report reviewed and electronically signed by: RENATO GALINDO MD on Jul 09 2018 3:32PM EST [id number] SCREENING MAMM (CAD), Observed: 06/07/2018 Status: F Source: [place] BILAT 9:42 AM [facility] REPOSITORY [facility] Imaging Services [address] [place] [address] SCREENING MAMM (CAD), BILAT MR#: [id number] Acct: [id number] Name: NICOLE BUTLER Rep #: [id number] : 1940 F 77 From: Tyron Barillas MD PCP: Deepti Olmstead NP Status: REG CLI Study: SCREENING MAMM (CAD), BILAT Date of Exam: 06/07/18 Exam# [id number] Ordering Dr: eDepti Olmstead SECURITY GUARD SUPERVISOR-C MAMMOGRAPHY - BILATERAL SCREENING REASON FOR EXAM: Female, 77 years old. Routine annual screening examination. PERTINENT HISTORY: Non-contributory. TECHNIQUE: Digital bilateral breast fabi (3D mammographic acquisition) in the CC and MLO projections. 2-D mediolateral oblique (MLO) and craniocaudad (CC) views of both breasts were obtained. CAD: Full Field Digital Mammography with Computer Added Detection was performed. COMPARISON: Comparison is made with prior study dated October 01, 2015. FINDINGS: Breast Composition: There are scattered areas of fibroglandular density. There are no dominant masses or suspicious calcifications. No other significant abnormalities are identified. There has been no significant change since the prior study. BI/SCREENING MAMM (CAD), BILAT IMPRESSION: Stable bilateral screening mammogram. Yearly follow-up mammogram recommended. (A) ASSESSMENT CATEGORY: BIRADS Category 1: Negative. A letter regarding these results will be sent to the patient by the facility within 30 days. Approximately 10% of breast cancers are not detected by mammography. A normal mammogram should not delay biopsy of a clinically suspicious abnormality. [id number] Electronically Signed: Tyron Barillas MD at 10:31 EST Tel [phone], Service support , CC: Deepti Olmstead NP Rope Maker: Signed DEXA BONE DENSITY Observed: 06/07/2018 Status: F Source: [facility] 9:42 AM [facility] REPOSITORY [facility] Imaging Services [address] [place] [address] Dexa Bone Density Study MR#: [id number] Acct: [id number] Name: NICOLE BUTLER Rep #: [id number] : 1940 F 77 From: Tyron Barillas MD PCP: Deepti Olmstead NP Status: REG CLI Study: Dexa Bone Density Study Date of Exam: 06/07/18 Exam# [id number] Ordering Dr: Deepti Olmstead STUDY: DUAL ENERGY X-RAY ABSORPTIOMETRY / DXA REASON FOR EXAM: Female, 77 years old. The patient is postmenopausal. Loss of height. TECHNIQUE: Bone Mineral Density (BMD) measurements of lumbar spine and bilateral hips were obtained. COMPARISON: Comparison is made with prior examination dated October 01, 2015. FINDINGS: Lumbar Spine (L1-L4): g/cm2 (1.126) / T-score (-0.4) / Z-score (1.5) Findings are suggestive of normal bone density with a low fracture risk. Left Femur Total: g/cm2 (0.793) / T-score (-1.7) / Z- score (0.3) Left Femoral Neck: g/cm2 (0.795) / T-score (-1.7) / Z- score (0.4) Right Femur Total: g/cm2 (0.812) / T-score (-1.6) / Z- score (0.4) Right Femoral Neck: g/cm2 (0.773) / T-score (-1.9) / Z-score (0.2) The T-Scores on the most recent prior examination were: Lumbar Spine (L1-L4): There has been improvement of bone density since the previous examination. Left Femur Total: which represents a worsening of 2.1%. Right Femur Total: which represents a worsening of 1.7%. BD/Dexa Bone Density Study IMPRESSION: The patient is considered osteopenic as outlined below according to World [place] Organization (WHO) criteria with a moderate fracture risk. There has been worsening of bone density since the previous examination. Reference Information: The T-score is the number of standard deviations above or below the standard which is normal for young adults at their peak bone mineral density. The World Health Organization (WHO) interprets the T-scores as follows: Above -1 Normal bone density Between -1 and -2.5 Osteopenia Equal to / or below -2.5 Osteoporosis As a practical clinical guideline, osteopenia may be graded as follows: Mild -1 through -1.5 Moderate -1.6 through -2.0 Severe -2.1 through -2.4 The Z-score is the number of standard deviations above or below age-matched controls. A Z-score of less than -1.5 would be considered abnormal. References: 1. NIH Osteoporosis and Related Bone Diseases http://www.osteo.org 2. International Society for Clinical Densitometry http://www.iscd.org 3. National Osteoporosis Foundation http://www.nof.org Electronically Signed: Tyron Barillas MD at 13:10 EST Tel [phone], Service support , CC: Deepti Olmstead NP Rope Maker: Signed ECHOCARDIOGRAM COMPLETE Observed: 04/24/2018 Status: F Source: [place] 5:21 PM [facility] REPOSITORY [facility] Cardiovascular Services [address] [place] [id number] Echo Complete 04/24/18 1452 MR#: [id number] Acct: [id number] Name: NICOLE BUTLER Rep #: [id number] : 1940 77 From: Deshawn Sykes MD Attending Dr: Raymond Ardon NP Status: REG CLI Ordering Dr: Raymond Ardon SECURITY GUARD SUPERVISOR-C Date: 04/24/18 Location: [facility] Sex: F C Admitted: Reason For [...] pericardial effusion. MMode/2D Measurements AND Calculations LVIDd: 3.9 cm IVSd: 1.2 cm Ao root diam: 2.8 cm LVIDs: 2.3 cm LVPWd: 1.2 cm LA dimension: 3.6 cm RVDd: 2.7 cm FS: 42.1 % LAV(MOD-bp): 51.6 ml LA A4 area: 17.0 cm2 LA dimension(2D): 3.6 cm LAV(MOD-bp) Indexed: 31.0 ml/m2 LAV(MOD-sp2): 51.6 ml LAV(MOD-sp4): 48.0 ml RA A4 area: 11.0 cm2 Doppler Measurements AND Calculations MV E max vinny: 84.8 cm/sec Lat Peak E' Vinny: 6.7 cm/sec Med Peak E' Vinny: 6.0 cm/sec MV A max vinny: 102.6 cm/sec E/E' lat: 12.6 E/E' med: 14.1 MV E/A: 0.83 Ao V2 max: 149.6 cm/sec LV V1 max: 130.6 cm/sec PA V2 max: 122.0 cm/sec Ao max P.0 mmHg LV V1 max P.8 mmHg TR max vinny: 246.5 cm/sec TR max P.4 mmHg Interpretation Summary The study was technically difficult. Left ventricular systolic function is normal. The estimated ejection fraction is 70 %. The left atrium is mildly enlarged. There is mild mitral annular calcification. Chordal systolic anterior motion of the mitral valve. Trivial mitral valve insufficiency. Mild tricuspid valve insufficiency. Trivial aortic valve insufficiency. Right ventricular systolic pressure estimated to be 27 mmHg. Diastolic function is indeterminate. Ordering Physician: Raymond Ardon Referring Physician: Deepti Olmstead Performed By: Libertad Cortes RDCS, RVT 04/24/18 1720 Date Deshawn Sykes MD CC: Deepti Olmstead NP; KAMARI Ardon Date Dictated: 04/24/18 1452 Date Transcribed: 04/24/181719 Rope Maker: Signed CARDIOLOGY VISIT Observed: 04/16/2018 Status: F Source: [place] REPORT 9:53 AM [facility] REPOSITORY [facility] [address] [place] [address] OFFICE VISIT Date of Service: 04/16/18 MR#: [id number] Acct: [id number] Name: NICOLE BUTLER Rep #: [id number] : 1940 Provider: KAMARI Ardon Age/Sex: 77/F [place] [facility] Status: Signed HPI HPI Details: NICOLE BUTLER, is a 77 F who presents to the office today for a cardiovascular outpatient follow-up. She is a history of SVT/atrial flutter status post ablation in January 2015, near syncopal episode in October 2014, hypertension, hyperlipidemia, CVA in 2012, and COPD. Pt. denies chest, arm, jaw, or neck discomfort. Her exercise tolerance is stable. 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 Pt. denies symptoms of palpitations, lightheadedness, dizziness, near syncope, or syncopal episodes. Pt. denies edema or claudication issues. Pt. denies orthopnea, PND, fever, chills, blood in urine, blood in stool, myalgia, or unexplainable fatigue. She notices SOB when going up steps and carrying something heavy. Pt. states having some low back pain. Intake Vital Signs04/16/18 Height 5 ft 2 in 04/16/18 Weight: 148 lb 04/16/18 Body Mass Index (BMI) 27.1 04/16/18 Blood Pressure 128/60 H 04/16/18 Blood Pressure Location Lt brachial Intake Visit Reasons: 6 M FU Instrumentation Engineering Technician Required: No Accompanied by: None Is patient in pain?: No Allergies labetalol Allergy (Verified 04/16/18 09:17) Shortness of breath Sulfa (Sulfonamide Antibiotics) Allergy (Verified 04/16/18 09:17) Unknown doxazosin [From Cardura] Adverse Reaction (Severe, Verified 04/16/18 09:17) SOB hydrochlorothiazide Adverse Reaction (Severe, Verified 04/16/18 09:17) Affected Breathing clonidine Adverse Reaction (Mild, Verified 04/16/18 09:17) Fatigue Medications Albuterol IH (ProAir) [Proair Hfa] 1 puff INHALATION TID 11/18/14 [History Confirmed 10/09/17] Cholecalciferol (VIT D3) [Vitamin D3] 2,000 unit PO DAILY 11/18/14 [History Confirmed 10/09/17] Clopidogrel Bisulfate [Plavix] 75 mg PO DAILY 11/18/14 [History Confirmed 10/09/17] Fluticasone/Salmeterol [Advair 100/50 Diskus] 2 puff INHALATION [...] Rx Instructions PO QDAY 10/05/17 [History Confirmed 10/09/17] folic acid 1 mg tablet 1 mg PO QDAY 10/09/17 [History Confirmed 10/09/17] losartan 50 mg tablet 50 mg PO BID tab 10/09/17 [History Confirmed 10/09/17] multivitamin tablet 1 tab PO QDAY 10/09/17 [History Confirmed 10/09/17] omeprazole 20 mg capsule,delayed release 20 mg PO QDAY 10/09/17 [History Confirmed 10/09/17] hydrochlorothiazide 12.5 mg tablet 12.5 mg PO .COMPLEX 04/16/18 [History Confirmed 04/16/18] PFSH Medical History Tachycardia (Chronic) Hyperlipidemia (Chronic) Other snf (current) drug therapy (Chronic) Left carotid bruit (Chronic) Thrombophlebitis (Resolved) Anemia (Chronic) Restless leg syndrome (Chronic) History of CVA (cerebrovascular accident) (Resolved) H/O: hysterectomy (Resolved) Renal insufficiency (Chronic) Atrial flutter (Acute) HTN (hypertension) (Chronic) SVT (supraventricular tachycardia) (Acute) Pre-syncope (Acute) Hypothyroidism (Chronic) Dyslipidemia (Chronic) Surgical History S/P ablation of atrial flutter (Resolved) Hx of cholecystectomy (Resolved) Hx of [...] fatigue Cardiology Exam Const Appearance: cooperative, healthy appearing, comfortable and no acute distress Nutritional Appearance: average body habitus Orientation: alert, awake and oriented x3 Head Head: normal to inspection Ears: hearing grossly normal bilaterally Nose: external nose normal Mouth: oral mucosae normal Eyes Eyelids: eyelids normal Conjunctivae: conjunctivae normal EOM: EOM intact bilaterally Neck Neck: no JVD and normal visual inspection Carotids: normal carotid upstroke Chest Chest inspection: normal inspection of the chest, normal respiratory effort and symmetric chest movement Auscultation: Bilateral: Clear to Auscultation Cardio Rate: [...] of breath, clear lung sounds, and her last echocardiogram being in October 2014, she undergo a repeat echocardiogram. Of concern is right sternal border murmur. Thus, this will allow for evaluation of any valvular changes that may explain her shortness of breath. Further recommendation will be made based on her echocardiogram. Orders Orders: 2. Atrial flutter, unspecified type I48.92 S/P EPS/RFA in January 2015; Plan She appears to be maintaining regular rhythm. She denies any symptoms consistent with atrial fibrillation. At this time she will continue current rate limiting medications and factor Xa inhibitor. We will continue to monitor. Orders Orders: 3. Essential hypertension I10 Plan At last office visit her blood pressure was slightly elevated. She states that since that time it was noted to be even higher. Thus, she was started on hydrochlorothiazide. This has improved her blood pressure, but her shortness of breath is unchanged. She will continue current medications. Orders Orders: Plan Detail Other Orders Orders: Additional Comments Thank you for allowing us to participate in the patient's plan of care, if you have any questions please do not hesitate to call. This note was generated using a voice recognition system and there may be incorrect words, spelling, or punctuation [...] I10 Hypertension type: essential hypertension 04/16/18 0953 <Electronically signed by Raymond BARAJAS> Date Raymond BARAJAS Cosigner Signature: Date (if applicable) CC: Deepti Olmstead NP CBC-COMPLETE BLOOD CNT Collected: 04/10/2018 Status: F Source: [place] NO DIFF 9:02 AM [facility] REPOSITORY TYPE CODE TESTS RESULT OUT OF RANGE REFERENCE UNITS LAB L100.1000 4.4-11.0 K/mm3 Normal WBC 7.1 LAB L100.1200 4.2-5.4 M/mm3 Low RBC 4.07 LAB L100.1300 12.0-15.0 g/dl Normal HGB 12.4 LAB L100.1400 37-47 % Low HCT 36.8 LAB L100.1500 81-99 fL Normal MCV 90.4 LAB L100.1600 27.0-32.0 pg Normal MCH 30.5 LAB L100.1700 32-36 g/gl Normal MCHC 33.7 LAB L100.1810 11.6-14.6 % Normal RDW CV 13.0 LAB L100.1820 35.1-43.9 fl Normal RDW SD 42.6 LAB L100.1900 150-450 K/mm3 Normal PLT 270 LAB L100.2000 6.2-12.0 fl High MPV 12.1 Performed By: #### L100.0500 #### [facility] [address] [place], [address] MICROALB:CREAT Collected: 04/10/2018 Status: F Source: [place] RATIO,RANDOM UR 9:02 AM [facility] REPOSITORY TYPE CODE TESTS RESULT OUT OF RANGE REFERENCE UNITS LAB L501.1200 NO RANGE EST. mg/dL Normal UR CREAT 86.30 LAB L502.0500 NO RANGE EST. mg/L Normal 25.2 MICROALBUMIN ,UR LAB L502.0600 <30 mg/g CRE mg/g CRE Normal 29.2 MALB:CREAT Performed By: #### L502.0250 #### [facility] [address] [place], [address] VITAMIN D,25 HYDROXY Collected: 04/10/2018 Status: F Source: [place] 9:02 AM [facility] REPOSITORY TYPE CODE TESTS RESULT OUT OF REFERENCE UNITS RANGE LAB L506.1000 29.95-100.01 ng/mL Low Vitamin D 26.5 25-OH Result Comment: Vitamin D 25(OH) Status Range Deficiency <20 ng/mL (50nmol/L) Insuffciency 20 - 30 ng/mL (50 - 75 nmol/L) Sufficiency 30 - 100 ng/mL (75 - 250 nmol/L) Toxicity >100 ng/mL (>250 nmol/L) Performed By: #### L506.1000 #### [facility] [address] [place], [address] PTHIN Collected: 04/10/2018 Status: F Source: [place] 9:02 AM [facility] REPOSITORY TYPE CODE TESTS RESULT OUT OF RANGE REFERENCE UNITS LAB L509.1000 18.4-80.1 pg/mL Normal PTHIN 51.4 Performed By: #### L509.1000 #### [facility] [address] [place], [address] RENAL PROFILE Collected: 04/10/2018 Status: F Source: [place] 9:02 AM [facility] REPOSITORY TYPE CODE TESTS RESULT OUT OF RANGE REFERENCE UNITS LAB L501.0100 74-106 mg/dL Normal GLU 100 Result Comment: Fasting Glucose result from 100 to 125 mg/dL suggests IMPAIRED HOMEOSTASIS per A.D.A. criteria. Please note revised GLUCOSE reference range effective 2017. LAB L501.1000 7-18 mg/dL High BUN 31 LAB L501.1100 0.55-1.02 mg/dL High CREAT,SERUM 1.67 Result Comment: The validity of the calculated GFR AND GFRAA in patients over 70 years has not been determined. Clinical correlation is essential. LAB L501.1110 >60 mL/min Low EST GFR 31 Result Comment: Non- GFR Calc LAB L501.1115 >60 mL/min Low EST GFR - AA 38 Result Comment: GFR Calc LAB L501.1300 10-20 RATIO Normal BUN/CRE 18.6 LAB L501.1800 3.2-5.0 g/dL Normal ALB 3.9 LAB L501.2200 8.5-10.1 mg/dL CA Normal 9.0 LAB L501.2300 2.5-4.9 mg/dL Normal PHOS 3.7 LAB L501.5300 136-145 mmol/L NA Normal 140 LAB L501.5600 3.5-5.1 mmol/L K Normal 4.3 LAB L501.5900 98-107 mmol/L CL Normal 106 LAB L501.6100 21.0-32.0 mmol/L Normal CO2 26.0 Performed By: #### L500.3600 #### [facility] [address] [place] [address]. [place], [address] PROGRESS Observed: 03/08/2018 Status: COMPLETED Source: [place] 1:18 PM [facility] REPOSITORY O ID: [id number] Author: Aylin Vergara Service: (none) Author Type: (none) Type: Progress Notes Filed: 03/08/2018 1:19 PM Note Text: Radiology Service Progress Note PATIENT NAME: Nicole Butler DATE OF SERVICE: March 08, 2018 TIME: 1:18 PM PATIENT IDENTITY VERIFICATION COMPLETED USING TWO (2) METHODS: Patient confirmed name verbally and Date of . PATIENT GENDER DATA: Female. status: : No status: NO. PATIENT RELEVANT IMPLANT DATA REVIEWED: Not Applicable RADIOLOGY DEPARTMENT: CT; Exam(s) Completed: Chest PERIPHERAL IV DATA: Not applicable SIGNED BY: Aylin Mahmood Ct March 08, 2018 1:[address] CHEST WO CONTRAST Observed: 03/08/2018 Status: F Source: SALINE 1:18 PM [facility] REPOSITORY * * *Final Report* * * DATE OF EXAM: Mar 08 2018 1:18PM [facility] 0349 - CT CHEST WO CONTRAST / PROCEDURE REASON: COPD * * * * Physician Interpretation * * * * EXAMINATION: CHEST CT WITHOUT CONTRAST CLINICAL HISTORY: Hx COPD, prior smoker, basal cell ca face kmr 77-year-old female former smoker with history of unspecified hypothyroidism, osteoporosis, mild COPD Technique: Spiral CT acquisition of the chest from the thoracic inlet to the upper abdomen without contrast. Free breathing images were obtained at several levels. 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 Lines, tubes, and devices: None. Lung parenchyma and pleura: On lung windows, small tracheal air cyst/diverticulum noted above the level of the manubrium. Areas of parenchymal lucencies are noted, including mosaic attenuation, for example anterior upper lobes, images 113-117 and middle lobe and lingula images 133-149 and in the lower lobes, image 170. There are areas of air trapping bilaterally. Significant central airway collapse is not appreciated. Within the middle lobe and lingula, bronchial wall thickening changes are noted. Bronchiectatic changes are more prominent in the lingula, images 145-154 and peripherally within the anterior right upper lobe images 121-128. Left upper lobe and lingula demonstrates numerous tree-in-bud opacities, images 103-147 with some involvement of the right upper and middle lobes and bilateral lower lobes. Multiple branching opacities suggestive of bronchoceles/mucocele less are noted within the left lower lobe superior segment, images 101-125. I do not appreciate a localized suspicious nodule, except for rounded nodular opacity measuring about 8mm on image 166 within the middle lobe with surrounding atelectatic opacities. No pleural effusion. No pneumothorax. Thoracic inlet, heart, and mediastinum: Visualized portions of the thyroid appear small and mildly atrophic. No axillary or supraclavicular lymphadenopathy meeting size criteria noted. Intrathoracically, no intrathoracic lymphadenopathy meeting size criteria noted. Multiple mediastinal and bilateral hilar lymph nodes measure 9 mm in short axis or less (most prominent 9 mm lymph node suspected in the right distal paraesophageal space. Atherosclerotic calcifications of the aorta and its branches noted. Focal aortic root calcifications. No coronary artery calcifications. Normal caliber ascending aorta and pulmonary trunk noted. Normal heart size noted. Mildly prominent physiologic pericardial fluid presumed. Esophagus is unremarkable, with distal luminal collapse noted. Tiny hiatal hernia possible. Bones and soft tissues: Chest wall soft tissues are unremarkable. Known osteoporosis. Mild scoliosis. On bone window images, minor degenerative changes of the spine noted. No compression fractures of the vertebra. Upper abdomen: Left hepatic cyst presumed, with intrinsic attenuation of 2 Hounsfield units. Centrally calcified gallstone noted, image 267. Atherosclerotic calcifications of the abdominal aorta and its branches noted. There may be mildly displaced intimal calcifications. Focal left adrenal or left renal artery calcification noted. Focal calcified granuloma within the spleen. QB_N IMPRESSION: 1. Bilateral extensive tree-in-bud opacities indicating cellular bronchiolitis (presumably infectious) with areas of parenchymal lucencies (many of them demonstrating air trapping on free breathing images, suggesting component of constrictive bronchiolitis). Some airway inflammatory changes including lingular bronchiectatic changes noted also. There are mucoceles present in the left lower lobe superior segment. The combination of the findings raises possibility of chronic infection/inflammation, such as nontuberculous mycobacterial infection. Aspiration related process, fungal infection including ABPA may be considered as well. Doubt DIPNECH as there is predominant tree-in-bud opacity pattern rather than scattered nodules and without hypersensitivity pneumonitis. 2. Nodular lesion measuring about 8mm is noted in the middle lobe. The lesion is probably infectious/inflammatory but as a precaution, attention on follow-up post appropriate treatment recommended (perhaps in 3-6 months). 3. Subcentimeter intrathoracic lymph nodes noted. Atherosclerosis extending to the abdominal level, see body of the report (including other abdominal findings). Known osteoporosis. Rope Maker: DENIS Transcribe Date/Time: Mar 09 2018 9:49A Dictated by : FAUSTINO PRINCE MD This examination was interpreted and the report reviewed and electronically signed by: FAUSTINO PRINCE MD on Mar 09 2018 10:18AM EST PULMONARY FUNCTION Observed: 02/13/2018 Status: F Source: HYDES REPORT COMP 1:51 PM [facility] REPOSITORY [facility] Pulmonary Services/Neurology [address] [place] [address] MR#: [id number] Acct: [id number] Name: NICOLE BUTLER Rep #: [id number] : 1940 77 From: Neo Waldron MD Referring Dr: Deepti Olmstead NP Status: REG CLI Ordering Dr: Date: Location: [facility] Sex: F C COMPLETE PULMONARY FUNCTION TEST INTERPRETATION Brief HPI: Patient is a 77 year old female, currently under the care of Deepti Olmstead, who presents to [facility] for complete pulmonary function tests secondary to diagnosis of COPD. Respiratory therapist reports good effort and reproducible results. Interpretation: Forced expiration spirometry shows a mild large airways obstructive ventilatory defect with an FEV1 of 79% predicted. There is no significant bronchodilator response by ATS criteria. Spirograms are of good quality and plateau slowly, indicating slowly emptying areas of the lungs. The respiratory flow volume loop shows decreased expiratory flow rates at high lung volumes consistent with small airways obstruction. Lung volumes by body plethysmography show a normal total lung capacity at 3.97 L, 91% predicted. All other lung volumes are within normal limits. Diffusion capacity by carbon monoxide is normal at 70% predicted. The airway resistance is elevated. Compared to previous pulmonary function tests from 06/25/2015, there has been no significant change. Impression: Irreversible mild large airways obstructive ventilatory defect with preserved diffusion capacity consistent with chronic bronchitis. No significant gas meter prover the last 3 years noted. 02/13/18 1351 <Electronically signed by Neo Waldron MD> Date Neo Waldron MD CC: Deepti Olmstead NP; Neo Waldron MD Date Dictated: 02/13/18 1346 Date Transcribed: 02/13/18 1346 Rope Maker: BIENVENIDO Signed ECHOCARDIOGRAM COMPLETE Observed: 01/15/2018 Status: F Source: HYDES 6:40 PM [facility] REPOSITORY [facility] Cardiovascular Services [address] [place] [address] Echo Complete 01/09/18 1302 MR#: [id number] Acct: [id number] Name: NICOLE BUTLER Rep #: [id number] : 1940 77 From: Deshawn Sykes MD Attending Dr: Deepti Olmstead NP Status: REG CLI Ordering Dr: Deepti Olmstead Date: 01/09/18 Location: [facility] Sex: F C Admitted: Reason For Study: SOB ON EXERTION Procedure This was a 2D Doppler, Color Flow transthoracic echocardiogram. The exam was of adequate technical quality. Exam performed in department. Left Ventricle Normal LV size. Mild to moderate mitral annular calcification. Left ventricular systolic function is normal. The estimated ejection fraction is 70 %. There is evidence of diastolic dysfunction. No regional wall motion abnormalities noted. Right Ventricle Normal RV size. Normal systolic function. Atria The left atrium is mildly enlarged. Normal right atrium. No doppler evidence for ASD. Mitral Valve There is mild mitral annular calcification. Chordal systolic anterior motion of the mitral valve. Trivial mitral valve insufficiency. Tricuspid Valve Normal tricuspid valve. Mild (1+) tricuspid valve insufficiency. Right ventricular systolic pressure estimated to be 32 mmHg. Aortic Valve Trisinus/trileaflet aortic valve. Normal aortic valve. Trivial aortic valve insufficiency. Pulmonic Valve The pulmonic valve is not well visualized. Trivial pulmonic valve insufficiency. Great Vessels Normal [...] LVAs ap4: 11.3 cm2 ESV(MOD-sp4): 19.6 ml ESV(sp4-el): 19.3 ml EF(MOD-sp4): 66.8 % EF(sp4-el): 68.9 % SV(sp4-el): 42.7 ml LA A4 area: 17.7 cm2 RA A4 area: 9.6 cm2 Time Measurements MV dec time: 0.24 sec Doppler Measurements AND Calculations MV E max vinny: 84.2 cm/sec Lat Peak E' Vinny: 7.4 cm/sec Med Peak E' Vinny: 5.7 cm/sec MV A max vinny: 103.1 cm/sec E/E' lat: 11.4 E/E' med: 14.8 MV E/A: 0.82 Ao V2 max: 160.6 cm/sec LV V1 max: 142.0 cm/sec PA V2 max: 124.3 cm/sec Ao max P.3 mmHg LV V1 max P.1 mmHg TR max vinny: 270.5 cm/sec TR max P.3 mmHg Interpretation Summary Left ventricular systolic function is normal. The estimated ejection fraction is 70 %. Mild to moderate mitral annular calcification. The left atrium is mildly enlarged. There is mild mitral annular calcification. Chordal systolic anterior motion of the mitral valve. Trivial mitral valve insufficiency. Mild (1+) tricuspid valve insufficiency. Trivial aortic valve insufficiency. Trivial pulmonic valve insufficiency. Right ventricular systolic pressure estimated to be 32 mmHg. There is evidence of diastolic dysfunction. Ordering Physician: Deepti Olmstead Referring Physician: Deepti Olmstead Performed By: Misti Ortiz RDCS 01/15/181839 Date Deshawn Sykes MD CC: Deepti Olmstead SECURITY GUARD SUPERVISOR Date Dictated: 01/09/18 1302 Date Transcribed: 01/15/181839 Rope Maker: Signed CARDIOLOGY VISIT Observed: 10/09/2017 Status: F Source: MIKAYLA REPORT 1:52 PM [facility] REPOSITORY [facility] [address] [place] [address] OFFICE VISIT Date of Service: 10/09/17 MR#: [id number] Acct: [id number] Name: NICOLE BUTLER Rep #: [id number] : 1940 Provider: KAMARI Ardon Age/Sex: 77/F [place] [facility] [place]: Signed [facility] Details: NICOLE BUTLER, is a 77 F who presents to the office today for a cardiovascular outpatient follow-up. She is a history of SVT/atrial [...] COPD and has primary care visit in November. She notices this with exertion. Pt. states having some low back pain. 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 Technician Required: No Accompanied by: none Is patient in pain?: No Allergies labetalol Allergy (Verified 10/09/17 08:57) Shortness of breath Sulfa (Sulfonamide Antibiotics) Allergy (Verified 10/09/17 08:57) Unknown doxazosin [...] mg PO DAILY 11/18/14 [History Confirmed 10/09/17] Fluticasone/Salmeterol [Advair 100/50 Diskus] 2 puff INHALATION [...] [History Confirmed 10/09/17] folic acid 1 mg tablet 1 mg PO QDAY 10/09/17 [History Confirmed 10/09/17] losartan 50 mg tablet 50 mg PO BID tab 10/09/17 [History Confirmed 10/09/17] multivitamin tablet 1 tab PO QDAY 10/09/17 [History Confirmed 10/09/17] omeprazole 20 mg capsule,delayed release 20 mg PO QDAY 10/09/17 [History Confirmed 10/09/17] Ejection fraction %: 65 to 70 PFSH Medical History Tachycardia (Chronic) Hyperlipidemia (Chronic) Other snf (current) drug therapy (Chronic) Left carotid bruit (Chronic) Thrombophlebitis (Resolved) Anemia (Chronic) Restless leg syndrome (Chronic) History of CVA (cerebrovascular accident) (Resolved) Atrial flutter (Acute) HTN (hypertension) (Chronic) SVT (supraventricular tachycardia) (Acute) Surgical History S/P ablation of atrial flutter (Resolved) H/O: hysterectomy (Resolved) Hx of cholecystectomy (Resolved) Hx [...] muscle aches/ myalgia Neuro Neuro: Negative for lightheadedness, near syncope, syncope, orthostatic symptoms, weakness or dizziness Endo Endo: Negative for fatigue Cardiology Exam Const Appearance: cooperative, healthy appearing, comfortable and no acute distress Orientation: alert, [...] carotids. Assessment AND Plan 1. Atrial flutter, unspecified type I48.92 S/P EPS/RFA in January 2015; Plan Echocardiogram from October 2014 showed estimated ejection fraction of 65%. EKG in office showed sinus rhythm at a rate of 69 bpm. Patient denies any secondary symptoms from this. Patient will continue current [...] for further evaluation/treatment. She will continue current cholesterol-lowering medication. 4. Essential hypertension I10 Plan Patient's blood pressure is slightly above expected range. Due to her advanced age at this time we will monitor this. We will not make any medication regimen changes. 5. Bilateral carotid artery disease I77.9 Plan Carotid duplex from May 2016 showed moderate stenosis of both right and left extracranial internal carotids. We will continue to monitor this. She will continue current medications. 6. Dyspnea on exertion R06.09 Plan Patient does acknowledge some shortness of breath on exertion. She believes this is due to worsening COPD. She has an upcoming appointment with primary care provider for further evaluation. She was instructed however an echocardiogram may be considered to further evaluate valvular status, LV function, and pulmonary pressure. If COPD is worsening and/or an [...] flutter type: unspecified S/P ablation of atrial flutter Z98.890; Z86.79 Pure hypercholesterolemia E78.00; E78.0 Hyperlipidemia type: pure hypercholesterolemia Essential hypertension I10 Hypertension type: essential hypertension Bilateral carotid artery disease I77.9 Laterality: bilateral Dyspnea on exertion R06.09 Coding Level of Care Code Off vis,est,level 3 Diagnoses Atrial flutter, unspecified type I48.92 Atrial flutter type: unspecified S/P ablation of atrial flutter Z98.890; Z86.79 Pure hypercholesterolemia E78.00; E78.0 Hyperlipidemia type: pure hypercholesterolemia Essential hypertension I10 Hypertension type: essential hypertension Bilateral carotid artery disease I77.9 Laterality: bilateral Dyspnea on exertion R06.09 10/09/17 1352 <Electronically signed by Raymond HUANGC> Date Raymond Ardon NP-C Cosigner Signature: Date (if applicable) CC: Deepti Olmstead NP 12 LEAD EKG PERFORMED Observed: 10/09/2017 Status: F Source: [place] [facility] [place]:52 AM [facility] REPOSITORY [facility] [address] [facility] [place] [address] 12 Lead EKG performed [place] [facility] 10/09/17 0851 MR#: [id number] Acct: [id number] Name: NICOLE BUTLER Rep #: [id number] : 1940 77 From: Raymond Ardon NP-C Attending Dr: Raymond Ardon NP Status: DEP AMB Ordering Dr: Raymond Ardon Date: 10/09/17 [place] [facility] Sex: F C Admitted: [facility]12 Lead EKG performed by [facility] ECG Report Interpretation Sinus Rhythm Nonspecific T-abnormality. ABNORMAL Electronically signed on 10/09/2017 at 11:52 by Deshawn Sykes 10/09/17 1156 Date Raymond Ardon SECURITY GUARD SUPERVISOR-C CC: Deepti Halltsering BENITES Date Dictated: 10/09/17850 Date Transcribed: 10/09/17850 Rope Maker: LUIS ALBERTO Signed ALLERGIES ALLERGIES DATE TYPE / CODE NAME / CODE REACTION SEVERITY SOURCE 04/16/2018 Drug Sulfa Unknown Unknown [place] Allergy/416 (Sulfonamide Community 591173([facility] Antibiotics)/[address] [facility] [address] CT) 099894(RXNORM) Repository 04/16/2018 Drug labetalol/P768396 Shortness of Unknown [place] Allergy/416 839(RXNORM) breath Community 314311([facility] ED CT) Repository 04/16/2018 Drug hydrochlorothiazi AFFECTED SV [place] Allergy/416 de/Y464295590(RXN BREATHING Community 812990([facility] ED CT) Repository 04/16/2018 Drug doxazosin/I643544 Shortness of SV [place] Allergy/416 493(RXNORM) breath Community 147159([facility] ED CT) Repository 04/16/2018 Drug clonidine/M343433 FATIGUE SC [place] Allergy/416 495(RXNORM) Community 917399([facility] ED CT) Repository 03/04/2008 Environ/420 FRAGRANCES [facility] 662452([facility] ED CT) Repository ENCOUNTERS ENCOUNTERS ADMIT/DISCHARGE ACCOUNT ADMITTING ENCOUNTER LOCATION SOURCE NUMBER CLASS 07/09/2018/07/09/19 [id number] Ambulatory [address] Repository 06/07/2018 [id number] Ambulatory [facility] ing:OPBI Repository 05/02/2018 [id number] Ambulatory Building:[facility] [place] Practices Repository 04/24/2018 [id number] Ambulatory BMSBuilding:B [place]la MS.CF.[facility] Repository 04/24/2018 [id number] Ambulatory [facility] ing:[facility] Repository 04/16/2018/04/16/20 [id number] Ambulatory BMSBuilding:B [place] 18 MS.[facility] Repository 04/10/2018 [id number] Ambulatory [facility] ing:MTLAB Repository 03/08/2018/03/08/20 [id number] Ambulatory [address] Repository 02/16/2018 [id number] [facility] ing[facility]PSN Repository 02/13/2018 [id number] [facility] ing:PSN Repository 02/13/2018 [id number] Ambulatory BMSBuilding:W [facility] Repository 01/09/2018 [id number] Ambulatory [facility] Hospital ing:[facility] Repository 01/09/2018 [id number] Ambulatory BMSBuilding:W [facility] Repository 10/09/2017 [id number] Ambulatory BMSBuilding:B [place] MS.[facility] Repository 10/09/2017/10/10/19 [id number] Ambulatory BMSBuilding:B [place] 18 MS.[facility] Repository 10/05/2017 [id number] Ambulatory [facility] Repository 10/02/2017 [id number] Ambulatory BMSBuilding:B [place] MS.[facility] Repository PAYERS PAYERS ENCOUNTER GUARANTOR PAYER SUBSCRIBER SOURCE 06/07/2018 NICOLE BUTLER707 Primary NICOLE PARTIDA: [place] PAN Insurance:HUMANA AMOR [id number] [place] [facility] [id number]: (330) Number: Repository [phone] () [id number] Date:[id number] [address]LO: 06/07/2018 Secondary NOT GIVENUNK [place] Insurance:SELF PAY [facility] Number: Effective Repository Date:2018-04-09 05/02/2018 Nicole Partida: Primary Nicole Partida: RASHAD Pizarro [id number] Insurance:[employer] [id number] [place], [place] Number: [place], [place] [address]Twj: 330 [id number]: Date:9071-76-86Hpcg [phone] (HP) (NQ)Tel: ([phone]) Name:[facility] Nabil [phone] () [address] [place], [place] [address]WP: 04/24/2018 NICOLE BACK7 Primary NICOLE C REEDDOB: [place] PAN Insurance:HUMANA GOLD [id number] [place] [facility] [address]Gsq: (330) Number: Repository [phone] () [id number] Date:6659-78-10[place] [address]WP: 04/24/2018 Secondary NOT GIVENUNK [place] Insurance:SELF PAY [facility] Number: Effective Repository Date:2018-04-24 04/24/2018 NICOLE BUTLER707 Primary NICOLE C REEDDOB: [place] PAN Insurance:HUMANA GOLD [id number] [place] [facility] [address]Kyt: 330) Number: Repository [phone] () [id number] Date:0209-78-90MV [address] [address]KH: 04/24/2018 Secondary NOT GIVENUNK [place] Insurance:SELF PAY [facility] Number: Effective Repository Date:2018-04-16 04/16/2018 NICOLE BACK7 Primary NICOLE C REEDDOB: [place] PAN Insurance:HUMANA GOLD [id number] [place] [facility] [address]Bkk: (330) Number: Repository [phone] () [id number] Date:7136-57-53HA [address] [address]OC: 04/16/2018 Secondary NOT GIVENUNK [place] Insurance:SELF PAY [facility] Number: Effective Repository Date:2018-04-16 04/10/2018 NICOLE BACK7 Primary NICOLE C REEDDOB: [place] PAN Insurance:HUMANA GOLD [id number] [place] [facility] [address]Tel: (330) Number: Repository [phone] () [id number] Date:4713-61-74VD [address] [address]TX: 04/10/2018 Secondary NOT GIVENUNK [place] Insurance:SELF PAY [facility] Number: Effective Repository Date:2018-04-10 02/16/2018 NICOLE C [id number] Primary NICOLE BUTLERDOB: [place] PAN Insurance:HUMANA GOLD [id number] [place] [facility] [address]Tel: (330) Number: Repository [phone] () [id number] Date:4962-73-02IK [address] [address]KC: 02/16/2018 Secondary NOT GIVENUNK [place] Insurance:SELF PAY [facility] Number: Effective Repository Date:2018-01-29 02/13/2018 NICOLE BUTLER707 Primary NICOLE Garcia CARRIEDOB: [place] PAN Insurance:HUMANA GOLD [id number] [place] [facility] [address]Tel: (330) Number: Repository [phone] () [id number] Date:6774-79-01JX [address] [address]GU: 02/13/2018 Secondary NOT GIVENUNK [place] Insurance:SELF PAY [facility] Number: Effective Repository Date:2018-01-29 02/13/2018 NICOLE BUTLER707 Primary NICOLE Garcia CARRIEDOB: [place] PAN Insurance:HUMANA GOLD [id number] [place] [facility] [address]Tel: ([phone]) Number: Repository [phone] () [id number] Date:0988-09-50UK [address] [address]JI: 02/13/2018 Secondary NOT GIVENUNK [place] Insurance:SELF PAY [facility] Number: Effective Repository Date:2018-02-13 01/09/2018 NICOLE Jose [id number] Primary NICOLE BUTLERDOB: [place] PAN Insurance:HUMANA GOLD [id number] [place] [facility] [address]Tel: (330) Number: Repository [phone] () [id number] Date:4387-31-40MX [address]46[address]WP: 01/09/2018 Secondary NOT GIVENUNK [place] Insurance:SELF PAY [facility] Number: Effective Repository Date:2018-01-03 01/09/2018 NICOLE Jose [id number] Primary NICOLE BUTLERDOB: [place] PAN Insurance:HUMANA GOLD [id number] [place] [facility] [address]Tel: (330) Number: Repository [phone] () [id number] Date:5090-49-19FY[address]46[address]WP: 01/09/2018 Secondary NOT GIVENUNK [place] Insurance:SELF PAY [facility] Number: Effective Repository Date:2018-01-09 10/09/2017 Nicole Jose [id number] Primary Nicole ButlerDOB: [place] Pan Insurance:HUMANA GOLD [id number] [place] [facility] [address]Tel: Number: Repository [phone] [id number] () Date:2430-98-75GN [place] [address]WP: 10/09/2017 Secondary NOT GIVENUNK [place] Insurance:SELF PAY [facility] Number: Effective Repository Date:2017-06-12 10/09/2017 NICOLE BUTLER707 Primary NICOLE BUTLERDOB: [place] PAN Insurance:HUMANA GOLD [id number] [place] [facility] [address]Tel: Number: Repository [phone] [id number] (HP) Date:4531-92-39PS [address] [place] [address]GU: 10/09/2017 Secondary NOT GIVENUNK [place] Insurance:SELF PAY [facility] Number: Effective Repository Date:2017-10-09 10/05/2017 Nicole Jose ButlerGdus888 Primary Nicole ButlerB: [place] Pan Insurance:[place] [id number] [place] [facility] [address]Tel: Number: Repository [phone] [id number] (HP) Date:5281-50-26HK [address] [place] [address]YE: 10/05/2017 Secondary NOT GIVENUNK [place] Insurance:SELF PAY [facility] Number: Effective Repository Date:2017-10-05 10/02/2017 Nicole Butler707 Primary Nicole Jose TamezB: Mikayla Pan Insurance:[place] [id number] [facility] [id number]: Number: Repository [phone] [id number] (HP) Date:[id number] [address] [place] [id number]: 10/02/2017 Secondary NOT GIVENUNK Mikayla Insurance:SELF PAY [facility] Number: Effective Repository Date:2017-10-02
== END ==
PROVIDERS: Family Provider Nurse Practitioner; PCP Nurse Practitioner; Visit Provider Nurse Practitioner
DX: Z12.31 Encounter for screening mammogram for malignant neoplasm of breast (principal); Z78.0 Asymptomatic menopausal state; M85.80 Other specified disorders of bone density and structure, unspecified site
CPT/HCPCS: 77063; 77067; 77080

== ENCOUNTER → 2018-08-16 10:21 | Outpatient (CLI) | payer MEDICARE, SELFPAY ==
--- NOTE | 2018-08-16 10:26 | RAD_ITS ---
STUDY: X-RAY - PELVIS AND BILATERAL HIPS REASON FOR EXAM: Pain. TECHNIQUE: AP view of the pelvis.? 2 views of the right hip, and 2 views of the left hip were obtained. COMPARISON: Radiographs 12/28/2012 and 11/11/2010. FINDINGS: There is chondrocalcinosis in the acetabular labrum bilaterally. There are degenerative changes of the lower lumbar spine. Normal bilateral iliac wings, sacroiliac joints and visualized sacrum. Normal bilateral superior and inferior pubic rami. Normal pubic symphysis. Normal bilateral ischial tuberosities. Normal visualized right femoral head. Normal right acetabulum. There is mild central joint space narrowing of the right hip joint. Normal visualized left femoral head. Normal left acetabulum. There is mild central joint space narrowing of the left hip joint. 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 Chondrocalcinosis in the labrum bilaterally. Electronically Signed: Marvin Roman MD at 13:57 EST Tel , Service support ,
== END ==
PROVIDERS: Family Provider Nurse Practitioner; PCP Nurse Practitioner; Referring Provider Nurse Practitioner; Visit Provider Nurse Practitioner
DX: M25.551 Pain in right hip (principal); M25.552 Pain in left hip
CPT/HCPCS: 73521

== ENCOUNTER → 2018-08-22 08:43 | Outpatient (CLI) | payer MEDICARE, SELFPAY ==
[2018-08-22 10:20] LABS: Absolute Lymphocyte Count 1.25 X10^3/ul (0.83-4.51); Basophil# 0.06 X10^3/uL; Basophil% 0.7 % (0-1); Eosinophil# 0.24 X10^3/uL; Eosinophils% 2.9 % (0-5); Hematocrit 38.2 % (37-47); Hemoglobin 12.5 g/dl (12.0-15.0); Lymphocyte # 1.25 X10^3/ul (4.0); Lymphocyte % 14.9 % (19-41); Mean Corp Hgb Conc 32.7 g/gl (32-36); Mean Corpuscular Hgb 30.4 pg (27.0-32.0); Mean Corpuscular Volume 92.9 fL (81-99); Mean Platelet Vol. 11.9 fl (6.2-12.0); Monocyte# 0.84 X10^3/uL; Neutrophil # 6.01 X10^3/uL (2.7-7.7); Neutrophil % 71.4 % (47-70); Platelet Count 316 K/mm3 (150-450); RBC Distribution Width CV 13.1 % (11.6-14.6); RBC Distribution Width SD 43.5 fl (35.1-43.9); Red Blood Count 4.11 M/mm3 (4.2-5.4); White Blood Count 8.4 K/mm3 (4.4-11.0)
[2018-08-22 10:24] LABS: POSITIVE COUNT NO; POSITIVE DIFFERENTIAL NO; POSITIVE MORPHOLOGY NO
[2018-08-25 13:53] LABS: Immunoglobulin E 16 IU/mL (0-100)
== END ==
PROVIDERS: Family Provider Nurse Practitioner; PCP Nurse Practitioner; Referring Provider Internal Medicine Pulmonary Disease; Visit Provider Internal Medicine Pulmonary Disease
DX: J44.9 Chronic obstructive pulmonary disease, unspecified (principal); R91.1 Solitary pulmonary nodule
CPT/HCPCS: 36415; 82785; 85025

== ENCOUNTER → 2018-10-16 08:28 | Outpatient (CLI) | payer MEDICARE, SELFPAY ==
[2018-04-16 09:16] VITALS: BMI 27.1
[2018-10-16 10:33] LABS: Protein, Urine (Random) 8.1 mg/dL (<11.9); Protein:Creat Ratio 109 mg/g CRE (0-200)
[2018-10-16 10:35] LABS: BUN 19 mg/dL (7-18); BUN/Creat Ratio 14.6 RATIO (10-20); Calcium,Total 9.1 mg/dL (8.5-10.1); Chloride 107 mmol/L (98-107); EST Glomerular Filtration Rate 42 mL/min (>60); Est Glom Filt Rate - Afr Amer 51 mL/min (>60); Glucose 92 mg/dL (74-106); Hematocrit 36.3 % (37-47); Hemoglobin 12.1 g/dl (12.0-15.0); Mean Corp Hgb Conc 33.3 g/gl (32-36); Mean Corpuscular Hgb 30.2 pg (27.0-32.0); Mean Corpuscular Volume 90.5 fL (81-99); Mean Platelet Vol. 11.4 fl (6.2-12.0); Phosphorus 3.2 mg/dL (2.5-4.9); Platelet Count 291 K/mm3 (150-450); Potassium 3.9 mmol/L (3.5-5.1); RBC Distribution Width CV 13.1 % (11.6-14.6); RBC Distribution Width SD 42.8 fl (35.1-43.9); Red Blood Count 4.01 M/mm3 (4.2-5.4); Sodium Level 142 mmol/L (136-145); White Blood Count 8.2 K/mm3 (4.4-11.0)
[2018-10-16 10:36] LABS: Scan Indicated on CBC? Y/N NO
[2018-10-16 10:40] LABS: PTHIN 58.2 pg/mL (18.4-80.1); Vitamin D,25 Hydroxy 24.8 ng/mL (29.95-100.01)
== END ==
PROVIDERS: Family Provider Nurse Practitioner; PCP Nurse Practitioner; Referring Provider Internal Medicine Nephrology; Visit Provider Internal Medicine Nephrology
DX: N18.3 Chronic kidney disease, stage 3 (moderate) (principal); N25.81 Secondary hyperparathyroidism of renal origin
CPT/HCPCS: 36415; 80069; 82306; 82570; 83970; 84156; 85027

== ENCOUNTER → 2018-10-17 17:44 | Outpatient (CLI) | payer MEDICARE, SELFPAY ==
[2018-10-17 18:55] LABS: M R Staph aureus DNA By PCR Negative (Negative); Probe Check PASS; Specimen Processing Control PASS; Staph aureus DNA By PCR NEGATIVE (Negative)
== END ==
PROVIDERS: Family Provider Nurse Practitioner; PCP Nurse Practitioner; Visit Provider Podiatrist
DX: L60.0 Ingrowing nail (principal)
CPT/HCPCS: 87070; 87075; 87077; 87186; 87205; 87640

== ENCOUNTER → 2018-10-18 09:07 | Outpatient (CLI) | payer MEDICARE, SELFPAY | PROVIDERS: Family Provider Nurse Practitioner; PCP Nurse Practitioner; Referring Provider Podiatrist; Visit Provider Podiatrist | DX: L60.0 Ingrowing nail (principal) ==

== ENCOUNTER → 2019-01-10 09:50 | Outpatient (CLI) | payer MEDICARE, SELFPAY ==
[2019-01-02 11:35] VITALS: BMI 24.5
--- NOTE | 2019-01-10 09:57 | CDU_ITS ---
Reason For Study: Carotid artery disease Rt. Velocities/BP Lt. Velocities/BP Prox CCA 70.8/14.7 cm/sec. Prox CCA 113.4/13.9 cm/sec. Mid CCA 67.3/11.3 cm/sec. Mid CCA 85.1/11.4 cm/sec. Dist CCA 66.2/10.2 cm/sec. Dist CCA 112/13.3 cm/sec. Prox ICA 459.5/66.1 cm/sec. Prox ICA 176.2/18.23 cm/sec. Mid ICA 239.1/24.1 cm/sec. Mid ICA 110.4/18.2 cm/sec. Dist ICA 126.6/18.8 cm/sec. Dist ICA 76.1/15 cm/sec. Rt. ICA/CCA = 6.8. Lt. ICA/CCA = 1.6. Prox ECA 217.5 cm/sec. Prox ECA 130.2 cm/sec. Rt. Vert. 51.3/10.7 cm/sec. Lt. Vert. 55.3/12.4 cm/sec. Right Extracranial There is homogeneous, smooth atherosclerotic plaque noted in the right common carotid artery. There is heterogeneous, irregular atherosclerotic plaque noted in the right internal carotid artery. There is heterogeneous, irregular atherosclerotic plaque noted in the right external carotid artery. Antegrade flow is noted in the right vertebral artery. Left Extracranial There is heterogeneous, smooth atherosclerotic plaque noted in the left common carotid artery. There is heterogeneous, irregular atherosclerotic plaque noted in the left internal carotid artery. There is homogeneous, irregular atherosclerotic plaque noted in the left external carotid artery. Antegrade flow is noted in the left vertebral artery. Procedure Carotid Duplex [id number]. Exam performed in department. Interpretation Summary Severe (>70%) stenosis right extracranial internal carotid. Moderate (50-69%) stenosis left extracranial internal carotid. Flow within the vertebral arteries is antegrade bilaterally. Ordering Physician: Deshawn Sykes Referring Physician: Deepti Olmstead Performed By: Kell Delgado RVT
== END ==
PROVIDERS: Family Provider Nurse Practitioner; PCP Nurse Practitioner; Referring Provider Internal Medicine Cardiovascular Disease; Visit Provider Internal Medicine Cardiovascular Disease
DX: R09.89 Other specified symptoms and signs involving the circulatory and respiratory systems (principal)
CPT/HCPCS: 93880

== ENCOUNTER → 2019-01-29 08:07 | Outpatient (CLI) | payer MEDICARE, SELFPAY ==
[2019-01-02 11:35] VITALS: BMI 24.5
[2019-01-29 09:31] LABS: Creatinine, Serum 1.51 mg/dL (0.55-1.02); EST Glomerular Filtration Rate 35 mL/min (>60); Est Glom Filt Rate - Afr Amer 43 mL/min (>60)
== END ==
PROVIDERS: Family Provider Nurse Practitioner; PCP Nurse Practitioner; Referring Provider Surgery Vascular Surgery; Visit Provider Surgery Vascular Surgery
DX: I65.23 Occlusion and stenosis of bilateral carotid arteries (principal)
CPT/HCPCS: 36415; 82565

== ENCOUNTER → 2019-02-12 14:46 | Outpatient (CLI) | payer MEDICARE, SELFPAY ==
[2019-01-02 11:35] VITALS: BMI 24.5
--- NOTE | 2019-02-12 14:48 | CT_ITS ---
STUDY: CTA NECK WITH CONTRAST REASON FOR EXAM: Female, 78 years old. Carotid artery stenosis RADIATION DOSAGE (If Supplied By Facility): CTDIvol = ( 20.46 ) mGy, DLP = ( 498.91 ) mGycm TECHNIQUE: CT angiography with multi-detector data acquisition was performed from the aortic arch to the skull base following intravenous administration of 100 IV Isovue 370. MIP images were reconstructed from the axial data set. Post-processing of the angiographic images was performed, with multiplanar reformation and 3D reconstruction. Individualized dose optimization techniques were used for this CT. COMPARISON: None. FINDINGS: AORTIC ARCH: Scattered calcified plaque along the visualized aortic arch. Mild calcified plaque along origins of the brachiocephalic, left common carotid, and to a lesser extent left subclavian arteries. RIGHT CAROTID ARTERIES: Normal right common carotid artery (CCA). Moderate degree of plaque along the right common carotid bulb. There is extensive atherosclerotic plaque formation of the origin of the right internal carotid artery with an estimated stenosis of at least greater than 70%. Normal visualized cervical portion of the right internal carotid artery distal to the narrowing. There is extensive atherosclerotic plaque formation of the origin of the right external carotid artery with an estimated stenosis of greater than 70%. LEFT CAROTID ARTERIES: Mild plaque along origin of left common carotid artery (CCA). Unremarkable left common carotid bulb. Unremarkable origin of the left internal carotid (ICA) artery without a hemodynamically significant stenosis. Normal visualized cervical portion of the left internal carotid artery. Unremarkable origin of the left external carotid artery (ECA). VERTEBRAL ARTERIES: Normal bilateral vertebral arteries which are codominant. CT/CTA Neck W/WO Contrast IMPRESSION: There is at least 70% of diameter narrowing along right proximal ICA with poststenotic dilatation. There is also at least 70% of diameter narrowing along the right proximal ECA with post stenotic dilatation. No evidence of hemodynamically significant stenosis of the left proximal ICA. Normal flow of bilateral vertebral arteries. No evidence of dissection of the bilateral carotid or vertebral arteries. Electronically Signed: Terry Lee MD at 15:05 EDT Tel [phone], Service support ,
== END ==
PROVIDERS: Family Provider Nurse Practitioner; PCP Nurse Practitioner; Referring Provider Surgery Vascular Surgery; Visit Provider Surgery Vascular Surgery
DX: I65.23 Occlusion and stenosis of bilateral carotid arteries (principal)
CPT/HCPCS: 70498; Q9967

== ENCOUNTER → 2019-02-22 06:04 | Outpatient (CLI) | payer MEDICARE, SELFPAY ==
[2019-01-02 11:35] VITALS: BMI 24.5
--- NOTE | 2019-02-22 08:53 | STRESSREP ---
Stress Test Report Date: 02-22-19 Procedure: Pharmacologic stress nuclear imaging study Indications: Preoperative evaluation; carotid artery stenosis; paroxysmal atrial flutter; EPS/RFA; hyperlipidemia; hypertension Consent: Per the patient Procedure: The patient underwent pharmacologic (Regadenoson) evaluation with a peak heart rate of 91 beats per minute (65 %predicted maximal heart rate) and a peak blood pressure of 148/60 mmHg. The baseline ECG demonstrated normal sinus rhythm. The peak pharmacologic ECG demonstrated no obvious ECG changes. There were no cardiac dysrhythmias pretest, during pharmacologic infusion, or recovery. There was no complaint of chest discomfort during pharmacologic infusion or recovery. The examination was discontinued secondary to completion of protocol. Impression: 1. Pharmacologic (Regadenoson) evaluation 2. Peak pharmacologic ECG with no obvious ECG changes. 3. There were no cardiac dysrhythmias pretest, during pharmacologic infusion, or recovery. 4. Nuclear images pending Myocardial perfusion imaging study: Technique: The patient was injected with 11.2 millicuries of technetium 99m Cardiolite and subsequently rest SPECT Cardiolite nuclear imaging was obtained in the horizontal long, vertical long, and short axis views. The patient underwent pharmacologic (Regadenoson) evaluation with a peak heart rate of 91 beats per minute (65 % percent predicted maximal heart rate) and a peak blood pressure of 148/60 mmHg. The patient was injected with 32.6 millicuries of technetium 99m Cardiolite and subsequently stress SPECT Cardiolite nuclear imaging was obtained in the horizontal long, vertical long, and short axis views. A gated Cardiolite study at peak stress was obtained. Interpretation: Rest and stress SPECT Cardiolite nuclear imaging status post realignment, normalization, and attenuation correction demonstrate relative uniform tracer uptake and myocardial perfusion appearing within normal limits. There is end systolic thickening and brightening. The gated Cardiolite study demonstrates myocardial thickening and inward wall motion. The reported LVEF is 83 %. Impression: 1. Rest and stress SPECT Cardiolite nuclear imaging demonstrate relative uniform tracer uptake and myocardial perfusion appearing within normal limits. 2. The gated Cardiolite study reports an LVEF of 83 %. This note was generated with [employer] software. It may contain incorrect words, spelling, and punctuation that were not noted in checking the note before signing.
--- NOTE | 2019-02-22 08:57 | STRESSREP ---
Stress Test Report Date: 02-22-19 Procedure: Exercise tolerance test/imaging study Indications: CAD; status post PCI Consent: Per the patient Procedure: The patient exercised on a Neo protocol for 8 minutes completing Stage II and 2 minutes of Stage III achieving a peak heart rate of 151 bpm (92 % predicted maximal heart rate) with a peak blood pressure 184/72 mmHg and a peak MET capacity of 9 METs. The baseline ECG demonstrated normal sinus rhythm. The peak exercise ECG demonstrated [id number] nonspecific ST segment variability. There were no cardiac dysrhythmias pretest, during exercise, or recovery. The functional capacity was considered good. There was no complaint of chest discomfort during exercise or recovery. The examination was discontinued secondary to dyspnea. Impression: 1. Technically adequate (percent predicted maximal heart rate greater than 85%) exercise tolerance test 2. Peak exercise ECG with [id number] nonspecific ST segment variability 3. There were no cardiac dysrhythmias pretest, during exercise, or recovery 4. Nuclear images pending Myocardial perfusion imaging study: Technique: The patient was injected with 11.9 mCi of technetium 99m Cardiolite and subsequently rest SPECT Cardiolite nuclear imaging was obtained in the horizontal long, vertical long, and short axis views. The patient exercised on a Neo protocol for 8 minutes completing Stage II and 2 minutes of Stage III achieving a peak heart rate of 151 bpm (92 % predicted maximal heart rate) with a peak blood pressure 184/72 mmHg and a peak MET capacity of 9 METs. The patient was injected with 34.1 mCi of technetium 99m Cardiolite and subsequently stress SPECT Cardiolite nuclear imaging was obtained in the horizontal long, vertical long, and short axis views. A gated Cardiolite study at peak stress was obtained. Interpretation: Rest and stress SPECT Cardiolite nuclear imaging status post realignment, normalization, and attenuation correction, demonstrates the appearance at rest of an area of diminished tracer uptake in portions of the distal anterior/anterior apical segments. Status post stress there are similar type findings although somewhat potentially more prominent. There is end systolic thickening and brightening. The gated Cardiolite study demonstrates diminished myocardial thickening/inward wall motion in the distal anterior segments. The reported LVEF is 68 %. Impression: 1. Rest and stress SPECT Cardiolite nuclear imaging demonstrate myocardial perfusion changes potentially compatible with an shifting soft tissue attenuation/artifact although an area of previous myocardial injury in the distal anterior/anterior apical segments with post stress related changes compatible with gurdeep-infarct related myocardial ischemia cannot necessarily be excluded. 2. The gated Cardiolite study reports an LVEF of 68 %. This note was generated with M-[employer] software. It may contain incorrect words, spelling, and punctuation that were not noted in checking the note before signing.
== END ==
PROVIDERS: Family Provider Nurse Practitioner; PCP Nurse Practitioner; Referring Provider Internal Medicine Cardiovascular Disease; Visit Provider Internal Medicine Cardiovascular Disease
DX: Z01.810 Encounter for preprocedural cardiovascular examination (principal); I48.92 Unspecified atrial flutter; I10 Essential (primary) hypertension; E03.9 Hypothyroidism, unspecified; I47.1 Supraventricular tachycardia; I65.23 Occlusion and stenosis of bilateral carotid arteries
CPT/HCPCS: 78452; 93017; A9500; A4216; J2785

== ENCOUNTER → 2019-09-10 12:46 | Outpatient (CLI) | payer MEDICARE, SELFPAY ==
[2019-07-02 10:51] VITALS: BMI 25.0
--- NOTE | 2019-09-10 12:49 | CDU_ITS ---
Reason For Study: carotid artery stenosis Rt. Velocities/BP Lt. Velocities/BP Prox CCA 91.7/13.4 cm/sec. Prox CCA 99.8/16.3 cm/sec. Mid CCA 107.3/17.3 cm/sec. Mid CCA 87.6/15.1 cm/sec. Dist CCA 89.1/13.4 cm/sec. Dist CCA 99.8/13.9 cm/sec. Prox ICA 158.7/24.8 cm/sec. Prox ICA 197.6/16.3 cm/sec. Mid ICA 106.5/20.6 cm/sec. Mid ICA 171.7/16.3. cm/sec. Dist ICA 119.3/24.3 cm/sec. Dist ICA 103.1/19.6 cm/sec. Rt. ICA/CCA = 1.5. Lt. ICA/CCA = 2.3. Prox ECA 246.6 cm/sec. Prox ECA 169.1 cm/sec. Rt. Vert. 53.2/13.9 cm/sec. Lt. Vert. 43.7/12.6 cm/sec. Right Extracranial There is homogeneous, smooth atherosclerotic plaque noted in the right common carotid artery. There is homogeneous, smooth atherosclerotic plaque noted in the right internal carotid artery. There is homogeneous, smooth atherosclerotic plaque noted in the right external carotid artery. Antegrade flow is noted in the right vertebral artery. Left Extracranial There is heterogeneous, smooth atherosclerotic plaque noted in the left common carotid artery. There is heterogeneous, irregular atherosclerotic plaque noted in the left internal carotid artery. There is homogeneous, smooth atherosclerotic plaque noted in the left external carotid artery. Antegrade flow is noted in the left vertebral artery. Procedure Carotid Duplex [id number]. The exam was diagnostic. Exam performed in department. Interpretation Summary Moderate (50-69%) stenosis right extracranial internal carotid. Moderate (50-69%) stenosis left extracranial internal carotid. Flow within the vertebral arteries is antegrade bilaterally. Ordering Physician: Kanu Amaya Performed By: Hilton King RVT
== END ==
PROVIDERS: PCP Nurse Practitioner; Referring Provider Surgery Vascular Surgery; Visit Provider Surgery Vascular Surgery
DX: I65.23 Occlusion and stenosis of bilateral carotid arteries (principal); Z86.73 Personal history of transient ischemic attack (TIA), and cerebral infarction without residual deficits
CPT/HCPCS: 93880

== ENCOUNTER → 2019-09-11 08:20 | Outpatient (CLI) | payer MEDICARE, SELFPAY ==
[2019-07-02 10:51] VITALS: BMI 25.0
[2019-09-11 10:20] LABS: Absolute Lymphocyte Count 1.02 X10^3/uL (0.83-4.51); Absolute Neutrophil Count 5.9 X10^3/uL (2.0-7.7); Basophil# 0.07 X10^3/uL; Basophil% 0.8 % (0-1); Eosinophil# 0.29 X10^3/uL; Eosinophils% 3.5 % (0-5); Hematocrit 29.2 % (37-47); Hemoglobin 8.9 g/dL (12.0-15.0); Lymphocyte # 1.02 X10^3/ul (4.0); Lymphocyte % 12.3 % (19-41); Mean Corp Hgb Conc 30.5 g/dL (32-36); Mean Corpuscular Hgb 26.4 pg (27.0-32.0); Mean Corpuscular Volume 86.6 fL (81-99); Mean Platelet Vol. 10.8 fl (6.2-12.0); Monocyte# 1.02 X10^3/uL; Monocyte% 12.3 % (0-10); NRBC Flagged by Analyzer 0 % (0-5); Neutrophil # 5.86 X10^3/uL (2.7-7.7); Neutrophil % 70.9 % (47-70); Platelet Count 362 K/mm3 (150-450); RBC Distribution Width SD 47.5 fl (35.1-43.9); Red Blood Count 3.37 M/mm3 (4.2-5.4); White Blood Count 8.3 K/mm3 (4.4-11.0)
[2019-09-11 10:40] LABS: ALB/GLOB Ratio 1.1 RATIO (0.9-2.4); AST(SGOT) 20 U/L (15-37); Alanine Aminotransfer ALT/SGPT 27 U/L (13-56); Albumin, Serum 3.8 g/dL (3.2-5.0); Alkaline Phosphatase 97 U/L (45-117); Anion Gap 5 (5-15); BUN 28 mg/dL (7-18); BUN/Creat Ratio 19.9 RATIO (10-20); Chloride 108 mmol/L (98-107); Cholesterol 171 mg/dL (200); Creatinine, Serum 1.41 mg/dL (0.55-1.02); EST Glomerular Filtration Rate 38 mL/min (>60); Est Glom Filt Rate - Afr Amer 46 mL/min (>60); Globulin 3.5 g/dL (2.2-4.2); Glucose 92 mg/dL (74-106); High Density Lipoprotein 59 mg/dL; Potassium 4.5 mmol/L (3.5-5.1); Protein, Total 7.3 g/dL (6.4-8.2); Sodium Level 139 mmol/L (136-145); Thyroid Stim Hormone (TSH) 3.91 uIU/mL (0.358-3.74); Triglycerides 139 mg/dL; Very Low Density Lipoprotein 28 mg/dL (5-40)
== END ==
LOC: LAB 08:21 → MTLAB 08:22
PROVIDERS: PCP Nurse Practitioner; Referring Provider Nurse Practitioner; Visit Provider Nurse Practitioner
DX: I12.9 Hypertensive chronic kidney disease with stage 1 through stage 4 chronic kidney disease, or unspecified chronic kidney disease (principal); N18.3 Chronic kidney disease, stage 3 (moderate); D64.9 Anemia, unspecified; E03.9 Hypothyroidism, unspecified
CPT/HCPCS: 36415; 80053; 80061; 84443; 85025

== ENCOUNTER → 2019-10-23 10:20 | Outpatient (CLI) | payer MEDICARE, SELFPAY ==
[2019-07-02 10:51] VITALS: BMI 25.0
[2019-10-23 12:14] LABS: Hematocrit 27.4 % (37-47); Hemoglobin 8.6 g/dL (12.0-15.0); Mean Corp Hgb Conc 31.4 g/dL (32-36); Mean Corpuscular Hgb 25.7 pg (27.0-32.0); Mean Corpuscular Volume 81.8 fL (81-99); Mean Platelet Vol. 10.8 fl (6.2-12.0); Platelet Count 399 K/mm3 (150-450); RBC Distribution Width CV 15.1 % (11.6-14.6); RBC Distribution Width SD 45.1 fl (35.1-43.9); Red Blood Count 3.35 M/mm3 (4.2-5.4); White Blood Count 9.1 K/mm3 (4.4-11.0)
[2019-10-23 12:22] LABS: Albumin, Serum 3.8 g/dL (3.2-5.0); BUN 37 mg/dL (7-18); BUN/Creat Ratio 23.9 RATIO (10-20); Calcium,Total 9.3 mg/dL (8.5-10.1); Chloride 111 mmol/L (98-107); Creatinine, Serum 1.55 mg/dL (0.55-1.02); EST Glomerular Filtration Rate 34 mL/min (>60); Est Glom Filt Rate - Afr Amer 41 mL/min (>60); Glucose 90 mg/dL (74-106); Phosphorus 3.5 mg/dL (2.5-4.9); Potassium 4.7 mmol/L (3.5-5.1); Sodium Level 139 mmol/L (136-145)
[2019-10-23 12:31] LABS: Protein, Urine (Random) 6.8 mg/dL (<11.9); Protein:Creat Ratio 119 mg/g CRE (0-200)
[2019-10-23 13:17] LABS: Vitamin D,25 Hydroxy 31.5 ng/mL
[2019-10-23 13:47] LABS: PTHIN 43.3 pg/mL (18.4-80.1)
== END ==
PROVIDERS: PCP Nurse Practitioner; Referring Provider Internal Medicine Nephrology; Visit Provider Internal Medicine Nephrology
DX: N18.3 Chronic kidney disease, stage 3 (moderate) (principal); N25.81 Secondary hyperparathyroidism of renal origin
CPT/HCPCS: 36415; 80069; 82306; 82570; 83970; 84156; 85027